=== PATIENT | male | born 1990 | race Caucasian/White ===

== ENCOUNTER 2016-06-21 21:24 | Inpatient (IN) | payer BC, OTHER ==
[~2016-06-21] VITALS: Ht 162.6 cm; Wt 50.7 kg
[2016-06-22 00:25] VITALS: BP 123/85; PULSE 110; RESP 20; TEMP 98.3; O2SAT 98
[2016-06-22 01:41] VITALS: BP 123/85; PULSE 110; RESP 20; TEMP 98.3; O2SAT 98
[2016-06-22] MEDS ORDERED: BENZTROPINE MESYLATE 2 MG/2 ML VIAL IM PRN (02:00)
[2016-06-22] MEDS ORDERED: BENZTROPINE MESYLATE 1 MG TAB PO PRN (02:00)
--- NOTE | 2016-06-22 11:53 | HHI.HP ---
Provisional Diagnosis Admission Date Jun 22, 2016 at 00:40 Certification of Person's Competence To Provide Express and Informed Consent I have personally examined Marco Choudhury , a person being served at [facility] on, Jun 22, 2016 11:53. Express and informed consent means consent voluntarily given in writing, by a competent person, after sufficient explanation and disclosure of the subject matter involved to enable the person to make a knowing and willful decision without any element of force, fraud, deceit, duress, or other form of constraint or coercion. This person is 18 years of age or older, is not now known to be incompetent to consent to treatment with a guardian advocate, and does not have a health care surrogate or proxy currently making medical treatment decisions. I have found this person to be one of the following: [] Competent to provide express and informed consent, as defined above, for voluntary admission to this facility and is competent to provide express and informed consent for treatment. He/she has the consistent capacity to make well reasoned, willful, and knowing decisions concerning his or her medical or mental health treatment. The person fully and consistently understands the purpose of the admission for examination/placement and is fully capable of personally exercising all rights assured under [place] [x] Incompetent to provide express and informed consent to voluntary admission, and this is incompetent to provide express and informed consent to treatment. The person must be transferred to involuntary status and a petition for a guardian advocate filed with the Circuit Court. [] Refusing to provide express and informed consent to voluntary admission but is competent to provide express and informed consent for treatment. The person must be discharged or transferred to involuntary status. Form shall be completed within 24 hours of a person's arrival at the receiving facility and filed in the clinical record of each person: 1. Admitted on a voluntary basis 2. Permitted to provide express and informed consent to his/her own treatment 3. Allowed to transfer from involuntary to voluntary status 4. Prior to permitting a person to consent to his or her own treatment after having been previously found incompetent to consent to treatment. History of Present Illness Capacity: Lacks Capacity HPI Mr. Choudhury is a 25-year-old male of uncertain past psychiatric history who presents in transfer from [facility] under a Parmar act. Records from outside hospital reviewed. Documentation from that facility says that the patient has a history of schizophrenia and takes Lamictal , Klonopin, Invega Sustenna and hydroxyzine. It appears that the patient presented there, brought in by mother with reports of not sleeping in the last 24 hours, agitation and combativeness during the airplane ride from [place]. Documentation from outside hospital is somewhat obscure, but it does not appear that he received anything in the way of medications other than some normal saline. Patient was placed under a Parmar act by ED provider, Dr. Berman, and transferred here to [place]. Reviewing our EMR, I note that this is patient 's first visit to [place]. Patient seen and examined with counselor and nurse, Seda. Nurse Seda is acting as cosmetology professor as the patient apparently has limited Icelandic proficiency. Chart reviewed. Case discussed with nursing staff. On my examination today, the patient presents as fairly somnolent. There are no posturing or stereotypies or other abnormal motor movements to suggest a catatonia. He is with some effort aroused from sleep and able to participate in a brief interview. He says that he has been brought to the hospital " because I am the future." He denies any auditory or visual hallucinations. He denies any suicidal or homicidal ideation. He denies any paranoia. He denies any pain or discomfort. Psychiatric interview is limited as the patient is somewhat sedated. I did endeavor to obtain further collateral information from patient's mother, Ana Lilia Zelaya at the number listed in the EMR. I left a voicemail requesting a call back. Review of Systems ROS Limitations: Altered Mental Status, Poor Historian Other Limited review of systems because of patient's current mental status Past Psych History Psychological trauma history Unable to obtain from patient because of sedation Violence risk - others (6 mos) Unable to perform violence risk assessment given limited history Violence risk - self (6 mos) Unable to perform suicide risk assessment given limited history Substance Abuse History Drugs/Alcohol past 12 months Patient unable to provide due to sedation Past Family Social History Coded Allergies: No Known Allergies (Unverified , 06/22/16) Past Medical History Unclear at present Current Medications Medications (Trade) Dose Ordered Sig/Jerson Route Start Time Stop Time Status Last Admin (Ativan) 1 mg Q6H PRN PO 06/22/16 02:00 (Ativan Inj) 1 mg Q6H PRN IM 06/22/16 02:00 (Cogentin) 1 mg Q12H PRN PO 06/22/16 02:00 (Cogentin Inj) 1 mg Q12H PRN IM 06/22/16 02:00 (Benadryl) 50 mg HS PRN PO 06/22/16 02:00 (Tylenol) 650 mg Q4H PRN PO 06/22/16 02:00 (Milk Of Magnesia Liq) 30 ml DAILY PRN PO 06/22/16 02:00 (Mag-Al Plus Susp Liq) 30 ml Q6H PRN PO 06/22/16 02:00 Family History Unable to ascertain from patient due to sedation Social History Unable to obtain from patient due to sedation Patient's Strengths (min. 2) In a monitored setting. Verbally fluent. Physical Exam Physical examination completed at outside hospital. On my examination today, patient appears to be well-nourished and well-developed and in no acute physical distress. He is breathing easily and is in no respiratory distress. No motor abnormalities noted. Laboratories and vital signs reviewed: Vital Signs Vital Signs Date Time Temp Pulse Resp B/P Pulse Ox O2 Delivery O2 Flow Rate FiO2 06/22/16 01:41 98.3 110 20 123/85 98 Lab Results Outside hospital laboratories and studies reviewed: Head CT read as no acute intracranial abnormality. Chest x-ray read as normal. Urinalysis bland. Toxicology positive for benzodiazepines. CBC significant for mild anemia with hemoglobin of 12.9. CMP unremarkable. Alcohol level undetectable. EKG read as sinus bradycardia with a QTc of 431 ms. Mental Status Examination Patient is casually dressed. He is fairly well groomed and appears to be maintaining basic hygiene. He is somewhat sedated but able to be awakened. He is oriented to person at least. No motor abnormalities noted. Speech is somewhat slow. Language and fund of knowledge difficult to assess. Affect is flat. Thought process slowed. No delusions elicited. Denies AVH. Denies SI or HI. Insight and judgment are presently unclear. Assessment & Plan Problem List: (1) Adjustment disorder ICD Code: F43.20 (2) Sedated ICD Code: R40.4 Assessment & Plan This is a 25-year-old male of uncertain past psychiatric history who presents in transfer from outside hospital under a Parmar act. Documentation from outside hospital suggests a history of schizophrenia and that the patient is receiving Invega Sustenna, and other psychotropic medications. He is quite sedated at the time of my evaluation and a history I am able to obtain from him is quite limited for this reason. Collateral is also unfortunately presently wanting. There is nothing in the laboratory workup undertaken at outside hospital to suggest a medical etiology for his sedation, and his head CT there was read as normal. The notes from outside hospital do say that the patient hadn't slept in the preceding 24 hours, which may be contributing. Parmar Act remains in place and patient will remain for the time being on the inpatient unit for observation until further information can be obtained. Admitted inpatient. Parmar act remains in place for now. I will recheck a CBC to ensure anemia is stable. Check TSH, ammonia, B12, RPR. Unclear if med list provided by outside hospital is accurate, and so I will hold off on starting any of the medications listed there. I will provide Ativan PRN anxiety, Cogentin PRN EPS. Vitals every shift. Counselor to see. Collateral. Disposition planning. Estimated length of stay: Unclear at present. Discharge Planning Pending outcome of observation. Problem Qualifiers (1) Adjustment disorder: Qualified Code: F43.20 - Adjustment disorder, unspecified type Van Barnhart MD Jun 22, 2016 11:53
[2016-06-22 13:13] LABS: ANION GAP 9 MEQ/L (5-15); BICARBONATE 25.3 MEQ/L (21.0-32.0); BLOOD UREA NITROGEN 11 MG/DL (7-18); CHLORIDE 106 MEQ/L (98-107); GLOMERULAR FILTRATION RATE 75 ML/MIN (>89); LDL CHOLESTEROL 73 MG/DL (0-99); POTASSIUM 4.5 MEQ/L (3.5-5.1); SODIUM (NA) 140 MEQ/L (136-145)
[2016-06-22 16:21] LABS: HEMOGLOBIN A1a 0.9 %; HEMOGLOBIN A1b 0.9 %; HEMOGLOBIN Ao 86.7 %; HEMOGLOBIN F 0.8 %; HEMOGLOBIN LA1C 1.8 %; HEMOGLOBIN P3 3.2 %
[2016-06-22 16:50] LABS: AUTOMATED NEUTROPHIL # 5.7 TH/MM3 (1.8-7.7); BASOPHIL % 0.3 % (0.0-2.0); EOSINOPHIL # 0.2 TH/MM3 (0-0.4); EOSINOPHIL % 1.9 % (0.0-4.0); HEMATOCRIT 40.8 % (39.0-51.0); HEMO FLAGS DIFF FINAL; LYMPH % 23.5 % (9.0-44.0); LYMPHOCYTE # 1.9 TH/MM3 (1.0-4.8); MEAN CELL VOLUME 90.2 FL (80.0-100.0); MEAN CORPUSCULAR HEMOGLOBIN 30.2 PG (27.0-34.0); MEAN CORPUSCULAR HGB CONC 33.5 % (32.0-36.0); MONO % 3.9 % (0.0-8.0); NEUT % 70.4 % (16.0-70.0); PLATELET COUNT 215 TH/MM3 (150-450); RED BLOOD COUNT 4.53 MIL/MM3 (4.50-5.90); WHITE BLOOD COUNT 8.1 TH/MM3 (4.0-11.0)
[2016-06-22 18:12] VITALS: BP 144/73; PULSE 111; RESP 19; TEMP 98.6; O2SAT 96
[2016-06-22] MEDS: LORazepam 1 MG TAB PO PRN (22:51)
[2016-06-22] MEDS: diphenhydrAMINE HCL 50 MG CAP - HS PRN PO (22:51)
[2016-06-22] MEDS ORDERED: LAMO25 PO (23:00)
[2016-06-22] MEDS ORDERED: KLON2TAB PO (23:00)
[2016-06-22] MEDS ORDERED: CLON1 PO (23:00)
[2016-06-22] MEDS ORDERED: VIST50CA PO (23:00)
[2016-06-22] MEDS ORDERED: FAMO1TAB73 PO (23:07)
[2016-06-23 06:06] VITALS: BP 103/63; PULSE 69; RESP 16; TEMP 97.6; O2SAT 98
[2016-06-23] MEDS: ACETAMINOPHEN 325 MG TAB PO PRN (11:22)
--- NOTE | 2016-06-23 12:07 | HHI.PYPN ---
Subjective Remarks Patient seen and examined with nurse. Chart reviewed. Case discussed with nursing staff reports the patient tried to escape off the unit and has poor boundaries. On my examination today, the patient presents as somewhat tearful. He reports a history of schizophrenia. He endorses auditory hallucinations but cannot describe these in any detail. He endorses vague suicidal ideation but no reported plan or intent. He reports that he was started on Invega Sustenna but can't remember the dose. I did place a call to an alternate number for patient's mother and left a voicemail requesting a call back. Review of Systems ROS Limitations: Psychotic, Poor Historian Except as stated in HPI: all other systems reviewed are Neg Objective Alert: Yes [place]: Person Mood: Anxious Affect: Tearful Memory Intact: Comment (Not assessed) Hallucinations: Auditory Delusions: No Delusion Type: Other (None elicited) Suicidal: Ideation (+SI, no plan/intent) Homicidal: Ideation (No HI) Insight/Judgment Poor Remarks Patient is somewhat psychomotor slowed but otherwise no motoric abnormalities noted. Thought process slow. Speech somewhat soft but otherwise within normal limits for rate and tone. Labs Test 06/22/16 06/22/16 12:44 16:18 Sodium Level 140 MEQ/L Potassium Level 4.5 MEQ/L Chloride Level 106 MEQ/L Carbon Dioxide Level 25.3 MEQ/L Anion Gap 9 MEQ/L Blood Urea Nitrogen 11 MG/DL Creatinine 1.17 MG/DL Estimat Glomerular Filtration 75 ML/MIN Rate Random Glucose 88 MG/DL Hemoglobin A1c 5.1 % Calcium Level 8.8 MG/DL Triglycerides Level 225 MG/DL Cholesterol Level 150 MG/DL LDL Cholesterol 73 MG/DL HDL Cholesterol 32.0 MG/DL Cholesterol/HDL Ratio 4.68 RATIO White Blood Count 8.1 TH/MM3 Red Blood Count 4.53 MIL/MM3 Hemoglobin 13.7 GM/DL Hematocrit 40.8 % Mean Corpuscular Volume 90.2 FL Mean Corpuscular Hemoglobin 30.2 PG Mean Corpuscular Hemoglobin 33.5 % Concent Red Cell Distribution Width 14.0 % Platelet Count 215 TH/MM3 Mean Platelet Volume 9.7 FL Neutrophils (%) (Auto) 70.4 % Lymphocytes (%) (Auto) 23.5 % Monocytes (%) (Auto) 3.9 % Eosinophils (%) (Auto) 1.9 % Basophils (%) (Auto) 0.3 % Neutrophils # (Auto) 5.7 TH/MM3 Lymphocytes # (Auto) 1.9 TH/MM3 Monocytes # (Auto) 0.3 TH/MM3 Eosinophils # (Auto) 0.2 TH/MM3 Basophils # (Auto) 0.0 TH/MM3 CBC Comment DIFF FINAL Differential Comment Ammonia 35 MCMOL/L Vitamin B12 Level 340 PG/ML Thyroid Stimulating Hormone 1.440 uIU/ML 3rd Gen Labs reviewed. Very mild hyperammonemia unlikely to be the cause of patient's presenting symptoms. Vitals/IOs Vital Signs Date Time Temp Pulse Resp B/P Pulse Ox O2 Delivery O2 Flow Rate FiO2 06/23/16 06:06 97.6 69 16 103/63 98 Intake and Output 06/22/16 06/22/16 06/23/16 08:00 16:00 00:00 Intake Total 360 ml Balance 360 ml Assessment & Plan Problem List: (1) Schizophrenia ICD Code: F20.9 Assessment & Plan Patient apparently recently received long-acting injectable paliperidone but has ongoing psychotic symptoms. I will augment paliperidone with Haldol. Awaiting EEG. Continue to monitor on inpatient unit. Continue other medications and care as ordered. Justification for Cont. Inpt. Impairment in safety. Impairment in reality construction. Impairment in social function. Medication changes and process. High risk for decompensation in a less restrictive environment. Discharge Planning Pending psychiatric stabilization. Problem Qualifiers (1) Schizophrenia: Qualified Code: F20.3 - Undifferentiated schizophrenia Van Barnhart MD Jun 23, 2016 12:07
[2016-06-23] MEDS: ALUMINUM/MAGNESIUM/SIMETH 30 ML CUP PO PRN (17:39)
[2016-06-23] MEDS: diphenhydrAMINE HCL 50 MG CAP - HS PRN PO (20:01)
[2016-06-23] MEDS: LORazepam 1 MG TAB PO PRN (20:01)
--- NOTE | 2016-06-23 20:28 | MG ---
cc: ISIDRO ANDERS MD Lab No: [id number] Date: 06/23/16 Age: 25 Sex: M Race: DATE OF : 1990 HISTORY A 25-year-old. Parmar Act, agitated, combative, catatonic state. DESCRIPTION Frequent eye movement, blink artifact noted. Posterior rhythm appeared to show 5-7 Hz activity incrementing up to 8 Hz. Significant amount of artifact myogenic occurring during the recording. Single-lead EKG showing sinus rhythm. INTERPRETATION Significant myogenic artifact. In the interval epochs of EEG there appears to be very minimal encephalopathy. No clear seizure activity. Clinical correlation. MD KARO Khan/ROLAF /5:41 PM /8:22 PM
[2016-06-23] MEDS ORDERED: HALOPERIDOL 5 MG TAB PO SCH (21:00)
[2016-06-23 21:46] VITALS: BP 144/72; PULSE 126; RESP 16; TEMP 98.1; O2SAT 96
[2016-06-24 06:18] VITALS: BP 92/61; PULSE 52; RESP 16; TEMP 97.7; O2SAT 96
--- NOTE | 2016-06-24 08:11 | PD.CONS ---
Provisional Diagnosis Admission Date Jun 22, 2016 at 00:40 History of Present Illness Service Psychiatry Consult Requested By Attending Darrel. Reason for Consult Second opinion petition Parmar act Primary Care Physician Unknown HPI Mr. Choudhury is a 25-year-old male of uncertain past psychiatric history who presents in transfer from [facility] under a Parmar act. Records from outside hospital reviewed. Documentation from that facility says that the patient has a history of schizophrenia and takes Lamictal , Klonopin, Invega Sustenna and hydroxyzine. It appears that the patient presented there, brought in by mother with reports of not sleeping in the last 24 hours, agitation and combativeness during the airplane ride from [place]. Documentation from outside hospital is somewhat obscure, but it does not appear that he received anything in the way of medications other than some normal saline. Patient was placed under a Parmar act by ED provider, Dr. Berman, and transferred here to [place]. Reviewing our EMR, I note that this is patient 's first visit to [place]. Patient seen and examined with counselor and nurse, Seda. Nurse Seda is acting as material flow analyst as the patient apparently has limited Greenlandic proficiency. Chart reviewed. Case discussed with nursing staff. On my examination today, the patient presents as fairly somnolent. There are no posturing or stereotypies or other abnormal motor movements to suggest a catatonia. He is with some effort aroused from sleep and able to participate in a brief interview. He says that he has been brought to the hospital " because I am the future." He denies any auditory or visual hallucinations. He denies any suicidal or homicidal ideation. He denies any paranoia. He denies any pain or discomfort. Psychiatric interview is limited as the patient is somewhat sedated. I did endeavor to obtain further collateral information from patient's mother, Ana Lilia Zelaya at the number listed in the EMR. I left a voicemail requesting a call back. 06/24/16 Patient is a 25-year-old male admitted to the hospital under Parmar act. Patient seen in his room with nurse Betty, patient in bed selectively mute laying there without responding to me, staff notes patient showed marked psychomotor retardation is noted temperature laying on the floor in the halls talking to himself. Patient is admitted to Dr. Chaiffetz. He has signed first opinion petition supporting Parmar act. I agree. Patient meets criteria for involuntary psychiatric hospitalization under the Parmar act. Thus I will cosign second opinion petition supporting Parmar act Past Family Social History Coded Allergies: No Known Allergies (Unverified , 06/22/16) Reported Medications Famotidine (Pepcid)40 Mg Tab40 Mg PO DAILY #60 TAB Ref 0 06/22/16 Hydroxyzine Pamoate (Vistaril)50 Mg Cap50 Mg PO HS Ref 0 06/22/16 Lamotrigine (Lamictal)25 Mg Tab50 Mg PO DAILY #30 TAB Ref 0 06/22/16 Clonazepam (Klonopin)2 Mg Tab2 Mg PO HS #60 TAB Ref 0 06/22/16 Clonazepam (Klonopin)1 Mg Tab1 Mg PO TID #90 TAB Ref 0 06/22/16 Current Medications Medications (Trade) Dose Ordered Sig/Jerson Route Start Time Stop Time Status Last Admin (Ativan) 1 mg Q6H PRN PO 06/22/16 02:00 06/23/16 20:01 (Ativan Inj) 1 mg Q6H PRN IM 06/22/16 02:00 (Cogentin) 1 mg Q12H PRN PO 06/22/16 02:00 (Cogentin Inj) 1 mg Q12H PRN IM 06/22/16 02:00 (Benadryl) 50 mg HS PRN PO 06/22/16 02:00 06/23/16 20:01 (Tylenol) 650 mg Q4H PRN PO 06/22/16 02:00 06/23/16 11:22 (Milk Of Magnesia Liq) 30 ml DAILY PRN PO 06/22/16 02:00 (Mag-Al Plus Susp Liq) 30 ml Q6H PRN PO 06/22/16 02:00 06/23/16 17:39 (Haldol) 5 mg BID PO 06/23/16 21:00 06/23/16 20:01 Patient's Strengths (min. 2) In a monitored setting. Verbally fluent. Physical Exam Vital Signs Vital Signs Date Time Temp Pulse Resp B/P Pulse Ox O2 Delivery O2 Flow Rate FiO2 06/24/16 06:18 97.7 52 16 92/61 96 I/O 06/23/16 06/23/16 06/24/16 08:00 16:00 00:00 Intake Total 1000 ml Balance 1000 ml Mental Status Examination Patient alert those selectively mute marked psychomotor retardation Appearance Somewhat disheveled Speech: Other (selectively mute) Orientation: Person Memory: Impaired (describe) Thought Process: Other (difficult to ascertain due to patient being mute) Thought Content: Other (difficult to ascertain due to patient being mute) Language Staff states patient speaks Greenlandic as well as [place]ian Fund of Knowledge Difficult to ascertain due to patient being selectively mute Attention and Concentration: Other (poor) Suicidal Ideation: No (difficult to ascertain due to patient being selectively view) Previous Suicide Attempts: No Homicidal Ideation: No (difficult to ascertain due to patient being selectively mute) Previous Homicide Attempts: No Insight: Poor Judgment: Poor Affect: Other (marked decrease range and intensity) Mood: Other (restricted) Motor Activity: Normal gait (patient in bed unable to assess though staff states he has been ambulatory) Assessment & Plan Problem List: (1) Schizophrenia ICD Code: F20.9 Assessment & Plan Estimated LOS: days Problem Qualifiers (1) Schizophrenia: Qualified Code: F20.3 - Undifferentiated schizophrenia Eusebio Dickey MD Jun 24, 2016 08:11
--- NOTE | 2016-06-24 10:38 | HHI.PYPN ---
Subjective Remarks Patient seen and examined. Chart reviewed. Case discussed with nursing staff who reports that the patient has been sleeping so far this morning. He was reportedly quite disorganized yesterday and required 20 minutes to dress himself. When I evaluated the patient on my initial rounds this morning he is quite sleepy and I cannot get him to participate in the interview. I return later around noon time and he is more awake although still in bed. He does say that with the addition of Haldol the voices have decreased but does complain of some sedation associated with this medication. He denies side effects otherwise. No SI or HI voiced today. Counselor has been in contact with patient's mother and has apprise me of the collateral that he has received from her. Patient apparently has a history primarily of intellectual disability with only relatively recent onset of psychotic symptoms. Apparently mother feels like his psychotic symptoms fail to improve or even worsened with the initiation of Invega. Review of Systems ROS Limitations: Psychotic, Poor Historian Except as stated in HPI: all other systems reviewed are Neg Objective Alert: Yes [place]: Person, Place Mood: Calm Affect: Flat Memory Intact: Comment (Not assessed) Hallucinations: Auditory (Less today) Delusions: No Delusion Type: Other (None elicited) Suicidal: Ideation (No SI) Homicidal: Ideation (No HI) Insight/Judgment Poor Remarks No abnormal motor movements noted. Speech somewhat slow. Grooming and hygiene fair. Labs Labs reviewed. EEG results reviewed. Minimal encephalopathy noted. Vitals/IOs Vital Signs Date Time Temp Pulse Resp B/P Pulse Ox O2 Delivery O2 Flow Rate FiO2 06/24/16 06:18 97.7 52 16 92/61 96 Intake and Output 06/23/16 06/23/16 06/24/16 08:00 16:00 00:00 Intake Total 1000 ml Balance 1000 ml Assessment & Plan Problem List: (1) Schizophrenia ICD Code: F20.9 (2) History of mental retardation ICD Code: Z86.59 Assessment & Plan Excessive sedation with Haldol. I will discontinue Haldol and replace with less sedating Abilify. Continue to monitor on the inpatient unit. Continue other medications and care as ordered. Justification for Cont. Inpt. Impairment in reality construction. Complicating conditions, namely the sedation. Medication changes in process. Risk for decompensation pending psychiatric stabilization. Discharge Planning Pending psychiatric stabilization. If patient is able to tolerate Abilify better than the Haldol, I would still estimate that the patient would require 5- 7 days for adequate stabilization for safe discharge. Request HC Surrog/Guard Advoc?: Yes Problem Qualifiers (1) Schizophrenia: Qualified Code: F20.3 - Undifferentiated schizophrenia Van Barnhart MD Jun 24, 2016 10:38
[2016-06-24] MEDS: ARIPiprazole 5 MG TAB PO SCH (12:39)
[2016-06-24 18:42] VITALS: BP 127/74; PULSE 128; RESP 18; TEMP 97.9; O2SAT 97
[2016-06-24] MEDS: LORazepam 1 MG TAB PO PRN (21:03)
[2016-06-24] MEDS: diphenhydrAMINE HCL 50 MG CAP - HS PRN PO (21:03)
[2016-06-25 05:53] VITALS: BP 126/84; PULSE 100; RESP 18; TEMP 98.2; O2SAT 98
[2016-06-25] MEDS: ARIPiprazole 5 MG TAB PO SCH (09:00)
[2016-06-25] MEDS ORDERED: LORazepam 2 MG/ML VIAL IM ONE (10:15)
--- NOTE | 2016-06-25 10:59 | HHI.PYPN ---
Subjective Remarks Patient seen and examined with counselor and nurse. Chart reviewed. Case discussed with nursing staff who reports patient may be struggling with some constipation. Pt was also noted to be staring intensely at RN in an off- putting fashion. On my examination today, patient is laying in bed in a somewhat uncomfortable looking position. He is not stuporous and does interact , although he engages in some purposeless movements like tapping his finger on his forehead. He denies SI/HI/AVH but appears frankly internally preoccupied. Does report some constipation. No side effects from medications. I did order the patient medicated with Ativan 2mg IM once to see if he was experiencing a benzo-responsive mild catatonia, but on checking back with the RN ~30min after administration, patient is more or less unchanged. Review of Systems ROS Limitations: Psychotic, Poor Historian Except as stated in HPI: all other systems reviewed are Neg Objective Alert: Yes [place]: Person, Place Mood: Calm Affect: Flat (remains flat) Memory Intact: Comment (Not formally assessed) Hallucinations: Other (Denies AVH) Delusions: No Delusion Type: Other (No delusions) Suicidal: Ideation (Denies SI) Homicidal: Ideation (Denies HI) Insight/Judgment Poor Remarks Motor exam as above. No other motoric abnormalities noted. Thought process slowed. Speech somewhat slow and soft. Labs Labs reviewed. RPR nonreactive. Vitals/IOs Vital Signs Date Time Temp Pulse Resp B/P Pulse Ox O2 Delivery O2 Flow Rate FiO2 06/25/16 05:53 98.2 100 18 126/84 98 Intake and Output 06/24/16 06/24/16 06/25/16 08:00 16:00 00:00 Intake Total 220 ml Balance 220 ml Assessment & Plan Problem List: (1) Schizophrenia ICD Code: F20.9 (2) History of mental retardation ICD Code: Z86.59 Assessment & Plan Titrate Abilify through the weekend to target psychosis. Add Colace. Continue other medications as ordered. Continue to monitor on the high acuity unit. Continue other care as ordered. Justification for Cont. Inpt. Impairment in reality construction. Medication changes in process. High risk for decompensation and a less restrictive environment. Discharge Planning Pending psychiatric stabilization Request HC Surrog/Guard Advoc?: Yes Problem Qualifiers (1) Schizophrenia: Qualified Code: F20.3 - Undifferentiated schizophrenia Van Barnhart MD Jun 25, 2016 10:59
[2016-06-25] MEDS: MAGNESIUM HYDROXIDE SUSP 30 ML CUP PO PRN (12:59)
[2016-06-25 18:03] VITALS: BP 115/68; PULSE 90; RESP 18; TEMP 97.9; O2SAT 99
[2016-06-25] MEDS: DOCUSATE SODIUM 100 MG CAP PO SCH (20:47)
[2016-06-25] MEDS: diphenhydrAMINE HCL 50 MG CAP - HS PRN PO ×2 (20:47→20:48)
[2016-06-25] MEDS: LORazepam 1 MG TAB PO PRN ×2 (20:47→20:48)
[2016-06-26 05:35] VITALS: BP 100/53; PULSE 60; RESP 17; TEMP 97.7; O2SAT 97
[2016-06-26] MEDS: ARIPiprazole 10 MG TAB PO SCH (08:20)
[2016-06-26] MEDS: DOCUSATE SODIUM 100 MG CAP PO SCH ×2 (08:20→21:49)
[2016-06-26] MEDS: LORazepam 1 MG TAB PO PRN ×2 (08:20→17:38)
[2016-06-26] MEDS ORDERED: ARIPiprazole 10 MG TAB PO SCH (09:00)
[2016-06-26] MEDS: ALUMINUM/MAGNESIUM/SIMETH 30 ML CUP PO PRN (17:38)
[2016-06-26 20:21] VITALS: BP 133/68; PULSE 120; RESP 18; TEMP 97.7; O2SAT 98
--- NOTE | 2016-06-26 21:41 | HHI.PYPN ---
Subjective Remarks Pt seen and discussed with staff. Pt is selectively mute at times. He appears internally stimulated. He shakes head "no" when asked if he is experiencing side effects to medication. No acting out behaviors on unit. No SI/HI Objective Alert: Yes [place]: Person, Place Mood: Calm Affect: Flat Memory Intact: Comment (Not formally assessed) Hallucinations: Other (appears internally stimulated) Delusions: No Delusion Type: Other (No delusions) Suicidal: Ideation (Denies SI) Homicidal: Ideation (Denies HI) Insight/Judgment poor Vitals/IOs Vital Signs Date Time Temp Pulse Resp B/P Pulse Ox O2 Delivery O2 Flow Rate FiO2 06/26/16 20:21 97.7 120 18 133/68 98 Assessment & Plan Problem List: (1) Schizophrenia ICD Code: F20.9 (2) History of mental retardation ICD Code: Z86.59 Assessment & Plan Continue current tx plan Estimated LOS: days Justification for Cont. Inpt. 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
[2016-06-26] MEDS: diphenhydrAMINE HCL 50 MG CAP - HS PRN PO (21:49)
[2016-06-27 06:26] VITALS: BP 108/58; PULSE 112; RESP 18; TEMP 98.4; O2SAT 97
[2016-06-27] MEDS: ARIPiprazole 10 MG TAB PO SCH (08:19)
[2016-06-27] MEDS: DOCUSATE SODIUM 100 MG CAP PO SCH ×2 (08:19→21:22)
[2016-06-27] MEDS: LORazepam 1 MG TAB PO PRN (08:19)
--- NOTE | 2016-06-27 13:30 | HHI.PYPN ---
Subjective Remarks Pt seen and discussed with staff. Pt has been more engaged in milieu today and less selectively mute. He told RN that she had vampire teeth and was suspicious of RN's motives. He has been making flirtacious facial expressions at female peers and staff and has to be redirected to keep hands out of pants during interview with MD and RN. No aggression. He denies medication side effects. No SI/HI. Objective Alert: Yes [place]: Person, Place Mood: Calm Affect: Flat Memory Intact: Comment (Not formally assessed) Hallucinations: Other (appears internally stimulated) Delusions: Yes (bizarre ideations) Delusion Type: Other (No delusions) Suicidal: Ideation (Denies SI) Homicidal: Ideation (Denies HI) Insight/Judgment poor Remarks disorganized behaviors Vitals/IOs Vital Signs Date Time Temp Pulse Resp B/P Pulse Ox O2 Delivery O2 Flow Rate FiO2 06/27/16 06:26 98.4 112 18 108/58 97 Assessment & Plan Problem List: (1) Schizophrenia ICD Code: F20.9 (2) History of mental retardation ICD Code: Z86.59 Assessment & Plan Continue current tx plan. Estimated LOS: days Justification for Cont. Inpt. impairments in social functioning and reality testing Request HC Surrog/Guard Advoc?: Yes Problem Qualifiers (1) Schizophrenia: Qualified Code: F20.3 - Undifferentiated schizophrenia Stephanie Uriarte MD Jun 27, 2016 13:30
[2016-06-27 15:38] VITALS: BP 152/82; PULSE 102; RESP 18; TEMP 98; O2SAT 100
[2016-06-28 05:25] VITALS: BP 117/58; PULSE 71; RESP 18; TEMP 96.6; O2SAT 94
[2016-06-28] MEDS: ARIPiprazole 10 MG TAB PO SCH (09:11)
[2016-06-28] MEDS: DOCUSATE SODIUM 100 MG CAP PO SCH ×2 (09:12→20:31)
--- NOTE | 2016-06-28 10:04 | HHI.PYPN ---
Subjective Remarks Patient seen and examined. Chart reviewed. Case discussed with nursing staff who reports patient awoke this morning to take medications and then went back to bed. On my examination today, I find the patient sleeping in his room. He does not appear to be in any distress. He does awaken briefly and exchanges a few pleasantries but does not really participate in extended interview. No SI or HI voiced. No evidence side effects from medications. Spoke with patient's mother Ms. Zelaya. She notes that the patient does have a history of intellectual disability but only relatively recently, within the last few months, began to hear voices and behave in a strange fashion. He was started on Invega Sustenna and received the booster dose about a week prior to admission. Mother reports that since the Invega Sustenna was initiated the patient's symptoms worsened. She notes that on the unit here on the Abilify, the patient is calmer but remains fairly disorganized. I discussed the treatment plan with Ms. Zelaya, and she is in agreement. She thanks me for the call. Review of Systems ROS Limitations: Poor Historian (limited ROS) Objective Alert: Yes [place]: Person, Place Mood: Calm Affect: Blunted Memory Intact: Comment (Not formally assessed) Hallucinations: Other (no AVH) Delusions: No Delusion Type: Other (no delusions elicited, but limited sample) Suicidal: Ideation (no SI voiced) Homicidal: Ideation (no HI voiced) Insight/Judgment Poor Remarks No motor abnormalities noted. No stiffness. No posturing. No stereotypies. Labs Labs reviewed. Vitals/IOs Vital Signs Date Time Temp Pulse Resp B/P Pulse Ox O2 Delivery O2 Flow Rate FiO2 06/28/16 05:25 96.6 71 18 117/58 94 Intake and Output 06/27/16 06/27/16 06/28/16 08:00 16:00 00:00 Intake Total 180 ml Balance 180 ml Assessment & Plan Problem List: (1) Schizophrenia ICD Code: F20.9 (2) History of mental retardation ICD Code: Z86.59 Assessment & Plan Patient seems a little more sleepy today. I will arrest Abilify titration at 20mg/day dose to ensure this allow patient to acclimate to this dose. Continue to monitor on high acuity unit. Continue other medications and care as ordered. Justification for Cont. Inpt. High risk for decompensation in a less restrictive environment Discharge Planning Pending psychiatric stabilization Request HC Surrog/Guard Advoc?: Yes Problem Qualifiers (1) Schizophrenia: Qualified Code: F20.3 - Undifferentiated schizophrenia Van Barnhart MD Jun 28, 2016 10:04
[2016-06-28 16:38] VITALS: BP 114/75; PULSE 99; RESP 18; TEMP 98; O2SAT 99
[2016-06-28 17:26] VITALS: BP 114/75; PULSE 99; RESP 18; TEMP 98
[2016-06-28] MEDS: diphenhydrAMINE HCL 50 MG CAP - HS PRN PO (20:30)
[2016-06-29] MEDS: LORazepam 1 MG TAB PO PRN ×2 (01:09→20:47)
[2016-06-29] MEDS: DOCUSATE SODIUM 100 MG CAP PO SCH ×2 (08:24→20:47)
--- NOTE | 2016-06-29 12:44 | HHI.PYPN ---
Subjective Remarks Patient seen and examined with nurse. Chart reviewed. Case discussed with nurse and counselor in treatment team. Per nursing staff, patient has been seclusive to room and responding to internal stimuli. On my examination today, the patient endorses ongoing audiovisual hallucinations consisting of "video games." He does complain of feeling somewhat sleepy now but says this is because he sleeps poorly overnight. Charting does indeed indicate the patient has been sleeping poorly overnight. No SI or HI voiced. No side effects from medications. Review of Systems ROS Limitations: Psychotic, Poor Historian Except as stated in HPI: all other systems reviewed are Neg Objective Alert: Yes [place]: Person, Place Mood: Calm Affect: Flat Memory Intact: Comment (not assessed) Hallucinations: Other (as noted above) Delusions: No Delusion Type: Other (none elicited) Suicidal: Ideation (no SI) Homicidal: Ideation (no HI) Insight/Judgment Poor Remarks No motor abnormalities noted. Grooming and hygiene fair. Speech somewhat soft. Labs Labs reviewed. Vitals/IOs Vital Signs Date Time Temp Pulse Resp B/P Pulse Ox O2 Delivery O2 Flow Rate FiO2 06/28/16 17:26 98.0 99 18 114/75 06/28/16 16:38 99 Intake and Output 06/28/16 06/28/16 06/29/16 08:00 16:00 00:00 Intake Total 400 ml Balance 400 ml Assessment & Plan Problem List: (1) Schizophrenia ICD Code: F20.9 (2) History of mental retardation ICD Code: Z86.59 Assessment & Plan Add Ambien 5mg qHS PRN insomnia in hopes of getting the patient to sleep better at night and be awake more during the day. Continue Abilify as ordered for now. Continue to monitor on the high acuity unit. Continue other medications and care as ordered. Justification for Cont. Inpt. Impairment in reality construction. Medication changes in process. High risk for decompensation in a less restrictive environment. Discharge Planning Pending psychiatric stabilization. If patient is indeed having a worsening of psychotic symptoms from Invega Sustenna it might be some time, on the order of weeks, until these are improved. Request HC Surrog/Guard Advoc?: Yes Problem Qualifiers (1) Schizophrenia: Qualified Code: F20.3 - Undifferentiated schizophrenia Van Barnhart MD Jun 29, 2016 12:43
[2016-06-29] MEDS ORDERED: ZOLPIDEM TARTRATE 5 MG TAB PO PRN (16:00)
[2016-06-29 18:05] VITALS: BP 140/76; PULSE 90; RESP 17; TEMP 96; O2SAT 98
[2016-06-30 06:05] VITALS: BP 110/56; PULSE 80; RESP 18; TEMP 97.7; O2SAT 96
[2016-06-30] MEDS: DOCUSATE SODIUM 100 MG CAP PO SCH ×2 (08:53→20:43)
--- NOTE | 2016-06-30 11:14 | HHI.PYPN ---
Subjective Remarks Patient seen and examined with counselor. Chart reviewed. I note patient's oral intake has been somewhat poor. Case discussed with nursing staff. Nursing staff reports that the patient thought that he was God this morning. On my examination today, I find the patient dosing in his room. When I ask him about nursing report, he reiterates that he does think he's got although he also laughs after he says this and is not clear whether he is joking or not. Ongoing internal stimulation. No SI or HI voiced. No evident side effects from medications. Review of Systems ROS Limitations: Poor Historian Except as stated in HPI: all other systems reviewed are Neg Objective Alert: Yes [place]: Person, Place Mood: Calm Affect: Blunted Memory Intact: Comment (not assessed) Hallucinations: Other (internally preoccupied) Delusions: Yes Delusion Type: Grandiose (as noted above) Suicidal: Ideation (no SI) Homicidal: Ideation (no HI) Insight/Judgment Poor Remarks No abnormal motor movements noted. No posturing or stereotypies. Thought process somewhat slowed. Labs Labs reviewed. No new labs. Vitals/IOs Vital Signs Date Time Temp Pulse Resp B/P Pulse Ox O2 Delivery O2 Flow Rate FiO2 06/30/16 06:05 97.7 80 18 110/56 96 Intake and Output 06/29/16 06/29/16 06/30/16 08:00 16:00 00:00 Intake Total 720 ml Balance 720 ml Assessment & Plan Problem List: (1) Schizophrenia ICD Code: F20.9 (2) History of mental retardation ICD Code: Z86.59 Assessment & Plan Titrate Abilify to 25 mg daily to try to target psychosis. I will consult the dietitian to assess patient's poor oral intake. Check a BMP and CK. Encourage fluids. Continue to monitor on the inpatient unit. Continue other medications and care as ordered. Justification for Cont. Inpt. Impairment in reality construction. Impairment in self-care. Medication changes in process. High risk for decompensation in a less restrictive environment. Discharge Planning Pending psychiatric stabilization. Request HC Surrog/Guard Advoc?: Yes Problem Qualifiers (1) Schizophrenia: Qualified Code: F20.3 - Undifferentiated schizophrenia Van Barnhart MD Jun 30, 2016 11:14
[2016-06-30] MEDS ORDERED: PILL SPLITTER OTHER PRN (14:30)
[2016-06-30 16:27] LABS: BICARBONATE 26.3 MEQ/L (21.0-32.0); POTASSIUM 4.1 MEQ/L (3.5-5.1)
[2016-06-30 16:58] VITALS: BP 123/72; PULSE 105; RESP 18; TEMP 96.7; O2SAT 98
[2016-06-30 17:13] LABS: CKMB 5.1 NG/ML (0.5-3.6)
[2016-06-30] MEDS: LORazepam 1 MG TAB PO PRN (21:08)
[2016-07-01 06:05] VITALS: BP 130/70; PULSE 92; RESP 18; TEMP 97.3; O2SAT 98
[2016-07-01] MEDS: DOCUSATE SODIUM 100 MG CAP PO SCH ×2 (08:26→21:07)
[2016-07-01] MEDS: ARIPiprazole 10 MG TAB PO SCH (08:26)
--- NOTE | 2016-07-01 10:37 | HHI.PYPN ---
Subjective Remarks Patient seen and case discussed with nursing staff. Chart reviewed. I do see that the patient ate dinner last night and was apparently up and eating this morning although he subsequently vomited up his lunch. Dietitian consult is pending. Case discussed with nursing staff. For me today, patient appears to be internally preoccupied. He is wandering around the halls and laughs and mutters to himself at times. He does seem more awake and alert for this time of day. No evident side effects from medications. Review of Systems ROS Limitations: Psychotic, Poor Historian Other ROS limited because of patient's psychotic symptomatology. Objective Alert: Yes [place]: Person, Place Mood: Calm Affect: Blunted (tending towards flat) Memory Intact: Comment (not assessed) Hallucinations: Other (internally preoccupied) Delusions: No Delusion Type: Other (none today) Suicidal: Ideation (no SI) Homicidal: Ideation (no HI) Insight/Judgment Poor Remarks No motor abnormalities noted Labs Test 06/30/16 15:35 Sodium Level 140 MEQ/L Potassium Level 4.1 MEQ/L Chloride Level 106 MEQ/L Carbon Dioxide Level 26.3 MEQ/L Anion Gap 8 MEQ/L Blood Urea Nitrogen 10 MG/DL Creatinine 1.21 MG/DL Estimat Glomerular Filtration 72 ML/MIN Rate Random Glucose 97 MG/DL Calcium Level 9.1 MG/DL Total Creatine Kinase 585 U/L Creatine Kinase MB 5.1 NG/ML Creatine Kinase MB % 0.9 % Labs reviewed. CK elevated. Renal function remains fairly stable. Vitals/IOs Vital Signs Date Time Temp Pulse Resp B/P Pulse Ox O2 Delivery O2 Flow Rate FiO2 07/01/16 06:05 97.3 92 18 130/70 98 Intake and Output 06/30/16 06/30/16 07/01/16 08:00 16:00 00:00 Intake Total 720 ml Balance 720 ml Assessment & Plan Problem List: (1) Schizophrenia ICD Code: F20.9 (2) History of mental retardation ICD Code: Z86.59 Assessment & Plan Continue Abilify 25mg daily. Now that he is more active, much of patient's activity seems purposeless, and I still wonder about a component of catatonia. I will try scheduling some IM Ativan to see if we get a more robust cumulative effect than we did with the one-time dose earlier this admission. Awaiting dietitian input. Encouraging fluids and plan to recheck a CK and BMP in the morning. I will ask the hospitalist to see the patient for the elevated CK, although I suspect this is because of patient's motoric activity, as well as for the emesis noted today. Continue to monitor on the high acuity unit. Continue other medications and care as ordered. Patient's case was presented to the [facility] act [facility] and the patient's case was placed in continuance for a period of 4 weeks. Justification for Cont. Inpt. Impairment in self-care. Impairment in reality construction. Impairment in social function. Medication changes and process. High risk for decompensation in a less restrictive environment. Discharge Planning Pending psychiatric stabilization. Request HC Surrog/Guard Advoc?: Yes Problem Qualifiers (1) Schizophrenia: Qualified Code: F20.3 - Undifferentiated schizophrenia Van Barnhart MD Jul 01, 2016 10:37
[2016-07-01] MEDS: LORazepam 2 MG/ML VIAL IM SCH ×2 (14:10→18:41)
[2016-07-01 18:22] VITALS: BP 111/68; PULSE 85; RESP 18; TEMP 98
[2016-07-01 22:17] LABS: ALKALINE PHOSPHATASE 82 U/L (45-117); ALT (GPT) 27 U/L (12-78); ANION GAP 9 MEQ/L (5-15); AST (GOT) 25 U/L (15-37); BICARBONATE 27.9 MEQ/L (21.0-32.0); BLOOD UREA NITROGEN 13 MG/DL (7-18); CHLORIDE 102 MEQ/L (98-107); CREATINE KINASE 559 U/L (39-308); GLOMERULAR FILTRATION RATE 78 ML/MIN (>89); POTASSIUM 3.8 MEQ/L (3.5-5.1); SODIUM (NA) 139 MEQ/L (136-145); TOTAL BILIRUBIN ADULT 0.4 MG/DL (0.2-1.0)
[2016-07-01 22:21] LABS: INTERNATIONAL NORMALIZED RATIO 1.1 RATIO; PROTHROMBIN TIME - PATIENT 12.1 SEC (9.8-11.6)
[2016-07-01 22:33] LABS: CKMB 3.4 NG/ML (0.5-3.6)
[2016-07-02 06:09] VITALS: BP 100/57; PULSE 53; RESP 18; TEMP 97.6; O2SAT 98
[2016-07-02] MEDS: DOCUSATE SODIUM 100 MG CAP PO SCH ×2 (08:41→21:32)
[2016-07-02] MEDS: ARIPiprazole 10 MG TAB PO SCH (08:42)
[2016-07-02] MEDS: LORazepam 2 MG/ML VIAL IM SCH ×3 (08:42→18:10)
[2016-07-02 14:02] LABS: ALKALINE PHOSPHATASE 88 U/L (45-117); ALT (GPT) 30 U/L (12-78); ANION GAP 7 MEQ/L (5-15); AST (GOT) 25 U/L (15-37); BICARBONATE 26.9 MEQ/L (21.0-32.0); BLOOD UREA NITROGEN 14 MG/DL (7-18); CHLORIDE 103 MEQ/L (98-107); CREATINE KINASE 662 U/L (39-308); GLOMERULAR FILTRATION RATE 69 ML/MIN (>89); POTASSIUM 3.7 MEQ/L (3.5-5.1); SODIUM (NA) 137 MEQ/L (136-145); TOTAL BILIRUBIN ADULT 0.4 MG/DL (0.2-1.0)
--- NOTE | 2016-07-02 14:02 | RADRPT ---
EXAM DATE/TIME: 07/02/2016 13:34 [place] COMPARISON: No previous studies available for comparison. INDICATIONS : Nausea, short of breath MEDICAL HISTORY : None. SURGICAL HISTORY : None. ENCOUNTER: Initial ACUITY: 1 day PAIN SCORE: 0/10 LOCATION: Bilateral chest FINDINGS: The bowel gas is nonspecific. There are no signs of obstruction or free air for technique. No defini te calcified stones are identified for technique. CONCLUSION: Nonspecific abdomen. Narinder Lam MD on July 02, 2016 at 14:00 Board Certified Radiologist. This report was verified electronically.
[2016-07-02 14:17] LABS: CKMB 3.4 NG/ML (0.5-3.6)
--- NOTE | 2016-07-02 14:32 | PD.CONS ---
HPI Service [facility] Hospitalists Consult Requested By Psychiatric service Reason for Consult Medical management Primary Care Physician Unknown Diagnoses: History of Present Illness This is a 25-year-old [place] male with a past medical history of schizophrenia who is currently admitted in the psychiatric unit at the hospital under [facility] act and hospitalist services have been requested for medical management of elevated CK, nausea/vomiting and abdominal pain. Patient seen and examined today. Per nursing staff, patient was brought over by his family from [place] due to concerns of worsening mental status. On the flight, patient believed he was a werewolf. Patient is primarily Samoan-speaking therefore translation line is utilized to perform a history and physical exam. Despite using an radio mechanic helper in his [place] Samoan language, patient will not respond when questioned except that he did point to his left lower abdomen when asked if he had any abdominal pain. The remainder of the patient's history is obtained from review of the medical record and discussion with staff. Per nursing staff, patient vomited yesterday and today. He indicated to the nursing staff he was having left-sided lower abdominal pain. He appears to have decreased appetite. Since his admission, patient underwent EEG which showed minimal encephalopathy and no clear seizure activity. Review of Systems Except as stated in HPI: all other systems reviewed are Neg (attempted but unsuccessful due to patient's lack of response) Past Family Social History Allergies: Coded Allergies: No Known Allergies (Unverified , 06/22/16) Past Medical History Schizophrenia Past Surgical History Unable to obtain due to patient's lack of response/poor historian Reported Medications Famotidine (Pepcid)40 Mg Tab40 Mg PO DAILY #60 TAB Ref 0 06/22/16 Hydroxyzine Pamoate (Vistaril)50 Mg Cap50 Mg PO HS Ref 0 06/22/16 Lamotrigine (Lamictal)25 Mg Tab50 Mg PO DAILY #30 TAB Ref 0 06/22/16 Clonazepam (Klonopin)2 Mg Tab2 Mg PO HS #60 TAB Ref 0 06/22/16 Clonazepam (Klonopin)1 Mg Tab1 Mg PO TID #90 TAB Ref 0 06/22/16 Active Ordered Medications Current Medications Medications (Trade) Dose Ordered Sig/Jerson Route Start Time Stop Time Status Last Admin (Ativan) 1 mg Q6H PRN PO 06/22/16 02:00 06/30/16 21:08 (Ativan Inj) 1 mg Q6H PRN IM 06/22/16 02:00 (Cogentin) 1 mg Q12H PRN PO 06/22/16 02:00 (Cogentin Inj) 1 mg Q12H PRN IM 06/22/16 02:00 (Tylenol) 650 mg Q4H PRN PO 06/22/16 02:00 06/23/16 11:22 (Milk Of Magnesia Liq) 30 ml DAILY PRN PO 06/22/16 02:00 06/25/16 12:59 (Mag-Al Plus Susp Liq) 30 ml Q6H PRN PO 06/22/16 02:00 06/26/16 17:38 (Colace) 100 mg BID PO 06/25/16 21:00 07/02/16 08:41 (Ambien) 5 mg HS PRN PO 06/29/16 16:00 (Abilify) 25 mg DAILY PO 07/01/16 09:00 07/02/16 08:42 (Pill Splitter) 1 ea UNSCH PRN OTHER 06/30/16 14:30 (Ativan Inj) 1 mg TID IM 07/01/16 13:00 07/02/16 13:00 Family History Unable to obtain due to patient's lack of response/poor historian Social History Unable to obtain due to patient's lack of response/poor historian Physical Exam Vital Signs Vital Signs Date Time Temp Pulse Resp B/P Pulse Ox O2 Delivery O2 Flow Rate FiO2 07/02/16 06:09 97.6 53 18 100/57 98 07/01/16 18:22 98.0 85 18 111/68 Physical Exam GENERAL: This is a well-nourished, well-developed patient, in no apparent distress. Patient is lying in bed in the psych unit. SKIN: No rashes, ecchymoses or lesions. Cool and dry. HEAD: Atraumatic. Normocephalic. No temporal or scalp tenderness. EYES: Pupils equal round and reactive. Extraocular motions intact. No scleral icterus. No injection or drainage. ENT: Nose without bleeding, purulent drainage or septal hematoma. NECK: Trachea midline. No lymphadenopathy. Supple, nontender, no meningeal signs. CARDIOVASCULAR: Regular rate and rhythm without murmurs, gallops, or rubs. RESPIRATORY: Clear to auscultation. Breath sounds equal bilaterally. No wheezes , rales, or rhonchi. GASTROINTESTINAL: Abdomen soft, non-tender, nondistended. No hepato-splenomegaly , or palpable masses. No guarding. MUSCULOSKELETAL: Extremities without clubbing, cyanosis, or edema. No joint tenderness, effusion, or edema noted. No calf tenderness. NEUROLOGICAL: Awake. Not speaking. Able to move all 4 extremities. Laboratory Laboratory Tests Test 07/01/16 07/02/16 21:47 13:11 Prothrombin Time 12.1 Prothromb Time International 1.1 Ratio Sodium Level 139 137 Potassium Level 3.8 3.7 Chloride Level 102 103 Carbon Dioxide Level 27.9 26.9 Anion Gap 9 7 Blood Urea Nitrogen 13 14 Creatinine 1.14 1.26 Estimat Glomerular Filtration 78 69 Rate Random Glucose 87 106 Calcium Level 9.1 9.4 Total Bilirubin 0.4 0.4 Aspartate Amino Transf 25 25 (AST/SGOT) Alanine Aminotransferase 27 30 (ALT/SGPT) Alkaline Phosphatase 82 88 Total Creatine Kinase 559 662 Creatine Kinase MB 3.4 3.4 Creatine Kinase MB % 0.6 0.5 Total Protein 7.0 7.7 Albumin 3.7 4.0 Result Diagram: 07/02/16 1311 Imaging Last 24 hours Impressions Abdomen X-Ray 07/02/16 0000 Signed Impressions: Service Date/Time: Saturday, July 02, 2016 13:34 - CONCLUSION: Nonspecific abdomen. Narinder Lam MD Assessment and Plan Assessment and Plan 25-year-old [place] male with a past medical history of schizophrenia who is currently admitted in the psychiatric unit at the hospital under [facility] act and hospitalist services have been requested for medical management of elevated CK, nausea/vomiting and abdominal pain. Schizophrenia - Management per psychiatric team Nausea/vomiting and abdominal pain - KUB obtained and personally interpreted showing nonspecific findings - Encourage by mouth fluid - Monitor - will consider CT of the abdomen if symptoms persist - avoid Zofran Elevated CK - Slight trend upwards 585 -> 559 -> 662 - possible NMS, malignant catatonia - patient is afebrile. Normal renal function. - am labs to monitor DVT prophylaxis encourage ambulation Written by Kyara Khanna PA-C acting as scribe for Dr. Barragan on 07/02/16 at 13:31. This note was transcribed by scribe [Kyara Khanna PA-C]. I, Dr. Reji Barragan personally performed the history, physical exam, and medical decision making; and confirmed the accuracy of the information in the transcribed note. Authenticated by Dr. Reji Barragan on 07/02/16 at 22:48. Kyara Khanna Jul 02, 2016 14:32 Reji Barragan MD Jul 02, 2016 22:48
[2016-07-02 19:15] VITALS: BP 135/66; PULSE 112; RESP 18; TEMP 98.5; O2SAT 98
[2016-07-03 05:40] VITALS: BP 131/61; PULSE 80; RESP 18; TEMP 98.6; O2SAT 97
[2016-07-03] MEDS: LORazepam 2 MG/ML VIAL IM SCH ×3 (09:19→18:02)
[2016-07-03] MEDS: ARIPiprazole 10 MG TAB PO SCH (09:19)
[2016-07-03] MEDS: DOCUSATE SODIUM 100 MG CAP PO SCH ×2 (09:19→20:36)
[2016-07-03] MEDS: MAGNESIUM HYDROXIDE SUSP 30 ML CUP PO PRN (09:45)
--- NOTE | 2016-07-03 10:18 | HHI.PR ---
Subjective Remarks Follow-up on patient with nausea/vomiting, abdominal pain and elevated CK. CK level is up to 923 this morning. Discussed with nursing staff. Patient is mentally retarded. He does speak Nepalese but reverts back to Palauan-speaking with psychotic episodes. Patient reports bowel movement yesterday but unverified by the nursing staff. Did not eat breakfast but did drink a bottle of Gatorade this morning. No further episodes of vomiting since yesterday. Objective Vitals Vital Signs Date Time Temp Pulse Resp B/P Pulse Ox O2 Delivery O2 Flow Rate FiO2 07/03/16 05:40 98.6 80 18 131/61 97 07/02/16 19:15 98.5 112 18 135/66 98 I/O 07/02/16 07/02/16 07/02/16 07/03/16 07/03/16 07/03/16 07:00 15:00 23:00 07:00 15:00 23:00 Intake Total 100 ml 360 ml 120 ml Output Total 0 ml Balance 100 ml 360 ml 120 ml Intake Oral 100 ml 360 ml 120 ml Emesis 0 ml # Voids 2 Result Diagram: 07/02/16 1311 Objective Remarks GENERAL: This is a well-nourished, well-developed patient, in no apparent distress. Patient awake. Witnessed ambulating around the unit. SKIN: Warm and dry. HEAD: Atraumatic. Normocephalic. EYES: EOMI. CARDIOVASCULAR: Regular rate and rhythm without murmurs, gallops, or rubs. RESPIRATORY: Clear to auscultation. Breath sounds equal bilaterally. No wheezes , rales, or rhonchi. GASTROINTESTINAL: Abdomen slightly firm with mild distention. Difficult to determine if patient is tender to palpation. No hepato-splenomegaly, or palpable masses. No guarding. MUSCULOSKELETAL: Extremities without clubbing, cyanosis, or edema. No joint tenderness, effusion, or edema noted. No calf tenderness. NEUROLOGICAL: Awake. Able to move all 4 extremities. Medications and IVs Current Medications Medications (Trade) Dose Ordered Sig/Jerson Route Start Time Stop Time Status Last Admin (Ativan) 1 mg Q6H PRN PO 06/22/16 02:00 06/30/16 21:08 (Ativan Inj) 1 mg Q6H PRN IM 06/22/16 02:00 (Cogentin) 1 mg Q12H PRN PO 06/22/16 02:00 (Cogentin Inj) 1 mg Q12H PRN IM 06/22/16 02:00 (Tylenol) 650 mg Q4H PRN PO 06/22/16 02:00 06/23/16 11:22 (Milk Of Magnesia Liq) 30 ml DAILY PRN PO 06/22/16 02:00 07/03/16 09:45 (Mag-Al Plus Susp Liq) 30 ml Q6H PRN PO 06/22/16 02:00 06/26/16 17:38 (Colace) 100 mg BID PO 06/25/16 21:00 07/03/16 09:19 (Ambien) 5 mg HS PRN PO 06/29/16 16:00 (Abilify) 25 mg DAILY PO 07/01/16 09:00 07/03/16 09:19 (Pill Splitter) 1 ea UNSCH PRN OTHER 06/30/16 14:30 (Ativan Inj) 1 mg TID IM 07/01/16 13:00 07/03/16 09:19 (Jammie-Colace) 2 tab ONCE ONCE PO 07/03/16 11:00 07/03/16 11:01 A/P Assessment and Plan 25-year-old Palestinian male with a past medical history of schizophrenia who is currently admitted in the psychiatric unit at the hospital under [facility] act and hospitalist services have been requested for medical management of elevated CK, nausea/vomiting and abdominal pain. Schizophrenia - Management per psychiatric team Nausea/vomiting and abdominal pain - No episodes of vomiting since yesterday - KUB obtained and personally interpreted showing nonspecific findings - Continue to encourage by mouth fluid - Monitor - will consider CT of the abdomen if symptoms persist - avoid Zofran Elevated CK - Slight trend upwards 585 -> 559 -> 662 -> 923 - possible NMS, malignant catatonia - patient is afebrile. Normal renal function. - am labs to monitor Questionable constipation - Abdomen appears distended and somewhat firm this morning - Jammie-Colace and milk of magnesia ordered - Monitor for BM DVT prophylaxis encourage ambulation Discussed with patient, nursing staff and Kyara Townsend Jul 03, 2016 10:18
[2016-07-03 10:21] LABS: BICARBONATE 28.1 MEQ/L (21.0-32.0); POTASSIUM 3.8 MEQ/L (3.5-5.1)
[2016-07-03 10:36] LABS: CKMB 2.9 NG/ML (0.5-3.6)
[2016-07-03] MEDS ORDERED: DOCUSATE SODIUM 50 MG/SENNA 8.6 MG TAB PO ONE (11:00)
--- NOTE | 2016-07-03 16:13 | HHI.PYPN ---
Subjective Remarks Patient was seen and case discussed with nursing. Patient was seen and notes from medical doctor reviewed. Patient's CK continues to slightly trend up. His vital signs are within range and there is no fever or tachypnea, muscle rigidity or altered mental status. There is no disorientation but patient remains difficult to engage given he is MR. Remains sexually inappropriate at times. Objective Alert: Yes [place]: Person, Place Mood: Calm Affect: Restricted Memory Intact: Comment (not assessed) Hallucinations: Other (internally preoccupied) Delusions: No Delusion Type: Other (none today) Suicidal: Ideation (no SI) Homicidal: Ideation (no HI) Insight/Judgment poor Labs Test 07/03/16 08:51 Sodium Level 140 MEQ/L Potassium Level 3.8 MEQ/L Chloride Level 104 MEQ/L Carbon Dioxide Level 28.1 MEQ/L Anion Gap 8 MEQ/L Blood Urea Nitrogen 11 MG/DL Creatinine 1.12 MG/DL Estimat Glomerular Filtration 79 ML/MIN Rate Random Glucose 81 MG/DL Calcium Level 8.9 MG/DL Total Creatine Kinase 923 U/L Creatine Kinase MB 2.9 NG/ML Creatine Kinase MB % 0.3 % Vitals/IOs Vital Signs Date Time Temp Pulse Resp B/P Pulse Ox O2 Delivery O2 Flow Rate FiO2 07/03/16 05:40 98.6 80 18 131/61 97 Intake and Output 07/02/16 07/02/16 07/03/16 08:00 16:00 00:00 Intake Total 100 ml 480 ml Output Total 0 ml Balance 100 ml 480 ml Assessment & Plan Problem List: (1) Schizophrenia ICD Code: F20.9 (2) History of mental retardation ICD Code: Z86.59 Assessment & Plan Will continue to assess ck, vomiting is resolved, will continue monitoring vital signs. Continue monitoring by medical team Justification for Cont. Inpt. Patient will decompensate in a less restrictive setting Request HC Surrog/Guard Advoc?: Yes Problem Qualifiers (1) Schizophrenia: Qualified Code: F20.3 - Undifferentiated schizophrenia William Edwards DO Jul 03, 2016 16:13
[2016-07-03 18:13] VITALS: BP 116/58; PULSE 110; RESP 19; TEMP 97.2; O2SAT 95
[2016-07-04 05:57] VITALS: BP 18/69; PULSE 78; RESP 16; TEMP 97.2; O2SAT 99
[2016-07-04] MEDS: LORazepam 1 MG TAB PO PRN ×2 (09:45→23:55)
[2016-07-04] MEDS: DOCUSATE SODIUM 100 MG CAP PO SCH ×2 (09:45→20:38)
[2016-07-04] MEDS: ARIPiprazole 10 MG TAB PO SCH (09:45)
[2016-07-04] MEDS: LORazepam 2 MG/ML VIAL IM SCH ×4 (11:45→18:00)
[2016-07-04 12:19] LABS: CKMB 3.5 NG/ML (0.5-3.6)
[2016-07-04 12:20] VITALS: BP 134/65; PULSE 96; RESP 14; O2SAT 99
[2016-07-04 15:22] VITALS: BP 141/65; PULSE 81; RESP 18; TEMP 96.9; O2SAT 99
--- NOTE | 2016-07-04 15:49 | HHI.PR ---
Subjective Remarks Follow-up on patient with nausea/vomiting, abdominal pain and elevated CK. CK level is up to 2036. Encourage fluids. Patient denies any abdominal pain. No further episodes of nausea or vomiting. He ate all of his breakfast. Discussed with nursing staff. Unable to verify patient's had a bowel movement the patient does endorse that he did. Objective Vitals Vital Signs Date Time Temp Pulse Resp B/P Pulse Ox O2 Delivery O2 Flow Rate FiO2 07/04/16 15:22 96.9 81 18 141/65 99 07/04/16 12:20 96 14 134/65 99 07/04/16 05:57 97.2 78 16 18/69 99 07/03/16 18:13 97.2 110 19 116/58 95 I/O 07/03/16 07/03/16 07/03/16 07/04/16 07/04/16 07/04/16 07:00 15:00 23:00 07:00 15:00 23:00 Intake Total 120 ml 480 ml 720 ml Balance 120 ml 480 ml 720 ml Intake Oral 120 ml 480 ml 720 ml # Voids 2 Result Diagram: 07/03/16 0851 Objective Remarks GENERAL: This is a well-nourished, well-developed patient, in no apparent distress. Patient awake. Witnessed ambulating around the unit. SKIN: Warm and dry. HEAD: Atraumatic. Normocephalic. EYES: EOMI. CARDIOVASCULAR: Regular rate and rhythm without murmurs, gallops, or rubs. RESPIRATORY: Clear to auscultation. Breath sounds equal bilaterally. No wheezes , rales, or rhonchi. GASTROINTESTINAL: Abdomen slightly firm with mild distention. NTTP. No hepato- splenomegaly, or palpable masses. No guarding. MUSCULOSKELETAL: Extremities without clubbing, cyanosis, or edema. No joint tenderness, effusion, or edema noted. No calf tenderness. NEUROLOGICAL: Patient is MR. Awake. Able to move all 4 extremities. Medications and IVs Current Medications Medications (Trade) Dose Ordered Sig/Jerson Route Start Time Stop Time Status Last Admin (Ativan) 1 mg Q6H PRN PO 06/22/16 02:00 07/04/16 09:45 (Ativan Inj) 1 mg Q6H PRN IM 06/22/16 02:00 (Cogentin) 1 mg Q12H PRN PO 06/22/16 02:00 (Cogentin Inj) 1 mg Q12H PRN IM 06/22/16 02:00 (Tylenol) 650 mg Q4H PRN PO 06/22/16 02:00 06/23/16 11:22 (Milk Of Magnesia Liq) 30 ml DAILY PRN PO 06/22/16 02:00 07/03/16 09:45 (Mag-Al Plus Susp Liq) 30 ml Q6H PRN PO 06/22/16 02:00 06/26/16 17:38 (Colace) 100 mg BID PO 06/25/16 21:00 07/04/16 09:45 (Ambien) 5 mg HS PRN PO 06/29/16 16:00 (Abilify) 25 mg DAILY PO 07/01/16 09:00 07/04/16 09:45 (Pill Splitter) 1 ea UNSCH PRN OTHER 06/30/16 14:30 (Ativan Inj) 1 mg TID IM 07/01/16 13:00 07/04/16 11:45 A/P Assessment and Plan 25-year-old [place] male with a past medical history of schizophrenia who is currently admitted in the psychiatric unit at the hospital under [facility] act and hospitalist services have been requested for medical management of elevated CK, nausea/vomiting and abdominal pain. Schizophrenia - Management per psychiatric team Nausea/vomiting and abdominal pain - Appears to have resolved. - KUB obtained and personally interpreted showing nonspecific findings - Continue to encourage by mouth fluid - Monitor - will consider CT of the abdomen if symptoms persist - avoid Zofran Elevated CK - Slight trend upwards 585 -> 559 -> 662 -> 923 -> 2036 - possible NMS, malignant catatonia - patient is afebrile. No rigidity. Normal renal function. - am labs to monitor Questionable constipation - Abdomen appears mildly distended and somewhat firm, not sure if this is his normal anatomy - Jammie-Colace and milk of magnesia ordered. Jammie-Colace not given. Discussed with nursing staff. Undocumented if patient had bowel movement. Will continue to monitor for BM. DVT prophylaxis encourage ambulation Discussed with patient, nursing staff and Dr. Barragan. Kyara Khanna Jul 04, 2016 15:49
--- NOTE | 2016-07-04 15:49 | HHI.PYPN ---
Subjective Remarks Patient's CK continues to to trend up. His vital signs are within range and there is no fever or tachypnea or muscle rigidity. He does appear slightly more confused than yesterday and is difficult to engage him in [place] or [place]. He is intrusive and continuously tries to stand next to me and see what is written on my clipboard instead of participating with the interview. He is alert and oriented 2 thinking is 2006. We spoke with the medical doctor Dr. Barragan who is aware of his elevated CK and mentions it becomes a concern only the number goes about 5000 while recommending oral fluid intake Objective Alert: Yes [place]: Person, Place Mood: Calm Affect: Blunted Memory Intact: Comment (not assessed) Hallucinations: Other (internally preoccupied) Delusions: No Delusion Type: Other (none today) Suicidal: Ideation (no SI) Homicidal: Ideation (no HI) Insight/Judgment Poor Labs Test 07/04/16 10:50 Total Creatine Kinase 2036 U/L Creatine Kinase MB 3.5 NG/ML Creatine Kinase MB % 0.2 % Vitals/IOs Vital Signs Date Time Temp Pulse Resp B/P Pulse Ox O2 Delivery O2 Flow Rate FiO2 07/04/16 15:22 96.9 81 18 141/65 99 Intake and Output 07/03/16 07/03/16 07/04/16 08:00 16:00 00:00 Intake Total 480 ml Balance 480 ml Assessment & Plan Problem List: (1) Schizophrenia ICD Code: F20.9 (2) History of mental retardation ICD Code: Z86.59 Assessment & Plan Hold tomorrow's morning Abilify as a precaution. Justification for Cont. Inpt. Patient will decompensate in a less restrictive setting Request HC Surrog/Guard Advoc?: Yes Problem Qualifiers (1) Schizophrenia: Qualified Code: F20.3 - Undifferentiated schizophrenia William Edwards DO Jul 04, 2016 15:49
[2016-07-05] MEDS ORDERED: clonazePAM 1 MG TAB PO ONE (02:00)
[2016-07-05 06:18] VITALS: BP 111/59; PULSE 97; RESP 16; TEMP 97.4; O2SAT 96
[2016-07-05 08:55] LABS: AUTOMATED NEUTROPHIL # 3.4 TH/MM3 (1.8-7.7); BASOPHIL % 0.4 % (0.0-2.0); EOSINOPHIL % 0.9 % (0.0-4.0); HEMATOCRIT 37.9 % (39.0-51.0); HEMO FLAGS DIFF FINAL; LYMPH % 31.6 % (9.0-44.0); LYMPHOCYTE # 1.8 TH/MM3 (1.0-4.8); MEAN CELL VOLUME 90.8 FL (80.0-100.0); MEAN CORPUSCULAR HEMOGLOBIN 31.2 PG (27.0-34.0); MEAN CORPUSCULAR HGB CONC 34.4 % (32.0-36.0); MONO % 5.9 % (0.0-8.0); NEUT % 61.2 % (16.0-70.0); PLATELET COUNT 155 TH/MM3 (150-450); RED BLOOD COUNT 4.17 MIL/MM3 (4.50-5.90); WHITE BLOOD COUNT 5.6 TH/MM3 (4.0-11.0)
[2016-07-05] MEDS: DOCUSATE SODIUM 100 MG CAP PO SCH ×2 (09:00→20:57)
[2016-07-05] MEDS: LORazepam 2 MG/ML VIAL IM SCH ×3 (09:00→18:00)
[2016-07-05 09:41] LABS: BICARBONATE 30.1 MEQ/L (21.0-32.0); MAGNESIUM 2.3 MG/DL (1.5-2.5); POTASSIUM 3.7 MEQ/L (3.5-5.1)
[2016-07-05 10:04] LABS: CKMB 4.4 NG/ML (0.5-3.6)
--- NOTE | 2016-07-05 10:18 | HHI.PYPN ---
Subjective Remarks Patient seen and examined with counselor and nurse. Chart reviewed. I note that CK continues to trend upward, over 3300 this morning. Oral intake has been fair for the last day. Patient continues on parenteral Ativan for possible catatonia, but his antipsychotic has been held out of concern for possible NMS. On my examination today, patient appears to be awake and alert. There is no stupor, posturing or stereotypies to suggest ongoing catatonia. He describes some subjective stiffness, but has no objective hypertonia on examination as detailed below. He appears internally preoccupied and makes references to vampires. Review of Systems ROS Limitations: Psychotic, Poor Historian Except as stated in HPI: all other systems reviewed are Neg Objective Alert: Yes [place]: Person, Place Mood: Calm Affect: Blunted Memory Intact: Comment (not formally assessed) Hallucinations: Other (remains internally preoccupied) Delusions: Yes Delusion Type: Other (articulates some belief about "vampires") Suicidal: Ideation (no SI) Homicidal: Ideation (no HI) Insight/Judgment Poor Remarks No upper or lower extremity hypertonia. No spontaneous or inducible clonus at the ankle. EOMI. Speech somewhat rambling. Grooming and hygiene fair. Labs Test 07/04/16 07/05/16 10:50 08:40 Total Creatine Kinase 2036 U/L 3382 U/L Creatine Kinase MB 3.5 NG/ML 4.4 NG/ML Creatine Kinase MB % 0.2 % 0.1 % White Blood Count 5.6 TH/MM3 Red Blood Count 4.17 MIL/MM3 Hemoglobin 13.0 GM/DL Hematocrit 37.9 % Mean Corpuscular Volume 90.8 FL Mean Corpuscular Hemoglobin 31.2 PG Mean Corpuscular Hemoglobin 34.4 % Concent Red Cell Distribution Width 14.0 % Platelet Count 155 TH/MM3 Mean Platelet Volume 10.8 FL Neutrophils (%) (Auto) 61.2 % Lymphocytes (%) (Auto) 31.6 % Monocytes (%) (Auto) 5.9 % Eosinophils (%) (Auto) 0.9 % Basophils (%) (Auto) 0.4 % Neutrophils # (Auto) 3.4 TH/MM3 Lymphocytes # (Auto) 1.8 TH/MM3 Monocytes # (Auto) 0.3 TH/MM3 Eosinophils # (Auto) 0.0 TH/MM3 Basophils # (Auto) 0.0 TH/MM3 CBC Comment DIFF FINAL Differential Comment Sodium Level 140 MEQ/L Potassium Level 3.7 MEQ/L Chloride Level 102 MEQ/L Carbon Dioxide Level 30.1 MEQ/L Anion Gap 8 MEQ/L Blood Urea Nitrogen 9 MG/DL Creatinine 1.25 MG/DL Estimat Glomerular Filtration 70 ML/MIN Rate Random Glucose 87 MG/DL Calcium Level 8.9 MG/DL Phosphorus Level 2.7 MG/DL Magnesium Level 2.3 MG/DL Albumin 4.0 GM/DL CBC unremarkable. BMP reveals fairly stable but decreased renal function. CK continues to trend upward. Vitals/IOs Some pulse rate variability but otherwise no signs of autonomic instability. Vital Signs Date Time Temp Pulse Resp B/P Pulse Ox O2 Delivery O2 Flow Rate FiO2 07/05/16 06:18 97.4 97 16 111/59 96 Intake and Output 07/04/16 07/04/16 07/05/16 08:00 16:00 00:00 Intake Total 720 ml Balance 720 ml Assessment & Plan Problem List: (1) Schizophrenia ICD Code: F20.9 (2) History of mental retardation ICD Code: Z86.59 Assessment & Plan Hospitalist is recommending transfer to medical psychiatric unit for IV hydration, I agree. We will transfer to med psych unit once a bed becomes available later today. Continue I am Ativan for catatonia as this does appear to be improving patient's interaction and responsiveness in the milieu. Continue to hold oral antipsychotics, although I do not have a high degree of suspicion for NMS. Continue to monitor closely. Continue other medications and care as ordered. Justification for Cont. Inpt. Complicating conditions, increasing CK. Impairment in reality construction. High risk for decompensation in a restrictive environment. Discharge Planning Transfer to med psych unit for IV hydration. Request HC Surrog/Guard Advoc?: Yes Problem Qualifiers (1) Schizophrenia: Qualified Code: F20.3 - Undifferentiated schizophrenia Van Barnhart MD Jul 05, 2016 10:18
[2016-07-05 11:06] VITALS: BP 111/55; PULSE 90; O2SAT 98
[2016-07-05] MEDS: SODIUM BICARBONATE 8.4% INJ 100 MEQ in SODIUM CHLOR 0.9% 1000 ML INJ 1,000 ML IV SCH ×2 (11:58→22:01)
--- NOTE | 2016-07-05 13:21 | HHI.PR ---
Subjective Remarks Follow-up on patient with nausea/vomiting, abdominal pain and elevated CK. CK level is up to 3382. Patient seen and examined today. No recurrence of nausea or vomiting. Patient is afebrile. No muscle rigidity appreciated. Patient denies any chest pain, cough, shortness of breath or abdominal pain. Patient reports bowel movement today. Objective Vitals Vital Signs Date Time Temp Pulse Resp B/P Pulse Ox O2 Delivery O2 Flow Rate FiO2 07/05/16 11:06 90 111/55 98 07/05/16 06:18 97.4 97 16 111/59 96 07/04/16 15:22 96.9 81 18 141/65 99 I/O 07/04/16 07/04/16 07/04/16 07/05/16 07/05/16 07/05/16 07:00 15:00 23:00 07:00 15:00 23:00 Intake Total 480 ml 720 ml 440 ml Balance 480 ml 720 ml 440 ml Intake Oral 480 ml 720 ml 440 ml # Voids 2 Result Diagram: 07/05/16 0840 07/05/16 0840 Objective Remarks GENERAL: This is a well-nourished, well-developed patient, in no apparent distress. Patient awake. Witnessed ambulating around the unit. SKIN: Warm and dry. HEAD: Atraumatic. Normocephalic. EYES: EOMI. CARDIOVASCULAR: Regular rate and rhythm without murmurs, gallops, or rubs. RESPIRATORY: Clear to auscultation. Breath sounds equal bilaterally. No wheezes , rales, or rhonchi. GASTROINTESTINAL: Abdomen slightly firm with mild distention. NTTP. No hepato- splenomegaly, or palpable masses. No guarding. MUSCULOSKELETAL: Extremities without clubbing, cyanosis, or edema. No joint tenderness, effusion, or edema noted. No calf tenderness. NEUROLOGICAL: Patient is MR. Awake. Able to move all 4 extremities. Medications and IVs Current Medications Medications (Trade) Dose Ordered Sig/Jerson Route Start Time Stop Time Status Last Admin (Ativan) 1 mg Q6H PRN PO 06/22/16 02:00 07/04/16 23:55 (Ativan Inj) 1 mg Q6H PRN IM 06/22/16 02:00 (Cogentin) 1 mg Q12H PRN PO 06/22/16 02:00 (Cogentin Inj) 1 mg Q12H PRN IM 06/22/16 02:00 (Tylenol) 650 mg Q4H PRN PO 06/22/16 02:00 06/23/16 11:22 (Milk Of Magnesia Liq) 30 ml DAILY PRN PO 06/22/16 02:00 07/03/16 09:45 (Mag-Al Plus Susp Liq) 30 ml Q6H PRN PO 06/22/16 02:00 06/26/16 17:38 (Colace) 100 mg BID PO 06/25/16 21:00 07/05/16 09:00 (Ambien) 5 mg HS PRN PO 06/29/16 16:00 Hold (Abilify) 25 mg DAILY PO 07/01/16 09:00 Hold 07/04/16 09:45 (Pill Splitter) 1 ea UNSCH PRN OTHER 06/30/16 14:30 Lorazepam 1 mg 1 mg TID IM 07/01/16 13:00 07/05/16 12:59 (Sodium Bicarbonate 8.4% Inj/NS 1000 ml Inj) 1,100 ml @ 42 mls/hr Q24H IV 07/05/16 12:00 A/P Assessment and Plan 25-year-old [place] male with a past medical history of schizophrenia who is currently admitted in the psychiatric unit at the hospital under [facility] act and hospitalist services have been requested for medical management of elevated CK, nausea/vomiting and abdominal pain. Schizophrenia - Management per psychiatric team Nausea/vomiting and abdominal pain - Appears to have resolved. - KUB obtained and personally interpreted showing nonspecific findings - Continue to encourage by mouth fluid - Monitor - will consider CT of the abdomen if symptoms persist - avoid Zofran Elevated CK - Slight trend upwards 585 -> 559 -> 662 -> 923 -> 2036 -> 3382 - Order stat repeat CK - possible NMS, malignant catatonia - patient is afebrile. No rigidity. Normal renal function. - Transfer to med psych. Begin IV fluids with bicarbonate. Continue to monitor CK and renal function. - am labs to monitor - Abilify on hold by primary team Questionable constipation - Abdomen appears mildly distended and somewhat firm, not sure if this is his normal anatomy - (+)BM ppr, undocumented by NS. DVT prophylaxis encourage ambulation Discussed with patient, nursing staff and Dr. Barragan. Kyara Khanna Jul 05, 2016 13:21
[2016-07-05] MEDS: ACETAMINOPHEN 325 MG TAB PO PRN (16:01)
[2016-07-05 17:26] LABS: CKMB 3.4 NG/ML (0.5-3.6)
[2016-07-06 00:03] LABS: CKMB 3.6 NG/ML (0.5-3.6)
[2016-07-06 05:17] VITALS: BP 120/56; PULSE 55; RESP 18; TEMP 97.4; O2SAT 98
[2016-07-06 08:27] LABS: BICARBONATE 26.3 MEQ/L (21.0-32.0); POTASSIUM 3.9 MEQ/L (3.5-5.1)
[2016-07-06] MEDS: LORazepam 2 MG/ML VIAL IM SCH ×3 (09:00→18:00)
[2016-07-06] MEDS: DOCUSATE SODIUM 100 MG CAP PO SCH ×2 (09:00→20:34)
[2016-07-06 09:01] LABS: CKMB 2.4 NG/ML (0.5-3.6)
--- NOTE | 2016-07-06 14:33 | HHI.PYPN ---
Subjective Remarks Patient seen for psychiatric reevaluation today, vital signs and routine labs were review, CPK continue trending down, now in the 1700s. Vital signs are stable. Patient was evaluated in primary language is Macedonian, however, patient seems to be very detached, distant, poorly cooperative, with marked refractory speech, negativism, blocking thought. He answered selectively some questions, but with a very low speech volume, barely perceptible. He says that he is in okay mood, he wants to go back to [place], [place]. He denies suicidal and homicidal ideation, denies visual and auditory hallucinations. I try to communicate with his mother to get some further collateral information, but she did not pick and shovel worker the phone. Objective Alert: Yes [place]: Person, Place Mood: Calm Affect: Flat, Blunted Memory Intact: Comment (not formally assessed) Hallucinations: Other (remains internally preoccupied) Delusions: Yes Delusion Type: Other (articulates some belief about "vampires") Suicidal: Ideation (no SI) Homicidal: Ideation (no HI) Insight/Judgment Poor Labs Test 07/05/16 07/05/16 07/06/16 15:44 22:33 07:18 Total Creatine Kinase 2980 U/L 3014 U/L 1744 U/L Creatine Kinase MB 3.4 NG/ML 3.6 NG/ML 2.4 NG/ML Creatine Kinase MB % 0.1 % 0.1 % 0.1 % Sodium Level 143 MEQ/L Potassium Level 3.9 MEQ/L Chloride Level 109 MEQ/L Carbon Dioxide Level 26.3 MEQ/L Anion Gap 8 MEQ/L Blood Urea Nitrogen 6 MG/DL Creatinine 1.08 MG/DL Estimat Glomerular Filtration 83 ML/MIN Rate Random Glucose 84 MG/DL Calcium Level 8.9 MG/DL Phosphorus Level 3.4 MG/DL Albumin 3.4 GM/DL Vitals/IOs Vital Signs Date Time Temp Pulse Resp B/P Pulse Ox O2 Delivery O2 Flow Rate FiO2 07/06/16 05:17 97.4 55 18 120/56 98 Intake and Output 07/05/16 07/05/16 07/06/16 08:00 16:00 00:00 Intake Total 440 ml 480 ml Balance 440 ml 480 ml Assessment & Plan Problem List: (1) Schizophrenia Assessment & Plan: Patient continues to be very distant, internally preoccupied , with marked negativism, refractory speech and thought blocking. No stiffness , no mannerism, no catalepsy, observed, patient is partially oriented. CPK keep trending down, rest of routine labs and vital signs under normal limits. We will continue conservative treatment, will avoid antipsychotics onto NMS is completely rule out. Will try to reach his mother to get more collateral information about his past. ICD Code: F20.9 (2) History of mental retardation ICD Code: Z86.59 Assessment & Plan Estimated LOS: days Justification for Cont. Inpt. Patient is acutely psychotic, with impaired contact with reality, high probability to decompensate out of structured environment. Request HC Surrog/Guard Advoc?: Yes Problem Qualifiers (1) Schizophrenia: Qualified Code: F20.3 - Undifferentiated schizophrenia Gen Julian MD Jul 06, 2016 14:32
[2016-07-06] MEDS ORDERED: ALUMINUM/MAGNESIUM/SIMETH 30 ML CUP PO ONE (15:45)
--- NOTE | 2016-07-06 15:51 | HHI.PR ---
Subjective Remarks Follow-up on patient with nausea/vomiting, abdominal pain and elevated CK. Patient seen and examined today. Reports she still continues to have some nausea and vomiting. As per staff, patient is not eating well secondary to nausea. Otherwise, denies SOB/ dyspnea. Denies chest pain, palpitations, headaches, dizziness. Denies fevers, chills, diarrhea. Objective Vitals Vital Signs Date Time Temp Pulse Resp B/P Pulse Ox O2 Delivery O2 Flow Rate FiO2 07/06/16 05:17 97.4 55 18 120/56 98 I/O 07/05/16 07/05/16 07/05/16 07/06/16 07/06/16 07/06/16 07:00 15:00 23:00 07:00 15:00 23:00 Intake Total 440 ml 480 ml 423 ml 720 ml Balance 440 ml 480 ml 423 ml 720 ml Intake Oral 440 ml 480 ml 120 ml 720 ml IV Total 303 ml # Voids 3 1 Result Diagram: 07/05/16 0840 07/06/16 0718 Imaging Last Impressions Abdomen X-Ray 07/02/16 0000 Signed Impressions: Service Date/Time: Saturday, July 02, 2016 13:34 - CONCLUSION: Nonspecific abdomen. Narinder Lam MD Objective Remarks GENERAL: This is a well-nourished, well-developed patient, in no apparent distress. HEENT: Normocephalic. Pupils equal round and reactive. Nose without bleeding. Airway patent. NECK: Trachea midline. No JVD. Supple. CARDIOVASCULAR: Regular rate and rhythm without murmurs, gallops, or rubs. RESPIRATORY: Clear to auscultation. Breath sounds equal bilaterally. No wheezes , rales, or rhonchi. GASTROINTESTINAL: Abdomen soft, nondistended. Bowel Sounds normoactive x4. Tenderness to palpation midepigastric region. MUSCULOSKELETAL: Extremities without clubbing, cyanosis, or edema. NEUROLOGICAL: Awake and alert. No focal neuro deficit. JO. Normal speech. A/P Problem List: (1) History of mental retardation ICD Code: Z86.59 Status: Acute (2) Schizophrenia ICD Code: F20.9 Status: Acute Assessment and Plan Pt. 25-year-old [place]an male with a past medical history of schizophrenia who is currently admitted in the psychiatric unit at the hospital under [facility] act and hospitalist services have been requested for medical management of elevated CK, nausea/vomiting and abdominal pain. Schizophrenia - Management per psychiatric team Nausea/vomiting and abdominal pain - Appears to have resolved. - KUB obtained and personally interpreted showing nonspecific findings - Continue to encourage by mouth fluid - will consider CT of the abdomen tomorrow if symptoms continues - Start pantoprazole 40 mg daily, Zofran when necessary, Maalox 1 dose now. Elevated CK - Improving 585 -> 559 -> 662 -> 923 -> 2036 -> 3382 --> 1744 - possible NMS, malignant catatonia - patient is afebrile. No rigidity. Normal renal function. - IV fluids with bicarbonate. Continue to monitor CK and renal function. - Abilify on hold by primary team DVT prophylaxis encourage ambulation Discussed with patient, nursing Problem Qualifiers (1) Schizophrenia: Qualified Code: F20.3 - Undifferentiated schizophrenia Yohana Lou [facility] Jul 06, 2016 15:51
[2016-07-06] MEDS: PANTOPRAZOLE SOD 40 MG DELAYED RELEASE TAB PO SCH (16:00)
[2016-07-06 18:09] VITALS: BP 131/68; PULSE 110; TEMP 97.2; O2SAT 98
[2016-07-06] MEDS: LORazepam 1 MG TAB PO PRN (21:47)
[2016-07-07] MEDS ORDERED: OLANZapine IM 10 MG VIAL IM ONE ×3 (01:00→16:30)
[2016-07-07 06:51] VITALS: BP 99/51; PULSE 59; RESP 16; TEMP 97.5
[2016-07-07] MEDS: DOCUSATE SODIUM 100 MG CAP PO SCH ×2 (08:28→21:00)
[2016-07-07] MEDS: LORazepam 2 MG/ML VIAL IM SCH ×3 (08:28→18:00)
[2016-07-07] MEDS: PANTOPRAZOLE SOD 40 MG DELAYED RELEASE TAB PO SCH (08:28)
--- NOTE | 2016-07-07 09:29 | HHI.PYPN ---
Subjective Remarks On psychiatric reevaluation today patient is found sleeping, but arousable. Patient says that he feels better, his voice is very soft and low volume making him very difficult to understand, but he denies abdominal pain, nausea and vomiting at this moment. Patient reports "okay"mood, but continues to present poverty of speech and blocking thought. No tremors, rigidity, stiffness are observed at this time. Last night patient became agitated and disorganized, as per nurse in charge he was is spending a lot of time in the bathroom and refusing to go out. He was given 5 mg of olanzapine IM. I try to get additional collateral information from his mother today in the telephone number register in the record, but this telephone doesn't seem to be working. Review of Systems Other No significant somatic complaints today Objective Alert: Yes [place]: Person, Place Mood: Calm Affect: Flat, Blunted Memory Intact: Comment (not formally assessed) Hallucinations: Other (remains internally preoccupied) Delusions: Yes Delusion Type: Other (articulates some belief about "vampires") Suicidal: Ideation (no SI) Homicidal: Ideation (no HI) Insight/Judgment Poor Vitals/IOs Vital Signs Date Time Temp Pulse Resp B/P Pulse Ox O2 Delivery O2 Flow Rate FiO2 07/07/16 06:51 97.5 59 16 99/51 07/06/16 18:09 98 Intake and Output 07/06/16 07/06/16 07/07/16 08:00 16:00 00:00 Intake Total 423 ml 720 ml 720 ml Balance 423 ml 720 ml 720 ml Assessment & Plan Problem List: (1) Schizophrenia Assessment & Plan: Patient continues to present prominent negativism, poverty of speech and blocking thought. He also has periods of agitation and disorganized behavior, as he presented last night and had to be medicated with olanzapine 5 g IM. Will order routine labs and CPK again, would consider to start a very low dose of Abilify to try to help with psychotic symptoms. So far patient has shown stability in vital signs, but a typical NMS has to be carefully rule out. ICD Code: F20.9 (2) History of mental retardation ICD Code: Z86.59 Assessment & Plan Estimated LOS: days Justification for Cont. Inpt. Patient is acutely psychotic, needs to continue psychodynamic admission for stabilization and safety Request HC Surrog/Guard Advoc?: Yes Problem Qualifiers (1) Schizophrenia: Qualified Code: F20.3 - Undifferentiated schizophrenia Gen Julian MD Jul 07, 2016 09:29
[2016-07-07] MEDS: ARIPiprazole 2 MG TAB PO SCH (10:30)
[2016-07-07 13:23] LABS: ALKALINE PHOSPHATASE 85 U/L (45-117); ALT (GPT) 34 U/L (12-78); ANION GAP 7 MEQ/L (5-15); AST (GOT) 30 U/L (15-37); BICARBONATE 24.5 MEQ/L (21.0-32.0); BLOOD UREA NITROGEN 7 MG/DL (7-18); CHLORIDE 105 MEQ/L (98-107); CREATINE KINASE 925 U/L (39-308); GLOMERULAR FILTRATION RATE 67 ML/MIN (>89); POTASSIUM 4.2 MEQ/L (3.5-5.1); SODIUM (NA) 136 MEQ/L (136-145); TOTAL BILIRUBIN ADULT 0.3 MG/DL (0.2-1.0)
--- NOTE | 2016-07-07 14:51 | HHI.PR ---
Subjective Remarks Follow-up on patient with nausea/vomiting, abdominal pain and elevated CK. Patient seen and examined today. Walking around her room. Smiling. Speaks in Turkish and Ugandan. States he feels better. Denies any abdominal pain, nausea , vomiting. Objective Vitals Vital Signs Date Time Temp Pulse Resp B/P Pulse Ox O2 Delivery O2 Flow Rate FiO2 07/07/16 06:51 97.5 59 16 99/51 07/06/16 18:09 97.2 110 131/68 98 I/O 07/06/16 07/06/16 07/06/16 07/07/16 07/07/16 07/07/16 07:00 15:00 23:00 07:00 15:00 23:00 Intake Total 423 ml 720 ml 720 ml 600 ml 360 ml Balance 423 ml 720 ml 720 ml 600 ml 360 ml Intake Oral 120 ml 720 ml 720 ml 600 ml 360 ml IV Total 303 ml # Voids 1 2 1 Result Diagram: 07/05/16 0840 07/07/16 1116 Imaging Last Impressions Abdomen X-Ray 07/02/16 0000 Signed Impressions: Service Date/Time: Saturday, July 02, 2016 13:34 - CONCLUSION: Nonspecific abdomen. Narinder Lam MD Objective Remarks GENERAL: This is a well-nourished, well-developed patient, in no apparent distress. HEENT: Normocephalic. Pupils equal round and reactive. Nose without bleeding. Airway patent. NECK: Trachea midline. No JVD. Supple. CARDIOVASCULAR: Regular rate and rhythm without murmurs, gallops, or rubs. RESPIRATORY: Clear to auscultation. Breath sounds equal bilaterally. No wheezes , rales, or rhonchi. GASTROINTESTINAL: Abdomen soft, nondistended. Bowel Sounds normoactive x4. Tenderness to palpation midepigastric region. MUSCULOSKELETAL: Extremities without clubbing, cyanosis, or edema. NEUROLOGICAL: Awake and alert. No focal neuro deficit. JO. Soft speech. A/P Problem List: (1) History of mental retardation ICD Code: Z86.59 Status: Acute (2) Schizophrenia ICD Code: F20.9 Status: Acute Assessment and Plan Pt. 25-year-old Dominican male with a past medical history of schizophrenia who is currently admitted in the psychiatric unit at the hospital under [facility] act and hospitalist services have been requested for medical management of elevated CK, nausea/vomiting and abdominal pain. Schizophrenia - Management per psychiatric team Nausea/vomiting and abdominal pain - Appears to have resolved. - KUB obtained and personally interpreted showing nonspecific findings - Continue to encourage by mouth fluid - will consider CT of the abdomen tomorrow if symptoms continues - Started pantoprazole 40 mg daily, Zofran when necessary, Maalox. Elevated CK - Improving 585 -> 559 -> 662 -> 923 -> 2036 -> 3382 --> 1744 -->925 - possible NMS, malignant catatonia - patient is afebrile. No rigidity. Normal renal function. - IV fluids with bicarbonate. Continue to monitor CK and renal function. - Abilify on hold by primary team DVT prophylaxis encourage ambulation Discussed with patient, nursing Written by Yohana Hennessy, acting as scribe for Dr. Renteria on 07/07/16 at 14: 50. This note was transcribed by scribe [CAIO Morin]. I, Dr. Miranda Renteria personally performed the history, physical exam, and medical decision making; and confirmed the accuracy of the information in the transcribed note. Authenticated by Dr. Miranda Renteria on 07/07/16 at 1455. Problem Qualifiers (1) Schizophrenia: Qualified Code: F20.3 - Undifferentiated schizophrenia Yohana Lou Jul 07, 2016 14:51 Miranda Renteria MD Jul 07, 2016 16:56
[2016-07-07] MEDS: SODIUM BICARBONATE 8.4% INJ 100 MEQ in SODIUM CHLOR 0.9% 1000 ML INJ 1,000 ML IV SCH (14:55)
[2016-07-07 20:38] VITALS: BP 118/56; PULSE 79; RESP 18; TEMP 97.9; O2SAT 97
[2016-07-08] MEDS ORDERED: diphenhydrAMINE HCL 50 MG/ML VIAL IM SCH (01:00)
[2016-07-08] MEDS ORDERED: OLANZapine IM 10 MG VIAL IM SCH (01:00)
[2016-07-08 05:25] VITALS: BP 127/68; PULSE 89; RESP 18; TEMP 97.6; O2SAT 98
[2016-07-08] MEDS: PANTOPRAZOLE SOD 40 MG DELAYED RELEASE TAB PO SCH (09:21)
[2016-07-08] MEDS: ARIPiprazole 2 MG TAB PO SCH (09:21)
[2016-07-08] MEDS: DOCUSATE SODIUM 100 MG CAP PO SCH ×2 (09:21→21:00)
[2016-07-08] MEDS: LORazepam 2 MG/ML VIAL IM SCH ×3 (09:22→18:00)
[2016-07-08] MEDS: SODIUM BICARBONATE 8.4% INJ 100 MEQ in SODIUM CHLOR 0.9% 1000 ML INJ 1,000 ML IV SCH (12:00)
--- NOTE | 2016-07-08 12:03 | HHI.PYPN ---
Subjective Remarks Patient was seen for psychiatric reevaluation today, he was found in his room sitting down eating his breakfast, patient is calm and cooperative, a little bit disorganized. He reports good mood, he says that he feels better, he denies any abdominal or any kind of pain. He seems to be internally preoccupied , as we are speaking patient is looking at the air as stated that he is seeing "[place]" and his extending his hands to grab them. Patient says that he likes to be here "because there are many cars, BMWs and [place] out there ". He seems to be religiously preoccupied stated that "I am Gnosticism, but I also like Lucifer". He is not agitated, is not aggressive or irritable, but at times restless needing redirection, however as per nurses, he has been more manageable in the last 24 hours. Patient has been compliant with his medication , no significant side effects observed or reported. During this evaluation no restlessness, no stiffness, no negativism, are present. Collateral information from his mother, Ana Lilia Baca, was obtained today, she says that by speaking in the phone with the patient she notices that he is better. She clarified that at baseline patient can be focused in cars and religiosity. He also can get easily disoriented and disorganized. Patient carries a diagnosis of mild to moderate mental retardation and schizophrenia. In the last years patient has been progressively deteriorating in his level of functionality, becoming more impulsive, more frequently disorganized and psychotic. She will come by next Tuesday or next Tuesday from [place] to be with us at the start making a safe discharge planning. Review of Systems Other No somatic complaints Objective Alert: Yes [place]: Person, Place Mood: Calm Affect: Euthymic Memory Intact: Comment (not formally assessed) Hallucinations: Visual, Other (remains internally preoccupied) Delusions: Yes Delusion Type: Other (articulates some belief about "vampires") Suicidal: Ideation (no SI) Homicidal: Ideation (no HI) Insight/Judgment poor Vitals/IOs Vital Signs Date Time Temp Pulse Resp B/P Pulse Ox O2 Delivery O2 Flow Rate FiO2 07/08/16 05:25 97.6 89 18 127/68 98 Intake and Output 07/07/16 07/07/16 07/08/16 08:00 16:00 00:00 Intake Total 840 ml 120 ml 480 ml Balance 840 ml 120 ml 480 ml Assessment & Plan Problem List: (1) Schizophrenia Assessment & Plan: Will increase Abilify to 5 mg for psychotic behavior and visual hallucinations. Monitor closely vital signs, behavior, restlessness, stiffness, CBC, CMP, CPK.. ICD Code: F20.9 (2) History of mental retardation ICD Code: Z86.59 Assessment & Plan Estimated LOS: days Justification for Cont. Inpt. Patient is acutely psychotic, needs to continue psychiatric hospitalization for stabilization Request HC Surrog/Guard Advoc?: Yes Problem Qualifiers (1) Schizophrenia: Qualified Code: F20.3 - Undifferentiated schizophrenia Gen Julian MD Jul 08, 2016 12:03
--- NOTE | 2016-07-08 13:55 | HHI.PR ---
Subjective Remarks Follow-up on patient with abdominal pain and elevated CK. Patient seen and examined today. More verbal than usual but continues to speak Stateless and Upper Sorbian. Able to follow commands and answer some simple questions.Denies pain and discomfort. Denies SOB/ dyspnea. Denies chestpain, palpitations, headaches , dizziness. Denies fevers, chills, n/v/d. As per staff, patient is hypersexual yesterday and reported to have masturbating for hours. Objective Vitals Vital Signs Date Time Temp Pulse Resp B/P Pulse Ox O2 Delivery O2 Flow Rate FiO2 07/08/16 05:25 97.6 89 18 127/68 98 07/07/16 20:38 97.9 79 18 118/56 97 I/O 07/07/16 07/07/16 07/07/16 07/08/16 07/08/16 07/08/16 07:00 15:00 23:00 07:00 15:00 23:00 Intake Total 600 ml 360 ml 960 ml 360 ml Balance 600 ml 360 ml 960 ml 360 ml Intake Oral 600 ml 360 ml 960 ml 360 ml # Voids 1 4 Result Diagram: 07/05/16 0840 07/07/16 1116 Imaging Last Impressions Abdomen X-Ray 07/02/16 0000 Signed Impressions: Service Date/Time: Saturday, July 02, 2016 13:34 - CONCLUSION: Nonspecific abdomen. Narinder Lam MD Objective Remarks GENERAL: This is a well-nourished, well-developed patient, in no apparent distress. HEENT: Normocephalic. Pupils equal round and reactive. Nose without bleeding. Airway patent. NECK: Trachea midline. No JVD. Supple. CARDIOVASCULAR: Regular rate and rhythm without murmurs, gallops, or rubs. RESPIRATORY: Clear to auscultation. Breath sounds equal bilaterally. No wheezes , rales, or rhonchi. GASTROINTESTINAL: Abdomen soft, nondistended. Bowel Sounds normoactive x4. Tenderness to palpation midepigastric region. MUSCULOSKELETAL: Extremities without clubbing, cyanosis, or edema. NEUROLOGICAL: Awake and alert. No focal neuro deficit. JO. Normal speech. A/P Problem List: (1) History of mental retardation ICD Code: Z86.59 Status: Acute (2) Schizophrenia ICD Code: F20.9 Status: Acute Assessment and Plan Pt. 25-year-old Panamanian male with a past medical history of schizophrenia who is currently admitted in the psychiatric unit at the hospital under [facility] act and hospitalist services have been requested for medical management of elevated CK, nausea/vomiting and abdominal pain. Schizophrenia - Management per psychiatric team Nausea/vomiting and abdominal pain - Appears to have resolved. - KUB obtained and personally interpreted showing nonspecific findings - Continue to encourage by mouth fluid - will consider CT of the abdomen tomorrow if symptoms continues - Started pantoprazole 40 mg daily, Zofran when necessary, Maalox. - Denies any symptoms. Elevated CK - Improving 585 -> 559 -> 662 -> 923 -> 2036 -> 3382 --> 1744 -->925 - possible NMS, malignant catatonia - patient is afebrile. No rigidity. Normal renal function. - IV fluids with bicarbonate. Continue to monitor CK and renal function. - Abilify on hold by primary team DVT prophylaxis encourage ambulation Discussed with patient, nursing Written by Yohana Hennessy, acting as scribe for Dr. Barreto on 07/08/16 at 13: 54. This note was transcribed by scribe [Yohana Hennessy]. I, Dr. Tim Barreto personally performed the history, physical exam, and medical decision making; and confirmed the accuracy of the information in the transcribed note. Authenticated by Dr. Tim Barreto on 07/08/16 at 17:34. Problem Qualifiers (1) Schizophrenia: Qualified Code: F20.3 - Undifferentiated schizophrenia Yohana Lou Jul 08, 2016 13:55 Tim Barreto MD Jul 08, 2016 17:35
[2016-07-08 21:21] VITALS: BP 108/66; PULSE 80; RESP 18; TEMP 97.7; O2SAT 97
[2016-07-08] MEDS: LORazepam 1 MG TAB PO PRN (21:46)
[2016-07-09 06:16] VITALS: BP 96/54; PULSE 76; RESP 18; TEMP 97.5; O2SAT 98
[2016-07-09] MEDS: LORazepam 2 MG/ML VIAL IM SCH ×3 (09:00→18:00)
[2016-07-09] MEDS ORDERED: ARIPiprazole 5 MG TAB PO SCH (09:00)
[2016-07-09] MEDS: PANTOPRAZOLE SOD 40 MG DELAYED RELEASE TAB PO SCH (09:00)
[2016-07-09] MEDS: DOCUSATE SODIUM 100 MG CAP PO SCH ×2 (09:00→20:44)
--- NOTE | 2016-07-09 14:40 | HHI.PYPN ---
Subjective Remarks On psychiatric reevaluation today, patient is disorganized, he can answer briefly some of the questions, he wouldn't follow commands, but he is tangential and has a limited contact with reality. Patient has been showing disinhibited and primitive behavior in the unit, masturbating and being sexually inappropriate with nurses is several occasions, however no agitation or aggressive behavior displayed so far. He denies suicidal and homicidal ideation, he denies visual and auditory hallucinations, even though his is to be internally preoccupied and a moment talking with nonpresent people. Patient is compliant with medications, significant side effects reported. No stiffness , no tremors, no restlessness, no negativism, hypoactivity present during this evaluation. Review of Systems Other No somatic complaints Objective Alert: Yes [place]: Person, Place Mood: Calm Affect: Euthymic Memory Intact: Comment (not formally assessed) Hallucinations: Visual, Other (remains internally preoccupied) Delusions: Yes Delusion Type: Other (articulates some belief about "vampires") Suicidal: Ideation (no SI) Homicidal: Ideation (no HI) Insight/Judgment Poor Vitals/IOs Vital Signs Date Time Temp Pulse Resp B/P Pulse Ox O2 Delivery O2 Flow Rate FiO2 07/09/16 06:16 97.5 76 18 96/54 98 Intake and Output 07/08/16 07/08/16 07/09/16 08:00 16:00 00:00 Intake Total 480 ml 360 ml 480 ml Balance 480 ml 360 ml 480 ml Assessment & Plan Problem List: (1) Schizophrenia Assessment & Plan: Patient continues to be acutely psychotic, with disinhibited and inappropriate behavior in the unit, she is to internally preoccupied and having visual hallucinations. Will increase Abilify to 10 mg daily. ICD Code: F20.9 (2) History of mental retardation ICD Code: Z86.59 Assessment & Plan Estimated LOS: days Justification for Cont. Inpt. Patient will continue psychiatric hospitalization for stabilization of acute psychosis. Request HC Surrog/Guard Advoc?: Yes Problem Qualifiers (1) Schizophrenia: Qualified Code: F20.3 - Undifferentiated schizophrenia Gen Julian MD Jul 09, 2016 14:40
[2016-07-09 17:44] VITALS: BP 115/73; PULSE 123; RESP 24; TEMP 97.4; O2SAT 93
[2016-07-10 05:24] VITALS: BP 127/66; PULSE 100; RESP 18; TEMP 98; O2SAT 97
[2016-07-10] MEDS: ARIPiprazole 10 MG TAB PO SCH (08:25)
[2016-07-10] MEDS: DOCUSATE SODIUM 100 MG CAP PO SCH ×2 (08:25→21:03)
[2016-07-10] MEDS: PANTOPRAZOLE SOD 40 MG DELAYED RELEASE TAB PO SCH (08:25)
[2016-07-10] MEDS: LORazepam 2 MG/ML VIAL IM SCH ×3 (08:25→17:46)
[2016-07-10] MEDS: SODIUM BICARBONATE 8.4% INJ 100 MEQ in SODIUM CHLOR 0.9% 1000 ML INJ 1,000 ML IV SCH (11:31)
[2016-07-10 12:00] VITALS: BP 124/65; PULSE 108; RESP 19; TEMP 97.4; O2SAT 98
--- NOTE | 2016-07-10 14:02 | HHI.PYPN ---
Subjective Remarks Pt seen and discussed with staff. He is tolerating increase in Abilify without side effects. He continues to be disorganized and disinhibited in behaviors. technical staff engineer report pt isolates to room compulsively masturbating. He has not been agitated and is cooperative with medications. Objective Alert: Yes [place]: Person, Place Mood: Calm Affect: Restricted Memory Intact: Comment (no gross deficits) Hallucinations: Other (remains internally preoccupied) Delusions: Yes Delusion Type: Other (articulates some belief about "vampires") Suicidal: Ideation (no SI) Homicidal: Ideation (no HI) Insight/Judgment poor Remarks disinhibited and disorganized Vitals/IOs Vital Signs Date Time Temp Pulse Resp B/P Pulse Ox O2 Delivery O2 Flow Rate FiO2 07/10/16 05:24 98.0 100 18 127/66 97 Assessment & Plan Problem List: (1) Schizophrenia ICD Code: F20.9 (2) History of mental retardation ICD Code: Z86.59 Assessment & Plan Continue current tx plan. Estimated LOS: days Justification for Cont. Inpt. impairments in reality testing and social functioning Request HC Surrog/Guard Advoc?: Yes Problem Qualifiers (1) Schizophrenia: Qualified Code: F20.3 - Undifferentiated schizophrenia Stephanie Uriarte MD Jul 10, 2016 14:02
[2016-07-10 18:22] VITALS: BP 136/82; PULSE 104; RESP 18; TEMP 98.3; O2SAT 97
[2016-07-10] MEDS: LORazepam 1 MG TAB PO PRN (21:04)
[2016-07-11 05:37] VITALS: BP 97/57; PULSE 61; RESP 16; TEMP 97.1; O2SAT 97
[2016-07-11] MEDS: DOCUSATE SODIUM 100 MG CAP PO SCH ×2 (08:55→20:30)
[2016-07-11] MEDS: PANTOPRAZOLE SOD 40 MG DELAYED RELEASE TAB PO SCH (08:55)
[2016-07-11] MEDS: ARIPiprazole 10 MG TAB PO SCH (08:55)
[2016-07-11] MEDS: LORazepam 2 MG/ML VIAL IM SCH ×3 (08:56→17:40)
[2016-07-11] MEDS: SODIUM BICARBONATE 8.4% INJ 100 MEQ in SODIUM CHLOR 0.9% 1000 ML INJ 1,000 ML IV SCH (10:49)
--- NOTE | 2016-07-11 15:09 | HHI.PYPN ---
Subjective Remarks Pt seen and discussed with staff. He has been quiet and cooperative. He continues to respond to internal stimuli. No agitation. Compliant with medications. Objective Alert: Yes [place]: Person, Place Mood: Calm Affect: Restricted Memory Intact: Comment (no gross deficits) Hallucinations: Auditory, Other (remains internally preoccupied) Delusions: Yes Delusion Type: Other (articulates some belief about "vampires") Suicidal: Ideation (no SI) Homicidal: Ideation (no HI) Insight/Judgment poor Vitals/IOs Vital Signs Date Time Temp Pulse Resp B/P Pulse Ox O2 Delivery O2 Flow Rate FiO2 07/11/16 05:37 97.1 61 16 97/57 97 Assessment & Plan Problem List: (1) Schizophrenia ICD Code: F20.9 (2) History of mental retardation ICD Code: Z86.59 Assessment & Plan Continue current tx plan. Estimated LOS: days Justification for Cont. Inpt. impairments in reality testing Request HC Surrog/Guard Advoc?: Yes Problem Qualifiers (1) Schizophrenia: Qualified Code: F20.3 - Undifferentiated schizophrenia Stephanie Uriarte MD Jul 11, 2016 15:09
[2016-07-11 17:57] VITALS: BP 119/65; PULSE 103; RESP 18; TEMP 98.2; O2SAT 98
[2016-07-11] MEDS: LORazepam 1 MG TAB PO PRN (20:30)
[2016-07-12 06:04] VITALS: BP 96/55; PULSE 62; RESP 18; TEMP 97.1; O2SAT 99
[2016-07-12] MEDS: ARIPiprazole 10 MG TAB PO SCH (09:00)
[2016-07-12] MEDS: LORazepam 2 MG/ML VIAL IM SCH (09:00)
[2016-07-12] MEDS: DOCUSATE SODIUM 100 MG CAP PO SCH ×2 (09:00→20:50)
[2016-07-12] MEDS: PANTOPRAZOLE SOD 40 MG DELAYED RELEASE TAB PO SCH (09:00)
--- NOTE | 2016-07-12 10:20 | HHI.PYPN ---
Subjective Remarks Patient seen and examined with counselor and nurse. Chart reviewed. Case discussed with nursing staff are reports patient sleeps much of the time but is medication compliant. Counselor has spoken with patient's mother who believes that the patient is approaching his chronic baseline and would be agreeable to taking the patient home once medication adjustments have been completed. On my examination today, the patient presents as somewhat disorganized. He has mouthing words and pointing at the floor. He is not aggressive or violent however. No SI or HI voiced. He would like to return home soon as well. No evidence side effects from medications. Review of Systems ROS Limitations: Poor Historian Except as stated in HPI: all other systems reviewed are Neg Objective Alert: Yes [place]: Person, Place Mood: Calm Affect: Flat Memory Intact: Comment (not assessed) Hallucinations: Other (remains somewhat internally preoccupied) Delusions: No Delusion Type: Other (no delusions) Suicidal: Ideation (no SI) Homicidal: Ideation (no HI) Insight/Judgment Poor Remarks No motor abnormalities noted. Thought process somewhat disorganized. Minimal spontaneous speech. Labs Labs reviewed. Vitals/IOs Vital Signs Date Time Temp Pulse Resp B/P Pulse Ox O2 Delivery O2 Flow Rate FiO2 07/12/16 06:04 97.1 62 18 96/55 99 Assessment & Plan Problem List: (1) Schizophrenia ICD Code: F20.9 (2) History of mental retardation ICD Code: Z86.59 Assessment & Plan Continue Abilify as ordered. Transition Ativan IM to oral Ativan. Check a CK and BMP in the morning. Encourage hydration. Continue to monitor on the high acuity unit. Continue other medications and care as ordered. Justification for Cont. Inpt. Medication changes in process. Discharge Planning Home with mother, possibly by the middle of the week. Request HC Surrog/Guard Advoc?: Yes Problem Qualifiers (1) Schizophrenia: Qualified Code: F20.3 - Undifferentiated schizophrenia Van Barnhart MD July 12, 2016 10:20
[2016-07-12] MEDS: SODIUM BICARBONATE 8.4% INJ 100 MEQ in SODIUM CHLOR 0.9% 1000 ML INJ 1,000 ML IV SCH (12:00)
--- NOTE | 2016-07-12 12:04 | HHI.PYPN ---
Subjective Remarks This is the progress note of July 02, 2016. Patient remains easily confused and often disorganized. It is difficult to distinguish her symptoms between schizophrenia and mental retardation. She does become emotionally upset when challenged. Review of Systems ROS Limitations: Clinical Condition Objective Alert: Yes [place]: Person, Place Mood: Anxious Affect: Restricted Memory Intact: Comment (no gross deficits) Hallucinations: Auditory, Other (remains internally preoccupied) Delusions: Yes Delusion Type: Other (articulates some belief about "vampires") Suicidal: Ideation (no SI) Homicidal: Ideation (no HI) Insight/Judgment Impaired Vitals/IOs Vital Signs Date Time Temp Pulse Resp B/P Pulse Ox O2 Delivery O2 Flow Rate FiO2 07/12/16 06:04 97.1 62 18 96/55 99 Assessment & Plan Problem List: (1) Schizophrenia ICD Code: F20.9 (2) History of mental retardation ICD Code: Z86.59 Assessment & Plan Estimated LOS: 7 days patient continues to need more time to stabilize on medication. Justification for Cont. Inpt. Unable to care for self at lower level of hospital or non-hospital care. Request HC Surrog/Guard Advoc?: Yes Problem Qualifiers (1) Schizophrenia: Qualified Code: F20.3 - Undifferentiated schizophrenia Martell Barnes MD July 12, 2016 12:04
[2016-07-12] MEDS: LORazepam 1 MG TAB PO SCH ×2 (14:00→20:50)
[2016-07-12 17:20] VITALS: BP 113/56; PULSE 70; RESP 18; TEMP 97.6; O2SAT 99
[2016-07-13 05:48] VITALS: BP 105/59; PULSE 81; RESP 17; TEMP 97.2; O2SAT 98
[2016-07-13] MEDS: LORazepam 1 MG TAB PO SCH ×3 (05:55→21:48)
[2016-07-13 07:50] LABS: BICARBONATE 25.9 MEQ/L (21.0-32.0); POTASSIUM 3.8 MEQ/L (3.5-5.1)
[2016-07-13 08:08] LABS: CKMB 3.2 NG/ML (0.5-3.6)
[2016-07-13] MEDS: ARIPiprazole 10 MG TAB PO SCH (09:29)
[2016-07-13] MEDS: DOCUSATE SODIUM 100 MG CAP PO SCH ×2 (09:29→20:28)
[2016-07-13] MEDS: PANTOPRAZOLE SOD 40 MG DELAYED RELEASE TAB PO SCH (09:30)
--- NOTE | 2016-07-13 09:36 | HHI.PYPN ---
Subjective Remarks Patient seen and examined with counselor and nurse. Chart reviewed. Case discussed with nurse, counselor and recreational therapist in treatment team. Per nursing staff, the patient is more or less unchanged. He reportedly slept about 3 hours last night. Recreation therapist notes that the patient was able to tolerate fresh air yesterday but otherwise has participated little in unit activities. On my examination today, the patient is sitting in the day area. He appears internally preoccupied and is reaching for unseen objects. He denies any SI or HI. He does seem to say that he believes that there is an alien of some sort in his head. Denies side effects from medications. Review of Systems ROS Limitations: Poor Historian Except as stated in HPI: all other systems reviewed are Neg Objective Alert: Yes [place]: Person, Place Mood: Calm Affect: Flat Memory Intact: Comment (not assessed) Hallucinations: Other (internally stimulated) Delusions: Yes Delusion Type: Paranoid (alien in head) Suicidal: Ideation (no SI) Homicidal: Ideation (no HI) Insight/Judgment Poor Remarks No motor abnormalities noted Labs Test 07/13/16 06:57 Sodium Level 140 MEQ/L Potassium Level 3.8 MEQ/L Chloride Level 107 MEQ/L Carbon Dioxide Level 25.9 MEQ/L Anion Gap 7 MEQ/L Blood Urea Nitrogen 11 MG/DL Creatinine 1.11 MG/DL Estimat Glomerular Filtration 80 ML/MIN Rate Random Glucose 91 MG/DL Calcium Level 8.8 MG/DL Total Creatine Kinase 912 U/L Creatine Kinase MB 3.2 NG/ML Creatine Kinase MB % 0.4 % Labs reviewed. CK stable but remains elevated to 3 times the upper limit of normal. GFR improved. Vitals/IOs Vital Signs Date Time Temp Pulse Resp B/P Pulse Ox O2 Delivery O2 Flow Rate FiO2 07/13/16 05:48 97.2 81 17 105/59 98 Assessment & Plan Problem List: (1) Schizophrenia ICD Code: F20.9 (2) History of mental retardation ICD Code: Z86.59 Assessment & Plan Patient with ongoing psychosis. Invega Sustenna that he had prior to admission is likely nearly or completely out of his system. He does not seem to be deriving much benefit from the Abilify, nor did he when it was previously titrated prior to his transfer to the medical psychiatric unit. In light of this and difficulty with sleeping, discontinue Abilify and replace with a small dose of Zyprexa Zydis, 5 mg at bedtime. Plan to titrate Zyprexa to effect. Continue to encourage hydration and trend CK. Continue oral Ativan, but long- term goal is to taper this agent. Continue to monitor on the high acuity inpatient unit. Continue other medications and care as ordered. Justification for Cont. Inpt. Impairment in reality construction. Impairment in self-care. Medication changes in process. High risk for decompensation in a less restrictive environment. Discharge Planning Pending psychiatric stabilization. Request HC Surrog/Guard Advoc?: Yes Problem Qualifiers (1) Schizophrenia: Qualified Code: F20.3 - Undifferentiated schizophrenia Van Barnhart MD July 13, 2016 09:36
[2016-07-13] MEDS: SODIUM BICARBONATE 8.4% INJ 100 MEQ in SODIUM CHLOR 0.9% 1000 ML INJ 1,000 ML IV SCH (12:00)
[2016-07-13 18:17] VITALS: BP 104/58; PULSE 67; RESP 16; TEMP 97.9; O2SAT 100
[2016-07-13] MEDS ORDERED: OLANZapine ODT 5 MG TAB PO SCH (21:00)
[2016-07-14 06:12] VITALS: BP 117/67; PULSE 59; RESP 18; TEMP 97.6; O2SAT 100
[2016-07-14] MEDS: LORazepam 1 MG TAB PO SCH ×2 (06:24→20:43)
[2016-07-14 07:36] LABS: CKMB 2.9 NG/ML (0.5-3.6)
[2016-07-14] MEDS: PANTOPRAZOLE SOD 40 MG DELAYED RELEASE TAB PO SCH (09:02)
[2016-07-14] MEDS: DOCUSATE SODIUM 100 MG CAP PO SCH ×2 (09:02→20:41)
--- NOTE | 2016-07-14 11:40 | HHI.PYPN ---
Subjective Remarks Patient seen and examined with counselor and RN. Chart reviewed. Case d/w RN who reports that patient is spending much of his time in bed sleeping. On my examination today, patient does indeed seem fairly sleepy. He does awaken for a brief interview. Denies any AVH. No reports of aliens in his head today. No SI or HI voiced. No evident side effects from meds. Zyprexa on hold for lack of consent. Review of Systems ROS Limitations: Poor Historian Except as stated in HPI: all other systems reviewed are Neg Objective Alert: Yes (sleepy but arouseable) [place]: Person Mood: Calm Affect: Flat Memory Intact: Comment (not assessed) Hallucinations: Other (No AVH) Delusions: No Delusion Type: Other (No delusions) Suicidal: Ideation (no SI) Homicidal: Ideation (no HI) Insight/Judgment Poor Remarks No motor abnormalities noted. TP slowed. Labs Test 07/14/16 06:26 Total Creatine Kinase 552 U/L Creatine Kinase MB 2.9 NG/ML Creatine Kinase MB % 0.5 % Labs reviewed. CK downtrending. Vitals/IOs Vital Signs Date Time Temp Pulse Resp B/P Pulse Ox O2 Delivery O2 Flow Rate FiO2 07/14/16 06:12 97.6 59 18 117/67 100 Assessment & Plan Problem List: (1) Schizophrenia ICD Code: F20.9 (2) History of mental retardation ICD Code: Z86.59 Assessment & Plan RN to try to obtain consent for Zyprexa for this evening. Unclear if sleepiness is reflection of poor sleep overnight, excessive sedation from scheduled Ativan or possibly return of catatonia. I will try to taper Ativan to 0.5mg q8h to test the middle possibility. If we can get the Zyprexa consent , this might help him sleep overnight as well. Continue to monitor on high acuity unit. Continue other medications and care as ordered. Justification for Cont. Inpt. Impairment in self care. Med changes in process. Risk for decompensation in a less restrictive environment. Discharge Planning Pending stabilization. Request HC Surrog/Guard Advoc?: Yes Problem Qualifiers (1) Schizophrenia: Qualified Code: F20.3 - Undifferentiated schizophrenia Van Barnhart MD July 14, 2016 11:40
[2016-07-14] MEDS: SODIUM BICARBONATE 8.4% INJ 100 MEQ in SODIUM CHLOR 0.9% 1000 ML INJ 1,000 ML IV SCH (12:00)
[2016-07-14] MEDS: LORazepam 1 MG TAB PO PRN (15:10)
[2016-07-14 18:14] VITALS: BP 132/56; PULSE 102; RESP 16; TEMP 98.5; O2SAT 97
[2016-07-14] MEDS: OLANZapine ODT 5 MG TAB PO SCH (20:41)
[2016-07-15 05:17] VITALS: BP 97/54; PULSE 48; RESP 18; TEMP 97.5; O2SAT 100
[2016-07-15] MEDS: LORazepam 1 MG TAB PO SCH ×2 (06:33→15:12)
[2016-07-15] MEDS: DOCUSATE SODIUM 100 MG CAP PO SCH ×2 (08:51→20:47)
[2016-07-15] MEDS: PANTOPRAZOLE SOD 40 MG DELAYED RELEASE TAB PO SCH (08:52)
[2016-07-15 11:00] VITALS: BP 113/69; PULSE 101; RESP 18; TEMP 98.2
--- NOTE | 2016-07-15 11:13 | HHI.PYPN ---
Subjective Remarks Patient seen and examined with counselor. Chart reviewed. Case discussed with nursing staff who reports patient has been no behavioral problem. On my examination today, the patient seems considerably more awake and alert. He is up and walking around the unit. He continues to gesticulate some but verbalizes no psychotic material. He has no physical complaints. No reported side effects from medications. Review of Systems ROS Limitations: Poor Historian Except as stated in HPI: all other systems reviewed are Neg Objective Alert: Yes (sleepy but arouseable) [place]: Person Mood: Calm Affect: Blunted Memory Intact: Comment (not assessed) Hallucinations: Other (No AVH) Delusions: No Delusion Type: Other (no delusional material) Suicidal: Ideation (no SI) Homicidal: Ideation (no HI) Insight/Judgment Poor Remarks No motor abnormalities noted. Steady gait and station. Labs Test 07/15/16 07:05 Total Creatine Kinase 461 U/L Creatine Kinase MB 3.0 NG/ML Creatine Kinase MB % 0.7 % Labs reviewed. CK trending downward. Vitals/IOs Vital Signs Date Time Temp Pulse Resp B/P Pulse Ox O2 Delivery O2 Flow Rate FiO2 07/15/16 05:17 97.5 48 18 97/54 100 Assessment & Plan Problem List: (1) Schizophrenia ICD Code: F20.9 (2) History of mental retardation ICD Code: Z86.59 Assessment & Plan Taper Ativan to 0.25 mg every 8 hours. Continue Zyprexa 5 mg at bedtime. Check a CK in the morning. Continue to monitor on the inpatient unit. Continue other medications and care as ordered. Justification for Cont. Inpt. Medication changes in process. Discharge planning. Discharge Planning Home with mother once psychiatrically stabilized. Possibly end of this week or beginning of next week. 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
[2016-07-15] MEDS: SODIUM BICARBONATE 8.4% INJ 100 MEQ in SODIUM CHLOR 0.9% 1000 ML INJ 1,000 ML IV SCH (12:00)
[2016-07-15 16:00] VITALS: BP 139/79; PULSE 105; RESP 18; TEMP 97.3; O2SAT 98
[2016-07-15] MEDS: ALUMINUM/MAGNESIUM/SIMETH 30 ML CUP PO PRN (16:19)
[2016-07-15] MEDS: LORazepam 0.5 MG TAB PO SCH (20:47)
[2016-07-15] MEDS: OLANZapine ODT 5 MG TAB PO SCH (20:48)
[2016-07-15] MEDS: LORazepam 1 MG TAB PO PRN (23:23)
[2016-07-16] MEDS: LORazepam 0.5 MG TAB PO SCH ×3 (06:00→21:45)
[2016-07-16 06:34] VITALS: BP 132/80; PULSE 100; RESP 18; TEMP 98.3; O2SAT 97
--- NOTE | 2016-07-16 09:05 | HHI.PYPN ---
Subjective Remarks Patient seen and examined with counselor. Chart reviewed. Case discussed with nursing staff reports that the mother believes that the patient is worse in some respect on Zyprexa. Counselor has received similar message. On my examination today, the patient appears more or less unchanged from previous presentations. He does follow simple commands. He is calm and pleasant. He denies any audiovisual hallucinations. No SI or HI voiced. No evident side effects from medications. Review of Systems ROS Limitations: Poor Historian Except as stated in HPI: all other systems reviewed are Neg Objective Alert: Yes [place]: Person Mood: Calm Affect: Blunted Memory Intact: Comment (not assessed) Hallucinations: Other (none) Delusions: No Delusion Type: Other (no delusions) Suicidal: Ideation (no SI) Homicidal: Ideation (no HI) Insight/Judgment Poor Remarks No motor abnormalities noted. Labs Labs reviewed. Vitals/IOs Vital Signs Date Time Temp Pulse Resp B/P Pulse Ox O2 Delivery O2 Flow Rate FiO2 07/16/16 06:34 98.3 100 18 132/80 97 Assessment & Plan Problem List: (1) Schizophrenia ICD Code: F20.9 (2) History of mental retardation ICD Code: Z86.59 Assessment & Plan Per report from counselor and nurse, mother feels that Zyprexa has worsened to the patient status. I cannot really appreciate any significant change, and certainly not a change for the worse today, and the patient in fact seemed improved yesterday after he had received his first dose of Zyprexa. Nonetheless , in light of the mother's concerns, I will discontinue Zyprexa and initiate Seroquel titration at bedtime. Continue to monitor on the inpatient unit in the meantime. Continue other medications and care as ordered. Justification for Cont. Inpt. Medication changes in process. High risk for decompensation in a restrictive environment. Discharge Planning Pending psychiatric stabilization. Possible discharge after the weekend. Request HC Surrog/Guard Advoc?: Yes Problem Qualifiers (1) Schizophrenia: Qualified Code: F20.3 - Undifferentiated schizophrenia Van Barnhart MD July 16, 2016 09:05
[2016-07-16] MEDS: DOCUSATE SODIUM 100 MG CAP PO SCH ×2 (09:22→20:39)
[2016-07-16] MEDS: PANTOPRAZOLE SOD 40 MG DELAYED RELEASE TAB PO SCH (09:22)
[2016-07-16] MEDS: SODIUM BICARBONATE 8.4% INJ 100 MEQ in SODIUM CHLOR 0.9% 1000 ML INJ 1,000 ML IV SCH (12:00)
[2016-07-16 18:04] VITALS: BP 157/66; PULSE 104; RESP 19; TEMP 97.2; O2SAT 96
[2016-07-16] MEDS: LORazepam 2 MG/ML VIAL IM PRN (19:52)
[2016-07-16] MEDS: QUEtiapine FUMARATE 25 MG TAB PO SCH (20:41)
[2016-07-17] MEDS: LORazepam 0.5 MG TAB PO SCH ×3 (05:46→21:42)
[2016-07-17 05:59] VITALS: BP 115/58; PULSE 71; RESP 18; TEMP 97.3; O2SAT 97
[2016-07-17] MEDS: PANTOPRAZOLE SOD 40 MG DELAYED RELEASE TAB PO SCH (07:58)
[2016-07-17] MEDS: DOCUSATE SODIUM 100 MG CAP PO SCH ×2 (07:58→21:00)
[2016-07-17] MEDS: LORazepam 2 MG/ML VIAL IM PRN ×2 (10:59→22:05)
[2016-07-17] MEDS: SODIUM BICARBONATE 8.4% INJ 100 MEQ in SODIUM CHLOR 0.9% 1000 ML INJ 1,000 ML IV SCH (11:20)
--- NOTE | 2016-07-17 14:18 | HHI.PYPN ---
Subjective Remarks Patient was seen and case discussed with nursing. Patient remains bizarre and disorganized. He is alert and oriented 2. Throughout the interview he is internally preoccupied and talking to himself. Answering appropriately showing me his teeth. Interview was done in Swedish. Threw a chair this morning. Compliant with medications Objective Alert: Yes [place]: Person Mood: Oppositional Affect: Flat Memory Intact: Comment (not assessed) Hallucinations: Other (none) Delusions: No Delusion Type: Other (no delusions) Suicidal: Ideation (no SI) Homicidal: Ideation (no HI) Insight/Judgment Poor Vitals/IOs Vital Signs Date Time Temp Pulse Resp B/P Pulse Ox O2 Delivery O2 Flow Rate FiO2 07/17/16 05:59 97.3 71 18 115/58 97 Assessment & Plan Problem List: (1) Schizophrenia ICD Code: F20.9 (2) History of mental retardation ICD Code: Z86.59 Assessment & Plan Continue current treatment plan Justification for Cont. Inpt. Patient will decompensate in a less restrictive setting Request HC Surrog/Guard Advoc?: Yes Problem Qualifiers (1) Schizophrenia: Qualified Code: F20.3 - Undifferentiated schizophrenia William Edwards DO July 17, 2016 14:18
[2016-07-17 14:53] VITALS: BP 116/73; PULSE 92; RESP 18; O2SAT 96
[2016-07-17] MEDS: QUEtiapine FUMARATE 25 MG TAB PO SCH (21:41)
[2016-07-18 05:48] VITALS: BP 115/62; PULSE 86; RESP 16; TEMP 98.1; O2SAT 96
[2016-07-18] MEDS: LORazepam 0.5 MG TAB PO SCH ×3 (06:05→21:59)
[2016-07-18] MEDS: PANTOPRAZOLE SOD 40 MG DELAYED RELEASE TAB PO SCH (08:29)
[2016-07-18] MEDS: DOCUSATE SODIUM 100 MG CAP PO SCH ×2 (08:29→20:27)
[2016-07-18] MEDS: SODIUM BICARBONATE 8.4% INJ 100 MEQ in SODIUM CHLOR 0.9% 1000 ML INJ 1,000 ML IV SCH (08:30)
--- NOTE | 2016-07-18 11:42 | HHI.PYPN ---
Subjective Remarks Patient was seen and case discussed with nursing. Patient interviewed in bed and was awoken from sleep for the interview. He remains flat, hypoverbal and apathetic. His compliant with his medications and tolerating it well. Per nursing he urinated on the door before going to visitation yesterday. Had a yelling fit overnight. Mom relays he had invega sustenna last in May Objective Alert: Yes [place]: Person Mood: Oppositional Affect: Flat Memory Intact: Comment (not assessed) Hallucinations: Other (none) Delusions: No Delusion Type: Other (no delusions) Suicidal: Ideation (no SI) Homicidal: Ideation (no HI) Insight/Judgment Poor Vitals/IOs Vital Signs Date Time Temp Pulse Resp B/P Pulse Ox O2 Delivery O2 Flow Rate FiO2 07/18/16 05:48 98.1 86 16 115/62 96 Intake and Output 07/17/16 07/17/16 07/18/16 08:00 16:00 00:00 Intake Total 120 ml Balance 120 ml Assessment & Plan Problem List: (1) Schizophrenia ICD Code: F20.9 (2) History of mental retardation ICD Code: Z86.59 Assessment & Plan Continue current treatment plan Justification for Cont. Inpt. Patient will decompensate in a less restrictive setting Request HC Surrog/Guard Advoc?: Yes Problem Qualifiers (1) Schizophrenia: Qualified Code: F20.3 - Undifferentiated schizophrenia William Edwards DO July 18, 2016 11:42
[2016-07-18] MEDS: LORazepam 1 MG TAB PO PRN ×2 (12:29→20:41)
[2016-07-18 18:11] VITALS: BP 116/60; PULSE 86; RESP 16; TEMP 98; O2SAT 94
[2016-07-18] MEDS: QUEtiapine FUMARATE 25 MG TAB PO SCH (20:27)
[2016-07-19 06:02] VITALS: BP 138/58; PULSE 100; RESP 17; TEMP 97.4; O2SAT 97
[2016-07-19] MEDS: LORazepam 0.5 MG TAB PO SCH (06:17)
[2016-07-19] MEDS: PANTOPRAZOLE SOD 40 MG DELAYED RELEASE TAB PO SCH (08:25)
[2016-07-19] MEDS: DOCUSATE SODIUM 100 MG CAP PO SCH ×2 (08:25→20:59)
[2016-07-19] MEDS: LORazepam 1 MG TAB PO PRN ×2 (08:26→17:25)
--- NOTE | 2016-07-19 10:15 | HHI.PYPN ---
Subjective Remarks Patient seen and examined with counselor and nurse. Chart reviewed. Case discussed with nursing staff who reports that the patient was calling out overnight but was otherwise no behavioral problem. He did reportedly sleep fairly well overnight. On my examination today, the patient is ambulating around the unit with a steady gait. He is calm and cooperative. He articulates no particular complaints. No evident side effects from medications. Review of Systems ROS Limitations: Poor Historian Other ROS limited Objective Alert: Yes [place]: Person Mood: Calm Affect: Blunted Memory Intact: Comment (not assessed) Hallucinations: Other (none) Delusions: No Delusion Type: Other (none) Suicidal: Ideation (no SI) Homicidal: Ideation (no HI) Insight/Judgment Poor Remarks No motor abnormalities noted Labs Labs reviewed. Vitals/IOs Vital Signs Date Time Temp Pulse Resp B/P Pulse Ox O2 Delivery O2 Flow Rate FiO2 07/19/16 06:02 97.4 100 17 138/58 97 Intake and Output 07/18/16 07/18/16 07/18/16 07:59 15:59 23:59 Intake Total 300 ml Balance 300 ml Assessment & Plan Problem List: (1) Schizophrenia ICD Code: F20.9 (2) History of mental retardation ICD Code: Z86.59 Assessment & Plan Titrate Seroquel to 150mg qHS. Discontinue Ativan. Check a CK and BMP in the morning. Unclear how far off his baseline he is at this point; counselor will contact mother. Continue to monitor on inpatient unit in the meantime. Continue other medications and care as ordered. Justification for Cont. Inpt. Medication changes in process. Discharge Planning Possible discharge middle of the week. Request HC Surrog/Guard Advoc?: Yes Problem Qualifiers (1) Schizophrenia: Qualified Code: F20.3 - Undifferentiated schizophrenia Van Barnhart MD July 19, 2016 10:15
[2016-07-19] MEDS: SODIUM BICARBONATE 8.4% INJ 100 MEQ in SODIUM CHLOR 0.9% 1000 ML INJ 1,000 ML IV SCH (10:39)
[2016-07-19 17:37] VITALS: BP 138/63; PULSE 94; RESP 18; TEMP 98.1; O2SAT 98
[2016-07-19] MEDS: QUEtiapine FUMARATE 100 MG TAB PO SCH (20:59)
[2016-07-20] MEDS: LORazepam 1 MG TAB PO PRN ×2 (00:53→08:16)
[2016-07-20 05:50] VITALS: BP 103/55; PULSE 76; RESP 16; O2SAT 96
[2016-07-20] MEDS: PANTOPRAZOLE SOD 40 MG DELAYED RELEASE TAB PO SCH (08:16)
[2016-07-20] MEDS: DOCUSATE SODIUM 100 MG CAP PO SCH ×2 (08:16→21:41)
[2016-07-20] MEDS: ALUMINUM/MAGNESIUM/SIMETH 30 ML CUP PO PRN (08:17)
[2016-07-20 08:36] LABS: BICARBONATE 31.1 MEQ/L (21.0-32.0); POTASSIUM 3.7 MEQ/L (3.5-5.1)
[2016-07-20] MEDS: SODIUM BICARBONATE 8.4% INJ 100 MEQ in SODIUM CHLOR 0.9% 1000 ML INJ 1,000 ML IV SCH (08:51)
[2016-07-20 08:57] LABS: CKMB 4.4 NG/ML (0.5-3.6)
--- NOTE | 2016-07-20 09:49 | HHI.PYPN ---
Subjective Remarks Patient seen and examined with counselor and nurse. Chart reviewed. Case discussed with nurse, counselor and recreational and occupational therapist in treatment team. Per nursing staff, patient was answering the unit phone last night and cursing into the associate professor of biostatistics in German. He also reportedly had copious emesis this morning. On my examination today, I find the patient in his room. He is mute and posturing with his hand raised over his head. He is masturbating. No evident side effects from medications. I have ordered him medicated with Ativan 1mg IM once for possible recurrence of catatonia. Review of Systems ROS Limitations: Psychotic, Poor Historian Except as stated in HPI: all other systems reviewed are Neg Objective Alert: Yes [place]: Person Mood: Calm Affect: Flat Memory Intact: Comment (not assessed) Hallucinations: Other (unable to assess) Delusions: No Delusion Type: Other (unable to assess) Suicidal: Ideation (Unable to assess) Homicidal: Ideation (Unable to assess) Insight/Judgment Poor Remarks Motor exam as above. No other motor abnormalities noted. Grooming and hygiene poor. Labs Test 07/20/16 06:35 Sodium Level 141 MEQ/L Potassium Level 3.7 MEQ/L Chloride Level 103 MEQ/L Carbon Dioxide Level 31.1 MEQ/L Anion Gap 7 MEQ/L Blood Urea Nitrogen 12 MG/DL Creatinine 1.20 MG/DL Estimat Glomerular Filtration 73 ML/MIN Rate Random Glucose 72 MG/DL Calcium Level 9.2 MG/DL Total Creatine Kinase 697 U/L Creatine Kinase MB 4.4 NG/ML Creatine Kinase MB % 0.6 % Labs reviewed. Mild decrease in GFR. CK rising again. Vitals/IOs Vital Signs Date Time Temp Pulse Resp B/P Pulse Ox O2 Delivery O2 Flow Rate FiO2 07/20/16 05:50 76 16 103/55 96 07/19/16 17:37 98.1 Assessment & Plan Problem List: (1) Schizophrenia ICD Code: F20.9 (2) History of mental retardation ICD Code: Z86.59 (3) Catatonia Assessment & Plan: Possible ICD Code: F06.1 Assessment & Plan Patient mute, posturing, behaviorally regressed. Concerned for possible recurrence of catatonia. Resume Ativan 0.5mg TID IM for possible catatonia. Titrate Seroquel to 50/150mg. Consult to the hospitalist for the emesis. Continue to trend CK. Continue to monitor on inpatient unit. Continue other medications and care as ordered. Justification for Cont. Inpt. Impairment in self-care. Complicating conditions. Medication changes in process. High risk for decompensation in a less restrictive environment. Discharge Planning Pending psychiatric stabilization. Plan is presently for home with mother once stable. Request HC Surrog/Guard Advoc?: Yes Problem Qualifiers (1) Schizophrenia: Qualified Code: F20.3 - Undifferentiated schizophrenia Van Barnhart MD July 20, 2016 09:49
[2016-07-20] MEDS ORDERED: LORazepam 2 MG/ML VIAL IM ONE (11:15)
[2016-07-20] MEDS: LORazepam 2 MG/ML VIAL IM PRN ×2 (11:16→17:37)
[2016-07-20 14:31] LABS: INDIRECT BILIRUBIN 0.6 MG/DL (0.0-0.8); TOTAL BILIRUBIN ADULT 0.8 MG/DL (0.2-1.0)
--- NOTE | 2016-07-20 15:19 | HHI.PR ---
Subjective Remarks Reconsulted for emesis/ vomiting Patient seen and examined today with nurse Ed. Patient found laying in bed masturbating. Nonverbal. Follows commands in English, otherwise does not verbalized any symptoms. Objective Vitals Vital Signs Date Time Temp Pulse Resp B/P Pulse Ox O2 Delivery O2 Flow Rate FiO2 07/20/16 05:50 76 16 103/55 96 07/19/16 17:37 98.1 94 18 138/63 98 Result Diagram: 07/20/16 0635 Objective Remarks GENERAL: This is a well-nourished, well-developed patient, in no apparent distress. HEENT: Normocephalic. Pupils equal round and reactive. Nose without bleeding. Airway patent. NECK: Trachea midline. No JVD. Supple. CARDIOVASCULAR: Regular rate and rhythm without murmurs, gallops, or rubs. RESPIRATORY: Clear to auscultation. Breath sounds equal bilaterally. No wheezes , rales, or rhonchi. GASTROINTESTINAL: Abdomen soft, nondistended. Bowel Sounds normoactive x4. Nontender to deep palpation. No CVA tenderness. MUSCULOSKELETAL: Extremities without clubbing, cyanosis, or edema. NEUROLOGICAL: Awake and alert. JO. Nonverbal. A/P Problem List: (1) History of mental retardation ICD Code: Z86.59 Status: Acute (2) Schizophrenia ICD Code: F20.9 Status: Acute Assessment and Plan Pt. 25-year-old Spanish male with a past medical history of schizophrenia who is currently admitted in the psychiatric unit at the hospital under [facility] act and hospitalist services have been requested for medical management of elevated CK, nausea/vomiting and abdominal pain. Schizophrenia - Management per psychiatric team - Catatonia? - Hypersexual, masturbating in his room but non verbal Nausea/vomiting - KUB showing nonspecific findings - will consider CT of the abdomen if symptoms continues - Pantoprazole 40 mg daily, Zofran when necessary, Maalox scheduled - Nontender abdomen to deep palpation. Difficult to assess symptomatology since patient has schizophrenia with hypoverbal/ mute tendencies. Vomiting may be related to antipsychotic medication use or patient's psychosis/schizophrenia. - Labs reviewed, unremarkable LFTs, Lipase and renal function. - Check UA Elevated CK - -->925 --> 552 --> 461 --> 697 - possible NMS, ?malignant catatonia - Continue to monitor CK and renal function. - Renal function within normal DVT prophylaxis encourage ambulation Discussed with patient, nursing, Dr. Reid Problem Qualifiers (1) Schizophrenia: Qualified Code: F20.3 - Undifferentiated schizophrenia Yohana Lou July 20, 2016 15:19
[2016-07-20 17:24] LABS: BLOOD, URINE NEG (NEG); GLUCOSE,URINE NEG (NEG); KETONE, URINE TRACE mg/dL (NEG); NITRITE,URINE NEG (NEG); PH, URINE 6.5 (5.0-8.5); URINE COLOR YELLOW (YELLW/STRAW)
[2016-07-20 17:31] LABS: COMMENT (UR) CULT NOT INDICATED; CULTURE IF INDICATED CULT NOT INDICATED
[2016-07-20] MEDS: LORazepam 2 MG/ML VIAL IM SCH (17:37)
[2016-07-20 18:31] VITALS: BP 125/79; PULSE 105; RESP 16; TEMP 98.5; O2SAT 97
[2016-07-20] MEDS: ALUMINUM/MAGNESIUM/SIMETH 30 ML CUP PO SCH (21:00)
[2016-07-20] MEDS: QUEtiapine FUMARATE 100 MG TAB PO SCH (21:42)
[2016-07-21] MEDS: LORazepam 1 MG TAB PO PRN (02:08)
[2016-07-21 06:04] VITALS: BP 137/67; PULSE 99; RESP 16; TEMP 97.9; O2SAT 98
[2016-07-21] MEDS: ALUMINUM/MAGNESIUM/SIMETH 30 ML CUP PO SCH ×2 (07:30→21:00)
[2016-07-21 08:43] LABS: CKMB 5.5 NG/ML (0.5-3.6)
[2016-07-21] MEDS: LORazepam 2 MG/ML VIAL IM SCH ×3 (10:01→20:30)
[2016-07-21] MEDS: PANTOPRAZOLE SOD 40 MG DELAYED RELEASE TAB PO SCH (10:02)
[2016-07-21] MEDS: DOCUSATE SODIUM 100 MG CAP PO SCH ×2 (10:02→21:00)
[2016-07-21] MEDS: QUEtiapine FUMARATE 25 MG TAB PO SCH (10:09)
[2016-07-21] MEDS: SODIUM BICARBONATE 8.4% INJ 100 MEQ in SODIUM CHLOR 0.9% 1000 ML INJ 1,000 ML IV SCH (12:00)
--- NOTE | 2016-07-21 14:00 | HHI.PYPN ---
Subjective Remarks Patient seen and examined. Chart reviewed. Case discussed with nursing staff who reports patient had ongoing emesis this morning. On my examination today, the patient appears internally preoccupied. He is rubbing his head and pacing around the unit. I note that somewhat later he is swatting at the wall. No evident stiffness/hypertonia or other side effects from medications. Review of Systems ROS Limitations: Poor Historian Except as stated in HPI: all other systems reviewed are Neg Objective Alert: Yes [place]: Person Mood: Other (mildly agitated/pacing) Affect: Flat Memory Intact: Comment (not assessed) Hallucinations: Other (appears int stim) Delusions: No Delusion Type: Other (unable to assess) Suicidal: Ideation (Unable to assess) Homicidal: Ideation (Unable to assess) Insight/Judgment Poor Remarks Somewhat fidgety but no motor abnormalities noted. Labs Test 07/20/16 07/21/16 15:25 07:00 Urine Color YELLOW Urine Turbidity CLEAR Urine pH 6.5 Urine Specific [place] 1.027 Urine Protein TRACE mg/dL Urine Glucose (UA) NEG mg/dL Urine Ketones TRACE mg/dL Urine Occult Blood NEG Urine Nitrite NEG Urine Bilirubin NEG Urine Urobilinogen LESS THAN 2.0 MG/DL Urine Leukocyte Esterase NEG Urine RBC LESS THAN 1 /hpf Urine WBC 1 /hpf Microscopic Urinalysis Comment CULT NOT INDICATED Total Creatine Kinase 1213 U/L Creatine Kinase MB 5.5 NG/ML Creatine Kinase MB % 0.5 % Labs reviewed. CK trending up. Vitals/IOs Vital Signs Date Time Temp Pulse Resp B/P Pulse Ox O2 Delivery O2 Flow Rate FiO2 07/21/16 06:04 97.9 99 16 137/67 98 Assessment & Plan Problem List: (1) Schizophrenia ICD Code: F20.9 (2) History of mental retardation ICD Code: Z86.59 (3) Catatonia ICD Code: F06.1 Assessment & Plan Continue scheduled Ativan IM for possible catatonia. Continue Seroquel 50/ 150mg as ordered for now. I do not suspect NMS but will hold off on escalating dose until CK is once again down-trending. D/w Dr. Mccann from hospitalist service who is recommending transfer to med-psych for IVF and workup of emesis. D/w Dr. Julian. Will transfer to med psych. Justification for Cont. Inpt. Complicating condition, namely emesis and elevated CK. Impairment in self- care. Impairment in reality construction. High risk for decompensation in a less restrictive environment. Discharge Planning Transfer to med psych unit. Request HC Surrog/Guard Advoc?: Yes Problem Qualifiers (1) Schizophrenia: Qualified Code: F20.3 - Undifferentiated schizophrenia Van Barnhart MD July 21, 2016 14:00
--- NOTE | 2016-07-21 14:12 | HHI.PR ---
Subjective Remarks Follow-up visit abdominal pain, vomiting. Patient seen and examined today. Walking and pacing around unit. Minimal verbalization but states he has abdominal pain unable to describe secondary to selective mutation. As per staff , patient continues to do but is able to go for bowel movement. Noted to have vomiting after lunch. Minimal by mouth intake approximately 25% of his food, no lunch, only sips of water. Discuss with Dr. Barnhart and RN patient will be transferred to medical psych unit for IV fluid hydration. Objective Vitals Vital Signs Date Time Temp Pulse Resp B/P Pulse Ox O2 Delivery O2 Flow Rate FiO2 07/21/16 06:04 97.9 99 16 137/67 98 07/20/16 18:31 98.5 105 16 125/79 97 Result Diagram: 07/20/16 0635 Objective Remarks GENERAL: This is a well-nourished, well-developed patient, in no apparent distress. HEENT: Normocephalic. Pupils equal round and reactive. Nose without bleeding. Airway patent. NECK: Trachea midline. No JVD. Supple. CARDIOVASCULAR: Regular rate and rhythm without murmurs, gallops, or rubs. RESPIRATORY: Clear to auscultation. Breath sounds equal bilaterally. No wheezes , rales, or rhonchi. GASTROINTESTINAL: Abdomen soft, nondistended. Bowel Sounds normoactive x4. Mild tenderness to deep palpation. No CVA tenderness. MUSCULOSKELETAL: Extremities without clubbing, cyanosis, or edema. NEUROLOGICAL: Awake and alert. JO. Nonverbal. A/P Problem List: (1) History of mental retardation ICD Code: Z86.59 Status: Acute (2) Schizophrenia ICD Code: F20.9 Status: Acute Assessment and Plan Pt. 25-year-old Nigerien male with a past medical history of schizophrenia who is currently admitted in the psychiatric unit at the hospital under [facility] act and hospitalist services have been requested for medical management of elevated CK, nausea/vomiting and abdominal pain. Schizophrenia - Management per psychiatric team - Catatonia? - Hypersexual, patient had female magazines in his room Nausea/vomiting - KUB showing nonspecific findings - will consider CT of the abdomen if symptoms continues - Pantoprazole 40 mg daily, Zofran when necessary, Maalox scheduled - Nontender abdomen to deep palpation. Difficult to assess symptomatology since patient has schizophrenia with hypoverbal/ mute tendencies. Vomiting may be related to antipsychotic medication use or patient's psychosis/schizophrenia. - Labs reviewed, unremarkable LFTs, Lipase and renal function. - UA negative - CT of abdomen and pelvis ordered. Follow-up results Elevated CK - -->925 --> 552 --> 461 --> 697 --> 1213 - possible NMS, ?malignant catatonia - Continue to monitor CK and renal function. Check tomorrow - Renal function within normal - IV fluids NS 100ml/hr DVT prophylaxis encourage ambulation Discussed with patient, nursing, Dr. Barnhart Written by Yohana Hennessy, acting as scribe for Dr. Mccann on 07/21/16 at 14:18. This note was transcribed by caitlin TORO. I, Dr. Valeria Mccann personally performed the history, physical exam, and medical decision making; and confirmed the accuracy of the information in the transcribed note. Authenticated by Dr. Valeria Mccann on 07/21/16 at 14:18. Problem Qualifiers (1) Schizophrenia: Qualified Code: F20.3 - Undifferentiated schizophrenia Yohana Lou July 21, 2016 14:12 Valeria Mccann MD July 21, 2016 14:52
[2016-07-21] MEDS: ONDANSETRON ODT 4 MG TAB PO PRN (14:21)
[2016-07-21] MEDS ORDERED: DIATRIZOATE MEGLUM/DIATRIZOATE SOD 9 ML CUP PO ONE (15:15)
[2016-07-21] MEDS: SODIUM CHLOR 0.9% 1000 ML INJ 1,000 ML IV SCH (19:00)
[2016-07-21 19:40] VITALS: BP 106/75; PULSE 94; RESP 16; TEMP 97.4; O2SAT 94
[2016-07-21] MEDS ORDERED: IOHEXOL 350 MG/ML 10 ML VIAL (for RAD DIAG) IV ONE (20:55)
[2016-07-21] MEDS: QUEtiapine FUMARATE 100 MG TAB PO SCH (21:00)
--- NOTE | 2016-07-21 21:21 | RADRPT ---
EXAM DATE/TIME: 07/21/2016 20:53 [facility] COMPARISON: No previous studies available for comparison. INDICATIONS : Diffuse abdominal pain IV CONTRAST: 100 cc Omnipaque 350 (iohexol) IV ORAL CONTRAST: Prescribed oral contrast ingested. RADIATION DOSE: 8.23 CTDIvol (mGy) MEDICAL HISTORY : Schizophrenia SURGICAL HISTORY : None. ENCOUNTER: Initial ACUITY: 1 week PAIN SCALE: 6/10 LOCATION: Diffuse abdomen TECHNIQUE: Volumetric scanning of the abdomen and pelvis was performed. Using automated exposure control and ad justment of the mA and/or kV according to patient size, radiation dose was kept as low as reasonably achievable to obtain optimal diagnostic quality images. FINDINGS: LOWER LUNGS: Clear LIVER: Homogeneous density without lesion. There is no dilation of the biliary tree. No calcified gallston es. SPLEEN: Normal size without lesion. PANCREAS: Within normal limits. KIDNEYS: Normal in size and shape. There is no mass, stone or hydronephrosis. ADRENAL GLANDS: Within normal limits. VASCULAR: There is no aortic aneurysm. BOWEL/MESENTERY: The stomach, small bowel, and colon demonstrate no acute abnormality. There is no free intraperitone al air or fluid. ABDOMINAL WALL: Within normal limits. RETROPERITONEUM: There is no lymphadenopathy. BLADDER: No wall thickening or mass. REPRODUCTIVE: Within normal limits. INGUINAL: There is no lymphadenopathy or hernia. MUSCULOSKELETAL: Within normal limits for patient age. CONCLUSION: No acute CT findings in the abdomen or pelvis. Eusebio Costello MD on July 21, 2016 at 21:17 Board Certified Radiologist. This report was verified electronically.
[2016-07-22] MEDS: SODIUM CHLOR 0.9% 1000 ML INJ 1,000 ML IV SCH ×3 (00:15→20:39)
[2016-07-22 06:25] VITALS: BP 120/70; PULSE 52; RESP 16; O2SAT 96
[2016-07-22 08:00] LABS: AUTOMATED NEUTROPHIL # 2.6 TH/MM3 (1.8-7.7); BASOPHIL % 0.5 % (0.0-2.0); EOSINOPHIL # 0.2 TH/MM3 (0-0.4); EOSINOPHIL % 2.8 % (0.0-4.0); HEMATOCRIT 43.5 % (39.0-51.0); HEMO FLAGS DIFF FINAL; LYMPH % 46.9 % (9.0-44.0); LYMPHOCYTE # 2.9 TH/MM3 (1.0-4.8); MEAN CELL VOLUME 91.8 FL (80.0-100.0); MEAN CORPUSCULAR HEMOGLOBIN 30.3 PG (27.0-34.0); MONO % 7.5 % (0.0-8.0); NEUT % 42.3 % (16.0-70.0); PLATELET COUNT 170 TH/MM3 (150-450); RED BLOOD COUNT 4.74 MIL/MM3 (4.50-5.90); RED CELL DISTRIBUTION WIDTH 13.3 % (11.6-17.2); WHITE BLOOD COUNT 6.1 TH/MM3 (4.0-11.0)
[2016-07-22 08:01] LABS: ALT (GPT) 32 U/L (12-78); ANION GAP 10 MEQ/L (5-15); AST (GOT) 32 U/L (15-37); BICARBONATE 29.2 MEQ/L (21.0-32.0); BLOOD UREA NITROGEN 11 MG/DL (7-18); CHLORIDE 100 MEQ/L (98-107); GLOMERULAR FILTRATION RATE 66 ML/MIN (>89); POTASSIUM 3.6 MEQ/L (3.5-5.1); SODIUM (NA) 139 MEQ/L (136-145)
[2016-07-22] MEDS: PANTOPRAZOLE SOD 40 MG DELAYED RELEASE TAB PO SCH (08:03)
[2016-07-22] MEDS: LORazepam 2 MG/ML VIAL IM SCH ×3 (08:03→17:21)
[2016-07-22] MEDS: ALUMINUM/MAGNESIUM/SIMETH 30 ML CUP PO SCH (08:03)
[2016-07-22] MEDS: DOCUSATE SODIUM 100 MG CAP PO SCH ×2 (08:03→20:39)
[2016-07-22] MEDS: QUEtiapine FUMARATE 25 MG TAB PO SCH (08:03)
[2016-07-22 08:04] LABS: ALKALINE PHOSPHATASE 101 U/L (45-117); CREATINE KINASE 939 U/L (39-308); TOTAL BILIRUBIN ADULT 0.6 MG/DL (0.2-1.0)
[2016-07-22 08:20] LABS: CKMB 5.1 NG/ML (0.5-3.6)
--- NOTE | 2016-07-22 09:53 | HHI.PR ---
Subjective Remarks Follow-up visit abdominal pain, vomiting, minimal by mouth intake. Patient seen and examined today. Lying in bed. Patient has been transferred on 2700 to medical psych unit for IV fluid hydration secondary to increasing creatinine and CK. Patient is sleepy but arousable. Continues to be nonverbal follows some commands. As per staff, patient did not have any nausea or vomiting episode overnight and today. Appears comfortable. Objective Vitals Vital Signs Date Time Temp Pulse Resp B/P Pulse Ox O2 Delivery O2 Flow Rate FiO2 07/22/16 06:25 52 16 120/70 96 07/21/16 19:40 97.4 94 16 106/75 94 I/O 07/21/16 07/21/16 07/21/16 07/22/16 07/22/16 07/22/16 07:00 15:00 23:00 07:00 15:00 23:00 Intake Total 2139 ml Balance 2139 ml Intake Oral 2139 ml # Voids 3 Result Diagram: 07/22/16 0639 07/22/16 0639 Imaging Last Impressions Abdomen/Pelvis CT 07/21/16 0000 Signed Impressions: Service Date/Time: Thursday, July 21, 2016 20:53 - CONCLUSION: No acute CT findings in the abdomen or pelvis. Eusebio Costello MD Abdomen X-Ray 07/02/16 0000 Signed Impressions: Service Date/Time: Saturday, July 02, 2016 13:34 - CONCLUSION: Nonspecific abdomen. KMateo Lam MD Objective Remarks GENERAL: This is a well-nourished, well-developed patient, in no apparent distress. HEENT: Normocephalic. Pupils equal round and reactive. Nose without bleeding. Airway patent. NECK: Trachea midline. No JVD. Supple. CARDIOVASCULAR: Regular rate and rhythm without murmurs, gallops, or rubs. RESPIRATORY: Clear to auscultation. Breath sounds equal bilaterally. No wheezes , rales, or rhonchi. GASTROINTESTINAL: Abdomen soft, nondistended. Bowel Sounds normoactive x4. No tenderness to deep palpation. No CVA tenderness. MUSCULOSKELETAL: Extremities without clubbing, cyanosis, or edema. NEUROLOGICAL: Awake and alert. JO. Nonverbal. A/P Problem List: (1) History of mental retardation ICD Code: Z86.59 Status: Acute (2) Schizophrenia ICD Code: F20.9 Status: Acute Assessment and Plan Pt. 25-year-old Turkmen male with a past medical history of schizophrenia who is currently admitted in the psychiatric unit at the hospital under [facility] act and hospitalist services have been requested for medical management of elevated CK, nausea/vomiting and abdominal pain. Schizophrenia - Management per psychiatric team - Catatonia? -Hypoverbal, selective mutation. Nausea/vomiting - KUB showing nonspecific findings - will consider CT of the abdomen if symptoms continues - Pantoprazole 40 mg daily, Zofran when necessary, Maalox - Nontender abdomen to deep palpation. Vomiting may be related to antipsychotic medication use or patient's psychosis/schizophrenia. - Labs reviewed, unremarkable LFTs, Lipase and renal function. - UA negative - CT of abdomen and pelvis no acute CT findings in the abdomen or pelvis. - Most likely,vomiting may be related to patient's psychosis/schizophrenia - somatic disorder. Elevated CK - -->925 --> 552 --> 461 --> 697 --> 1213 --> 939 - possible NMS, ?malignant catatonia - Continue to monitor CK and renal function. - Renal function elevated 1.31 continue with IV fluid hydration. Possibly from IV contrast use. - IV fluids NS 100ml/hr DVT prophylaxis encourage ambulation Discussed with patient, nursing Written by Yohana Hennessy, acting as scribe for Dr. Mccann on 07/22/16 at 13:18. This note was transcribed by caitlin TORO. I, Dr. Valeria Mccann personally performed the history, physical exam, and medical decision making; and confirmed the accuracy of the information in the transcribed note. Authenticated by Dr. Valeria Mccann on 07/22/16 at 13:18. Problem Qualifiers (1) Schizophrenia: Qualified Code: F20.3 - Undifferentiated schizophrenia Yohana Lou July 22, 2016 09:53 Valeria Mccann MD July 22, 2016 14:01
[2016-07-22] MEDS: SODIUM BICARBONATE 8.4% INJ 100 MEQ in SODIUM CHLOR 0.9% 1000 ML INJ 1,000 ML IV SCH (12:00)
--- NOTE | 2016-07-22 13:40 | HHI.PYPN ---
Subjective Remarks Patient was here for psychiatric evaluation today patient seems to be guarded, a little bit hypoactive, I spoke with patient is primary language Vietnamese, he was able to answer some of my questions, but seems to be selectively mute, he says that he feels fine, he denies suicidal or homicidal ideation, he denies visual and auditory hallucinations. Patient has been compliant with medications , he doesn't have any major complaints, no agitation or aggressive behavior present. Review of Systems Other Patient does not have any somatic complaints Objective Alert: Yes [place]: Person Mood: Other (mildly agitated/pacing) Affect: Flat Memory Intact: Comment (not assessed) Hallucinations: Other (appears int stim) Delusions: No Delusion Type: Other (unable to assess) Suicidal: Ideation (Unable to assess) Homicidal: Ideation (Unable to assess) Insight/Judgment poor Labs Test 07/22/16 06:39 White Blood Count 6.1 TH/MM3 Red Blood Count 4.74 MIL/MM3 Hemoglobin 14.4 GM/DL Hematocrit 43.5 % Mean Corpuscular Volume 91.8 FL Mean Corpuscular Hemoglobin 30.3 PG Mean Corpuscular Hemoglobin 33.0 % Concent Red Cell Distribution Width 13.3 % Platelet Count 170 TH/MM3 Mean Platelet Volume 11.2 FL Neutrophils (%) (Auto) 42.3 % Lymphocytes (%) (Auto) 46.9 % Monocytes (%) (Auto) 7.5 % Eosinophils (%) (Auto) 2.8 % Basophils (%) (Auto) 0.5 % Neutrophils # (Auto) 2.6 TH/MM3 Lymphocytes # (Auto) 2.9 TH/MM3 Monocytes # (Auto) 0.5 TH/MM3 Eosinophils # (Auto) 0.2 TH/MM3 Basophils # (Auto) 0.0 TH/MM3 CBC Comment DIFF FINAL Differential Comment Sodium Level 139 MEQ/L Potassium Level 3.6 MEQ/L Chloride Level 100 MEQ/L Carbon Dioxide Level 29.2 MEQ/L Anion Gap 10 MEQ/L Blood Urea Nitrogen 11 MG/DL Creatinine 1.31 MG/DL Estimat Glomerular Filtration 66 ML/MIN Rate Random Glucose 78 MG/DL Calcium Level 9.4 MG/DL Total Bilirubin 0.6 MG/DL Aspartate Amino Transf 32 U/L (AST/SGOT) Alanine Aminotransferase 32 U/L (ALT/SGPT) Alkaline Phosphatase 101 U/L Total Creatine Kinase 939 U/L Creatine Kinase MB 5.1 NG/ML Creatine Kinase MB % 0.5 % Total Protein 7.6 GM/DL Albumin 4.2 GM/DL Vitals/IOs Vital Signs Date Time Temp Pulse Resp B/P Pulse Ox O2 Delivery O2 Flow Rate FiO2 07/22/16 06:25 52 16 120/70 96 07/21/16 19:40 97.4 Intake and Output 07/21/16 07/21/16 07/22/16 08:00 16:00 00:00 Intake Total 2139 ml Balance 2139 ml Assessment & Plan Problem List: (1) Schizophrenia Assessment & Plan: CPK trending down, today is 939. We'll continue IV fluids. Vital signs are stable. We'll continue close monitoring. Continue current psychotropics. ICD Code: F20.9 (2) History of mental retardation ICD Code: Z86.59 (3) Catatonia ICD Code: F06.1 Assessment & Plan Estimated LOS: days Justification for Cont. Inpt. Patient continues to be psychotic, also shows some symptomatology suggestive of a typical NMS, and needs to continue psychiatric hospitalization for stabilization Request HC Surrog/Guard Advoc?: Yes Problem Qualifiers (1) Schizophrenia: Qualified Code: F20.3 - Undifferentiated schizophrenia Gen Julian MD July 22, 2016 13:40
[2016-07-22] MEDS: LORazepam 1 MG TAB PO PRN (15:56)
[2016-07-22 20:13] VITALS: BP 109/67; PULSE 114; RESP 16; TEMP 97.6; O2SAT 95
[2016-07-22] MEDS: QUEtiapine FUMARATE 100 MG TAB PO SCH (20:39)
[2016-07-23] MEDS: SODIUM CHLOR 0.9% 1000 ML INJ 1,000 ML IV SCH ×2 (05:41→16:10)
[2016-07-23 05:55] VITALS: BP 98/63; PULSE 75; RESP 18; TEMP 97.2; O2SAT 98
[2016-07-23] MEDS: PANTOPRAZOLE SOD 40 MG DELAYED RELEASE TAB PO SCH (08:25)
[2016-07-23] MEDS: QUEtiapine FUMARATE 25 MG TAB PO SCH (08:25)
[2016-07-23] MEDS: DOCUSATE SODIUM 100 MG CAP PO SCH ×2 (08:25→21:28)
[2016-07-23] MEDS: LORazepam 2 MG/ML VIAL IM SCH ×3 (08:26→17:23)
[2016-07-23 09:18] LABS: BICARBONATE 23.5 MEQ/L (21.0-32.0); POTASSIUM 4.2 MEQ/L (3.5-5.1)
[2016-07-23 10:25] LABS: CKMB 4.9 NG/ML (0.5-3.6)
--- NOTE | 2016-07-23 11:05 | HHI.PYPN ---
Subjective Remarks Patient was seen today for psychiatric evaluation, patient was seen walking in the [place], he was interviewed primary language is Sen[place]e, he is alert, but disoriented in time and place, he reports good mood, he says that he had a good time, he enjoyed the visit of his mother yesterday. She brought him his favorite food, he denies suicidal or homicidal ideation, he denies visual and auditory hallucinations. However, fragmented thought, thought blocking, internal preoccupation, disorganized behavior seems to persist. No agitation, no aggressive behavior have been reported, patient has been easy to deal with in the unit, compliant with medications. Review of Systems Other No somatic complaints Objective Alert: Yes [place]: Person Mood: Other (mildly agitated/pacing) Affect: Flat Memory Intact: Comment (not assessed) Hallucinations: Other (appears int stim) Delusions: No Delusion Type: Other (unable to assess) Suicidal: Ideation (Unable to assess) Homicidal: Ideation (Unable to assess) Insight/Judgment Poor Labs Test 07/23/16 07:50 Sodium Level 141 MEQ/L Potassium Level 4.2 MEQ/L Chloride Level 109 MEQ/L Carbon Dioxide Level 23.5 MEQ/L Anion Gap 9 MEQ/L Blood Urea Nitrogen 6 MG/DL Creatinine 1.09 MG/DL Estimat Glomerular Filtration 82 ML/MIN Rate Random Glucose 75 MG/DL Calcium Level 8.5 MG/DL Total Creatine Kinase 655 U/L Creatine Kinase MB 4.9 NG/ML Creatine Kinase MB % 0.7 % Vitals/IOs Vital Signs Date Time Temp Pulse Resp B/P Pulse Ox O2 Delivery O2 Flow Rate FiO2 07/23/16 05:55 97.2 75 18 98/63 98 Intake and Output 07/22/16 07/22/16 07/22/16 07:59 15:59 23:59 Intake Total 0 ml 120 ml 480 ml Output Total 2 ml Balance 0 ml 120 ml 478 ml Assessment & Plan Problem List: (1) Schizophrenia Assessment & Plan: We'll increase Seroquel to 200 mg at bedtime for psychosis. ICD Code: F20.9 (2) History of mental retardation ICD Code: Z86.59 (3) Catatonia ICD Code: F06.1 Assessment & Plan Estimated LOS: days Justification for Cont. Inpt. Patient has an increased risk to decompensate at a lower level of care Request HC Surrog/Guard Advoc?: Yes Problem Qualifiers (1) Schizophrenia: Qualified Code: F20.3 - Undifferentiated schizophrenia Gen Julian MD July 23, 2016 11:04
[2016-07-23] MEDS: SODIUM BICARBONATE 8.4% INJ 100 MEQ in SODIUM CHLOR 0.9% 1000 ML INJ 1,000 ML IV SCH (11:27)
--- NOTE | 2016-07-23 12:03 | HHI.PR ---
Subjective Remarks Follow-up visit abdominal pain, vomiting, minimal by mouth intake. Patient seen and examined today. Ambulating in the hallway. Continues to be hypoverbal. Patient is mouthing words but incomprehensible. Follows some commands. Appears to be comfortable. As per staff, patient has been drinking Crystal light and water. IV fluids are off for now will resume this p.m., if patient continues to hydrate dc IVF. Objective Vitals Vital Signs Date Time Temp Pulse Resp B/P Pulse Ox O2 Delivery O2 Flow Rate FiO2 07/23/16 05:55 97.2 75 18 98/63 98 07/22/16 20:13 97.6 114 16 109/67 95 I/O 07/22/16 07/22/16 07/22/16 07/23/16 07/23/16 07/23/16 06:59 14:59 22:59 06:59 14:59 22:59 Intake Total 2139 ml 120 ml 1661 ml Output Total 2 ml Balance 2139 ml 120 ml 1659 ml Intake Oral 2139 ml 120 ml 680 ml IV Total 981 ml Output Urine Total 2 ml # Voids 3 2 Result Diagram: 07/22/16 0639 07/23/16 0750 Imaging Last Impressions Abdomen/Pelvis CT 07/21/16 0000 Signed Impressions: Service Date/Time: Thursday, July 21, 2016 20:53 - CONCLUSION: No acute CT findings in the abdomen or pelvis. Eusebio Costello MD Abdomen X-Ray 07/02/16 0000 Signed Impressions: Service Date/Time: Saturday, July 02, 2016 13:34 - CONCLUSION: Nonspecific abdomen. K. Dwight Lam MD Objective Remarks GENERAL: This is a well-nourished, well-developed patient, in no apparent distress. HEENT: Normocephalic. Pupils equal round and reactive. Nose without bleeding. Airway patent. NECK: Trachea midline. No JVD. Supple. CARDIOVASCULAR: Regular rate and rhythm without murmurs, gallops, or rubs. RESPIRATORY: Clear to auscultation. Breath sounds equal bilaterally. No wheezes , rales, or rhonchi. GASTROINTESTINAL: Abdomen soft, nondistended. Bowel Sounds normoactive x4. No tenderness to deep palpation. No CVA tenderness. MUSCULOSKELETAL: Extremities without clubbing, cyanosis, or edema. NEUROLOGICAL: Awake and alert. JO. Nonverbal. A/P Problem List: (1) History of mental retardation ICD Code: Z86.59 Status: Acute (2) Schizophrenia ICD Code: F20.9 Status: Acute Assessment and Plan Pt. 25-year-old [place]ic male with a past medical history of schizophrenia who is currently admitted in the psychiatric unit at the hospital under [facility] act and hospitalist services have been requested for medical management of elevated CK, nausea/vomiting and abdominal pain. Schizophrenia - Management per psychiatric team - Hypoverbal, selective mutation. Nausea/vomiting - KUB showing nonspecific findings - will consider CT of the abdomen if symptoms continues - Pantoprazole 40 mg daily, Zofran when necessary, Maalox - Nontender abdomen to deep palpation. Vomiting may be related to antipsychotic medication use or patient's psychosis/schizophrenia. - Labs reviewed, unremarkable LFTs, Lipase and renal function. - UA negative - CT of abdomen and pelvis no acute CT findings in the abdomen or pelvis. - Most likely,vomiting may be related to patient's psychosis/schizophrenia - somatic disorder. - No vomiting reported today. Elevated CK RAY - -->925 --> 552 --> 461 --> 697 --> 1213 --> 939 --> 655 - possible NMS, ?malignant catatonia - Continue to monitor CK and renal function. - Renal function improved with IV hydration 1.31 --> 1.09 - IV fluids NS 100ml/hr, DC if patient continues to increase by mouth fluid intake DVT prophylaxis encourage ambulation Discussed with patient, nursing Written by Yohana Hennessy, acting as scribe for Dr. Dunn on 07/23/16 at 16:01. Attending Statement This note was transcribed by scribe Yohana Hennessy. I, Dr. Colin Dunn personally performed the history, physical exam, and medical decision making; and confirmed the accuracy of the information in the transcribed note. Authenticated by Dr. Colin Dunn on 07/23/16 at 16:26. Problem Qualifiers (1) Schizophrenia: Qualified Code: F20.3 - Undifferentiated schizophrenia Yohana Lou July 23, 2016 12:03 Colin Dunn DO July 23, 2016 16:27
[2016-07-23 17:14] VITALS: BP 132/72; PULSE 102; RESP 18; TEMP 98.1; O2SAT 98
[2016-07-23] MEDS: LORazepam 1 MG TAB PO PRN (21:27)
[2016-07-23] MEDS: QUEtiapine FUMARATE 100 MG TAB PO SCH (21:28)
[2016-07-24] MEDS: SODIUM CHLOR 0.9% 1000 ML INJ 1,000 ML IV SCH ×3 (01:23→19:58)
[2016-07-24 05:04] LABS: BICARBONATE 29.2 MEQ/L (21.0-32.0); POTASSIUM 3.7 MEQ/L (3.5-5.1)
[2016-07-24 05:25] LABS: CKMB 3.8 NG/ML (0.5-3.6)
[2016-07-24 05:50] VITALS: BP 90/56; PULSE 68; RESP 16; TEMP 97.4; O2SAT 98
[2016-07-24] MEDS: DOCUSATE SODIUM 100 MG CAP PO SCH ×2 (08:47→20:51)
[2016-07-24] MEDS: PANTOPRAZOLE SOD 40 MG DELAYED RELEASE TAB PO SCH (08:47)
[2016-07-24] MEDS: QUEtiapine FUMARATE 25 MG TAB PO SCH (08:47)
[2016-07-24] MEDS: LORazepam 2 MG/ML VIAL IM SCH ×3 (08:48→18:00)
--- NOTE | 2016-07-24 10:49 | HHI.PR ---
Subjective Remarks Follow-up visit abdominal pain, vomiting, minimal by mouth intake. Patient seen and examined today. Hypoverbal. Appears to be comfortable. As per staff , no acute issues overnight. Objective Vitals Vital Signs Date Time Temp Pulse Resp B/P Pulse Ox O2 Delivery O2 Flow Rate FiO2 07/24/16 05:50 97.4 68 16 90/56 98 07/23/16 17:14 98.1 102 18 132/72 98 I/O 07/23/16 07/23/16 07/23/16 07/24/16 07/24/16 07/24/16 07:00 15:00 23:00 07:00 15:00 23:00 Intake Total 1661 ml 6410 ml 120 ml Output Total 2 ml Balance 1659 ml 6410 ml 120 ml Intake Oral 680 ml 6410 ml 120 ml IV Total 981 ml Output Urine Total 2 ml # Voids 2 3 2 # Bowel Movements 1 0 Result Diagram: 07/22/16 0639 07/24/16 0425 Objective Remarks GENERAL: This is a well-nourished, well-developed patient, in no apparent distress. HEENT: Normocephalic. Pupils equal round and reactive. Nose without bleeding. Airway patent. NECK: Trachea midline. No JVD. Supple. CARDIOVASCULAR: Regular rate and rhythm without murmurs, gallops, or rubs. RESPIRATORY: Clear to auscultation. Breath sounds equal bilaterally. No wheezes , rales, or rhonchi. GASTROINTESTINAL: Abdomen soft, nondistended. Bowel Sounds normoactive x4. No tenderness to deep palpation. No CVA tenderness. MUSCULOSKELETAL: Extremities without clubbing, cyanosis, or edema. NEUROLOGICAL: Awake and alert. JO. Nonverbal. A/P Problem List: (1) History of mental retardation ICD Code: Z86.59 Status: Acute (2) Schizophrenia ICD Code: F20.9 Status: Acute Assessment and Plan Pt. 25-year-old [place] male with a past medical history of schizophrenia who is currently admitted in the psychiatric unit at the hospital under [facility] act and hospitalist services have been requested for medical management of elevated CK, nausea/vomiting and abdominal pain. Schizophrenia - Management per psychiatric team - Hypoverbal, selective mutation. - Hypersexual. As per staff, patient has been in and out of the shower masturbating. Nausea/vomiting - KUB showing nonspecific findings - Pantoprazole 40 mg daily, Zofran when necessary, Maalox - Labs reviewed, unremarkable LFTs, Lipase and renal function. - UA negative - CT of abdomen and pelvis no acute CT findings in the abdomen or pelvis. - Most likely,vomiting may be related to patient's psychosis/schizophrenia - psychosomatic disorder. Elevated CK RAY - -->925 --> 552 --> 461 --> 697 --> 1213 --> 939 --> 655 --> 590 - possible NMS, ?malignant catatonia - Continue to monitor CK and renal function. - Renal function improved with IV hydration 1.31 --> 1.09 -->1.04 - Discontinue fluids. Encouraged by mouth fluid intake DVT prophylaxis encourage ambulation Discussed with patient, nursing, Dr. Dunn Problem Qualifiers (1) Schizophrenia: Qualified Code: F20.3 - Undifferentiated schizophrenia Yohana Lou July 24, 2016 10:49
[2016-07-24] MEDS: SODIUM BICARBONATE 8.4% INJ 100 MEQ in SODIUM CHLOR 0.9% 1000 ML INJ 1,000 ML IV SCH (12:00)
--- NOTE | 2016-07-24 12:48 | HHI.PYPN ---
Subjective Remarks Patient seen in room with nurse Bossman, patient in bed calm making fair eye contact with me. Patient though is nonverbal with me did make a nodding gesture when I asked how is feeling. Staff states the patient has been masturbating quite frequently. Though no other behavioral issues. Patient compliant medication Review of Systems Except as stated in HPI: all other systems reviewed are Neg Objective Alert: Yes [place]: Person Mood: Other (mildly agitated/pacing) Affect: Flat Memory Intact: Comment (not assessed) Hallucinations: Other (appears int stim) Delusions: No Delusion Type: Other (unable to assess) Suicidal: Ideation (Unable to assess) Homicidal: Ideation (Unable to assess) Insight/Judgment Very poor Labs Test 07/24/16 04:25 Sodium Level 142 MEQ/L Potassium Level 3.7 MEQ/L Chloride Level 106 MEQ/L Carbon Dioxide Level 29.2 MEQ/L Anion Gap 7 MEQ/L Blood Urea Nitrogen 6 MG/DL Creatinine 1.04 MG/DL Estimat Glomerular Filtration 86 ML/MIN Rate Random Glucose 94 MG/DL Calcium Level 8.6 MG/DL Total Creatine Kinase 590 U/L Creatine Kinase MB 3.8 NG/ML Creatine Kinase MB % 0.6 % Vitals/IOs Vital Signs Date Time Temp Pulse Resp B/P Pulse Ox O2 Delivery O2 Flow Rate FiO2 07/24/16 05:50 97.4 68 16 90/56 98 Intake and Output 07/23/16 07/23/16 07/24/16 08:00 16:00 00:00 Intake Total 1181 ml 2365 ml 4045 ml Balance 1181 ml 2365 ml 4045 ml Assessment & Plan Problem List: (1) Schizophrenia ICD Code: F20.9 (2) History of mental retardation ICD Code: Z86.59 (3) Catatonia ICD Code: F06.1 Assessment & Plan Estimated LOS: days patient continues psychotic features times appears to be responding to internal stimuli. Compliant medication Justification for Cont. Inpt. At this time patient will decompensate if placed in a lower level of care Discharge Planning To be determined Request HC Surrog/Guard Advoc?: Yes Problem Qualifiers (1) Schizophrenia: Qualified Code: F20.3 - Undifferentiated schizophrenia Eusebio Dickey MD July 24, 2016 12:48
[2016-07-24 17:55] VITALS: BP 108/63; PULSE 103; RESP 16; TEMP 97.9; O2SAT 99
[2016-07-24] MEDS: ONDANSETRON ODT 4 MG TAB PO PRN (20:50)
[2016-07-24] MEDS: QUEtiapine FUMARATE 100 MG TAB PO SCH (20:51)
[2016-07-25 06:23] VITALS: BP 130/70; PULSE 86; RESP 18; TEMP 97.5; O2SAT 98
[2016-07-25] MEDS: DOCUSATE SODIUM 100 MG CAP PO SCH ×2 (09:28→20:45)
[2016-07-25] MEDS: PANTOPRAZOLE SOD 40 MG DELAYED RELEASE TAB PO SCH (09:28)
[2016-07-25] MEDS: QUEtiapine FUMARATE 25 MG TAB PO SCH (09:29)
[2016-07-25] MEDS: LORazepam 2 MG/ML VIAL IM SCH ×3 (09:29→18:45)
[2016-07-25] MEDS: LORazepam 2 MG/ML VIAL IM PRN ×2 (09:29→15:43)
--- NOTE | 2016-07-25 11:28 | HHI.PR ---
Subjective Remarks Follow-up visit abdominal pain, vomiting, minimal by mouth intake. Patient seen and examined today. Wondering in the unit. Hypoverbal. Appears to be comfortable. As per staff, no acute issues overnight, no nausea vomiting reported. Objective Vitals Vital Signs Date Time Temp Pulse Resp B/P Pulse Ox O2 Delivery O2 Flow Rate FiO2 07/25/16 06:23 97.5 86 18 130/70 98 07/24/16 17:55 97.9 103 16 108/63 99 I/O 07/24/16 07/24/16 07/24/16 07/25/16 07/25/16 07/25/16 07:00 15:00 23:00 07:00 15:00 23:00 Intake Total 120 ml 2090 ml 240 ml Balance 120 ml 2090 ml 240 ml Intake Oral 120 ml 2090 ml 240 ml # Voids 2 1 # Bowel Movements 0 0 Result Diagram: 07/22/16 0639 07/24/16 0425 Imaging Last Impressions Abdomen/Pelvis CT 07/21/16 0000 Signed Impressions: Service Date/Time: Thursday, July 21, 2016 20:53 - CONCLUSION: No acute CT findings in the abdomen or pelvis. Eusebio Costello MD Abdomen X-Ray 07/02/16 0000 Signed Impressions: Service Date/Time: Saturday, July 02, 2016 13:34 - CONCLUSION: Nonspecific abdomen. Narinder Lam MD Objective Remarks GENERAL: This is a well-nourished, well-developed patient, in no apparent distress. HEENT: Normocephalic. Pupils equal round and reactive. Nose without bleeding. Airway patent. NECK: Trachea midline. No JVD. Supple. CARDIOVASCULAR: Regular rate and rhythm without murmurs, gallops, or rubs. RESPIRATORY: Clear to auscultation. Breath sounds equal bilaterally. No wheezes , rales, or rhonchi. GASTROINTESTINAL: Abdomen soft, nondistended. Bowel Sounds normoactive x4. No tenderness to deep palpation. No CVA tenderness. MUSCULOSKELETAL: Extremities without clubbing, cyanosis, or edema. NEUROLOGICAL: Awake and alert. JO. Nonverbal. A/P Problem List: (1) History of mental retardation ICD Code: Z86.59 Status: Acute (2) Schizophrenia ICD Code: F20.9 Status: Acute Assessment and Plan Pt. 25-year-old [place] male with a past medical history of schizophrenia who is currently admitted in the psychiatric unit at the hospital under [facility] act and hospitalist services have been requested for medical management of elevated CK, nausea/vomiting and abdominal pain. Schizophrenia - Management per psychiatric team - Hypoverbal, selective mutation. - Hypersexual. As per staff, patient has been in and out of the shower masturbating. Nausea/vomiting - KUB showing nonspecific findings - Pantoprazole 40 mg daily, Zofran when necessary, Maalox - Labs reviewed, unremarkable LFTs, Lipase and renal function. - UA negative - CT of abdomen and pelvis no acute CT findings in the abdomen or pelvis. - Most likely,vomiting may be related to patient's psychosis/schizophrenia - psychosomatic disorder. Elevated CK RAY - -->925 --> 552 --> 461 --> 697 --> 1213 --> 939 --> 655 --> 590 - possible NMS, ?malignant catatonia - Continue to monitor CK and renal function. - Renal function improved with IV hydration 1.31 --> 1.09 -->1.04 - Discontinue fluids. Encouraged by mouth fluid intake DVT prophylaxis encourage ambulation Discussed with patient, nursing, Dr. Dunn Problem Qualifiers (1) Schizophrenia: Qualified Code: F20.3 - Undifferentiated schizophrenia Yohana Lou July 25, 2016 11:27
--- NOTE | 2016-07-25 13:04 | HHI.PYPN ---
Subjective Remarks Patient seen in his room with nurse Ed, patient laying in bed, was fondling his erect penis. Though was quite cooperative when told to cover himself and put his hands in his leg. Patient denies suicidality, is compliant with medications, there appears to be no other significant behavioral problems. For now continue treatment Review of Systems Except as stated in HPI: all other systems reviewed are Neg Objective Alert: Yes [place]: Person Mood: Other (mildly agitated/pacing) Affect: Flat Memory Intact: Comment (not assessed) Hallucinations: Other (appears int stim) Delusions: No Delusion Type: Other (unable to assess) Suicidal: Ideation (Unable to assess) Homicidal: Ideation (Unable to assess) Insight/Judgment Very poor Vitals/IOs Vital Signs Date Time Temp Pulse Resp B/P Pulse Ox O2 Delivery O2 Flow Rate FiO2 07/25/16 06:23 97.5 86 18 130/70 98 Intake and Output 07/24/16 07/24/16 07/25/16 08:00 16:00 00:00 Intake Total 120 ml 2090 ml Balance 120 ml 2090 ml Assessment & Plan Problem List: (1) Schizophrenia ICD Code: F20.9 (2) History of mental retardation ICD Code: Z86.59 (3) Catatonia ICD Code: F06.1 Assessment & Plan Estimated LOS: days patient continues with the chronic perseverative behaviors , though showing no insight. Compliant medications Justification for Cont. Inpt. At this time patient will decompensate if placed in the lower level of care Discharge Planning To be determined Request HC Surrog/Guard Advoc?: Yes Problem Qualifiers (1) Schizophrenia: Qualified Code: F20.3 - Undifferentiated schizophrenia Eusebio Dickey MD July 25, 2016 13:04
[2016-07-25 19:30] VITALS: BP 129/75; PULSE 99; RESP 18; TEMP 97.9; O2SAT 97
[2016-07-25] MEDS: QUEtiapine FUMARATE 100 MG TAB PO SCH (20:55)
[2016-07-26] MEDS: LORazepam 1 MG TAB PO PRN (05:21)
[2016-07-26 05:37] VITALS: BP 144/95; PULSE 110; RESP 18; TEMP 97.4; O2SAT 98
[2016-07-26] MEDS: LORazepam 2 MG/ML VIAL IM SCH ×3 (08:31→19:00)
[2016-07-26] MEDS: PANTOPRAZOLE SOD 40 MG DELAYED RELEASE TAB PO SCH (08:31)
[2016-07-26] MEDS: DOCUSATE SODIUM 100 MG CAP PO SCH ×2 (08:31→20:14)
[2016-07-26] MEDS: QUEtiapine FUMARATE 25 MG TAB PO SCH (08:31)
--- NOTE | 2016-07-26 11:05 | HHI.PR ---
Subjective Remarks Follow-up visit abdominal pain, vomiting, minimal by mouth intake. Patient seen and examined today. Hypoverbal. Appears to be comfortable, drinking Crystal light. As per staff, no acute issues overnight, no nausea vomiting reported. Objective Vitals Vital Signs Date Time Temp Pulse Resp B/P Pulse Ox O2 Delivery O2 Flow Rate FiO2 07/26/16 05:37 97.4 110 18 144/95 98 07/25/16 19:30 97.9 99 18 129/75 97 I/O 07/25/16 07/25/16 07/25/16 07/26/16 07/26/16 07/26/16 07:00 15:00 23:00 07:00 15:00 23:00 Intake Total 240 ml 480 ml Balance 240 ml 480 ml Intake Oral 240 ml 480 ml # Voids 1 # Bowel Movements 0 Result Diagram: 07/22/16 0639 07/24/16 0425 Imaging Last Impressions Abdomen/Pelvis CT 07/21/16 0000 Signed Impressions: Service Date/Time: Thursday, July 21, 2016 20:53 - CONCLUSION: No acute CT findings in the abdomen or pelvis. Eusebio Costello MD Abdomen X-Ray 07/02/16 0000 Signed Impressions: Service Date/Time: Saturday, July 02, 2016 13:34 - CONCLUSION: Nonspecific abdomen. K. Dwight Lam MD Objective Remarks GENERAL: This is a well-nourished, well-developed patient, in no apparent distress. HEENT: Normocephalic. Pupils equal round and reactive. Nose without bleeding. Airway patent. NECK: Trachea midline. No JVD. Supple. CARDIOVASCULAR: Regular rate and rhythm without murmurs, gallops, or rubs. RESPIRATORY: Clear to auscultation. Breath sounds equal bilaterally. No wheezes , rales, or rhonchi. GASTROINTESTINAL: Abdomen soft, nondistended. Bowel Sounds normoactive x4. No tenderness to deep palpation. No CVA tenderness. MUSCULOSKELETAL: Extremities without clubbing, cyanosis, or edema. NEUROLOGICAL: Awake and alert. JO. Nonverbal. A/P Problem List: (1) History of mental retardation ICD Code: Z86.59 Status: Acute (2) Schizophrenia ICD Code: F20.9 Status: Acute Assessment and Plan Pt. 25-year-old Nepalese male with a past medical history of schizophrenia who is currently admitted in the psychiatric unit at the hospital under Parmar act and hospitalist services have been requested for medical management of elevated CK, nausea/vomiting and abdominal pain. Schizophrenia - Management per psychiatric team - Hypoverbal, selective mutation. - Hypersexual. As per staff, patient has been in and out of the shower masturbating. Nausea/vomiting - KUB showing nonspecific findings - Pantoprazole 40 mg daily, Zofran when necessary, Maalox - Labs reviewed, unremarkable LFTs, Lipase and renal function. - UA negative - CT of abdomen and pelvis no acute CT findings in the abdomen or pelvis. - Most likely,vomiting may be related to patient's psychosis/schizophrenia - psychosomatic disorder. Elevated CK RAY - -->925 --> 552 --> 461 --> 697 --> 1213 --> 939 --> 655 --> 590 - possible NMS, ?malignant catatonia - Continue to monitor CK and renal function. - Renal function improved with IV hydration 1.31 --> 1.09 -->1.04 - Discontinue fluids. Encouraged by mouth fluid intake DVT prophylaxis encourage ambulation Discussed with patient, nursing, Dr. Dunn Problem Qualifiers (1) Schizophrenia: Qualified Code: F20.3 - Undifferentiated schizophrenia Yohana Lou July 26, 2016 11:05
--- NOTE | 2016-07-26 11:58 | HHI.PYPN ---
Subjective Remarks Patient seen today for psychiatric reevaluation with nurse Keita and JOSE ANTONIO Sprague , patient is found sleeping, but easily arousable. Patient was interviewed primary language Vietnamese, he continues to be minimally cooperative, Disorganized , with redirection will answer some questions. He reports good mood, he says he is happy, denies suicidal and homicidal ideation, denies visual and auditory hallucinations. However his is to be internally stimulated, with disorganized behavior and speech, but no agitated or aggressive, he is very easily redirectable and easy to deal with in the unit. He is compliant with his medication, no significant side effects reported. Review of Systems Other No somatic complaints Objective Alert: Yes [place]: Person Mood: Calm Affect: Flat Memory Intact: Comment (not assessed) Hallucinations: Other (appears int stim) Delusions: No Delusion Type: Other (unable to assess) Suicidal: Ideation (Unable to assess) Homicidal: Ideation (Unable to assess) Insight/Judgment Poor Vitals/IOs Vital Signs Date Time Temp Pulse Resp B/P Pulse Ox O2 Delivery O2 Flow Rate FiO2 07/26/16 05:37 97.4 110 18 144/95 98 Intake and Output 07/25/16 07/25/16 07/26/16 08:00 16:00 00:00 Intake Total 240 ml 480 ml Balance 240 ml 480 ml Assessment & Plan Problem List: (1) Schizophrenia Assessment & Plan: Patient continues to be showing disorganized patient behavior, no behavioral problems, at times visibly internally stimulated. Denies suicidality and homicidal ideation, he denies visual and auditory hallucinations. Will continue current psychotropics. ICD Code: F20.9 (2) History of mental retardation ICD Code: Z86.59 (3) Catatonia ICD Code: F06.1 Assessment & Plan Estimated LOS: days Justification for Cont. Inpt. Patient has an elevated risk to decompensate out on a structure environment Request HC Surrog/Guard Advoc?: Yes Problem Qualifiers (1) Schizophrenia: Qualified Code: F20.3 - Undifferentiated schizophrenia Gen Julian MD July 26, 2016 11:58
[2016-07-26 17:18] VITALS: BP 130/72; PULSE 112; RESP 18; TEMP 98.5; O2SAT 98
[2016-07-26] MEDS: QUEtiapine FUMARATE 100 MG TAB PO SCH (20:17)
[2016-07-27 06:12] VITALS: BP 111/79; PULSE 98; RESP 18
[2016-07-27] MEDS: PANTOPRAZOLE SOD 40 MG DELAYED RELEASE TAB PO SCH (08:19)
[2016-07-27] MEDS: QUEtiapine FUMARATE 25 MG TAB PO SCH (08:19)
[2016-07-27] MEDS: LORazepam 2 MG/ML VIAL IM SCH ×2 (08:19→13:00)
[2016-07-27] MEDS: DOCUSATE SODIUM 100 MG CAP PO SCH (08:19)
[2016-07-27] MEDS ORDERED: BACI500O9 TOPICAL (09:58)
--- NOTE | 2016-07-27 09:58 | HHI.PR ---
Subjective Remarks Follow-up visit abdominal pain, vomiting, minimal by mouth intake. Patient seen and examined today. Hypoverbal. As per Dr. Sullivan, patient is to be taken home by his family today. Appears to be comfortable. As per staff, no acute issues overnight. Objective Vitals Vital Signs Date Time Temp Pulse Resp B/P Pulse Ox O2 Delivery O2 Flow Rate FiO2 07/27/16 06:12 98 18 111/79 07/26/16 17:18 98.5 112 18 130/72 98 I/O 07/26/16 07/26/16 07/26/16 07/27/16 07/27/16 07/27/16 06:59 14:59 22:59 06:59 14:59 22:59 Intake Total 1250 ml Balance 1250 ml Intake Oral 1250 ml Result Diagram: 07/24/16 0425 Imaging Last Impressions Abdomen/Pelvis CT 07/21/16 0000 Signed Impressions: Service Date/Time: Thursday, July 21, 2016 20:53 - CONCLUSION: No acute CT findings in the abdomen or pelvis. Eusebio Costello MD Abdomen X-Ray 07/02/16 0000 Signed Impressions: Service Date/Time: Saturday, July 02, 2016 13:34 - CONCLUSION: Nonspecific abdomen. K. Dwihgt Lam MD Objective Remarks GENERAL: This is a well-nourished, well-developed patient, in no apparent distress. HEENT: Normocephalic. Pupils equal round and reactive. Nose without bleeding. Airway patent. NECK: Trachea midline. No JVD. Supple. CARDIOVASCULAR: Regular rate and rhythm without murmurs, gallops, or rubs. RESPIRATORY: Clear to auscultation. Breath sounds equal bilaterally. No wheezes , rales, or rhonchi. GASTROINTESTINAL: Abdomen soft, nondistended. Bowel Sounds normoactive x4. No tenderness to deep palpation. No CVA tenderness. MUSCULOSKELETAL: Extremities without clubbing, cyanosis, or edema. NEUROLOGICAL: Awake and alert. JO. Nonverbal. A/P Problem List: (1) History of mental retardation ICD Code: Z86.59 Status: Acute (2) Schizophrenia ICD Code: F20.9 Status: Acute Assessment and Plan Pt. 25-year-old Guyanese male with a past medical history of schizophrenia who is currently admitted in the psychiatric unit at the hospital under Parmar act and hospitalist services have been requested for medical management of elevated CK, nausea/vomiting and abdominal pain. Schizophrenia - Management per psychiatric team - Hypoverbal, selective mutation. - Hypersexual. Nausea/vomiting - KUB showing nonspecific findings - Pantoprazole 40 mg daily, Zofran when necessary, Maalox - Labs reviewed, unremarkable LFTs, Lipase and renal function. - UA negative - CT of abdomen and pelvis no acute CT findings in the abdomen or pelvis. - Most likely,vomiting may be related to patient's psychosis/schizophrenia - psychosomatic disorder. Elevated CK RAY - -->925 --> 552 --> 461 --> 697 --> 1213 --> 939 --> 655 --> 590 - possible NMS, ?malignant catatonia - Continue to monitor CK and renal function. - Renal function improved with IV hydration 1.31 --> 1.09 -->1.04 - Encouraged by mouth fluid intake - Patient may benefit with home environment. DC home today with mother as per Dr. Sullivan Multiple small open areas left upper arm - From IV catheter placements patient has been picking. May DC home with bacitracin apply once a day until healed. DVT prophylaxis encourage ambulation Discussed with patient, nursing, Dr. Sullivan, Dr. Dunn Problem Qualifiers (1) Schizophrenia: Qualified Code: F20.3 - Undifferentiated schizophrenia Yohana Lou July 27, 2016 09:58
[2016-07-27] MEDS ORDERED: QUET1TAB8 PO (10:48)
--- NOTE | 2016-07-27 11:01 | HHI.DS ---
Psychiatry Discharge Summary Inpatient Psychiatric care?: Yes Advance Directive: No Mental Health AdvanceDirective: No Health Care Proxy: Yes Admission Admission Date Jun 22, 2016 at 00:40 Admission Diagnosis: (1) Schizophrenia ICD Code: F20.9 (2) Catatonia ICD Code: F06.1 Brief History Mr. Choudhury is a 25-year-old male of uncertain past psychiatric history who [facility]. Records from outside hospital reviewed. Documentation from that facility says that the patient has a history of schizophrenia and takes Lamictal , Klonopin, Invega Sustenna and hydroxyzine. It appears that the patient presented there, brought in by mother with reports of not sleeping in the last 24 hours, agitation and combativeness during the airplane ride from [place]. Documentation from outside hospital is somewhat obscure, but it does not appear that he received anything in the way of medications other than some normal saline. Patient was placed under a Parmar act by ED provider, Dr. Berman, and transferred here to [facility]. Reviewing our EMR, I note that this is patient 's first visit to [facility]. Patient seen and examined with counselor and nurse, Seda. Nurse Seda is acting as automatic oven operator as the patient apparently has limited Pakistani proficiency. Chart reviewed. Case discussed with nursing staff. On my examination today, the patient presents as fairly somnolent. There are no posturing or stereotypies or other abnormal motor movements to suggest a catatonia. He is with some effort aroused from sleep and able to participate in a brief interview. He says that he has been brought to the hospital " because I am the future." He denies any auditory or visual hallucinations. He denies any suicidal or homicidal ideation. He denies any paranoia. He denies any pain or discomfort. Psychiatric interview is limited as the patient is somewhat sedated. I did endeavor to obtain further collateral information from patient's mother, Ana Lilia Zelaya at the number listed in the EMR. I left a voicemail requesting a call back. 06/24/16 Patient is a 25-year-old male admitted to the hospital under Parmar act. Patient seen in his room with nurse Betty, patient in bed selectively mute laying there without responding to me, staff notes patient showed marked psychomotor retardation is noted temperature laying on the floor in the halls talking to himself. Patient is admitted to Dr. Barnhart. He has signed first opinion petition supporting Parmar act. I agree. Patient meets criteria for involuntary psychiatric hospitalization under the Parmar act. Thus I will cosign second opinion petition supporting Parmar act Tobacco Use In Past 30 Days: Refused To Answer Alcohol Use: Never Hospital Course Patient was admitted in psychiatry due to acute increase psychosis and catatonic symptoms. Initial psychiatric assessment and psychosocial assessment were performed. Safety measures immediately initiated. He was started in psychotropics the were titrated as needed and as the patient could tolerate. His initial catatonia was kind of refractory, at some point since patient had some autonomic instability, NMS was debated and for this reason he was transferred to the med psych unit. He also had a urinary tract infection. With appropriate medications patient improved. With the days catatonia improved and also he psychosis. Patient had some moments of restlessness, disorganized behavior, disorganized thoughts, which after family meeting we became aware that was part of her baseline. During his hospitalization the patient was usually isolated, not interacting aloud with peers and staff, most probably with some limitations in his communication skills since his primary language is Mongolian, he had moment of disorganization, also disinhibited behavior, he was found a couple of times masturbating, but he was never agitated or aggressive and he was usually very redirectable. Patient was compliant with his medication, he showed a very fair response to Seroquel, final dose was 200 mg. At the moment of discharge patient remained withdrawn, minimally cooperative, but he denies suicidal or homicidal ideation, he denies visual and auditory hallucinations. As per mother, he is now at baseline. Results Blood Pressure 111 / 79 Vital Signs Date Time Temp Pulse Resp B/P Pulse Ox O2 Delivery O2 Flow Rate FiO2 07/27/16 06:12 98 18 111/79 07/26/16 17:18 98.5 98 Reviewed Summary of Procedures No procedures Imaging Last Impressions Abdomen/Pelvis CT 07/21/16 0000 Signed Impressions: Service Date/Time: Thursday, July 21, 2016 20:53 - CONCLUSION: No acute CT findings in the abdomen or pelvis. Eusebio Costello MD Abdomen X-Ray 07/02/16 0000 Signed Impressions: Service Date/Time: Saturday, July 02, 2016 13:34 - CONCLUSION: Nonspecific abdomen. K. Dwight Lam MD Pending results at discharge: No Medications # of Antipsychotic meds at D/C: 1 Approp Antipsych med options 1 - Minimum of three failed multiple trials of monotherapy. 2 - Documented plan to taper to monotherapy due to previous use of multiple meds OR cross-taper in progress at D/C. 3 - Documentation of augmentation of Clozapine. 4 - Justification other than those listed in allowable values 1-3, document here : Discharge Discharge Date: July 27, 2016 Discharge Diagnosis: (1) Schizophrenia ICD Code: F20.9 Mental Status Exam at Disch young man, what appears younger than his stated age, hospital [facility], good hygiene, he is calm, superficially cooperative. His his speech is very low volume, soft, reticent. Mood is"fine", affect is flat. Thought process is concrete, disorganized, at times tangential. Thought content is devoid of suicidal ideation, homicidal ideation, visual and auditory hallucinations. Patient shows paranoia against the [facility], no delusions observed. His insight, impulse control and judgment are fair. His memory and cognition are limited due to underlying intellectual disability. Pt Condition on Discharge: Stable Discharge Disposition: Discharge Home Discharge Instructions Diet Instructions: As Tolerated, No Restrictions Activities you can perform: Regular-No Restrictions Scheduled Appointment: Marcos Hannon Act Appointment Date: July 30, 2016 Appointment Time: 07:30am Discharge Time > 30 minutes Discharge/Advance Care Plan Health Problems: (1) Schizophrenia (2) History of mental retardation (3) Catatonia Goals to promote your health * To prevent worsening of your condition and complications * To maintain your health at the optimal level Directions to meet your goals Take your medications as prescribed Follow your dietary instruction Follow activity as directed Keep your appointments as scheduled Take your immunizations and boosters as scheduled If your symptoms worsen call your PCP, if no PCP go to Urgent Care Center or Emergency Room For 04/10 questions related to your inpatient stay or results of tests pending at discharge, please contact Dr. Gen Julian at Smoking is Dangerous to Your Health. Avoid second hand smoking Problem Qualifiers (1) Schizophrenia: Qualified Code: F20.3 - Undifferentiated schizophrenia Gen Julian MD July 27, 2016 11:01
== END 2016-07-27 14:30 | disposition home or self-care (01) | DRG 885 ==
LOC: H260 06-22 00:40 → H270 06-22 01:35 → H4EA 07-05 18:01 → H270 07-09 12:54 → H4EA 07-21 16:25
PROVIDERS: ADMIT Psychiatry & Neurology Psychiatry; ATTEND Psychiatry & Neurology Psychiatry
DX: F20.3 Undifferentiated schizophrenia (principal); N17.9 Acute kidney failure, unspecified; G21.0 Malignant neuroleptic syndrome; F06.1 Catatonic disorder due to known physiological condition; R79.89 Other specified abnormal findings of blood chemistry; R11.2 Nausea with vomiting, unspecified; R10.9 Unspecified abdominal pain; K59.00 Constipation, unspecified; L98.8 Other specified disorders of the skin and subcutaneous tissue; T43.505A Adverse effect of unspecified antipsychotics and neuroleptics, initial encounter
CPT/HCPCS: 74000; 74177; 76937; 80048; 80053; 80061; 80069; 80076; 81001; 82140; 82550; 82552; 82607; 83036; 83690; 83735; 84443; 85025; 85610; 86592; 95819; J1200; J2060; J7030; Q0163; Q9963; Q9967

== ENCOUNTER 2016-07-30 21:04 | Emergency (ER) | payer BC, OTHER ==
[~2016-07-30] VITALS: Ht 160 cm; Wt 74.0 kg
[~2016-07-30 21:04] MED LIST: BACI500O9 TOPICAL; CLON1 PO; FAMO1TAB73 PO; KLON2TAB PO; LAMO25 PO; QUET1TAB8 PO; VIST50CA PO
[2016-07-30 21:06] VITALS: BP 131/85; PULSE 120; RESP 20; TEMP 98; O2SAT 99
[2016-07-30] MEDS ORDERED: CARI1CAP PO (22:15)
[2016-07-30] MEDS ORDERED: SERO300T PO (22:15)
[2016-07-30 22:24] VITALS: BP 100/57; PULSE 88; RESP 16; O2SAT 98
--- NOTE | 2016-07-30 22:25 | PD ---
HPI Chief Complaint: Psychiatric Symptoms Time Seen by Provider: 22:08 Travel History International Travel<30 days: No Contact w/Intl Traveler<30days: No Traveled to known affect area: No History of Present Illness HPI The patient is a 25-year-old male who presents emergency department with family members for psychiatric evaluation. The patient recently moved from [place] and was admitted to the psychiatric unit for schizophrenia. The patient was diagnosed with schizophrenia approximately one year ago according to family members. The patient was just discharged approximately one week ago, however, earlier today started responding to stimuli that they could not see, noted that he was aggressive and punching quiñones, he was also walking around naked. They do note the patient has a history of constipation secondary to his medications, has not had a bowel movement in 2 days, but has not been eating for 2 days. The patient is to [facility] earlier today and they changed his medications around, however, his symptoms are progressing. The patient is a poor historian, does not answer questions, but will follow simple commands. The family denies any illicit drug use or alcohol use. PFSH Past Medical History Anxiety: Yes Depression: Yes Past Surgical History Narrative Surgical Noncontributory Social History Alcohol Use: No Tobacco Use: No Substance Use: No Allergies-Medications (Allergen,Severity, Reaction): Coded Allergies: No Known Allergies (Unverified , 07/30/16) Reported Meds & Prescriptions Reported Meds & Active Scripts Active Reported Vraylar (Cariprazine) 1.5 Mg Cap 1.5 Mg PO DAILY Seroquel (Quetiapine Fumarate) 300 Mg Tab 300 Mg PO DAILY Vraylar (Cariprazine) 1.5 Mg Cap 1.5 Mg PO DAILY Review of Systems ROS Limitations: Psychotic Except as stated in HPI: all other systems reviewed are Neg Gastrointestinal: Positive: Constipation Psychiatric: Positive: Disorder of Thought Physical Exam Exam Limitations: Psychotic Narrative GENERAL: Awake, alert, psychotic 25-year-old male who appears his stated age and is in no acute respiratory distress. Appears to be responding to internal stimuli. SKIN: Focused skin assessment warm/dry. HEAD: Atraumatic. Normocephalic. EYES: Pupils equal and round. Pupils are 3 mm bilateral and reactive. ENT: No nasal bleeding or discharge. Mucous membranes pink and moist. NECK: Trachea midline. No JVD. CARDIOVASCULAR: Regular rate and rhythm. No murmur appreciated. Heart rate in the 80s. RESPIRATORY: No accessory muscle use. Clear to auscultation. Breath sounds equal bilaterally. GASTROINTESTINAL: Abdomen soft, non-tender, nondistended. No distention noted. No guarding or rebound tenderness. MUSCULOSKELETAL: No obvious deformities. No clubbing. No cyanosis. No edema. NEUROLOGICAL: Awake and alert. No obvious cranial nerve deficits. Motor grossly within normal limits. Follow simple commands. PSYCHIATRIC: Appears psychotic and appears to be responding to internal stimuli. Data Data Last Documented VS Vital Signs Date Time Temp Pulse Resp B/P Pulse Ox O2 Delivery O2 Flow Rate FiO2 07/30/16 22:24 88 16 100/57 98 Room Air 07/30/16 21:06 98.0 Orders Complete Blood Count With Diff (07/30/16 22:16) Comprehensive Metabolic Panel (07/30/16 22:16) Psych Screen (07/30/16 22:16) Drug Screen, Random Urine (07/30/16 22:16) Haloperidol Inj (Haldol Inj) (07/30/16 23:00) Lorazepam Inj (Ativan Inj) (07/30/16 23:00) Labs Laboratory Tests Test 07/30/16 23:35 White Blood Count 6.6 TH/MM3 Red Blood Count 4.62 MIL/MM3 Hemoglobin 14.1 GM/DL Hematocrit 40.8 % Mean Corpuscular Volume 88.5 FL Mean Corpuscular Hemoglobin 30.6 PG Mean Corpuscular Hemoglobin 34.6 % Concent Red Cell Distribution Width 12.9 % Platelet Count 174 TH/MM3 Mean Platelet Volume 11.5 FL Neutrophils (%) (Auto) 49.7 % Lymphocytes (%) (Auto) 41.9 % Monocytes (%) (Auto) 7.2 % Eosinophils (%) (Auto) 0.8 % Basophils (%) (Auto) 0.4 % Neutrophils # (Auto) 3.3 TH/MM3 Lymphocytes # (Auto) 2.7 TH/MM3 Monocytes # (Auto) 0.5 TH/MM3 Eosinophils # (Auto) 0.0 TH/MM3 Basophils # (Auto) 0.0 TH/MM3 CBC Comment DIFF FINAL Differential Comment Sodium Level 140 MEQ/L Potassium Level 3.3 MEQ/L Chloride Level 102 MEQ/L Carbon Dioxide Level 26.7 MEQ/L Anion Gap 11 MEQ/L Blood Urea Nitrogen 10 MG/DL Creatinine 1.10 MG/DL Estimat Glomerular Filtration 81 ML/MIN Rate Random Glucose 89 MG/DL Calcium Level 9.2 MG/DL Total Bilirubin 0.6 MG/DL Aspartate Amino Transf 23 U/L (AST/SGOT) Alanine Aminotransferase 27 U/L (ALT/SGPT) Alkaline Phosphatase 98 U/L Total Protein 7.4 GM/DL Albumin 3.8 GM/DL MDM Medical Decision Making Medical Screen Exam Complete: Yes Emergency Medical Condition: Yes Medical Record Reviewed: Yes Interpretation(s) Laboratory Tests Test 07/30/16 23:35 White Blood Count 6.6 TH/MM3 Red Blood Count 4.62 MIL/MM3 Hemoglobin 14.1 GM/DL Hematocrit 40.8 % Mean Corpuscular Volume 88.5 FL Mean Corpuscular Hemoglobin 30.6 PG Mean Corpuscular Hemoglobin 34.6 % Concent Red Cell Distribution Width 12.9 % Platelet Count 174 TH/MM3 Mean Platelet Volume 11.5 FL Neutrophils (%) (Auto) 49.7 % Lymphocytes (%) (Auto) 41.9 % Monocytes (%) (Auto) 7.2 % Eosinophils (%) (Auto) 0.8 % Basophils (%) (Auto) 0.4 % Neutrophils # (Auto) 3.3 TH/MM3 Lymphocytes # (Auto) 2.7 TH/MM3 Monocytes # (Auto) 0.5 TH/MM3 Eosinophils # (Auto) 0.0 TH/MM3 Basophils # (Auto) 0.0 TH/MM3 CBC Comment DIFF FINAL Differential Comment Sodium Level 140 MEQ/L Potassium Level 3.3 MEQ/L Chloride Level 102 MEQ/L Carbon Dioxide Level 26.7 MEQ/L Anion Gap 11 MEQ/L Blood Urea Nitrogen 10 MG/DL Creatinine 1.10 MG/DL Estimat Glomerular Filtration 81 ML/MIN Rate Random Glucose 89 MG/DL Calcium Level 9.2 MG/DL Total Bilirubin 0.6 MG/DL Aspartate Amino Transf 23 U/L (AST/SGOT) Alanine Aminotransferase 27 U/L (ALT/SGPT) Alkaline Phosphatase 98 U/L Total Protein 7.4 GM/DL Albumin 3.8 GM/DL Differential Diagnosis Differential diagnoses includes schizophrenia, psychosis, medication side effect , schizoaffective disorder. Narrative Course Labs were drawn and sent. Psychiatric evaluation was ordered. The patient did become somewhat restless and agitated, therefore, the patient was administered Ativan 2 mg IM and Haldol 5 mg IM. The patient's labs are noted. The patient is medically clear to be evaluated by psychiatry. Disposition as per psych. Diagnosis Primary Impression: Psychosis Qualified Code: F20.9 - Schizophrenia, unspecified type Additional Impression: Schizophrenia Qualified Code: F20.9 - Schizophrenia, unspecified type Condition: Stable Kenny Sanchez MD July 30, 2016 22:25
[2016-07-30] MEDS ORDERED: LORazepam 2 MG/ML VIAL IM ONE (23:00)
[2016-07-30] MEDS ORDERED: HALOPERIDOL LACTATE 5 MG/ML AMP IM ONE (23:00)
[2016-07-30 23:48] LABS: AUTOMATED NEUTROPHIL # 3.3 TH/MM3 (1.8-7.7); BASOPHIL % 0.4 % (0.0-2.0); EOSINOPHIL % 0.8 % (0.0-4.0); HEMATOCRIT 40.8 % (39.0-51.0); HEMO FLAGS DIFF FINAL; LYMPH % 41.9 % (9.0-44.0); LYMPHOCYTE # 2.7 TH/MM3 (1.0-4.8); MEAN CELL VOLUME 88.5 FL (80.0-100.0); MEAN CORPUSCULAR HEMOGLOBIN 30.6 PG (27.0-34.0); MEAN CORPUSCULAR HGB CONC 34.6 % (32.0-36.0); MONO % 7.2 % (0.0-8.0); NEUT % 49.7 % (16.0-70.0); PLATELET COUNT 174 TH/MM3 (150-450); RED BLOOD COUNT 4.62 MIL/MM3 (4.50-5.90); RED CELL DISTRIBUTION WIDTH 12.9 % (11.6-17.2); WHITE BLOOD COUNT 6.6 TH/MM3 (4.0-11.0)
[2016-07-31 00:07] LABS: ANION GAP 11 MEQ/L (5-15); AST (GOT) 23 U/L (15-37); BICARBONATE 26.7 MEQ/L (21.0-32.0); BLOOD UREA NITROGEN 10 MG/DL (7-18); CHLORIDE 102 MEQ/L (98-107); GLOMERULAR FILTRATION RATE 81 ML/MIN (>89); POTASSIUM 3.3 MEQ/L (3.5-5.1); SODIUM (NA) 140 MEQ/L (136-145)
[2016-07-31 00:10] LABS: ALKALINE PHOSPHATASE 98 U/L (45-117); ALT (GPT) 27 U/L (12-78); TOTAL BILIRUBIN ADULT 0.6 MG/DL (0.2-1.0)
[2016-07-31 06:15] VITALS: BP 106/59; PULSE 56; RESP 16; O2SAT 97
--- NOTE | 2016-07-31 11:41 | PD ---
History of Present Illness Chief Complaint: Psychiatric Symptoms Time Seen by Provider: 11:30 Travel History International Travel<30 Days: No Contact w/Intl Traveler<30days: No Known affected area: No Legal Status Legal Status: Voluntary History of Present Illness: History of Present Illness HPI The patient is a 25-year-old male who presents emergency department with his mother on a voluntary basis for psychiatric evaluation. The patient recently moved from [place] and was admitted to the psychiatric unit and discharged one week ago.As per his mother he was at [employer] and became angry , aggressive and punching quiñones, he was also walking around naked. The patient is a poor historian, does not answer questions, but will follow simple commands. Seen. he has been calm in ED. Mother is at bedside. She tells me that it is difficult to manage his behavior at home because he does not have his personal space. At this time there are no acute psychiatric symptoms. PFSH Past Medical History Anxiety: Yes Depression: Yes Medical other: Yes (elevated CPK) Schizophrenia: Yes ?: Unknown Past Surgical History Surgical History: No Previous Surgery Psychiatric History Psychiatric History Hx Psychiatric Treatment: [facility] [place] .. History of Inpatient Treatment: Yes Guns or firearms in home: No Social History Single . Lives with family Hx Alcohol Use: No Hx Tobacco Use: No Hx Substance Use: No Hx of Substance Use Treatment: No Family Psychiatric History neagtive Allergies-Medications (Allergen,Severity, Reaction): Coded Allergies: No Known Allergies (Unverified , 07/30/16) Reported Meds & Prescriptions Reported Meds & Active Scripts Active Reported Vraylar (Cariprazine) 1.5 Mg Cap 1.5 Mg PO DAILY Seroquel (Quetiapine Fumarate) 300 Mg Tab 300 Mg PO DAILY Vraylar (Cariprazine) 1.5 Mg Cap 1.5 Mg PO DAILY Review of Systems Constitutional: COMPLAINS OF: Change in appetite Gastrointestinal: COMPLAINS OF: Constipation Psychiatric: COMPLAINS OF: Hallucinations Exam Alert: Yes [place]: Person (only) Mood: Calm Affect: Restricted Speech: Clear (Minimal responses) Eye Contact: Indirect Memory Intact: Comment (unable to test) Hallucinations: Other Delusions: No Suicidal: Ideation (neagitive) Homicidal: Ideation (neagtive) Insight/Judgement poor. impaired MDM Medical Decision Making Medical Record Reviewed: Yes Assessment/Plan Does not meet criteria for admission. Psychoeducation provided. Discharge to mother with continued care at [facility] Orders Complete Blood Count With Diff (07/30/16 22:16) Comprehensive Metabolic Panel (07/30/16 22:16) Psych Screen (07/30/16 22:16) Drug Screen, Random Urine (07/30/16 22:16) Haloperidol Inj (Haldol Inj) (07/30/16 23:00) Lorazepam Inj (Ativan Inj) (07/30/16 23:00) Diet Regular Basic (07/31/16 Breakfast) Results Vital Signs Date Time Temp Pulse Resp B/P Pulse Ox O2 Delivery O2 Flow Rate FiO2 07/31/16 06:15 56 16 106/59 97 Room Air 07/30/16 22:24 88 16 100/57 98 Room Air 07/30/16 21:06 98.0 120 20 131/85 99 Laboratory Tests Test 07/30/16 23:35 White Blood Count 6.6 Red Blood Count 4.62 Hemoglobin 14.1 Hematocrit 40.8 Mean Corpuscular Volume 88.5 Mean Corpuscular Hemoglobin 30.6 Mean Corpuscular Hemoglobin 34.6 Concent Red Cell Distribution Width 12.9 Platelet Count 174 Mean Platelet Volume 11.5 Neutrophils (%) (Auto) 49.7 Lymphocytes (%) (Auto) 41.9 Monocytes (%) (Auto) 7.2 Eosinophils (%) (Auto) 0.8 Basophils (%) (Auto) 0.4 Neutrophils # (Auto) 3.3 Lymphocytes # (Auto) 2.7 Monocytes # (Auto) 0.5 Eosinophils # (Auto) 0.0 Basophils # (Auto) 0.0 CBC Comment DIFF FINAL Differential Comment Sodium Level 140 Potassium Level 3.3 Chloride Level 102 Carbon Dioxide Level 26.7 Anion Gap 11 Blood Urea Nitrogen 10 Creatinine 1.10 Estimat Glomerular Filtration 81 Rate Random Glucose 89 Calcium Level 9.2 Total Bilirubin 0.6 Aspartate Amino Transf 23 (AST/SGOT) Alanine Aminotransferase 27 (ALT/SGPT) Alkaline Phosphatase 98 Total Protein 7.4 Albumin 3.8 Diagnosis Primary Impression: Schizophrenia Psychiatrically Cleared: Yes Disposition: 01 DISCHARGE HOME Condition: Stable Problem Qualifiers Primary Impression: Schizophrenia Qualified Code: F20.9 - Schizophrenia, unspecified type Missy Gooden July 31, 2016 11:41
== END 2016-07-31 13:22 | disposition home or self-care (01) ==
LOC: NEPD 21:04
DX: F20.9 Schizophrenia, unspecified (principal); F41.8 Other specified anxiety disorders
CPT/HCPCS: 80053; 85025; 96372; 99284; J1630; J2060

== ENCOUNTER 2016-10-12 20:46 | Inpatient (IN) | payer BC, MEDICAID ==
[~2016-10-12 20:46] MED LIST changes: -BACI500O9 TOPICAL; +CARI1CAP PO; -CLON1 PO; -FAMO1TAB73 PO; -KLON2TAB PO; -LAMO25 PO; -QUET1TAB8 PO; +SERO300T PO; -VIST50CA PO
[2016-10-12 21:05] VITALS: BP 164/90; PULSE 132; RESP 22; O2SAT 99
--- NOTE | 2016-10-12 23:50 | PD ---
HPI Chief Complaint: Psychiatric Symptoms Time Seen by Provider: 23:48 Travel History International Travel<30 days: No Contact w/Intl Traveler<30days: No Traveled to known affect area: No History of Present Illness HPI 25 year-old male presents to emergency department under Parmar act as a transfer from [facility]. The patient had been seen earlier this evening and was medically cleared. The patient admits to being suicidal. No current change. PFSH Past Medical History Anxiety: Yes Depression: Yes Psychiatric: Yes Schizophrenia: Yes Social History Alcohol Use: No Tobacco Use: No Substance Use: No Allergies-Medications (Allergen,Severity, Reaction): Coded Allergies: No Known Allergies (Unverified , 07/30/16) Reported Meds & Prescriptions Reported Meds & Active Scripts Active Reported Vraylar (Cariprazine) 1.5 Mg Cap 1.5 Mg PO DAILY Seroquel (Quetiapine Fumarate) 300 Mg Tab 300 Mg PO DAILY Vraylar (Cariprazine) 1.5 Mg Cap 1.5 Mg PO DAILY Review of Systems Except as stated in HPI: all other systems reviewed are Neg Psychiatric: Positive: Suicidal Ideations Physical Exam Narrative GENERAL: Well-nourished, well-developed patient. SKIN: Warm and dry. HEAD: Normocephalic and atraumatic. EYES: No scleral icterus. No injection or drainage. ENT: No nasal drainage noted. Mucous membranes pink. Airway patent. NECK: Supple, trachea midline. Moves head freely without obvious discomfort. CARDIOVASCULAR: Regular rate and rhythm without murmurs, gallops, or rubs. RESPIRATORY: Breath sounds equal bilaterally. No accessory muscle use. GASTROINTESTINAL: Abdomen soft, non-tender, nondistended. EXTREMITIES: No cyanosis or edema. BACK: Nontender without obvious deformity. No CVA tenderness. NEURO: Patient is alert and oriented. no sensorimotor deficits. Nonfocal. Normal speech. PSYCH: No delusions. No auditory or visual hallucinations. Data Data Last Documented VS Vital Signs Date Time Temp Pulse Resp B/P Pulse Ox O2 Delivery O2 Flow Rate FiO2 10/12/16 21:05 132 22 164/90 99 Room Air MDM Medical Decision Making Medical Screen Exam Complete: Yes Emergency Medical Condition: Yes Medical Record Reviewed: Yes Interpretation(s) Laboratory tests reviewed. Differential Diagnosis MDM: High Differential diagnoses: Schizophrenia, schizoaffective disorder, bipolar, anxiety, depression, adjustment reaction, mood disorder NOS, ODD, depressive disorder NOS, dementia, dementia with agitation, psychosis NOS, substance induced mood disorder, intermittent explosive disorder, Asperger syndrome, infection,electrolyte abnormality, malingering. Narrative Course Mental health screening discussed with the patient. Psychiatric screen ordered. This is schizophrenia Diagnosis Primary Impression: Schizophrenia Qualified Code: F20.9 - Schizophrenia, unspecified type Condition: Stable Celestine Fay Oct 12, 2016 23:50
[2016-10-13 02:26] VITALS: BP 103/56; PULSE 50; RESP 16
[2016-10-13 06:08] VITALS: BP 101/57; PULSE 63; RESP 16
[2016-10-13] MEDS ORDERED: LORazepam 2 MG/ML VIAL ONE (09:36)
[2016-10-13] MEDS ORDERED: LORazepam 2 MG/ML VIAL IM ONE (09:45)
[2016-10-13] MEDS ORDERED: QUEtiapine FUMARATE 200 MG TAB PO ONE (11:15)
--- NOTE | 2016-10-13 16:48 | PD ---
History of Present Illness Chief Complaint: Psychiatric Symptoms Time Seen by Provider: 16:00 Travel History International Travel<30 Days: No Contact w/Intl Traveler<30days: No Known affected area: No Legal Status Legal Status: Involuntary Parmar Act Signed By: Ghulam Act Comment: Dr. Marija Almodovar, [facility] ED History of Present Illness: History of Present Illness 25 year-old male with history of schizophrenia, intellectual disability who presents to emergency department under Parmar act initiated by Dr. Almodovar as a transfer from [facility]. The report filed by Dr. Almodovar state that the patient is " hearing voices telling him to kill himself, attempted to stab himself with a knife". Laboratory from [facility] is reviewed. negative toxicology Patient is seen in J pod. He is restless, pacing around his room as well as pacing around the unit. he does not maintain eye contact. I made several attempts to engage him but I was unable to obtain any meaningful history. He was crying at times and appeared internally stimulated. When I asked several times he would only speak in a very low tone and I could not understand him. I addressed him in Serbian as well as Singaporean. Patient was medicated with Ativan and Seroquel while in [facility]. I spoke with his mother , Ana Lilia Zelaya at [phone]. She reports that he has been taking his medications as prescribed but has not been sleeping more than 2 to 3 hours per night, he paces constantly and is talking to himself at times. She states that he has been dx in the past with an intellectual disability and has problems with communicating. She does tell me that he understands Singaporean. She feels that the current medications are not working. PFSH Past Medical History Anxiety: Yes Depression: Yes Implanted Vascular Access Dvce: No Psychiatric: Yes Schizophrenia: Yes Psychiatric History Psychiatric History Hx Psychiatric Treatment: [facility] June 2016. Has a employment case manager at [employer] by the name of sarah. History of Inpatient Treatment: Yes Guns or firearms in home: No Social History Single male. lives with his parents Hx Alcohol Use: No Hx Tobacco Use: No Hx Substance Use: No Hx of Substance Use Treatment: No Family Psychiatric History Unknown Allergies-Medications (Allergen,Severity, Reaction): Coded Allergies: No Known Allergies (Unverified , 07/30/16) Reported Meds & Prescriptions Reported Meds & Active Scripts Active Reported Vraylar (Cariprazine) 1.5 Mg Cap 1.5 Mg PO DAILY Seroquel (Quetiapine Fumarate) 300 Mg Tab 300 Mg PO DAILY Review of Systems ROS Limitations: Psychotic Gastrointestinal: COMPLAINS OF: Nausea, Vomiting Exam Exam Limitations: Psychotic Alert: Yes [place]: Person Affect: Restricted Speech: Illogical (very dificult to understand) Eye Contact: None Memory Intact: Comment (unable to test) Hallucinations: Auditory (appears internally preocupied) Suicidal: Ideation (Unable to asses at thsi time but patietn had attempted to satb self with a knife.) Insight/Judgement Poor. Impaired. MDM Medical Decision Making Medical Record Reviewed: Yes Assessment/Plan 25 year-old male with history of schizophrenia, intellectual disability who presents to emergency department under Parmar act initiated by Dr. Almodovar as a transfer from [facility]. The report filed by Dr. Almodovar state that the patient is " hearing voices telling him to kill himself, attempted to stab himself with a knife". At thsi time the patient requires inpatient treatment in order to stabilize current symptoms and maintain safety. Orders Diet Regular Basic (10/13/16 Breakfast) Psych Screen (10/13/16 04:44) Lorazepam Inj (Ativan Inj) (10/13/16 09:36) Lorazepam Inj (Ativan Inj) (10/13/16 09:45) Quetiapine (Seroquel) (10/13/16 11:15) Diet Regular Basic (10/13/16 Lunch) Diet Regular Basic (10/13/16 Dinner) Results Vital Signs Date Time Temp Pulse Resp B/P Pulse Ox O2 Delivery O2 Flow Rate FiO2 10/13/16 06:08 63 16 101/57 10/13/16 02:26 50 16 103/56 Room Air 10/12/16 21:05 132 22 164/90 99 Room Air Diagnosis Primary Impression: Schizophrenia Admitting Information Admitting Physician Requests: Admit Condition: Stable Problem Qualifiers Primary Impression: Schizophrenia Qualified Code: F20.9 - Schizophrenia, unspecified type Missy Gooden Oct 13, 2016 16:48
[2016-10-13] MEDS ORDERED: ALUMINUM/MAGNESIUM/SIMETH 30 ML CUP PO PRN (17:00)
[2016-10-13] MEDS ORDERED: MAGNESIUM HYDROXIDE SUSP 30 ML CUP PO PRN (17:00)
[2016-10-13 17:59] VITALS: BP 106/69; PULSE 113; RESP 18; TEMP 97.8; O2SAT 97
[2016-10-14 05:32] VITALS: BP 115/61; PULSE 102; RESP 18; TEMP 97.5; O2SAT 98
[2016-10-14] MEDS ORDERED: QUEtiapine FUMARATE 300 MG TAB PO SCH ×2 (09:00→21:00)
[2016-10-14] MEDS: NICOTINE 21 MG/24 HR PATCH T-DERMAL SCH (09:00)
--- NOTE | 2016-10-14 09:38 | HHI.HP ---
Provisional Diagnosis Admission Date Oct 13, 2016 at 16:52 [place] I. 1. Schizophrenia, undifferentiated type, acute exacerbation [place] II. 1. Intellectual disability [place] V. GAF is 25 presently Certification of Person's Competence To Provide Express and Informed Consent I have personally examined Marco Choudhury , a person being served at [facility] on, Oct 14, 2016 09:38. Express and informed consent means consent voluntarily given in writing, by a competent person, after sufficient explanation and disclosure of the subject matter involved to enable the person to make a knowing and willful decision without any element of force, fraud, deceit, duress, or other form of constraint or coercion. This person is 18 years of age or older, is not now known to be incompetent to consent to treatment with a guardian advocate, and does not have a health care surrogate or proxy currently making medical treatment decisions. I have found this person to be one of the following: [] Competent to provide express and informed consent, as defined above, for voluntary admission to this facility and is competent to provide express and informed consent for treatment. He/she has the consistent capacity to make well reasoned, willful, and knowing decisions concerning his or her medical or mental health treatment. The person fully and consistently understands the purpose of the admission for examination/placement and is fully capable of personally exercising all rights assured [place] [x] Incompetent to provide express and informed consent to voluntary admission, and this is incompetent to provide express and informed consent to treatment. The person must be transferred to involuntary status and a petition for a guardian advocate filed with the Circuit Court. [] Refusing to provide express and informed consent to voluntary admission but is competent to provide express and informed consent for treatment. The person must be discharged or transferred to involuntary status. Form shall be completed within 24 hours of a person's arrival at the receiving facility and filed in the clinical record of each person: 1. Admitted on a voluntary basis 2. Permitted to provide express and informed consent to his/her own treatment 3. Allowed to transfer from involuntary to voluntary status 4. Prior to permitting a person to consent to his or her own treatment after having been previously found incompetent to consent to treatment. History of Present Illness Capacity: Lacks Capacity HPI Mr. Choudhury is a 25-year-old male with a history of schizophrenia and intellectual disability who presents in transfer from [place] ED under a Parmar act alleging that the patient was hearing voices telling him to stab himself. Reviewing the electronic medical record, I note the patient was admitted psychiatrically here in June/July of this year under the care of Dr. Julian and myself. Patient seen and examined with nurse. Chart reviewed. Case discussed with nursing staff. Patient presents to me as quite disorganized. He has been incontinent of urine in his room. He is rubbing his head and rubbing his hands together. He appears internally stimulated. He is not presently aggressive or violent. Nurse reports that he has been somewhat sexually inappropriate. Affect is quite flat. When asked questions, patient mutters incomprehensibly in response. He does understand Lithuanian, per chart. Psychiatric interview is limited I suspect because of thought disorganization and difficulty communicating mental status. I am unable to obtain past psychiatric, family, chemical dependency or social history from the patient for the same reason. Spoke with patient's mother over the phone. She notes that he has been hospitalized on the crisis unit at [facility] 3 times since leaving [place] last time. He also follows outpatient with an [employer] at [facility], [place]. She notes that he is a little better when he leaves the CSU but rapidly decompensates thereafter, experiencing worsening AH and agitation (punching doors, e.g.). She notes he is sleeping and eating poorly. She notes he has become more emotionally labile of late and did indeed threaten to stab himself prior to presenting to [facility]. We discuss previous med trials. Depakene liquid 750mg qHS helped initially for mood stabilization, as did Seroquel and Zyprexa for sleep and psychotic symptoms. Only med he has not done well with is Invega. Called over to [facility]. Current med list as of 10/06 is Risperdal 1/2mg, Cogentin 2mg qHS, trazodone 50mg qHS. Review of Systems ROS Limitations: Psychotic, Poor Historian Except as stated in HPI: all other systems reviewed are Neg Past Psych History Psychological trauma history Unable to obtain from patient Violence risk - others (6 mos) Elevated. Patient is psychotic and unpredictable. Violence risk - self (6 mos) Elevated. Patient is psychotic and unpredictable. Making threats of harm towards self per mother. Substance Abuse History Drugs/Alcohol past 12 months See above Past Family Social History Coded Allergies: No Known Allergies (Unverified , 07/30/16) Past Medical History See electronic medical record Reported Medications Cariprazine (Vraylar)1.5 Mg Cap1.5 Mg PO DAILY #30 CAP Ref 0 07/30/16 Quetiapine (Seroquel)300 Mg [id number] Mg PO DAILY #30 TAB Ref 0 07/30/16 Discontinued Reported Medications Cariprazine (Vraylar)1.5 Mg Cap1.5 Mg PO DAILY #30 CAP Ref 0 07/30/16 Current Medications Medications (Trade) Dose Ordered Sig/Jerson Route Start Time Stop Time Status Last Admin (Tylenol) 650 mg Q4H PRN PO 10/13/16 17:00 (Milk Of Magnesia Liq) 30 ml DAILY PRN PO 10/13/16 17:00 (Mag-Al Plus Susp Liq) 30 ml Q6H PRN PO 10/13/16 17:00 (Habitrol 21 Mg Patch.24 Hr) 1 patch DAILY T-DERMAL 10/14/16 09:00 Miscellaneous Information 1 HS T-DERMAL 10/14/16 21:00 (SEROquel) 300 mg HS PO 10/14/16 21:00 Family History See above Social History See above Patient's Strengths (min. 2) In monitored setting. Supportive mother. Physical Exam Physical exam completed by ED provider. On my examination today, the patient appears to be in no acute physical distress. He does engage in hand wringing/ head rubbing behaviors. No other motor abnormalities noted. Labs and vitals reviewed: Vital Signs Vital Signs Date Time Temp Pulse Resp B/P Pulse Ox O2 Delivery O2 Flow Rate FiO2 10/14/16 05:32 97.5 102 18 115/61 98 10/13/16 02:26 Room Air Lab Results Item Value Date Time White Blood Count 7.7 TH/MM3 10/12/16 1700 Hemoglobin 13.6 GM/DL 10/12/16 1700 Platelet Count 190 TH/MM3 10/12/16 1700 Sodium Level 136 MEQ/L 10/14/16 0955 Potassium Level 3.8 MEQ/L 10/14/16 0955 Chloride Level 100 MEQ/L 10/14/16 0955 Carbon Dioxide Level 27.2 MEQ/L 10/14/16 0955 Blood Urea Nitrogen 16 MG/DL 10/14/16 0955 Creatinine 1.03 MG/DL 10/14/16 0955 Hemoglobin A1c 5.4 % 10/14/16 0955 Aspartate Amino Transf (AST/SGOT) 27 U/L 10/12/16 1700 Alanine Aminotransferase (ALT/SGPT) 32 U/L 10/12/16 1700 Alkaline Phosphatase 87 U/L 10/12/16 1700 Mental Status Examination Speech: Other (Muttering, largely nonsensical.) Orientation: Person Memory: Unremarkable (unable to assess) Thought Process: Thought Blocking, Other (Suspect disorganized) Thought Content: Other (Suspect underlying paranoia) Hallucination Type: Auditory (Appears int stim) Attention and Concentration: Easily Distracted Suicidal Ideation: No (No SI to me. Threats of suicide per mother.) Previous Suicide Attempts: No Homicidal Ideation: No Previous Homicide Attempts: No Insight: Poor Judgment: Poor Affect if Inappropriate: Flat Mood: Other (unable to assess) Assessment & Plan Problem List: (1) Schizophrenia ICD Code: F20.9 (2) Intellectual disability ICD Code: F79 Assessment & Plan This is a 25-year-old male with psychiatric history as detailed above who presents under a Parmar act. On my examination, patient presents as internally stimulated and behaviorally disorganized. Collateral from mother suggests a recent history of crisis stabilization admissions with subsequent rapid decompensation. More recently, behavior has been quite disturbed with threats of suicide per mother. Given reported mood instability, I think returning to Depakote might be helpful. Given poor sleep, a more sedating antipsychotic than Risperdal would likely be helpful, such as Zyprexa. Patient requires psychiatric admission at this time for safety, observation and stabilization. Admit inpatient. Involuntary status. I've completed first opinion. Consult for second opinion. Request healthcare surrogate and guardian advocate. Discontinue home Risperdal and replace with Zyprexa Zydis 10mg qHS for psychosis and sleep. Start Depakene liquid 250mg BID for mood stabilization. LFTs and plt ok. Plan to check VPA level after appropriate interval. Zyprexa 10mg IM q12h PRN psychotic agitation, Cogentin PRN EPS. Vitals every shift. Counselor to see. Disposition planning. Estimated length of stay: 7-9 days. Discharge Planning Pending psychiatric stabilization Request HC Surrog/Guard Advoc?: Yes Problem Qualifiers (1) Schizophrenia: Qualified Code: F20.3 - Undifferentiated schizophrenia Van Barnhart MD Oct 14, 2016 09:38
[2016-10-14 10:40] LABS: ANION GAP 9 MEQ/L (5-15); BICARBONATE 27.2 MEQ/L (21.0-32.0); BLOOD UREA NITROGEN 16 MG/DL (7-18); CHLORIDE 100 MEQ/L (98-107); GLOMERULAR FILTRATION RATE 87 ML/MIN (>89); POTASSIUM 3.8 MEQ/L (3.5-5.1); SODIUM (NA) 136 MEQ/L (136-145)
[2016-10-14 10:47] LABS: HDL CHOLESTEROL 63.4 MG/DL (40.0-60.0); LDL CHOLESTEROL 102 MG/DL (0-99)
[2016-10-14 11:01] LABS: HEMOGLOBIN A1a 0.9 %; HEMOGLOBIN A1b 0.8 %; HEMOGLOBIN F 0.8 %; HEMOGLOBIN LA1C 1.9 %; HEMOGLOBIN P3 3.4 %
[2016-10-14] MEDS ORDERED: OLANZapine IM 10 MG VIAL IM PRN (15:00)
[2016-10-14 17:45] VITALS: BP 124/75; PULSE 102; RESP 18; TEMP 98.3; O2SAT 97
[2016-10-14] MEDS: VALPROIC ACID SYRUP 250 MG/5 ML UDC PO SCH (20:39)
[2016-10-14] MEDS ORDERED: BENZTROPINE MESYLATE 1 MG TAB PO PRN (21:00)
[2016-10-14] MEDS ORDERED: OLANZapine ODT 10 MG TAB PO SCH (21:00)
[2016-10-14] MEDS ORDERED: BENZTROPINE MESYLATE 2 MG/2 ML VIAL IM PRN (21:00)
[2016-10-14] MEDS ORDERED: REMOVE OLD NICODERM (NICOTINE) PATCH T-DERMAL SCH (21:00)
[2016-10-15 05:53] VITALS: BP 132/73; PULSE 83; RESP 18; TEMP 98; O2SAT 99
[2016-10-15] MEDS: VALPROIC ACID SYRUP 250 MG/5 ML UDC PO SCH ×2 (09:00→20:15)
[2016-10-15] MEDS: NICOTINE 21 MG/24 HR PATCH T-DERMAL SCH (09:00)
--- NOTE | 2016-10-15 09:22 | HHI.PYPN ---
Subjective Remarks Patient seen and examined with counselor and nurse. Chart reviewed. Case discussed with nursing staff who reports that the patient slept well overnight with addition of Zyprexa, approximately 7 hours. He has been masturbating in his room but otherwise has been no behavioral problem. On my examination today , the patient presents as negativistic and remains quite disorganized with respect his thought process. I see that he has been incontinent of urine. He endorses audiovisual hallucinations, but when I ask him to describe them he says "nothing." He denies suicidal or homicidal ideation. No side effects from medications. No physical complaints. Review of Systems ROS Limitations: Psychotic, Poor Historian Except as stated in HPI: all other systems reviewed are Neg Objective Alert: Yes [place]: Person Mood: Calm (presently calm) Affect: Flat Memory Intact: Comment (not formally assessed) Hallucinations: Auditory, Visual Delusions: No Delusion Type: Other (no maryann delusions) Suicidal: Ideation (denies SI, likely unreliable to contract for safety) Homicidal: Ideation (denies HI) Insight/Judgment Poor Remarks No motor abnormalities. Thought process disorganized. Grooming and hygiene quite poor. Labs Test 10/14/16 09:55 Sodium Level 136 MEQ/L Potassium Level 3.8 MEQ/L Chloride Level 100 MEQ/L Carbon Dioxide Level 27.2 MEQ/L Anion Gap 9 MEQ/L Blood Urea Nitrogen 16 MG/DL Creatinine 1.03 MG/DL Estimat Glomerular Filtration 87 ML/MIN Rate Random Glucose 100 MG/DL Hemoglobin A1c 5.4 % Calcium Level 9.3 MG/DL Triglycerides Level 64 MG/DL Cholesterol Level 178 MG/DL LDL Cholesterol 102 MG/DL HDL Cholesterol 63.4 MG/DL Cholesterol/HDL Ratio 2.80 RATIO Labs reviewed. Vitals/IOs Vital Signs Date Time Temp Pulse Resp B/P Pulse Ox O2 Delivery O2 Flow Rate FiO2 10/15/16 05:53 98.0 83 18 132/73 99 10/13/16 02:26 Room Air Assessment & Plan Problem List: (1) Schizophrenia ICD Code: F20.9 (2) Intellectual disability ICD Code: F79 Assessment & Plan Titrate Zyprexa over weekend to target psychosis and attendant behavioral and thought disorganization. Continue Depakene liquid as ordered with plans to check a VPA and ammonia level Tuesday morning. Check a UA, although I suspect incontinence stems from behavioral disorganization. I have asked the nurse to provide patient with a bedside urinal. Continue to monitor on the high acuity unit. Continue other medications and care as ordered. Justification for Cont. Inpt. Impairment in self-care. Impairment in reality construction. Medication changes in process. High risk for decompensation in less restrictive environment. Discharge Planning Pending psychiatric stabilization. Patient may require placement. Request HC Surrog/Guard Advoc?: Yes Problem Qualifiers (1) Schizophrenia: Qualified Code: F20.3 - Undifferentiated schizophrenia Van Barnhart MD Oct 15, 2016 09:22
--- NOTE | 2016-10-15 13:04 | PD.PSY.CON ---
Provisional Diagnosis Admission Date Oct 13, 2016 at 16:52 [place] I. 1. Schizophrenia, undifferentiated type, acute exacerbation [place] II. 1. Intellectual disability [place] V. GAF is 25 presently History of Present Illness Service Psychiatry Consult Requested By Reason for Consult Second opinion Primary Care Physician Non-Staff HPI Mr. Choudhury is a 25-year-old male with a history of schizophrenia and intellectual disability who presents in transfer from [place] ED under a Parmar act alleging that the patient was hearing voices telling him to stab himself. Reviewing the electronic medical record, I note the patient was admitted psychiatrically here in June/July of this year under the care of Dr. Julian and myself. Patient seen and examined with nurse. Chart reviewed. Case discussed with nursing staff. Patient presents to me as quite disorganized. He has been incontinent of urine in his room. He is rubbing his head and rubbing his hands together. He appears internally stimulated. He is not presently aggressive or violent. Nurse reports that he has been somewhat sexually inappropriate. Affect is quite flat. When asked questions, patient mutters incomprehensibly in response. He does understand Slovenian, per chart. Psychiatric interview is limited I suspect because of thought disorganization and difficulty communicating mental status. I am unable to obtain past psychiatric, family, chemical dependency or social history from the patient for the same reason. Spoke with patient's mother over the phone. She notes that he has been hospitalized on the crisis unit at [facility] 3 times since leaving [place] last time. He also follows outpatient with an PRODUCTION CREW SUPERVISOR at [facility] [place]. She notes that he is a little better when he leaves the CSU but rapidly decompensates thereafter, experiencing worsening AH and agitation (punching doors, e.g.). She notes he is sleeping and eating poorly. She notes he has become more emotionally labile of late and did indeed threaten to stab himself prior to presenting to [place]. We discuss previous med trials. Depakene liquid 750mg qHS helped initially for mood stabilization, as did Seroquel and Zyprexa for sleep and psychotic symptoms. Only med he has not done well with is Invega.Called over to [facility]. Current med list as of 10/06 is Risperdal 1/2mg, Cogentin 2mg qHS, trazodone 50mg qHS. The patient is a 25 years old Moroc[place] man, domicile with his mother in [place], single, unemployed, primary Sami-speaking, well known by psychiatric services, multiple psychiatric hospitalizations, last hospitalization was here at [place] in July 2016, outpatient psychiatric care in [facility], hospitalized this time due to disorganized behavior at home and psychotic decompensation. On psychiatric evaluation today patient was found sleeping, not arousable, he was medicated with ETO's last night. We noted that the floor is full of urine. Patient has been disorganized in the unit, at times agitated and sexually inappropriate. Review of Systems ROS Limitations: Uncooperative Past Family Social History Coded Allergies: No Known Allergies (Unverified , 07/30/16) Reported Medications Cariprazine (Vraylar)1.5 Mg Cap1.5 Mg PO DAILY #30 CAP Ref 0 07/30/16 Quetiapine (Seroquel)300 Mg [id number] Mg PO DAILY #30 TAB Ref 0 07/30/16 Discontinued Reported Medications Cariprazine (Vraylar)1.5 Mg Cap1.5 Mg PO DAILY #30 CAP Ref 0 07/30/16 Current Medications Medications (Trade) Dose Ordered Sig/Jerson Route Start Time Stop Time Status Last Admin (Tylenol) 650 mg Q4H PRN PO 10/13/16 17:00 (Milk Of Magnesia Liq) 30 ml DAILY PRN PO 10/13/16 17:00 (Mag-Al Plus Susp Liq) 30 ml Q6H PRN PO 10/13/16 17:00 (Habitrol 21 Mg Patch.24 Hr) 1 patch DAILY T-DERMAL 10/14/16 09:00 Miscellaneous Information 1 HS T-DERMAL 10/14/16 21:00 (ZyPREXA ZYDIS ODT) 10 mg HS PO 10/14/16 21:00 10/14/16 20:38 (ZyPREXA INJ) 10 mg Q12H PRN IM 10/14/16 15:00 (Depakene Liq) 250 mg BID PO 10/14/16 21:00 10/15/16 09:00 (Cogentin) 1 mg Q12HR PRN PO 10/14/16 21:00 (Cogentin Inj) 1 mg Q12HR PRN IM 10/14/16 21:00 Patient's Strengths (min. 2) In monitored setting. Supportive mother. Physical Exam Vital Signs Vital Signs Date Time Temp Pulse Resp B/P Pulse Ox O2 Delivery O2 Flow Rate FiO2 10/15/16 05:53 98.0 83 18 132/73 99 10/13/16 02:26 Room Air Mental Status Examination Appearance Moroccan man, age appearing [facility], poorly cooperative at this moment. Speech: Other (Muttering, largely nonsensical.) Orientation: Person Memory: Unremarkable (unable to assess) Thought Process: Thought Blocking, Other (Suspect disorganized) Thought Content: Other (Suspect underlying paranoia) Hallucination Type: Auditory (Appears int stim) Attention and Concentration: Easily Distracted Suicidal Ideation: No (No SI to me. Threats of suicide per mother.) Previous Suicide Attempts: No Homicidal Ideation: No Previous Homicide Attempts: No Insight: Poor Judgment: Poor Affect if Inappropriate: Flat Mood: Other (unable to assess) Assessment & Plan Problem List: (1) Schizophrenia Assessment & Plan: Patient has been seen and examined by me, documentation review, collateral information from the staff obtained. Patient is well known by me. I completely agree and concur with Dr. Barnhart assessment and plan. ICD Code: F20.9 (2) Intellectual disability ICD Code: F79 Assessment & Plan Estimated LOS: days Request HC Surrog/Guard Advoc?: Yes Problem Qualifiers (1) Schizophrenia: Qualified Code: F20.3 - Undifferentiated schizophrenia Gen Julian MD Oct 15, 2016 13:04
[2016-10-15 18:23] VITALS: BP 124/88; PULSE 84; RESP 18; TEMP 98.2; O2SAT 97
[2016-10-15] MEDS ORDERED: LORazepam 2 MG/ML VIAL ONE (18:38)
[2016-10-15] MEDS ORDERED: diphenhydrAMINE HCL 50 MG/ML VIAL ONE (18:38)
[2016-10-15] MEDS: OLANZapine ODT 10 MG TAB PO SCH (20:15)
[2016-10-16 05:44] VITALS: BP 112/57; PULSE 56; RESP 18; TEMP 97.5; O2SAT 99
[2016-10-16] MEDS: VALPROIC ACID SYRUP 250 MG/5 ML UDC PO SCH ×2 (08:56→20:31)
--- NOTE | 2016-10-16 17:42 | HHI.PYPN ---
Subjective Remarks Patient was seen and case discussed with nursing. Patient is oppositional poor eye contact. He is soft spoken and difficult to understand. Per nursing Entex he has not been aggressive today. He was gesturing briefly shadowboxing earlier however. Compliant with his medications. Admits to auditory hallucinations but would not state the content Objective Alert: Yes [place]: Person Mood: Calm (presently calm) Affect: Flat Memory Intact: Comment (not formally assessed) Hallucinations: Auditory (admits with no content) Delusions: No Delusion Type: Other (no maryann delusions) Suicidal: Ideation (denies SI, likely unreliable to contract for safety) Homicidal: Ideation (denies HI) Insight/Judgment Poor Vitals/IOs Vital Signs Date Time Temp Pulse Resp B/P Pulse Ox O2 Delivery O2 Flow Rate FiO2 10/16/16 05:44 97.5 56 18 112/57 99 10/13/16 02:26 Room Air Assessment & Plan Problem List: (1) Schizophrenia ICD Code: F20.9 (2) Intellectual disability ICD Code: F79 Assessment & Plan Continue current treatment plan Justification for Cont. Inpt. Patient will decompensate in a less restrictive setting Request HC Surrog/Guard Advoc?: Yes Problem Qualifiers (1) Schizophrenia: Qualified Code: F20.3 - Undifferentiated schizophrenia William Edwards DO Oct 16, 2016 17:42
[2016-10-16 17:46] VITALS: BP 125/76; PULSE 100; RESP 18; TEMP 97.9; O2SAT 98
[2016-10-16] MEDS: OLANZapine ODT 10 MG TAB PO SCH (20:31)
[2016-10-17] MEDS: VALPROIC ACID SYRUP 250 MG/5 ML UDC PO SCH ×2 (10:25→21:53)
--- NOTE | 2016-10-17 15:05 | HHI.PYPN ---
Subjective Remarks Patient was seen and case discussed with nursing. Patient is responding to self and laughing. At times gesturing with punches in the air. He is very soft spoken and difficult to understand the interview. Has not had any outbursts today. Compliant with medications Objective Alert: Yes [place]: Person Mood: Calm (presently calm) Affect: Flat Memory Intact: Comment (not formally assessed) Hallucinations: Auditory (admits with no content) Delusions: No Delusion Type: Other (no maryann delusions) Suicidal: Ideation (denies SI, likely unreliable to contract for safety) Homicidal: Ideation (denies HI) Insight/Judgment Poor Vitals/IOs Vital Signs Date Time Temp Pulse Resp B/P Pulse Ox O2 Delivery O2 Flow Rate FiO2 10/16/16 17:46 97.9 100 18 125/76 98 Assessment & Plan Problem List: (1) Schizophrenia ICD Code: F20.9 (2) Intellectual disability ICD Code: F79 Assessment & Plan Continue current treatment plan Justification for Cont. Inpt. Patient would decompensate in a less restrictive setting. Request HC Surrog/Guard Advoc?: Yes Problem Qualifiers (1) Schizophrenia: Qualified Code: F20.3 - Undifferentiated schizophrenia William Edwards DO Oct 17, 2016 15:05
[2016-10-17 17:49] VITALS: BP 110/76; PULSE 95; RESP 18; TEMP 98; O2SAT 99
[2016-10-17] MEDS: LORazepam 2 MG/ML VIAL IM ONE (19:30)
[2016-10-17] MEDS: diphenhydrAMINE HCL 50 MG/ML VIAL IM ONE (19:30)
[2016-10-17] MEDS ORDERED: HALOPERIDOL LACTATE 5 MG/ML AMP IM ONE (19:30)
[2016-10-17] MEDS ORDERED: OLANZapine ODT 15 MG TAB PO SCH (21:00)
[2016-10-18 05:55] VITALS: BP 110/57; PULSE 59; RESP 16; TEMP 97.2; O2SAT 98
[2016-10-18] MEDS ORDERED: VALP250UDC PO (08:54)
[2016-10-18] MEDS ORDERED: OLANZ15 PO (08:54)
--- NOTE | 2016-10-18 08:55 | HHI.DS ---
Psychiatry Discharge Summary Advance Directive: No Reason Not Provided: Due to Patient Condition Mental Health AdvanceDirective: No Admission Admission Date Oct 13, 2016 at 16:52 Admission Diagnosis: Brief History Mr. Choudhury is a 25-year-old male with a history of schizophrenia and intellectual disability who presents in transfer from [place] ED under a Parmar act alleging that the patient was hearing voices telling him to stab himself. Reviewing the electronic medical record, I note the patient was admitted psychiatrically here in June/July of this year under the care of Dr. Julian and myself. Patient seen and examined with nurse. Chart reviewed. Case discussed with nursing staff. Patient presents to me as quite disorganized. He has been incontinent of urine in his room. He is rubbing his head and rubbing his hands together. He appears internally stimulated. He is not presently aggressive or violent. Nurse reports that he has been somewhat sexually inappropriate. Affect is quite flat. When asked questions, patient mutters incomprehensibly in response. He does understand Bengali, per chart. Psychiatric interview is limited I suspect because of thought disorganization and difficulty communicating mental status. I am unable to obtain past psychiatric, family, chemical dependency or social history from the patient for the same reason. Spoke with patient's mother over the phone. She notes that he has been hospitalized on the crisis unit at [facility] 3 times since leaving [place] last time. He also follows outpatient with an ELECTRICAL SUBCONTRACTOR at [facility], [place]. She notes that he is a little better when he leaves the CSU but rapidly decompensates thereafter, experiencing worsening AH and agitation (punching doors, e.g.). She notes he is sleeping and eating poorly. She notes he has become more emotionally labile of late and did indeed threaten to stab himself prior to presenting to [place]. We discuss previous med trials. Depakene liquid 750mg qHS helped initially for mood stabilization, as did Seroquel and Zyprexa for sleep and psychotic symptoms. Only med he has not done well with is Invega.Called over to [facility]. Current med list as of 10/06 is Risperdal 1/2mg, Cogentin 2mg qHS, trazodone 50mg qHS. The patient is a 25 years old [place] man, domicile with his mother in [place], single, unemployed, primary Argentine-speaking, well known by psychiatric services, multiple psychiatric hospitalizations, last hospitalization was here at [place] in July 2016, outpatient psychiatric care in [facility], hospitalized this time due to disorganized behavior at home and psychotic decompensation. On psychiatric evaluation today patient was found sleeping, not arousable, he was medicated with ETO's last night. We noted that the floor is full of urine. Patient has been disorganized in the unit, at times agitated and sexually inappropriate. Tobacco Use In Past 30 Days: No Tobacco Past 30 Days Alcohol Use: Never Results Blood Pressure 110 / 57 Vital Signs Date Time Temp Pulse Resp B/P Pulse Ox O2 Delivery O2 Flow Rate FiO2 10/18/16 05:55 97.2 59 16 110/57 98 Laboratory Results Test 10/14/16 09:55 Hemoglobin A1c 5.4 % (4.3-6.0) Triglycerides Level 64 MG/DL (42-150) Cholesterol Level 178 MG/DL (120-200) LDL Cholesterol 102 MG/DL (0-99) HDL Cholesterol 63.4 MG/DL (40.0-60.0) Medications Approp Antipsych med options 1 - Minimum of three failed multiple trials of monotherapy. 2 - Documented plan to taper to monotherapy due to previous use of multiple meds OR cross-taper in progress at D/C. 3 - Documentation of augmentation of Clozapine. 4 - Justification other than those listed in allowable values 1-3, document here : Discharge Discharge Disposition: Dis to Court Law Enforcem Discharge Instructions Diet Instructions: As Tolerated, No Restrictions Activities you can perform: Weight Bearing as [place] Discharge/Advance Care Plan Health Problems: (1) Schizophrenia (2) Intellectual disability Goals to promote your health * To prevent worsening of your condition and complications * To maintain your health at the optimal level Directions to meet your goals Take your medications as prescribed Follow your dietary instruction Follow activity as directed Keep your appointments as scheduled Take your immunizations and boosters as scheduled If your symptoms worsen call your PCP, if no PCP go to Urgent Care Center or Emergency Room For 04/10 questions related to your inpatient stay or results of tests pending at discharge, please contact Dr. Van Barnhart at Smoking is Dangerous to Your Health. Avoid second hand smoking Van Barnhart MD Oct 18, 2016 08:55
[2016-10-18] MEDS: VALPROIC ACID SYRUP 250 MG/5 ML UDC PO SCH ×2 (09:00→21:11)
[2016-10-18 13:38] LABS: AUTOMATED NEUTROPHIL # 3.5 TH/MM3 (1.8-7.7); BASOPHIL % 0.2 % (0.0-2.0); EOSINOPHIL # 0.1 TH/MM3 (0-0.4); EOSINOPHIL % 1.8 % (0.0-4.0); HEMATOCRIT 42.4 % (39.0-51.0); HEMO FLAGS DIFF FINAL; LYMPH % 35.8 % (9.0-44.0); LYMPHOCYTE # 2.2 TH/MM3 (1.0-4.8); MEAN CELL VOLUME 89.2 FL (80.0-100.0); MEAN CORPUSCULAR HEMOGLOBIN 29.6 PG (27.0-34.0); MEAN CORPUSCULAR HGB CONC 33.1 % (32.0-36.0); MONO % 6.1 % (0.0-8.0); NEUT % 56.1 % (16.0-70.0); PLATELET COUNT 158 TH/MM3 (150-450); RED BLOOD COUNT 4.75 MIL/MM3 (4.50-5.90); RED CELL DISTRIBUTION WIDTH 14.1 % (11.6-17.2); WHITE BLOOD COUNT 6.2 TH/MM3 (4.0-11.0)
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
[2016-10-18] MEDS ORDERED: diphenhydrAMINE HCL 50 MG/ML VIAL IM PRN (13:45)
[2016-10-18] MEDS ORDERED: LORazepam 2 MG/ML VIAL IM PRN (13:45)
[2016-10-18] MEDS ORDERED: HALOPERIDOL LACTATE 5 MG/ML AMP IM PRN (13:45)
[2016-10-18] MEDS ORDERED: OLANZapine IM 10 MG VIAL IM PRN (13:45)
[2016-10-18 14:15] LABS: ALT (GPT) 21 U/L (12-78); ANION GAP 7 MEQ/L (5-15); AST (GOT) 10 U/L (15-37); BICARBONATE 30.2 MEQ/L (21.0-32.0); BLOOD UREA NITROGEN 13 MG/DL (7-18); CHLORIDE 106 MEQ/L (98-107); GLOMERULAR FILTRATION RATE 80 ML/MIN (>89); POTASSIUM 3.8 MEQ/L (3.5-5.1); SODIUM (NA) 143 MEQ/L (136-145)
[2016-10-18 14:18] LABS: ALKALINE PHOSPHATASE 80 U/L (45-117); TOTAL BILIRUBIN ADULT 0.5 MG/DL (0.2-1.0)
[2016-10-18 18:00] VITALS: BP 121/71; PULSE 84; RESP 16; TEMP 97.9; O2SAT 98
[2016-10-18] MEDS ORDERED: diphenhydrAMINE HCL 50 MG/ML VIAL IM ONE (18:30)
[2016-10-18] MEDS ORDERED: HALOPERIDOL LACTATE 5 MG/ML AMP IM ONE (18:30)
[2016-10-18] MEDS ORDERED: LORazepam 2 MG/ML VIAL IM ONE (18:30)
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
[2016-10-18] MEDS: OLANZapine ODT 20 MG TAB PO SCH (21:11)
[2016-10-19 06:13] VITALS: BP 111/73; PULSE 70; RESP 16; TEMP 97.5; O2SAT 99
[2016-10-19] MEDS: VALPROIC ACID SYRUP 250 MG/5 ML UDC PO SCH ×2 (09:32→20:54)
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
[2016-10-19] MEDS: OLANZapine ODT 10 MG TAB PO SCH (15:00)
--- NOTE | 2016-10-19 15:05 | PD.TTN ---
Present for Treatment Team Treatment Team Staff: Provider (Dr. Barnhart), Nurse (Taylor Davison RN), Psych Therapist (SUZE Knutson), Occupational Therapist (JOHN Leon) Patient Problems 1. Discharge planning 2. Medication compliance 3. Knowledge deficit 4. Lack of coping skills Progress Toward Goals Provider Input: Pt medication regiment will continue to be adjusted to assist with stabilization. Nurse Input: Pt is compliant with medication, has had no violent outbursts today, is resting in bed and appears internally preoccupied. Psych Therapist Input: Pt appears to be internally stimulated, easily agitated, disorganized, confused, guarded and with limited interaction. Pt presents with limited coping skills as evidenced by recent violent outbursts. He presents with limited insight into condition and need for care. Pt is compliant with medication regiment. Occupational Therapist Input: Pt unable to tolerate groups at this time. Pt seen pacing the unit throughout the day. Documentation Scribe: SUZE Knutson Jonathan LMHC Oct 19, 2016 15:04
[2016-10-19 18:12] VITALS: BP 133/84; PULSE 103; RESP 18; TEMP 98.7; O2SAT 97
[2016-10-19] MEDS: OLANZapine ODT 20 MG TAB PO SCH (20:54)
[2016-10-19] MEDS ORDERED: OLANZapine IM 10 MG VIAL IM PRN (21:00)
[2016-10-20 06:08] VITALS: BP 99/58; PULSE 72; RESP 18; TEMP 97.2; O2SAT 99
[2016-10-20] MEDS: VALPROIC ACID SYRUP 250 MG/5 ML UDC PO SCH ×2 (09:15→20:31)
[2016-10-20] MEDS: OLANZapine ODT 10 MG TAB PO SCH (09:16)
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
[2016-10-20 20:00] VITALS: BP 120/73; PULSE 89; RESP 16; TEMP 98; O2SAT 97
[2016-10-20] MEDS: OLANZapine ODT 20 MG TAB PO SCH (20:31)
[2016-10-21 05:58] VITALS: BP 111/56; PULSE 69; RESP 17; TEMP 97.3; O2SAT 99
[2016-10-21] MEDS: OLANZapine ODT 10 MG TAB PO SCH (08:08)
[2016-10-21] MEDS: VALPROIC ACID SYRUP 250 MG/5 ML UDC PO SCH ×2 (08:09→20:29)
--- NOTE | 2016-10-21 08:54 | HHI.PYPN ---
Subjective Remarks Patient seen and examined with nurse. Chart reviewed. Case discussed with nursing staff reports that the patient was no behavioral problem overnight. He was not taken out for meals as per my order for unclear reasons. He remains on a 1:1. On my exam, patient is calm. He is not sedated. He denies AVH. He does not describe any desire to hurt others but does not deny this either when asked. No SI. No side effects from medications. No physical complaints. Review of Systems ROS Limitations: Poor Historian Except as stated in HPI: all other systems reviewed are Neg Objective Alert: Yes [place]: Person Mood: Calm Affect: Flat (remains flat) Memory Intact: Comment (Not formally assessed) Hallucinations: Auditory (Vague) Delusions: No Delusion Type: Other (no delusions elicited) Suicidal: Ideation (No SI) Homicidal: Ideation (no HI voiced) Insight/Judgment Poor Remarks No hand tremor. No cog-wheeling. Possibly some increased LE tone, but this is questionable. No other signs of NMS. Grooming and hygiene poor. Labs Labs reviewed. No new labs. Vitals/IOs Vital Signs Date Time Temp Pulse Resp B/P Pulse Ox O2 Delivery O2 Flow Rate FiO2 10/21/16 05:58 97.3 69 17 111/56 99 Assessment & Plan Problem List: (1) Schizophrenia ICD Code: F20.9 (2) Intellectual disability ICD Code: F79 Assessment & Plan Some subtle, perhaps illusory increased LE tone. I will check a CBC, CMP and CK prior to advancing antipsychotic dose. No fevers or other signs of autonomic instability. Continue Depakote as ordered. VPA level in the morning. D/w RN bringing patient out of room for meals as ordered with ultimate goal of further lessening patient's level of obs. Continue to monitor on the high acuity unit. Continue other medications and care as ordered. Patient's case was presented to the [facility], and the patient was retained on the unit by the baker paint and mother was appointed guardian advocate. Justification for Cont. Inpt. Monitoring for impairments in safety. High risk for decompensation in less restrictive environment. Discharge Planning Home with mother once stabilized. Request HC Surrog/Guard Advoc?: Yes Problem Qualifiers (1) Schizophrenia: Qualified Code: F20.3 - Undifferentiated schizophrenia Van Barnhart MD Oct 21, 2016 08:54
[2016-10-21 15:41] LABS: AUTOMATED NEUTROPHIL # 3.1 TH/MM3 (1.8-7.7); BASOPHIL % 0.3 % (0.0-2.0); EOSINOPHIL # 0.1 TH/MM3 (0-0.4); EOSINOPHIL % 1.8 % (0.0-4.0); HEMATOCRIT 45.2 % (39.0-51.0); HEMO FLAGS DIFF FINAL; LYMPHOCYTE # 2.3 TH/MM3 (1.0-4.8); MEAN CORPUSCULAR HEMOGLOBIN 29.5 PG (27.0-34.0); MEAN CORPUSCULAR HGB CONC 33.2 % (32.0-36.0); MONO % 4.7 % (0.0-8.0); NEUT % 53.2 % (16.0-70.0); PLATELET COUNT 146 TH/MM3 (150-450); RED BLOOD COUNT 5.07 MIL/MM3 (4.50-5.90); RED CELL DISTRIBUTION WIDTH 14.2 % (11.6-17.2); WHITE BLOOD COUNT 5.8 TH/MM3 (4.0-11.0)
[2016-10-21 16:00] LABS: BICARBONATE 26.9 MEQ/L (21.0-32.0); POTASSIUM 4.1 MEQ/L (3.5-5.1)
[2016-10-21 16:25] LABS: CKMB 1.4 NG/ML (0.5-3.6)
[2016-10-21 18:11] VITALS: BP 155/92; PULSE 107; RESP 18; TEMP 97.2; O2SAT 97
[2016-10-21] MEDS: OLANZapine ODT 20 MG TAB PO SCH (20:29)
[2016-10-22 05:57] VITALS: BP 90/63; PULSE 73; RESP 16; TEMP 97.2; O2SAT 95
[2016-10-22] MEDS: OLANZapine ODT 10 MG TAB PO SCH (09:32)
[2016-10-22] MEDS: VALPROIC ACID SYRUP 250 MG/5 ML UDC PO SCH ×2 (09:32→20:21)
--- NOTE | 2016-10-22 09:56 | HHI.PYPN ---
Subjective Remarks Patient seen and examined with nurse. Chart reviewed. Case discussed with nursing staff who reports that the patient slept overnight. No behavioral issues noted, but it appears that patient is still not being allowed out of room for meals. I have discussed my orders with RN: my goal is to liberalize restrictions on patient since it has been 4 days since his last outburst while simultaneously keeping all other patients well away from patient to avoid possibility of injury should he act out. On my exam, patient denies AVH. No SI /HI. Affect flat, perhaps a little dysphoric. Paucity of speech and thought. No motor abnormalities noted. No reported side effects from medications Review of Systems ROS Limitations: Poor Historian Except as stated in HPI: all other systems reviewed are Neg Objective Alert: Yes [place]: Person Mood: Calm Affect: Flat Memory Intact: Comment (Not formally assessed) Hallucinations: Other (no hallucinations) Delusions: No Delusion Type: Other (no delusional material) Suicidal: Ideation (No SI) Homicidal: Ideation (no HI) Insight/Judgment Poor Remarks No motoric abnormalities noted. Muscle tone is normal today. Grooming and hygiene poor. Labs Test 10/21/16 10/21/16 15:08 15:09 White Blood Count 5.8 TH/MM3 Red Blood Count 5.07 MIL/MM3 Hemoglobin 15.0 GM/DL Hematocrit 45.2 % Mean Corpuscular Volume 89.0 FL Mean Corpuscular Hemoglobin 29.5 PG Mean Corpuscular Hemoglobin 33.2 % Concent Red Cell Distribution Width 14.2 % Platelet Count 146 TH/MM3 Mean Platelet Volume 10.3 FL Neutrophils (%) (Auto) 53.2 % Lymphocytes (%) (Auto) 40.0 % Monocytes (%) (Auto) 4.7 % Eosinophils (%) (Auto) 1.8 % Basophils (%) (Auto) 0.3 % Neutrophils # (Auto) 3.1 TH/MM3 Lymphocytes # (Auto) 2.3 TH/MM3 Monocytes # (Auto) 0.3 TH/MM3 Eosinophils # (Auto) 0.1 TH/MM3 Basophils # (Auto) 0.0 TH/MM3 CBC Comment DIFF FINAL Differential Comment Sodium Level 141 MEQ/L Potassium Level 4.1 MEQ/L Chloride Level 104 MEQ/L Carbon Dioxide Level 26.9 MEQ/L Anion Gap 10 MEQ/L Blood Urea Nitrogen 9 MG/DL Creatinine 1.20 MG/DL Estimat Glomerular Filtration 73 ML/MIN Rate Random Glucose 90 MG/DL Calcium Level 8.7 MG/DL Total Creatine Kinase 651 U/L Creatine Kinase MB 1.4 NG/ML Creatine Kinase MB % 0.2 % Labs reviewed. CK mildly elevated. GFR slightly decreased. No leukocytosis. Plt slightly low. VPA level 72, but drawn post-dose so likely somewhat falsely elevated. Vitals/IOs Vital Signs Date Time Temp Pulse Resp B/P Pulse Ox O2 Delivery O2 Flow Rate FiO2 10/22/16 05:57 97.2 73 16 90/63 95 Assessment & Plan Problem List: (1) Schizophrenia ICD Code: F20.9 (2) Borderline intellectual functioning Assessment & Plan: Counselor informs me patient's IQ was tested out at 71. ICD Code: R41.83 Assessment & Plan Titrate Depakene liquid to 750mg BID for mood stabilization and for impulsive aggression. Check a VPA level after weekend. Continue Zyprexa as ordered. Encourage fluids and trend CK/BMP through the weekend. No fever, no hypertonia , no other signs of NMS. Consult hospitalist for elevated CK in case patient requires transfer for IVF over weekend, although my hope is to improve CK and GFR with oral hydration at this point. Continue to try judiciously to liberalize restrictions on patient's movements as able and as safety allows. Continue one-to-one. Continue to monitor on the high acuity unit. Continue other medications and care as ordered. Justification for Cont. Inpt. Monitoring for impairments in safety. Medication changes in process. High risk for decompensation in less restrictive environment. Discharge Planning Home with mother, perhaps beginning of next week. Request HC Surrog/Guard Advoc?: Yes Problem Qualifiers (1) Schizophrenia: Qualified Code: F20.3 - Undifferentiated schizophrenia Van Barnhart MD Oct 22, 2016 09:56
--- NOTE | 2016-10-22 15:40 | PD.CONS ---
HPI Service [facility] Hospitalists Consult Requested By Psychiatry service Reason for Consult CK elevation evaluate if needs IV fluids. Primary Care Physician Non-Staff Diagnoses: History of Present Illness Patient is a 26-year-old male with history of schizophrenia, intellectual disability who was admitted under psychiatry services [facility] act on October 13. Patient apparently was reported to manifest some violent behavior. His medications are currently being adjusted. [facility] hospitalists consulted because of a upward trend of the CK. We were asked to evaluate if patient would need IV fluids to manage this. Patient was seen by psychiatry staff at bedside. He appears to be shy and introverted. However he did allow me to examine him in answered some questions. He avoids eye contact. Currently he denies and denies any pain headache. Per staff he ate 100%. He is being encouraged to drink plenty of fluids which he did. Review of systems is limited. But on based on discussion with nursing staff and a, patient ate pretty good. Today has been a good day for him with no outbursts. Review of Systems ROS Limitations: Psychotic Past Family Social History Allergies: Coded Allergies: No Known Allergies (Unverified , 07/30/16) Past Medical History Review of records shows multiple admissions to our psychiatry unit due to schizophrenia Intellectual disability History of rhabdo myelolysis Past Surgical History Patient signaled his head negatively when asked about previous surgeries Reported Medications Currently is on valproic acid Zyprexa IM Zyprexa 10 mg daily and 20 mg daily at bedtime When necessary lorazepam and Ativan Active Ordered Medications Valproic acid Zyprexa IM nothing by mouth When necessary lorazepam and Ativan Family History None obtained Social History Patient nodded when asked about - 2-3 sticks per day Denies alcohol use Physical Exam Vital Signs Vital Signs Date Time Temp Pulse Resp B/P Pulse Ox O2 Delivery O2 Flow Rate FiO2 10/22/16 05:57 97.2 73 16 90/63 95 10/21/16 18:11 97.2 107 18 155/92 97 Physical Exam GENERAL: This is a well-nourished, well-developed patient, in no apparent distress. Patient avoids eye contact SKIN: No rashes, ecchymoses or lesions. Cool and dry. HEAD: Atraumatic. Normocephalic. No temporal or scalp tenderness. EYES: Pupils equal round and reactive. Extraocular motions intact. No scleral icterus. ENT: Nose without bleeding, Throat without erythema , dry oral mucosa NECK: Trachea midline. No JVD or lymphadenopathy. Supple, nontender, no meningeal signs. CARDIOVASCULAR: Regular rate and rhythm without murmurs, gallops, or rubs. RESPIRATORY: Clear to auscultation. Breath sounds equal bilaterally. No wheezes , rales, or rhonchi. GASTROINTESTINAL: Abdomen soft, non-tender, nondistended.No guarding. MUSCULOSKELETAL: Extremities without clubbing, cyanosis, or edema. No joint tenderness, effusion, or edema noted. No calf tenderness. Negative Homans sign bilaterally. Gait steady NEUROLOGICAL: Awake and alert. Cranial nerves II through XII intact. Motor and sensory grossly within normal limits. Five out of 5 muscle strength in all muscle groups. Speech soft, Ethiopian-speaking and answers in Ethiopian in few words Laboratory Laboratory Tests Test 10/22/16 10:33 Valproic Acid (Depakene) Level 72 Result Diagram: 10/21/16 1508 10/21/16 1509 Assessment and Plan Assessment and Plan 26-year-old male admitted for schizophrenia with violent behavior outburst. [facility] hospitalists consulted due to elevated CK. Elevated CK . On show any spasticity or rigidity suggestive of any neuroleptic malignant syndrome. On review of records patient has some chronicity to this CK elevation on admission which tends to trend down with medical management of his psychosis A repeat CK and basic metabolic panel has been ordered and is now pending. If this is trending down we'll keep here and continue to encourage by mouth fluids. When asked staff- patient with good appetite- "naima christiansen" will order for double portions which can stimulate more water intake too Will reassess in a.m. if CK trending up toward we'll consider transfer to med psych floor for IV fluid hydration. Thank you for this consult we'll follow patient in-house with you Sadiq Hawkins MD Oct 22, 2016 15:40
[2016-10-22 18:00] VITALS: BP 112/61; PULSE 92; RESP 17; TEMP 99.5; O2SAT 98
[2016-10-22] MEDS: diphenhydrAMINE HCL 50 MG CAP PO PRN (20:21)
[2016-10-22] MEDS: OLANZapine ODT 20 MG TAB PO SCH (20:21)
[2016-10-23 05:54] VITALS: BP 90/63; PULSE 60; RESP 17; TEMP 97.3; O2SAT 99
[2016-10-23] MEDS: VALPROIC ACID SYRUP 250 MG/5 ML UDC PO SCH ×2 (08:36→20:39)
[2016-10-23] MEDS: OLANZapine ODT 10 MG TAB PO SCH (08:37)
--- NOTE | 2016-10-23 12:14 | HHI.PYPN ---
Subjective Remarks Pt seen and discussed with staff. He remains on 1:1 due to aggression. Depakene was titrated to 750mg po BID yesterday. He took a dose of diphenhydramine last night and has been tired and withdrawn today. Staff report that pt has been lethargic and needed assistance to eat breakfast today. No EPS.. He c/o of feeling tired and sleepy today. He remains disorganized and paranoid. Objective Alert: Yes [place]: Person Mood: Calm Affect: Flat Memory Intact: Comment (Not formally assessed) Hallucinations: Other (no hallucinations) Delusions: Yes Delusion Type: Paranoid (guarded and suspicious) Suicidal: Ideation (No SI) Homicidal: Ideation (no HI) Insight/Judgment poor Remarks disorganized Labs Test 10/22/16 21:50 Sodium Level 136 MEQ/L Potassium Level 4.0 MEQ/L Chloride Level 102 MEQ/L Carbon Dioxide Level 28.0 MEQ/L Anion Gap 6 MEQ/L Blood Urea Nitrogen 10 MG/DL Creatinine 0.98 MG/DL Estimat Glomerular Filtration 92 ML/MIN Rate Random Glucose 103 MG/DL Calcium Level 8.5 MG/DL Total Creatine Kinase 296 U/L Vitals/IOs Vital Signs Date Time Temp Pulse Resp B/P Pulse Ox O2 Delivery O2 Flow Rate FiO2 10/23/16 05:54 97.3 60 17 90/63 99 Intake and Output 10/22/16 10/22/16 10/22/16 07:59 15:59 23:59 Intake Total 600 ml 840 ml Balance 600 ml 840 ml Assessment & Plan Problem List: (1) Schizophrenia ICD Code: F20.9 (2) Borderline intellectual functioning ICD Code: R41.83 Assessment & Plan Will check depakote level as pt appears lethargic and was recently increased. Continue hospitalization for safety. MoniEstimated LOS: days Justification for Cont. Inpt. aggression and psychosis Request HC Surrog/Guard Advoc?: Yes Problem Qualifiers (1) Schizophrenia: Qualified Code: F20.3 - Undifferentiated schizophrenia Stephanie Uriarte MD Oct 23, 2016 12:14
[2016-10-23] MEDS: ACETAMINOPHEN 325 MG TAB PO PRN (13:21)
[2016-10-23 18:13] VITALS: BP 112/64; PULSE 67; RESP 17; TEMP 98.4; O2SAT 98
[2016-10-23 18:31] LABS: BICARBONATE 26.5 MEQ/L (21.0-32.0); POTASSIUM 4.5 MEQ/L (3.5-5.1)
[2016-10-23] MEDS: OLANZapine ODT 20 MG TAB PO SCH (20:39)
[2016-10-23] MEDS: diphenhydrAMINE HCL 50 MG CAP PO PRN (20:39)
[2016-10-24 06:32] VITALS: BP 105/65; PULSE 73; RESP 16; TEMP 98.6; O2SAT 100
[2016-10-24] MEDS: OLANZapine ODT 10 MG TAB PO SCH (08:47)
[2016-10-24] MEDS: VALPROIC ACID SYRUP 250 MG/5 ML UDC PO SCH ×2 (08:48→20:35)
--- NOTE | 2016-10-24 12:00 | HHI.PYPN ---
Subjective Remarks Pt seen and discussed with staff. Pt remains seclusive but has been coming out of room more today. He is alert today and did take his medications without difficulty today. He remains paranoid. He is selectively mute during interview, communicating with gestures,but has been talking with staff. Objective Alert: Yes [place]: Person Mood: Calm Affect: Flat Memory Intact: Comment (difficult to assess due to lack of participation) Hallucinations: Other (no hallucinations) Delusions: Yes Delusion Type: Paranoid (guarded and suspicious) Suicidal: Ideation (No SI) Homicidal: Ideation (no HI) Insight/Judgment poor Labs Test 10/23/16 17:40 Sodium Level 139 MEQ/L Potassium Level 4.5 MEQ/L Chloride Level 104 MEQ/L Carbon Dioxide Level 26.5 MEQ/L Anion Gap 9 MEQ/L Blood Urea Nitrogen 14 MG/DL Creatinine 1.11 MG/DL Estimat Glomerular Filtration 79 ML/MIN Rate Random Glucose 95 MG/DL Calcium Level 8.5 MG/DL Total Creatine Kinase 195 U/L Valproic Acid (Depakene) Level 58 MCG/ML Vitals/IOs Vital Signs Date Time Temp Pulse Resp B/P Pulse Ox O2 Delivery O2 Flow Rate FiO2 10/24/16 06:32 98.6 73 16 105/65 100 Intake and Output 10/23/16 10/23/16 10/24/16 08:00 16:00 00:00 Intake Total 720 ml Balance 720 ml Assessment & Plan Problem List: (1) Schizophrenia ICD Code: F20.9 (2) Borderline intellectual functioning ICD Code: R41.83 Assessment & Plan Continue current tx plan. Random VPA was 58. Check trough level at this week. Estimated LOS: days Justification for Cont. Inpt. psychosis Request HC Surrog/Guard Advoc?: Yes Problem Qualifiers (1) Schizophrenia: Qualified Code: F20.3 - Undifferentiated schizophrenia Stephanie Uriarte MD Oct 24, 2016 12:00
[2016-10-24 15:37] VITALS: BP 128/70; PULSE 94; RESP 16; TEMP 98.3; O2SAT 97
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
[2016-10-24] MEDS: ONDANSETRON ODT 4 MG TAB PO PRN (17:33)
--- NOTE | 2016-10-24 18:27 | RADRPT ---
EXAM DATE/TIME: 10/24/2016 18:05 [facility] COMPARISON: No previous studies available for comparison. INDICATIONS : Left sided abdominal pain. MEDICAL HISTORY : None. SURGICAL HISTORY : None. ENCOUNTER: Initial ACUITY: 1 day PAIN SCORE: 4/10 LOCATION: Left abdomen. FINDINGS: 2 AP supine views of the abdomen. Scattered gas and stool throughout the colon. Scattered gas within multiple small bowel loops. No gross bowel dilatation. No abnormal abdominal calcification. Osseous s tructures within normal limits. CONCLUSION: Nonspecific bowel gas pattern. Topher Millard MD on October 24, 2016 at 18:24 Board Certified Radiologist. This report was verified electronically.
[2016-10-24] MEDS: OLANZapine ODT 20 MG TAB PO SCH (20:35)
[2016-10-24] MEDS: LORazepam 2 MG TAB PO PRN (23:24)
[2016-10-25 06:35] VITALS: BP 126/74; PULSE 82; RESP 17; TEMP 98.1; O2SAT 98
[2016-10-25] MEDS: VALPROIC ACID SYRUP 250 MG/5 ML UDC PO SCH ×2 (08:35→20:48)
[2016-10-25] MEDS: OLANZapine ODT 10 MG TAB PO SCH (08:36)
[2016-10-25 12:19] LABS: AUTOMATED NEUTROPHIL # 2.9 TH/MM3 (1.8-7.7); BASOPHIL % 0.4 % (0.0-2.0); EOSINOPHIL # 0.2 TH/MM3 (0-0.4); EOSINOPHIL % 2.4 % (0.0-4.0); HEMATOCRIT 44.5 % (39.0-51.0); HEMO FLAGS DIFF FINAL; LYMPH % 45.7 % (9.0-44.0); LYMPHOCYTE # 2.9 TH/MM3 (1.0-4.8); MEAN CELL VOLUME 88.4 FL (80.0-100.0); MEAN CORPUSCULAR HEMOGLOBIN 29.9 PG (27.0-34.0); MEAN CORPUSCULAR HGB CONC 33.9 % (32.0-36.0); MONO % 5.3 % (0.0-8.0); NEUT % 46.2 % (16.0-70.0); PLATELET COUNT 116 TH/MM3 (150-450); RED BLOOD COUNT 5.03 MIL/MM3 (4.50-5.90); RED CELL DISTRIBUTION WIDTH 14.3 % (11.6-17.2); WHITE BLOOD COUNT 6.4 TH/MM3 (4.0-11.0)
[2016-10-25 12:34] LABS: BICARBONATE 31.4 MEQ/L (21.0-32.0); POTASSIUM 4.4 MEQ/L (3.5-5.1)
--- NOTE | 2016-10-25 16:19 | HHI.PYPN ---
Subjective Remarks Patient's discussed with treatment team, patient seen in his room with sitter nurse Radha, patient laying in bed calm quiet mumbling answers shaking said denying suicidality. It appears patient is been no significant behavior problems. Compliant with medications. Depakote blood level drawn today is 106 , ammonia level today is 104. Will repeat ammonia level CMP and CK levels in the morning tomorrow Review of Systems Except as stated in HPI: all other systems reviewed are Neg Objective Alert: Yes [place]: Person Mood: Calm Affect: Flat Memory Intact: Comment (difficult to assess due to lack of participation) Hallucinations: Other (no hallucinations) Delusions: Yes Delusion Type: Paranoid (guarded and suspicious) Suicidal: Ideation (No SI) Homicidal: Ideation (no HI) Insight/Judgment Poor Labs Test 10/25/16 11:50 White Blood Count 6.4 TH/MM3 Red Blood Count 5.03 MIL/MM3 Hemoglobin 15.1 GM/DL Hematocrit 44.5 % Mean Corpuscular Volume 88.4 FL Mean Corpuscular Hemoglobin 29.9 PG Mean Corpuscular Hemoglobin 33.9 % Concent Red Cell Distribution Width 14.3 % Platelet Count 116 TH/MM3 Mean Platelet Volume 11.5 FL Neutrophils (%) (Auto) 46.2 % Lymphocytes (%) (Auto) 45.7 % Monocytes (%) (Auto) 5.3 % Eosinophils (%) (Auto) 2.4 % Basophils (%) (Auto) 0.4 % Neutrophils # (Auto) 2.9 TH/MM3 Lymphocytes # (Auto) 2.9 TH/MM3 Monocytes # (Auto) 0.3 TH/MM3 Eosinophils # (Auto) 0.2 TH/MM3 Basophils # (Auto) 0.0 TH/MM3 CBC Comment DIFF FINAL Differential Comment Sodium Level 140 MEQ/L Potassium Level 4.4 MEQ/L Chloride Level 105 MEQ/L Carbon Dioxide Level 31.4 MEQ/L Anion Gap 4 MEQ/L Blood Urea Nitrogen 15 MG/DL Creatinine 1.16 MG/DL Estimat Glomerular Filtration 76 ML/MIN Rate Random Glucose 79 MG/DL Calcium Level 8.6 MG/DL Ammonia 104 MCMOL/L Total Creatine Kinase 117 U/L Valproic Acid (Depakene) Level 106 MCG/ML Vitals/IOs Vital Signs Date Time Temp Pulse Resp B/P Pulse Ox O2 Delivery O2 Flow Rate FiO2 10/25/16 06:35 98.1 82 17 126/74 98 Intake and Output 10/24/16 10/24/16 10/25/16 08:00 16:00 00:00 Intake Total 75 ml 240 ml 360 ml Balance 75 ml 240 ml 360 ml Assessment & Plan Problem List: (1) Schizophrenia ICD Code: F20.9 (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 Compliant medication. Will repeat labs tomorrow to verify trending Justification for Cont. Inpt. At this time patient will decompensate if placed in the lower level of care Discharge Planning To be determined Request HC Surrog/Guard Advoc?: Yes Problem Qualifiers (1) Schizophrenia: Qualified Code: F20.3 - Undifferentiated schizophrenia Eusebio Dickey MD Oct 25, 2016 16:19
[2016-10-25 18:57] VITALS: BP 114/77; PULSE 90; RESP 18; TEMP 98.1; O2SAT 99
[2016-10-25] MEDS: OLANZapine ODT 20 MG TAB PO SCH (20:48)
[2016-10-26] MEDS: diphenhydrAMINE HCL 50 MG CAP PO PRN (00:25)
[2016-10-26 05:41] VITALS: BP 98/61; PULSE 58; RESP 18; TEMP 97.7; O2SAT 98
[2016-10-26] MEDS: VALPROIC ACID SYRUP 250 MG/5 ML UDC PO SCH ×2 (08:38→20:51)
[2016-10-26] MEDS: OLANZapine ODT 10 MG TAB PO SCH (08:38)
[2016-10-26 10:46] LABS: ALKALINE PHOSPHATASE 85 U/L (45-117); ALT (GPT) 21 U/L (12-78); ANION GAP 10 MEQ/L (5-15); AST (GOT) 22 U/L (15-37); BICARBONATE 25.3 MEQ/L (21.0-32.0); BLOOD UREA NITROGEN 17 MG/DL (7-18); CHLORIDE 106 MEQ/L (98-107); CREATINE KINASE 127 U/L (39-308); GLOMERULAR FILTRATION RATE 83 ML/MIN (>89); SODIUM (NA) 141 MEQ/L (136-145); TOTAL BILIRUBIN ADULT 0.3 MG/DL (0.2-1.0)
[2016-10-26 10:50] LABS: POTASSIUM 4.4 MEQ/L (3.5-5.1)
[2016-10-26] MEDS: LACTULOSE SYRUP 20 GM/30 ML CUP PO SCH ×3 (13:17→20:51)
--- NOTE | 2016-10-26 16:55 | HHI.PYPN ---
Subjective Remarks Patient seen in his room with sitter, he continues laying in bed and isolating with covers to his chin. He does make eye contact with me. Is pleasant does not his head appropriately when asked how he is feeling if he has any suicidal thoughts. Hospitalists consult today and review of labs noted and agreed with and appreciated. For now continue treatment Review of Systems Except as stated in HPI: all other systems reviewed are Neg Objective Alert: Yes [place]: Person Mood: Calm Affect: Flat Memory Intact: Comment (difficult to assess due to lack of participation) Hallucinations: Other (no hallucinations) Delusions: Yes Delusion Type: Paranoid (guarded and suspicious) Suicidal: Ideation (No SI) Homicidal: Ideation (no HI) Insight/Judgment Very poor Labs Test 10/26/16 08:17 Sodium Level 141 MEQ/L Potassium Level 4.4 MEQ/L Chloride Level 106 MEQ/L Carbon Dioxide Level 25.3 MEQ/L Anion Gap 10 MEQ/L Blood Urea Nitrogen 17 MG/DL Creatinine 1.07 MG/DL Estimat Glomerular Filtration 83 ML/MIN Rate Random Glucose 83 MG/DL Calcium Level 8.5 MG/DL Total Bilirubin 0.3 MG/DL Aspartate Amino Transf 22 U/L (AST/SGOT) Alanine Aminotransferase 21 U/L (ALT/SGPT) Alkaline Phosphatase 85 U/L Ammonia 68 MCMOL/L Total Creatine Kinase 127 U/L Total Protein 6.7 GM/DL Albumin 3.2 GM/DL Vitals/IOs Vital Signs Date Time Temp Pulse Resp B/P Pulse Ox O2 Delivery O2 Flow Rate FiO2 10/26/16 05:41 97.7 58 18 98/61 98 Intake and Output 10/25/16 10/25/16 10/26/16 08:00 16:00 00:00 Intake Total 0 ml 1200 ml Balance 0 ml 1200 ml Assessment & Plan Problem List: (1) Schizophrenia ICD Code: F20.9 (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 Continues the workup related to his liver functioning. Will defer to medicine service at this time Justification for Cont. Inpt. At this time patient will decompensate if placed in the lower level of care Discharge Planning To be determined Request HC Surrog/Guard Advoc?: Yes Problem Qualifiers (1) Schizophrenia: Qualified Code: F20.3 - Undifferentiated schizophrenia Eusebio Dickey MD Oct 26, 2016 16:55
--- NOTE | 2016-10-26 17:16 | HHI.PR ---
Subjective Remarks Patient c/o abdominal pain - diffuse when asked denies fevers/chills denies diarrhea Objective Vitals Vital Signs Date Time Temp Pulse Resp B/P Pulse Ox O2 Delivery O2 Flow Rate FiO2 10/26/16 05:41 97.7 58 18 98/61 98 10/25/16 18:57 98.1 90 18 114/77 99 I/O 10/25/16 10/25/16 10/25/16 10/26/16 10/26/16 10/26/16 07:00 15:00 23:00 07:00 15:00 23:00 Intake Total 0 ml 1200 ml Balance 0 ml 1200 ml Intake Oral 0 ml 1200 ml Result Diagram: 10/25/16 1150 10/26/16 0817 Imaging Last Impressions Abdomen X-Ray 10/24/16 0000 Signed Impressions: Service Date/Time: Monday, October 24, 2016 18:05 - CONCLUSION: Nonspecific bowel gas pattern. Topher Millard MD Objective Remarks Patient is lying in bed with a one-to-one surveillance, seclusive, not in respiratory distress Lungs are clear bilaterally Abdomen is soft, with hyperactive bowel sounds, mildly tender to palpation S1-S2 present with regular rate and rhythm, no murmurs or gallops. No edema in bilateral extremities Medications and IVs Current Medications Medications (Trade) Dose Ordered Sig/Jerson Route Start Time Stop Time Status Last Admin (Tylenol) 650 mg Q4H PRN PO 10/13/16 17:00 10/23/16 13:21 (Milk Of Magnesia Liq) 30 ml DAILY PRN PO 10/13/16 17:00 (Mag-Al Plus Susp Liq) 30 ml Q6H PRN PO 10/13/16 17:00 (ZyPREXA ZYDIS ODT) 20 mg HS PO 10/18/16 21:00 10/25/16 20:48 (Haldol Inj) 5 mg Q6H PRN IM 10/18/16 13:45 (Haldol) 5 mg Q6H PRN PO 10/18/16 13:45 (Ativan) 2 mg Q6H PRN PO 10/18/16 13:45 10/24/16 23:24 (Ativan Inj) 2 mg Q6H PRN IM 10/18/16 13:45 (Benadryl) 50 mg Q6H PRN PO 10/18/16 13:45 10/26/16 00:25 (Benadryl Inj) 50 mg Q6H PRN IM 10/18/16 13:45 (ZyPREXA INJ) 10 mg BID PRN IM 10/19/16 21:00 (ZyPREXA ZYDIS ODT) 10 mg DAILY PO 10/19/16 15:00 10/26/16 08:38 (Depakene Liq) 750 mg BID PO 10/22/16 21:00 10/26/16 08:38 (Zofran Odt) 4 mg Q6H PRN PO 10/24/16 16:30 10/24/16 17:33 (Lactulose Liq) 30 ml QID PO 10/26/16 13:00 10/26/16 13:17 Urinary Catheter: No Vascular Central Line Catheter: No A/P Problem List: (1) Schizophrenia ICD Code: F20.9 Status: Acute Plan: Continue management as per psychiatry (2) Abdominal pain ICD Code: R10.9 Status: Acute Plan: Patient still has diffuse abdominal pain. Abdominal x-ray, repeat by me shows nonspecific bowel gas pattern. Likely due to constipation I will start the patient oral lactulose. (3) Hyperammonemia ICD Code: E72.20 Status: Acute Plan: Most likely secondary to valproic acid. Continue to monitor ammonia levels and start on lactulose. I will also check a hepatitis profile and order a liver ultrasound. (4) Constipation ICD Code: K59.00 Status: Acute Plan: Will start on lactulose Assessment and Plan GI prophylaxis: add PPI DVT prophylaxis: SCD's, ambulatory Problem Qualifiers (1) Schizophrenia: Qualified Code: F20.3 - Undifferentiated schizophrenia Baldomero Roca MD Oct 26, 2016 17:16
[2016-10-26 18:00] VITALS: BP 129/79; PULSE 109; RESP 17; TEMP 98; O2SAT 98
[2016-10-26] MEDS: PANTOPRAZOLE SOD 40 MG DELAYED RELEASE TAB PO SCH (18:32)
[2016-10-26] MEDS: OLANZapine ODT 20 MG TAB PO SCH (20:50)
[2016-10-27 06:06] VITALS: BP 103/62; PULSE 70; RESP 16; TEMP 97.1; O2SAT 97
[2016-10-27] MEDS: PANTOPRAZOLE SOD 40 MG DELAYED RELEASE TAB PO SCH (09:00)
[2016-10-27] MEDS: LACTULOSE SYRUP 20 GM/30 ML CUP PO SCH ×4 (09:00→20:29)
[2016-10-27] MEDS: OLANZapine ODT 10 MG TAB PO SCH (09:00)
[2016-10-27] MEDS: VALPROIC ACID SYRUP 250 MG/5 ML UDC PO SCH ×2 (09:00→20:29)
--- NOTE | 2016-10-27 10:22 | RADRPT ---
EXAM DATE/TIME: 10/27/2016 08:51 [facility] COMPARISON: CT ABDOMEN & PELVIS W CONTRAST, July 21, 2016, 20:53. INDICATIONS : Abnormal labs. MEDICAL HISTORY : Schizophrenia. IBS. Nausea. Vomiting. Depression. Anxiety. SURGICAL HISTORY : None. ENCOUNTER: Initial ACUITY: 1 day PAIN SCORE: 0/10 LOCATION: Abdomen. MEASUREMENTS: LIVER: 11.5 cm length COMMON DUCT: 3 mm RIGHT KIDNEY: 9.4 x 5.1 x 4.4 cm SPLEEN: 11.3 cm length FINDINGS: LIVER: Liver is normal in size and echogenicity with no focal lesion or ductal dilatation. COMMON DUCT: No intraluminal mass or stone visualized. GALLBLADDER: Contains no stones, demonstrates no wall thickening or pericholecystic fluid. PANCREAS: Could not be visualized or evaluated. RIGHT KIDNEY: No hydronephrosis, stone or mass. SPLEEN: No focal lesion. CONCLUSION: 1. The liver is unremarkable appearance. 2. The right kidney is within normal limits with no evidence of obstruction or Colin Tinoco MD on October 27, 2016 at 10:13 Board Certified Radiologist. This report was verified electronically.
--- NOTE | 2016-10-27 10:28 | HHI.PYPN ---
Subjective Remarks Patient seen in his room with floor staff. Patient calm cooperative with me does acknowledge some persistent auditory hallucinations. Though he states he does want to go home to his family. Patient showed no significant behavioral problems the past few days. This time I feels appropriate to discontinue the one-to-one observations place patient back on close observations off unit privileges to observe consistency of her behavior. For now continue medications no change continue to observe and work with medical service Review of Systems Except as stated in HPI: all other systems reviewed are Neg Objective Alert: Yes [place]: Person Mood: Calm Affect: Flat Memory Intact: Comment (difficult to assess due to lack of participation) Hallucinations: Other (no hallucinations) Delusions: Yes Delusion Type: Paranoid (guarded and suspicious) Suicidal: Ideation (No SI) Homicidal: Ideation (no HI) Insight/Judgment Very poor Vitals/IOs Vital Signs Date Time Temp Pulse Resp B/P Pulse Ox O2 Delivery O2 Flow Rate FiO2 10/27/16 06:06 97.1 70 16 103/62 97 Intake and Output 10/26/16 10/26/16 10/27/16 08:00 16:00 00:00 Intake Total 240 ml Balance 240 ml Assessment & Plan Problem List: (1) Schizophrenia ICD Code: F20.9 (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 This behavior has shown no problems recently. Will lift one-to-one allow patient back into the milieu close this. Continue to work with medicine service on their evaluations Justification for Cont. Inpt. At this time patient may decompensate not placement of an appropriate level of care Discharge Planning To be determined Request HC Surrog/Guard Advoc?: Yes Problem Qualifiers (1) Schizophrenia: Qualified Code: F20.3 - Undifferentiated schizophrenia Eusebio Dickey MD Oct 27, 2016 10:27
--- NOTE | 2016-10-27 13:33 | HHI.PR ---
Subjective Remarks Patient is pacing around room mostly non communicative denies abdominal pain Objective Vitals Vital Signs Date Time Temp Pulse Resp B/P Pulse Ox O2 Delivery O2 Flow Rate FiO2 10/27/16 06:06 97.1 70 16 103/62 97 10/26/16 18:00 98.0 109 17 129/79 98 I/O 10/26/16 10/26/16 10/26/16 10/27/16 10/27/16 10/27/16 07:00 15:00 23:00 07:00 15:00 23:00 Intake Total 240 ml Balance 240 ml Intake Oral 240 ml Result Diagram: 10/25/16 1150 10/26/16 0817 Imaging Last Impressions Liver Ultrasound 10/27/16 0000 Signed Impressions: Service Date/Time: Thursday, October 27, 2016 08:51 - CONCLUSION: 1. The liver is unremarkable appearance. 2. The right kidney is within normal limits with no evidence of obstruction or Colin Tinoco MD Abdomen X-Ray 10/24/16 0000 Signed Impressions: Service Date/Time: Monday, October 24, 2016 18:05 - CONCLUSION: Nonspecific bowel gas pattern. Topher Millard MD Objective Remarks Patient is lying in bed with a one-to-one surveillance, seclusive, not in respiratory distress Lungs are clear bilaterally Abdomen is soft, with hyperactive bowel sounds, mildly tender to palpation S1-S2 present with regular rate and rhythm, no murmurs or gallops. No edema in bilateral extremities Medications and IVs Current Medications Medications (Trade) Dose Ordered Sig/Jerson Route Start Time Stop Time Status Last Admin (Tylenol) 650 mg Q4H PRN PO 10/13/16 17:00 10/23/16 13:21 (Milk Of Magnesia Liq) 30 ml DAILY PRN PO 10/13/16 17:00 (Mag-Al Plus Susp Liq) 30 ml Q6H PRN PO 10/13/16 17:00 (ZyPREXA ZYDIS ODT) 20 mg HS PO 10/18/16 21:00 10/26/16 20:50 (Haldol Inj) 5 mg Q6H PRN IM 10/18/16 13:45 (Haldol) 5 mg Q6H PRN PO 10/18/16 13:45 (Ativan) 2 mg Q6H PRN PO 10/18/16 13:45 10/24/16 23:24 (Ativan Inj) 2 mg Q6H PRN IM 10/18/16 13:45 (Benadryl) 50 mg Q6H PRN PO 10/18/16 13:45 10/26/16 00:25 (Benadryl Inj) 50 mg Q6H PRN IM 10/18/16 13:45 (ZyPREXA INJ) 10 mg BID PRN IM 10/19/16 21:00 (ZyPREXA ZYDIS ODT) 10 mg DAILY PO 10/19/16 15:00 10/27/16 09:00 (Depakene Liq) 750 mg BID PO 10/22/16 21:00 10/27/16 09:00 (Zofran Odt) 4 mg Q6H PRN PO 10/24/16 16:30 10/24/16 17:33 (Lactulose Liq) 30 ml QID PO 10/26/16 13:00 10/27/16 12:50 (Protonix) 40 mg DAILY PO 10/26/16 18:00 10/27/16 09:00 A/P Problem List: (1) Schizophrenia ICD Code: F20.9 Status: Acute Plan: Continue management as per psychiatry (2) Abdominal pain ICD Code: R10.9 Status: Acute Plan: Abdominal pain resolved. Abdominal x-ray, repeat by me shows nonspecific bowel gas pattern. Continue Lactulose (3) Hyperammonemia ICD Code: E72.20 Status: Acute Plan: Most likely secondary to valproic acid. Ammonia levels trending down, 104 on 10/25, down to 68 on . The patient is awake. Continue to monitor ammonia levels and start on lactulose. I will also check a hepatitis profile and order a liver ultrasound. Liver ultrasound reports an unremarkable appearance of the liver. That is profile ordered and pending. (4) Constipation ICD Code: K59.00 Status: Acute Plan: Patient denies abdominal pain. As per nursing records the patient is constipated. I will add MiraLAX as needed for constipation. Continue lactulose. Assessment and Plan GI prophylaxis: add PPI DVT prophylaxis: SCD's, ambulatory Discharge Planning I will sign off. Please reconsult if needed. Problem Qualifiers (1) Schizophrenia: Qualified Code: F20.3 - Undifferentiated schizophrenia (2) Constipation: Qualified Code: K59.00 - Constipation, unspecified constipation type Baldomero Roca MD Oct 27, 2016 13:33
[2016-10-27 18:06] VITALS: BP 136/82; PULSE 123; RESP 18; TEMP 98.6; O2SAT 98
[2016-10-27] MEDS: OLANZapine ODT 20 MG TAB PO SCH (20:29)
[2016-10-28 06:10] VITALS: BP 96/55; PULSE 67; RESP 18; TEMP 98.1; O2SAT 98
[2016-10-28] MEDS: PANTOPRAZOLE SOD 40 MG DELAYED RELEASE TAB PO SCH (09:02)
[2016-10-28] MEDS: LACTULOSE SYRUP 20 GM/30 ML CUP PO SCH ×4 (09:02→20:14)
[2016-10-28] MEDS: VALPROIC ACID SYRUP 250 MG/5 ML UDC PO SCH ×2 (09:02→20:15)
[2016-10-28] MEDS: OLANZapine ODT 10 MG TAB PO SCH (09:02)
[2016-10-28] MEDS: LORazepam 2 MG TAB PO PRN (14:01)
[2016-10-28] MEDS: HALOPERIDOL 5 MG TAB PO PRN (14:01)
[2016-10-28] MEDS: ACETAMINOPHEN 325 MG TAB PO PRN (15:25)
--- NOTE | 2016-10-28 16:36 | HHI.PYPN ---
Subjective Remarks Patient seen in [place] with nurse Edd, patient complaining somewhat of a toothache. Is been some pacing the halls. But no overt assaultive aggressive behaviors. He is redirectable. Though he did need a when necessary earlier today will increase Zyprexa to 20 mg twice a day continue observation and assessment Review of Systems Except as stated in HPI: all other systems reviewed are Neg Objective Alert: Yes [place]: Person Mood: Calm Affect: Flat Memory Intact: Comment (difficult to assess due to lack of participation) Hallucinations: Other (no hallucinations) Delusions: Yes Delusion Type: Paranoid (guarded and suspicious) Suicidal: Ideation (No SI) Homicidal: Ideation (no HI) Insight/Judgment Very poor Labs Test 10/27/16 17:50 Ammonia 30 MCMOL/L Vitals/IOs Vital Signs Date Time Temp Pulse Resp B/P Pulse Ox O2 Delivery O2 Flow Rate FiO2 10/28/16 06:10 98.1 67 18 96/55 98 Intake and Output 10/27/16 10/27/16 10/27/16 07:59 15:59 23:59 Intake Total 750 ml Balance 750 ml Assessment & Plan Problem List: (1) Schizophrenia ICD Code: F20.9 (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 Will increase Zyprexa to 20 mg twice a day Justification for Cont. Inpt. At this time patient will decompensate placed in the lower level of care Discharge Planning To be determined Request HC Surrog/Guard Advoc?: Yes Problem Qualifiers (1) Schizophrenia: Qualified Code: F20.3 - Undifferentiated schizophrenia Eusebio Dickey MD Oct 28, 2016 16:36
[2016-10-28 18:08] VITALS: BP 98/57; PULSE 87; RESP 17; TEMP 97.7; O2SAT 98
[2016-10-28] MEDS: OLANZapine ODT 20 MG TAB PO SCH (20:15)
[2016-10-29 06:10] VITALS: BP 98/60; PULSE 72; RESP 18; TEMP 97.7; O2SAT 98
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
[2016-10-29] MEDS: VALPROIC ACID SYRUP 250 MG/5 ML UDC PO SCH ×2 (09:00→20:12)
[2016-10-29] MEDS: LACTULOSE SYRUP 20 GM/30 ML CUP PO SCH ×4 (09:48→20:12)
[2016-10-29] MEDS: PANTOPRAZOLE SOD 40 MG DELAYED RELEASE TAB PO SCH (09:49)
[2016-10-29] MEDS: OLANZapine ODT 20 MG TAB PO SCH ×2 (09:50→20:12)
[2016-10-29] MEDS: LORazepam 2 MG TAB PO PRN (12:30)
[2016-10-29] MEDS: HALOPERIDOL 5 MG TAB PO PRN (15:00)
[2016-10-29 17:53] VITALS: BP 101/59; PULSE 72; RESP 16; TEMP 98.3; O2SAT 98
[2016-10-30] MEDS: ONDANSETRON ODT 4 MG TAB PO PRN (01:13)
[2016-10-30 06:15] VITALS: BP 98/60; PULSE 62; RESP 16; TEMP 98.5; O2SAT 99
[2016-10-30] MEDS: LACTULOSE SYRUP 20 GM/30 ML CUP PO SCH ×4 (08:12→21:05)
[2016-10-30] MEDS: PANTOPRAZOLE SOD 40 MG DELAYED RELEASE TAB PO SCH (08:12)
[2016-10-30] MEDS: VALPROIC ACID SYRUP 250 MG/5 ML UDC PO SCH ×2 (08:12→21:05)
[2016-10-30] MEDS: OLANZapine ODT 20 MG TAB PO SCH ×2 (08:12→21:05)
[2016-10-30 12:01] VITALS: BP 139/70; PULSE 86; RESP 16; TEMP 98.4; O2SAT 100
--- NOTE | 2016-10-30 16:44 | HHI.PYPN ---
Subjective Remarks Patient was seen and case discussed with nursing. Patient is pleasant and cooperative with exam. Has not been aggressive. Seen talking to himself. No longer shadowboxing. Nursing is asking for in order to hold him down for labwork. 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 Inpt. Patient would decompensate in a less restrictive setting Request HC Surrog/Guard Advoc?: Yes Problem Qualifiers (1) Schizophrenia: Qualified Code: F20.3 - Undifferentiated schizophrenia William Edwards DO Oct 30, 2016 16:44
[2016-10-30 18:33] VITALS: BP 115/82; PULSE 84; RESP 16; TEMP 97.8; O2SAT 98
[2016-10-30] MEDS: LORazepam 2 MG TAB PO PRN (21:05)
[2016-10-31 06:12] VITALS: BP 120/71; PULSE 107; RESP 17; TEMP 98; O2SAT 98
[2016-10-31] MEDS: VALPROIC ACID SYRUP 250 MG/5 ML UDC PO SCH ×2 (09:00→20:16)
[2016-10-31] MEDS: LACTULOSE SYRUP 20 GM/30 ML CUP PO SCH ×4 (09:00→20:16)
[2016-10-31] MEDS: PANTOPRAZOLE SOD 40 MG DELAYED RELEASE TAB PO SCH (09:00)
[2016-10-31] MEDS: OLANZapine ODT 20 MG TAB PO SCH ×2 (09:00→20:16)
[2016-10-31 17:00] VITALS: BP 127/65; PULSE 113; RESP 18; TEMP 97.7
[2016-10-31] MEDS: LORazepam 2 MG TAB PO PRN (19:24)
--- NOTE | 2016-10-31 19:33 | HHI.PYPN ---
Subjective Remarks Patient was seen and case discussed with nursing. Patient is in behaving well all day. No shadowboxing or gesturing. During the interview, is apathetic and minimally engaging. Responding to internal stimuli. Compliant with medications Objective Alert: Yes [employer]: Person Mood: Calm Affect: Blunted Memory Intact: Comment (difficult to assess due to lack of participation) Hallucinations: Other (no hallucinations) Delusions: Yes Delusion Type: Paranoid (guarded and suspicious) Suicidal: Ideation (No SI) Homicidal: Ideation (no HI) Insight/Judgment Poor Labs Test 10/31/16 06:00 Vitals/IOs Vital Signs Date Time Temp Pulse Resp B/P (MAP) Pulse Ox O2 Delivery O2 Flow Rate FiO2 10/31/16 17:00 97.7 113 18 127/65 (85) 10/31/16 06:12 98 Assessment & Plan Problem List: (1) Schizophrenia ICD Codes: F20.9 - Schizophrenia, unspecified Status: Acute (2) Borderline intellectual functioning ICD Codes: R41.83 - Borderline intellectual functioning Status: Acute Assessment & Plan Continue current treatment plan Justification for Cont. Inpt. Patient would decompensate in a less restrictive setting Request HC Surrog/Guard Advoc?: Yes Problem Qualifiers (1) Schizophrenia: William Edwards DO Oct 31, 2016 19:33
[2016-11-01 05:38] VITALS: BP 107/59; PULSE 66; RESP 16; TEMP 97.7; O2SAT 98
[2016-11-01] MEDS: PANTOPRAZOLE SOD 40 MG DELAYED RELEASE TAB PO SCH (08:42)
[2016-11-01] MEDS: OLANZapine ODT 20 MG TAB PO SCH ×2 (08:43→20:00)
[2016-11-01] MEDS: LACTULOSE SYRUP 20 GM/30 ML CUP PO SCH ×4 (08:43→20:01)
[2016-11-01] MEDS: VALPROIC ACID SYRUP 250 MG/5 ML UDC PO SCH ×2 (08:45→20:01)
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
[2016-11-01 18:13] VITALS: BP 109/76; PULSE 107; RESP 18; TEMP 97.9; O2SAT 99
[2016-11-02 05:56] VITALS: PULSE 65; RESP 16; TEMP 97.8; O2SAT 98
[2016-11-02 07:11] VITALS: BP 112/66
[2016-11-02] MEDS: OLANZapine ODT 20 MG TAB PO SCH (08:02)
[2016-11-02] MEDS: VALPROIC ACID SYRUP 250 MG/5 ML UDC PO SCH (08:02)
[2016-11-02] MEDS: LACTULOSE SYRUP 20 GM/30 ML CUP PO SCH ×2 (08:02→12:32)
[2016-11-02] MEDS: PANTOPRAZOLE SOD 40 MG DELAYED RELEASE TAB PO SCH (08:02)
[2016-11-02] MEDS ORDERED: VALP250UDC PO (11:55)
[2016-11-02] MEDS ORDERED: OLANZ20 PO (11:55)
[2016-11-02] MEDS ORDERED: PANT40TA3 PO (11:55)
[2016-11-02] MEDS ORDERED: Lactulose PO (11:55)
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
== END 2016-11-02 16:45 | disposition home or self-care (01) | DRG 885 ==
LOC: NEPJ 20:46 → NEDA 10-13 16:52 → H270 10-13 17:39
PROVIDERS: ADMIT Psychiatry & Neurology Psychiatry; ATTEND Psychiatry & Neurology Psychiatry
DX: F20.3 Undifferentiated schizophrenia (principal); E72.20 Disorder of urea cycle metabolism, unspecified; R45.851 Suicidal ideations; F79 Unspecified intellectual disabilities; F32.9 Major depressive disorder, single episode, unspecified; F41.9 Anxiety disorder, unspecified; K59.00 Constipation, unspecified; T42.6X5A Adverse effect of other antiepileptic and sedative-hypnotic drugs, initial encounter; R45.6 Violent behavior
CPT/HCPCS: 74000; 76705; 80048; 80053; 80061; 80074; 80164; 80307; 82140; 82550; 82552; 83036; 84443; 85025; 96372; 96374; J1200; J1630; J2060; Q0163

== ENCOUNTER 2016-11-08 14:51 | Inpatient (IN) | payer BC, MEDICAID, OTHER ==
[~2016-11-08] VITALS: Ht 160 cm; Wt 67.6 kg
[~2016-11-08 14:51] MED LIST changes: -CARI1CAP PO; +Lactulose PO; +OLANZ20 PO; +PANT40TA3 PO; -SERO300T PO; +VALP250UDC PO
[2016-11-08 14:59] VITALS: BP 137/78; PULSE 118; RESP 20; TEMP 98.6; O2SAT 98
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
[2016-11-08 15:11] VITALS: BP 118/72; PULSE 104; RESP 18; O2SAT 99
[2016-11-08 15:40] LABS: AUTOMATED NEUTROPHIL # 8.5 TH/MM3 (1.8-7.7); BASOPHIL % 0.2 % (0.0-2.0); EOSINOPHIL # 0.1 TH/MM3 (0-0.4); EOSINOPHIL % 0.6 % (0.0-4.0); HEMATOCRIT 41.8 % (39.0-51.0); HEMO FLAGS DIFF FINAL; LYMPH % 13.5 % (9.0-44.0); LYMPHOCYTE # 1.5 TH/MM3 (1.0-4.8); MEAN CORPUSCULAR HEMOGLOBIN 29.5 PG (27.0-34.0); MEAN CORPUSCULAR HGB CONC 33.5 % (32.0-36.0); MONO % 8.5 % (0.0-8.0); NEUT % 77.2 % (16.0-70.0); PLATELET COUNT 132 TH/MM3 (150-450); RED BLOOD COUNT 4.75 MIL/MM3 (4.50-5.90); RED CELL DISTRIBUTION WIDTH 14.7 % (11.6-17.2)
[2016-11-08 16:01] LABS: ALKALINE PHOSPHATASE 82 U/L (45-117); ALT (GPT) 33 U/L (12-78); ANION GAP 10 MEQ/L (5-15); AST (GOT) 30 U/L (15-37); BICARBONATE 27.2 MEQ/L (21.0-32.0); BLOOD UREA NITROGEN 11 MG/DL (7-18); CHLORIDE 104 MEQ/L (98-107); GLOMERULAR FILTRATION RATE 79 ML/MIN (>89); POTASSIUM 4.2 MEQ/L (3.5-5.1); SODIUM (NA) 141 MEQ/L (136-145); TOTAL BILIRUBIN ADULT 0.2 MG/DL (0.2-1.0)
[2016-11-08 19:17] VITALS: BP 118/75; RESP 18
[2016-11-08] MEDS ORDERED: OLANZapine 10 MG TAB PO ONE (23:45)
[2016-11-09 06:00] VITALS: BP 105/69; PULSE 65; RESP 16; O2SAT 99
[2016-11-09 09:30] VITALS: BP 107/59; PULSE 62; RESP 18; O2SAT 98
[2016-11-09 15:00] VITALS: BP 126/72; PULSE 82; RESP 18; O2SAT 98
--- NOTE | 2016-11-09 19:31 | PD ---
Data Data Last Documented VS Vital Signs Date Time Temp Pulse Resp B/P (MAP) Pulse Ox O2 Delivery O2 Flow Rate FiO2 11/09/16 21:52 86 16 114/64 (81) 99 Room Air 11/08/16 14:59 98.6 Orders Orders Complete Blood Count With Diff (11/08/16 15:13) Comprehensive Metabolic Panel (11/08/16 15:13) Psych Screen (11/08/16 15:13) Drug Screen, Random Urine (11/08/16 15:13) Restraints Violent (11/08/16 16:06) Olanzapine (Zyprexa) (11/08/16 23:45) Diet Regular Basic (11/09/16 Breakfast) Diet Regular Basic (11/09/16 Lunch) Olanzapine (Zyprexa) (11/09/16 21:00) Diet Regular Basic (11/10/16 Breakfast) Labs Laboratory Tests Test 11/08/16 15:23 11/08/16 16:25 White Blood Count 11.0 TH/MM3 Red Blood Count 4.75 MIL/MM3 Hemoglobin 14.0 GM/DL Hematocrit 41.8 % Mean Corpuscular Volume 88.0 FL Mean Corpuscular Hemoglobin 29.5 PG Mean Corpuscular Hemoglobin Concent 33.5 % Red Cell Distribution Width 14.7 % Platelet Count 132 TH/MM3 Mean Platelet Volume 10.5 FL Neutrophils (%) (Auto) 77.2 % Lymphocytes (%) (Auto) 13.5 % Monocytes (%) (Auto) 8.5 % Eosinophils (%) (Auto) 0.6 % Basophils (%) (Auto) 0.2 % Neutrophils # (Auto) 8.5 TH/MM3 Lymphocytes # (Auto) 1.5 TH/MM3 Monocytes # (Auto) 0.9 TH/MM3 Eosinophils # (Auto) 0.1 TH/MM3 Basophils # (Auto) 0.0 TH/MM3 CBC Comment DIFF FINAL Differential Comment Blood Urea Nitrogen 11 MG/DL Creatinine 1.11 MG/DL Random Glucose 94 MG/DL Total Protein 7.4 GM/DL Albumin 3.6 GM/DL Calcium Level 8.8 MG/DL Alkaline Phosphatase 82 U/L Aspartate Amino Transf (AST/SGOT) 30 U/L Alanine Aminotransferase (ALT/SGPT) 33 U/L Total Bilirubin 0.2 MG/DL Sodium Level 141 MEQ/L Potassium Level 4.2 MEQ/L Chloride Level 104 MEQ/L Carbon Dioxide Level 27.2 MEQ/L Anion Gap 10 MEQ/L Estimat Glomerular Filtration Rate 79 ML/MIN Urine Opiates Screen NEG Urine Barbiturates Screen NEG Urine Amphetamines Screen NEG Urine Benzodiazepines Screen NEG Urine Cocaine Screen NEG Urine Cannabinoids Screen NEG MDM Supervised Visit with MARIANELA: No Narrative Course Patient seen and examined by me, was left in the shift in the pod. Of patient seen and examined by me, patient is started been medically cleared by Dr. Yang. This patient was left in the emergency department awaiting psychiatric evaluation at the end of shift. The patient states that he does not speak Mauritian when asked to perform simple commands in Danish she is able to do all of my commands. He is Parmar acted for psychosis. I have ordered his nighttime dose of Zyprexa. We continued to monitored in the emergency department until such time as he is discharged by psychiatry or admitted by psychiatry. If this patient remains in the emergency department and my shift I will discuss with the provider remains in this ER. Diagnosis Primary Impression: Schizophrenia Qualified Codes: F20.9 - Schizophrenia, unspecified Condition: Trever Valadez MD Nov 09, 2016 19:31
[2016-11-09] MEDS ORDERED: OLANZapine 10 MG TAB PO SCH (21:00)
[2016-11-09 21:52] VITALS: BP 114/64; PULSE 86; RESP 16; O2SAT 99
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
[2016-11-10 13:30] VITALS: BP_SYST 106; BP_SYST 111; BP_DIAS 67; PULSE 78; PULSE 88; RESP 18; TEMP 98.9; O2SAT 98
[2016-11-10 18:28] VITALS: BP 123/66
[2016-11-10 18:35] VITALS: BP 129/71; PULSE 110; RESP 18; TEMP 99; O2SAT 99
[2016-11-10] MEDS ORDERED: MAGNESIUM HYDROXIDE SUSP 30 ML CUP PO PRN (19:45)
[2016-11-10] MEDS ORDERED: ALUMINUM/MAGNESIUM/SIMETH 30 ML CUP PO PRN (19:45)
[2016-11-10] MEDS: LACTULOSE SYRUP 20 GM/30 ML CUP PO SCH (21:00)
[2016-11-10] MEDS: DIVALPROEX SODIUM SPRINKLES 125 MG CAP PO SCH (21:00)
[2016-11-10] MEDS ORDERED: OLANZapine ODT 20 MG TAB PO SCH (21:00)
[2016-11-11 05:52] VITALS: BP 107/56; PULSE 77; RESP 18; TEMP 98.1; O2SAT 98
[2016-11-11] MEDS: PANTOPRAZOLE SOD 40 MG DELAYED RELEASE TAB PO SCH (08:34)
[2016-11-11] MEDS: LACTULOSE SYRUP 20 GM/30 ML CUP PO SCH ×2 (08:34→20:47)
[2016-11-11] MEDS: DIVALPROEX SODIUM SPRINKLES 125 MG CAP PO SCH ×2 (08:46→20:47)
[2016-11-11] MEDS ORDERED: NICOTINE 21 MG/24 HR PATCH T-DERMAL SCH (09:00)
[2016-11-11 10:13] LABS: ANION GAP 6 MEQ/L (5-15); BICARBONATE 30.6 MEQ/L (21.0-32.0); BLOOD UREA NITROGEN 15 MG/DL (7-18); CHLORIDE 104 MEQ/L (98-107); GLOMERULAR FILTRATION RATE 84 ML/MIN (>89); POTASSIUM 4.2 MEQ/L (3.5-5.1); SODIUM (NA) 141 MEQ/L (136-145)
[2016-11-11 10:15] LABS: HDL CHOLESTEROL 41.6 MG/DL (40.0-60.0); LDL CHOLESTEROL 101 MG/DL (0-99)
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
[2016-11-11] MEDS: QUEtiapine FUMARATE 200 MG TAB PO SCH ×2 (11:17→15:00)
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
[2016-11-11 16:24] VITALS: BP 113/56; PULSE 109; RESP 18; TEMP 98.3; O2SAT 97
[2016-11-11 17:21] LABS: HEMOGLOBIN A1a 1.1 %; HEMOGLOBIN A1b 0.9 %; HEMOGLOBIN Ao 85.7 %; HEMOGLOBIN F 0.9 %; HEMOGLOBIN LA1C 1.8 %; HEMOGLOBIN P3 3.5 %
[2016-11-11] MEDS: QUEtiapine FUMARATE 300 MG TAB PO SCH (20:47)
[2016-11-11] MEDS: ARIPiprazole 10 MG TAB PO SCH (20:47)
[2016-11-11] MEDS ORDERED: REMOVE OLD NICOTINE PATCH T-DERMAL SCH (21:00)
[2016-11-12] MEDS: LORazepam 1 MG TAB PO PRN ×2 (00:30→21:14)
[2016-11-12 06:05] VITALS: BP 105/61; PULSE 86; RESP 18; TEMP 97.1; O2SAT 98
[2016-11-12] MEDS: QUEtiapine FUMARATE 200 MG TAB PO SCH ×2 (06:39→16:10)
[2016-11-12] MEDS: PANTOPRAZOLE SOD 40 MG DELAYED RELEASE TAB PO SCH (08:00)
[2016-11-12] MEDS: DIVALPROEX SODIUM SPRINKLES 125 MG CAP PO SCH ×2 (08:00→21:00)
[2016-11-12] MEDS: LACTULOSE SYRUP 20 GM/30 ML CUP PO SCH ×3 (08:01→16:44)
--- NOTE | 2016-11-12 11:01 | HHI.PYPN ---
Subjective Remarks Patient spending most of his time in bed. Seclusive and does not talk very much with staff or other patients. Does continue to nod yes to auditory hallucinations. Continues to present as responding to internal stimuli and paranoid. Tolerating Seroquel adequately. No problems taking medicine. Review of Systems Except as stated in HPI: all other systems reviewed are Neg Objective Alert: Yes [place]: Person Mood: Other Affect: Restricted Memory Intact: Immediate Hallucinations: Auditory Delusions: Yes Delusion Type: Paranoid Suicidal: Ideation (no) Homicidal: Ideation (no) Insight/Judgment Impaired Vitals/IOs Vital Signs Date Time Temp Pulse Resp B/P (MAP) Pulse Ox O2 Delivery O2 Flow Rate FiO2 11/12/16 06:05 97.1 86 18 105/61 (76) 98 11/10/16 13:30 Room Air Assessment & Plan Problem List: (1) Schizophrenia, paranoid, chronic ICD Codes: F20.0 - Paranoid schizophrenia Status: Acute (2) Borderline intellectual functioning ICD Codes: R41.83 - Borderline intellectual functioning Status: Chronic Assessment & Plan Estimated LOS: days plan to continue current Seroquel dose. We will likely titrate Abilify to slightly higher dose in order to determine effectiveness and tolerability of Abilify prior to administering Abilify maintained 10. Spoke to patient's nurse regarding his current status. Will speak to social services assistant regarding possible disposition to state [facility]. Justification for Cont. Inpt. Acutely psychotic and dangerous to others. Martell Barnes MD Nov 12, 2016 11:01
[2016-11-12 15:36] VITALS: BP 118/59; PULSE 93; RESP 17; TEMP 97.3; O2SAT 100
[2016-11-12] MEDS: ARIPiprazole 10 MG TAB PO SCH (21:00)
[2016-11-12] MEDS: QUEtiapine FUMARATE 300 MG TAB PO SCH (21:00)
[2016-11-13 06:07] VITALS: BP 114/65; PULSE 83; RESP 16; TEMP 97.4; O2SAT 97
[2016-11-13] MEDS: QUEtiapine FUMARATE 200 MG TAB PO SCH ×2 (06:31→14:45)
[2016-11-13] MEDS: DIVALPROEX SODIUM SPRINKLES 125 MG CAP PO SCH ×2 (08:04→20:31)
[2016-11-13] MEDS: PANTOPRAZOLE SOD 40 MG DELAYED RELEASE TAB PO SCH (08:04)
[2016-11-13] MEDS: LACTULOSE SYRUP 20 GM/30 ML CUP PO SCH ×3 (08:04→18:00)
--- NOTE | 2016-11-13 09:57 | EKG ---
Date Performed: 11/12/2016 Time Performed: 14:20:26 PTAGE: 26 years EKG: Sinus rhythm NORMAL ECG NO PREVIOUS TRACING DOCTOR: Crispin Tan Interpretating Date/Time 11/13/2016 09:55:09
--- NOTE | 2016-11-13 10:13 | EKG ---
Date Performed: 11/13/2016 Time Performed: 09:38:16 PTAGE: 26 years EKG: Sinus rhythm NORMAL ECG PREVIOUS TRACING : 11/12/2016 14.20 DOCTOR: Crispin Tan Interpretating Date/Time 11/13/2016 10:12:22
--- NOTE | 2016-11-13 18:18 | HHI.PYPN ---
Subjective Remarks Patient was seen and case discussed with nursing. Patient has been good behavior today. No verbal or physical outbursts. Continues to occasionally masturbate. Compliant with medications. Objective Alert: Yes [place]: Person Mood: Other Affect: Blunted Memory Intact: Immediate Hallucinations: Auditory Delusions: Yes Delusion Type: Paranoid Suicidal: Ideation (no) Homicidal: Ideation (no) Insight/Judgment Poor Vitals/IOs Vital Signs Date Time Temp Pulse Resp B/P (MAP) Pulse Ox O2 Delivery O2 Flow Rate FiO2 11/13/16 06:07 97.4 83 16 114/65 (81) 97 11/10/16 13:30 Room Air Assessment & Plan Problem List: (1) Schizophrenia, paranoid, chronic ICD Codes: F20.0 - Paranoid schizophrenia Status: Acute (2) 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 Inpt. Patient would decompensate in a less restrictive setting William Edwards DO Nov 13, 2016 18:18
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
[2016-11-13 18:41] VITALS: BP 126/76; PULSE 82; RESP 17; TEMP 97.7; O2SAT 98
[2016-11-13] MEDS: LORazepam 1 MG TAB PO PRN (20:31)
[2016-11-13] MEDS: ARIPiprazole 10 MG TAB PO SCH (20:31)
[2016-11-13] MEDS: QUEtiapine FUMARATE 300 MG TAB PO SCH (20:31)
[2016-11-14 05:46] VITALS: BP 97/53; PULSE 73; RESP 16; TEMP 97.2; O2SAT 96
[2016-11-14] MEDS: QUEtiapine FUMARATE 200 MG TAB PO SCH ×2 (06:25→14:21)
[2016-11-14] MEDS: DIVALPROEX SODIUM SPRINKLES 125 MG CAP PO SCH ×2 (08:35→20:02)
[2016-11-14] MEDS: PANTOPRAZOLE SOD 40 MG DELAYED RELEASE TAB PO SCH (08:35)
[2016-11-14] MEDS: LACTULOSE SYRUP 20 GM/30 ML CUP PO SCH ×3 (08:35→17:34)
--- NOTE | 2016-11-14 11:02 | RADRPT ---
EXAM DATE/TIME: 11/14/2016 10:38 [facility] COMPARISON: No previous studies available for comparison. INDICATIONS : Pain in left lower rib cage MEDICAL HISTORY : Schizophrenia. IBS. Nausea. Vomiting. Depression. Anxiety. SURGICAL HISTORY : None. ENCOUNTER: Initial ACUITY: 2 weeks PAIN SCORE: Non-responsive. LOCATION: chest FINDINGS: A single view of the chest demonstrates the lungs to be symmetrically aerated without evidence of mas s, infiltrate or effusion. The cardiomediastinal contours are unremarkable. Osseous structures are intact. CONCLUSION: Normal examination. Clement Jose MD on November 14, 2016 at 11:00 Board Certified Radiologist. This report was verified electronically.
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
--- NOTE | 2016-11-14 15:40 | HHI.PYPN ---
Subjective Remarks Patient was seen and case discussed with nursing. Patient remains internally preoccupied. He is minimally interactive and mumbling during the interview, difficult to understand. Spending his time looking at various pictures and magazines. No posturing or shadowboxing. No physical or verbal outbursts. Compliant with medications Objective Alert: Yes [place]: Person Mood: Oppositional Affect: Restricted Memory Intact: Immediate Hallucinations: Auditory Delusions: Yes Delusion Type: Paranoid Suicidal: Ideation (no) Homicidal: Ideation (no) Insight/Judgment Poor Labs Test 11/14/16 10:55 Ammonia 52 MCMOL/L Vitals/IOs Vital Signs Date Time Temp Pulse Resp B/P (MAP) Pulse Ox O2 Delivery O2 Flow Rate FiO2 11/14/16 05:46 97.2 73 16 97/53 (68) 96 11/10/16 13:30 Room Air Assessment & Plan Problem List: (1) Schizophrenia, paranoid, chronic ICD Codes: F20.0 - Paranoid schizophrenia Status: Acute (2) 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 Inpt. Patient would decompensate in a less restrictive setting William Edwards DO Nov 14, 2016 15:40
[2016-11-14 18:00] VITALS: BP 107/70; PULSE 91; RESP 17; TEMP 98.1; O2SAT 100
[2016-11-14] MEDS: ARIPiprazole 10 MG TAB PO SCH (20:02)
[2016-11-14] MEDS: LORazepam 1 MG TAB PO PRN (20:02)
[2016-11-14] MEDS: QUEtiapine FUMARATE 300 MG TAB PO SCH (20:02)
[2016-11-15] MEDS: QUEtiapine FUMARATE 200 MG TAB PO SCH ×2 (05:31→15:14)
[2016-11-15 05:45] VITALS: BP 100/58; PULSE 78; RESP 16; TEMP 98.1; O2SAT 100
[2016-11-15] MEDS: LACTULOSE SYRUP 20 GM/30 ML CUP PO SCH ×3 (09:00→18:03)
[2016-11-15] MEDS: PANTOPRAZOLE SOD 40 MG DELAYED RELEASE TAB PO SCH (09:00)
[2016-11-15] MEDS: DIVALPROEX SODIUM SPRINKLES 125 MG CAP PO SCH ×2 (09:00→20:56)
[2016-11-15] MEDS ORDERED: ABILIFY MAINTENA 400MG IM ONE (09:00)
--- NOTE | 2016-11-15 09:58 | HHI.PYPN ---
Subjective Remarks Pt. seen, chart reviewed and case discussed with nursing. Pt's mother stating the family won't take him back. Pt.on list for emergency placement according to [employer] worker (discussed with our welfare case worker-Kenneth).Pt sexually preoccupied. Review of Systems Except as stated in HPI: all other systems reviewed are Neg Objective Alert: Yes [place]: Person Mood: Oppositional Affect: Restricted Memory Intact: Immediate Hallucinations: Auditory Delusions: Yes Delusion Type: Paranoid Suicidal: Ideation (no) Homicidal: Ideation (no) Insight/Judgment Impaired. 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 Justification for Cont. Inpt. Dangerous to others. Martell Barnes MD Nov 15, 2016 09:58
[2016-11-15] MEDS: metroNIDAZOLE 500 MG TAB PO SCH ×2 (14:00→20:55)
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
[2016-11-15 17:49] VITALS: BP 107/57; PULSE 95; RESP 16; TEMP 98.5; O2SAT 99
--- NOTE | 2016-11-15 19:57 | EKG ---
Date Performed: 11/15/2016 Time Performed: 10:50:11 PTAGE: 26 years EKG: Sinus rhythm NORMAL ECG PREVIOUS TRACING : 11/14/2016 13.23 DOCTOR: Javan Bowman Interpretating Date/Time 11/15/2016 19:55:57
--- NOTE | 2016-11-15 20:17 | EKG ---
Date Performed: 11/14/2016 Time Performed: 13:23:34 PTAGE: 26 years EKG: Sinus rhythm NORMAL ECG PREVIOUS TRACING : 11/13/2016 09.38 DOCTOR: Javan Bowman Interpretating Date/Time 11/15/2016 20:13:47
[2016-11-15] MEDS: QUEtiapine FUMARATE 300 MG TAB PO SCH (20:55)
[2016-11-15] MEDS: ARIPiprazole 10 MG TAB PO SCH (20:55)
[2016-11-16] MEDS: QUEtiapine FUMARATE 200 MG TAB PO SCH ×2 (06:09→14:48)
[2016-11-16] MEDS: metroNIDAZOLE 500 MG TAB PO SCH ×3 (06:09→20:39)
[2016-11-16 06:19] VITALS: BP 113/65; PULSE 102; RESP 18; TEMP 97.9; O2SAT 98
[2016-11-16] MEDS: DIVALPROEX SODIUM SPRINKLES 125 MG CAP PO SCH ×2 (08:20→20:39)
[2016-11-16] MEDS: PANTOPRAZOLE SOD 40 MG DELAYED RELEASE TAB PO SCH (08:20)
[2016-11-16] MEDS: LACTULOSE SYRUP 20 GM/30 ML CUP PO SCH ×3 (08:21→17:15)
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
--- NOTE | 2016-11-16 13:46 | EKG ---
Date Performed: 11/16/2016 Time Performed: 08:57:29 PTAGE: 26 years EKG: Sinus rhythm NORMAL ECG Compared to prior tracing no significant change PREVIOUS TRACING : 11/15/2016 10.50 DOCTOR: Mamadou Nicholson Interpretating Date/Time 11/16/2016 13:44:38
[2016-11-16 14:10] LABS: MEAN CELL VOLUME 89.1 FL (80.0-100.0); MEAN CORPUSCULAR HEMOGLOBIN 30.2 PG (27.0-34.0); MEAN CORPUSCULAR HGB CONC 33.9 % (32.0-36.0); PLATELET COUNT 134 TH/MM3 (150-450); RED CELL DISTRIBUTION WIDTH 15.5 % (11.6-17.2); REVIEW FLAG FINAL
[2016-11-16 14:34] LABS: ALT (GPT) 18 U/L (12-78); ANION GAP 7 MEQ/L (5-15); AST (GOT) 9 U/L (15-37); BICARBONATE 28.8 MEQ/L (21.0-32.0); BLOOD UREA NITROGEN 9 MG/DL (7-18); CHLORIDE 103 MEQ/L (98-107); GLOMERULAR FILTRATION RATE 73 ML/MIN (>89); POTASSIUM 3.8 MEQ/L (3.5-5.1); SODIUM (NA) 139 MEQ/L (136-145)
[2016-11-16 14:36] LABS: ALKALINE PHOSPHATASE 74 U/L (45-117); TOTAL BILIRUBIN ADULT 0.2 MG/DL (0.2-1.0)
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
[2016-11-16 18:07] VITALS: BP 107/70; PULSE 92; RESP 18; TEMP 98.3; O2SAT 99
[2016-11-16] MEDS: QUEtiapine FUMARATE 300 MG TAB PO SCH (20:39)
[2016-11-16] MEDS: ARIPiprazole 10 MG TAB PO SCH (20:39)
[2016-11-17 05:42] VITALS: BP 99/55; PULSE 85; RESP 18; TEMP 98.1; O2SAT 99
[2016-11-17] MEDS: metroNIDAZOLE 500 MG TAB PO SCH ×3 (05:43→21:19)
[2016-11-17] MEDS: QUEtiapine FUMARATE 200 MG TAB PO SCH ×2 (06:33→15:00)
[2016-11-17] MEDS: DIVALPROEX SODIUM SPRINKLES 125 MG CAP PO SCH ×2 (09:39→21:18)
[2016-11-17] MEDS: LACTULOSE SYRUP 20 GM/30 ML CUP PO SCH ×3 (09:39→17:16)
[2016-11-17] MEDS: PANTOPRAZOLE SOD 40 MG DELAYED RELEASE TAB PO SCH (09:39)
[2016-11-17] MEDS: ACETAMINOPHEN 325 MG TAB PO PRN (12:22)
--- NOTE | 2016-11-17 14:35 | EKG ---
Date Performed: 11/17/2016 Time Performed: 07:45:13 PTAGE: 26 years EKG: Sinus rhythm NORMAL ECG Compared to prior tracing no significant change PREVIOUS TRACING : 11/16/2016 08.57 DOCTOR: Bruno Cummings Interpretating Date/Time 11/17/2016 14:32:30
[2016-11-17 18:10] VITALS: BP 118/69; PULSE 101; RESP 18; TEMP 98; O2SAT 99
[2016-11-17] MEDS: QUEtiapine FUMARATE 300 MG TAB PO SCH (21:19)
[2016-11-17] MEDS: ARIPiprazole 10 MG TAB PO SCH (21:19)
[2016-11-18] MEDS: metroNIDAZOLE 500 MG TAB PO SCH ×3 (05:56→20:59)
[2016-11-18] MEDS: QUEtiapine FUMARATE 200 MG TAB PO SCH ×2 (05:56→15:00)
[2016-11-18 06:11] VITALS: BP 94/55; PULSE 76; RESP 16; TEMP 97.5; O2SAT 99
[2016-11-18] MEDS: PANTOPRAZOLE SOD 40 MG DELAYED RELEASE TAB PO SCH (09:15)
[2016-11-18] MEDS: LACTULOSE SYRUP 20 GM/30 ML CUP PO SCH ×3 (09:15→18:00)
[2016-11-18] MEDS: DIVALPROEX SODIUM SPRINKLES 125 MG CAP PO SCH ×2 (09:16→20:59)
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
[2016-11-18 17:46] VITALS: BP 127/83; PULSE 110; RESP 18; TEMP 98; O2SAT 97
[2016-11-18] MEDS: ARIPiprazole 10 MG TAB PO SCH (20:58)
[2016-11-18] MEDS: QUEtiapine FUMARATE 300 MG TAB PO SCH (20:58)
[2016-11-19] MEDS: metroNIDAZOLE 500 MG TAB PO SCH ×3 (05:23→21:16)
[2016-11-19] MEDS: QUEtiapine FUMARATE 200 MG TAB PO SCH ×2 (05:24→14:46)
[2016-11-19 06:12] VITALS: BP 105/54; PULSE 93; RESP 18; TEMP 97.4; O2SAT 100
[2016-11-19] MEDS: DIVALPROEX SODIUM SPRINKLES 125 MG CAP PO SCH ×2 (08:52→21:00)
[2016-11-19] MEDS: PANTOPRAZOLE SOD 40 MG DELAYED RELEASE TAB PO SCH (08:52)
[2016-11-19] MEDS: LACTULOSE SYRUP 20 GM/30 ML CUP PO SCH ×3 (08:52→17:56)
--- NOTE | 2016-11-19 11:52 | EKG ---
Date Performed: 11/18/2016 Time Performed: 13:05:43 PTAGE: 26 years EKG: Sinus rhythm NORMAL ECG PREVIOUS TRACING : 11/17/2016 07.45 No significant change from previous tracing noted. DOCTOR: Tera Lai Interpretating Date/Time 11/19/2016 11:50:41
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
[2016-11-19 18:18] VITALS: BP 111/68; PULSE 93; RESP 18; TEMP 98.8; O2SAT 99
[2016-11-19] MEDS: QUEtiapine FUMARATE 300 MG TAB PO SCH (21:08)
[2016-11-19] MEDS: ARIPiprazole 10 MG TAB PO SCH (21:08)
[2016-11-20] MEDS: LORazepam 1 MG TAB PO PRN ×2 (00:51→21:47)
[2016-11-20] MEDS: ACETAMINOPHEN 325 MG TAB PO PRN ×2 (00:52→20:06)
[2016-11-20] MEDS: metroNIDAZOLE 500 MG TAB PO SCH ×3 (05:27→22:00)
[2016-11-20 06:36] VITALS: BP 101/58; PULSE 67; RESP 18; TEMP 98; O2SAT 97
[2016-11-20] MEDS: QUEtiapine FUMARATE 200 MG TAB PO SCH ×2 (06:55→15:00)
[2016-11-20] MEDS: DIVALPROEX SODIUM SPRINKLES 125 MG CAP PO SCH ×2 (09:00→20:05)
[2016-11-20] MEDS: LACTULOSE SYRUP 20 GM/30 ML CUP PO SCH ×3 (09:00→17:27)
[2016-11-20] MEDS: PANTOPRAZOLE SOD 40 MG DELAYED RELEASE TAB PO SCH (09:00)
--- NOTE | 2016-11-20 13:06 | HHI.PYPN ---
Subjective Remarks Patient seen and continues to spend most of his time in bed. Tolerating medications and has been more cooperative and not aggressive. Labs reviewed. Remained seclusive and paranoid. Does not speak to this physician. 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 Justification for Cont. Inpt. Unable to care for self and family will not accept him back. Martell Barnes MD Nov 20, 2016 13:06
[2016-11-20 17:24] VITALS: BP 121/60; PULSE 88; RESP 18; TEMP 97.9; O2SAT 98
[2016-11-20] MEDS: ARIPiprazole 10 MG TAB PO SCH (20:05)
[2016-11-20] MEDS: QUEtiapine FUMARATE 300 MG TAB PO SCH (20:05)
[2016-11-21 05:50] VITALS: BP 133/75; PULSE 95; RESP 18; TEMP 97.5; O2SAT 98
[2016-11-21] MEDS: metroNIDAZOLE 500 MG TAB PO SCH ×3 (05:53→21:23)
[2016-11-21] MEDS: QUEtiapine FUMARATE 200 MG TAB PO SCH ×2 (05:54→15:00)
[2016-11-21] MEDS: PANTOPRAZOLE SOD 40 MG DELAYED RELEASE TAB PO SCH (08:15)
[2016-11-21] MEDS: LACTULOSE SYRUP 20 GM/30 ML CUP PO SCH ×3 (08:15→16:52)
[2016-11-21] MEDS: DIVALPROEX SODIUM SPRINKLES 125 MG CAP PO SCH ×2 (08:15→21:23)
--- NOTE | 2016-11-21 15:55 | HHI.PYPN ---
Subjective Remarks Patient seen, case discussed and chart reviewed. Patient remains reclusive but not agitated. 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 Justification for Cont. Inpt. Psychotic, with minimal family support. Unable to care for self. Martell Barnes MD Nov 21, 2016 15:55
[2016-11-21 17:40] VITALS: BP 123/70; PULSE 115; RESP 17; TEMP 98.3; O2SAT 94
[2016-11-21] MEDS: LORazepam 1 MG TAB PO PRN (21:23)
[2016-11-21] MEDS: ARIPiprazole 10 MG TAB PO SCH (21:23)
[2016-11-21] MEDS: QUEtiapine FUMARATE 300 MG TAB PO SCH (21:23)
[2016-11-22 05:53] VITALS: BP 97/52; PULSE 84; RESP 18; TEMP 98.5; O2SAT 98
[2016-11-22] MEDS: metroNIDAZOLE 500 MG TAB PO SCH ×3 (05:59→21:37)
[2016-11-22] MEDS: QUEtiapine FUMARATE 200 MG TAB PO SCH ×2 (06:00→15:00)
[2016-11-22] MEDS: PANTOPRAZOLE SOD 40 MG DELAYED RELEASE TAB PO SCH (08:59)
[2016-11-22] MEDS: LACTULOSE SYRUP 20 GM/30 ML CUP PO SCH ×3 (08:59→17:13)
[2016-11-22] MEDS: DIVALPROEX SODIUM SPRINKLES 125 MG CAP PO SCH ×2 (08:59→21:38)
--- NOTE | 2016-11-22 14:45 | HHI.PYPN ---
Subjective Remarks Patient was seen today for psychiatric reevaluation follow with nursing charge, he was found in his room, playing with some magazines, during the reevaluation he remains in silence, barely answering to my questions. I tried to engage in a conversation in [place]o, but he refuses to talk. As per nurse patient has been mostly quiet, inside his room, no agitated or hostile in the last 3-4 hours. Compliant with medications, no significant side effects. Review of Systems Other No somatic complaints Objective Alert: Yes [place]: Person Mood: Calm Affect: Restricted Memory Intact: Immediate Hallucinations: Auditory Delusions: Yes Delusion Type: Paranoid Suicidal: Ideation (no) Homicidal: Ideation (no) Insight/Judgment Poor Vitals/IOs Vital Signs Date Time Temp Pulse Resp B/P (MAP) Pulse Ox O2 Delivery O2 Flow Rate FiO2 11/22/16 05:53 98.5 84 18 97/52 (67) 98 Assessment & Plan Problem List: (1) Schizophrenia, paranoid, chronic ICD Codes: F20.0 - Paranoid schizophrenia Status: Acute Assessment & Plan: Continue current psychotropics. 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 Inpt. Patient has an elevated risk to decompensate out of an structure environment. Gen Julian MD Nov 22, 2016 14:45
[2016-11-22 17:19] VITALS: BP 128/60; PULSE 110; RESP 17; TEMP 99.2; O2SAT 99
[2016-11-22] MEDS: ARIPiprazole 10 MG TAB PO SCH (21:37)
[2016-11-22] MEDS: QUEtiapine FUMARATE 300 MG TAB PO SCH (21:37)
[2016-11-23 05:58] VITALS: BP 127/64; PULSE 100; RESP 18; TEMP 97.9; O2SAT 99
[2016-11-23] MEDS: metroNIDAZOLE 500 MG TAB PO SCH ×3 (06:03→20:59)
[2016-11-23] MEDS: QUEtiapine FUMARATE 200 MG TAB PO SCH ×2 (06:03→16:13)
[2016-11-23] MEDS: PANTOPRAZOLE SOD 40 MG DELAYED RELEASE TAB PO SCH (08:40)
[2016-11-23] MEDS: LACTULOSE SYRUP 20 GM/30 ML CUP PO SCH ×3 (08:40→16:14)
[2016-11-23] MEDS: DIVALPROEX SODIUM SPRINKLES 125 MG CAP PO SCH ×2 (08:40→20:59)
--- NOTE | 2016-11-23 12:56 | HHI.PYPN ---
Subjective Remarks Patient continues to be reclusive, paranoid and provides minimal verbal output. Case discussed with nurse, patient interviewed at bedside, and chart reviewed. Medications appear to be helping stabilize his mood and psychosis. However, he does remain paranoid. Review of Systems Except as stated in HPI: all other systems reviewed are Neg Objective Alert: Yes [place]: Person Mood: Calm Affect: Restricted Memory Intact: Immediate Hallucinations: Auditory Delusions: Yes Delusion Type: Paranoid Suicidal: Ideation (no) Homicidal: Ideation (no) Insight/Judgment Impaired Vitals/IOs Vital Signs Date Time Temp Pulse Resp B/P (MAP) Pulse Ox O2 Delivery O2 Flow Rate FiO2 11/23/16 05:58 97.9 100 18 127/64 (85) 99 Assessment & Plan Problem List: (1) Schizophrenia, paranoid, chronic ICD Codes: F20.0 - Paranoid schizophrenia Status: Acute Assessment & Plan Estimated LOS: days continue current antipsychotic/mood stabilizing medication regimen and evaluate for continuing efficacy. Justification for Cont. Inpt. Prevent relapse. Martell Barnes MD Nov 23, 2016 12:55
[2016-11-23 17:50] VITALS: BP 125/89; PULSE 116; RESP 18; TEMP 98.3; O2SAT 95
[2016-11-23] MEDS: ARIPiprazole 10 MG TAB PO SCH (20:58)
[2016-11-23] MEDS: QUEtiapine FUMARATE 300 MG TAB PO SCH (20:59)
[2016-11-24] MEDS: metroNIDAZOLE 500 MG TAB PO SCH ×3 (06:01→20:29)
[2016-11-24] MEDS: QUEtiapine FUMARATE 200 MG TAB PO SCH ×2 (06:01→16:20)
[2016-11-24 06:34] VITALS: BP 108/57; PULSE 109; RESP 16; TEMP 97.6; O2SAT 98
[2016-11-24] MEDS: LACTULOSE SYRUP 20 GM/30 ML CUP PO SCH ×3 (07:58→16:20)
[2016-11-24] MEDS: DIVALPROEX SODIUM SPRINKLES 125 MG CAP PO SCH ×2 (07:58→20:29)
[2016-11-24] MEDS: PANTOPRAZOLE SOD 40 MG DELAYED RELEASE TAB PO SCH (07:59)
[2016-11-24 17:26] VITALS: BP 121/73; PULSE 102; RESP 17; TEMP 98; O2SAT 97
[2016-11-24] MEDS: ARIPiprazole 10 MG TAB PO SCH (20:29)
[2016-11-24] MEDS: QUEtiapine FUMARATE 300 MG TAB PO SCH (20:29)
[2016-11-24] MEDS: LORazepam 1 MG TAB PO PRN (22:39)
[2016-11-25 06:19] VITALS: BP 98/66; PULSE 84; RESP 16; TEMP 97.6; O2SAT 99
[2016-11-25] MEDS: QUEtiapine FUMARATE 200 MG TAB PO SCH ×2 (06:37→15:00)
[2016-11-25] MEDS: metroNIDAZOLE 500 MG TAB PO SCH ×3 (06:37→20:53)
[2016-11-25] MEDS: LACTULOSE SYRUP 20 GM/30 ML CUP PO SCH ×3 (08:58→17:56)
[2016-11-25] MEDS: DIVALPROEX SODIUM SPRINKLES 125 MG CAP PO SCH ×2 (08:58→20:51)
[2016-11-25] MEDS: PANTOPRAZOLE SOD 40 MG DELAYED RELEASE TAB PO SCH (08:58)
--- NOTE | 2016-11-25 10:43 | HHI.PYPN ---
Subjective Remarks This is the psychiatric progress note for November 24, 2016. Patient remains reclusive, withdrawn, and in his room most of the time. He does not have any complaints and is not demonstrating any behavioral problems. He appears to be tolerating the current regimen of medications adequately well and they appear to be working adequately well. Review of Systems Except as stated in HPI: all other systems reviewed are Neg Objective Alert: Yes [place]: Person Mood: Calm Affect: Restricted Memory Intact: Immediate Hallucinations: Auditory Delusions: Yes Delusion Type: Paranoid Suicidal: Ideation (no) Homicidal: Ideation (no) Insight/Judgment Impaired Vitals/IOs Vital Signs Date Time Temp Pulse Resp B/P (MAP) Pulse Ox O2 Delivery O2 Flow Rate FiO2 11/25/16 06:19 97.6 84 16 98/66 (77) 99 Assessment & Plan Problem List: (1) Schizophrenia, paranoid, chronic ICD Codes: F20.0 - Paranoid schizophrenia Status: Acute Assessment & Plan Estimated LOS: days continue current medication regimen as patient requires oral Abilify before injectable Abilify reaches therapeutic blood level. Justification for Cont. Inpt. Prevent decompensation in less restrictive environment.. Martell Barnes MD Nov 25, 2016 10:43
[2016-11-25 18:19] VITALS: BP 119/77; PULSE 99; RESP 18; TEMP 98.2; O2SAT 98
[2016-11-25] MEDS: ARIPiprazole 10 MG TAB PO SCH (20:52)
[2016-11-25] MEDS: QUEtiapine FUMARATE 300 MG TAB PO SCH (20:53)
[2016-11-26] MEDS: metroNIDAZOLE 500 MG TAB PO SCH ×3 (05:23→20:34)
[2016-11-26 05:30] VITALS: BP_SYST 103; BP_SYST 95; BP_DIAS 56; PULSE 75; PULSE 87; RESP 16; TEMP 97.9; TEMP 98.3; O2SAT 100
[2016-11-26] MEDS: QUEtiapine FUMARATE 200 MG TAB PO SCH ×2 (07:00→15:04)
[2016-11-26] MEDS: LACTULOSE SYRUP 20 GM/30 ML CUP PO SCH ×3 (09:07→18:00)
[2016-11-26] MEDS: PANTOPRAZOLE SOD 40 MG DELAYED RELEASE TAB PO SCH (09:07)
[2016-11-26] MEDS: DIVALPROEX SODIUM SPRINKLES 125 MG CAP PO SCH ×2 (09:08→20:33)
--- NOTE | 2016-11-26 15:58 | HHI.PYPN ---
Subjective Remarks This is the psychiatric progress note for November 25, 2016. Patient calm, socially reclusive, eating meals and cooperative with hygiene. He is mostly nonverbal and may only nod yes or no to verbal questions. No evidence of delusions or hallucinations at this point. Review of Systems Except as stated in HPI: all other systems reviewed are Neg Objective Alert: Yes [place]: Person Mood: Calm Affect: Restricted Memory Intact: Immediate Hallucinations: Other Delusions: No Delusion Type: Other Suicidal: Ideation (no) Homicidal: Ideation (no) Insight/Judgment Remains impaired. Vitals/IOs Vital Signs Date Time Temp Pulse Resp B/P (MAP) Pulse Ox O2 Delivery O2 Flow Rate FiO2 11/26/16 05:30 97.9 87 16 95/56 (69) 100 Assessment & Plan Problem List: (1) Schizophrenia, paranoid, chronic ICD Codes: F20.0 - Paranoid schizophrenia Status: Acute Assessment & Plan Estimated LOS: days continue current medication regimen as it continues to work. Justification for Cont. Inpt. Will decompensate at lower level of care. Martell Barnes MD Nov 26, 2016 15:58
--- NOTE | 2016-11-26 16:00 | HHI.PYPN ---
Subjective Remarks This is the psychiatric progress note for November 26, 2016. Patient examined in his room. Discussed case with medical office receptionist assistant supervising patient. Reviewed record and nursing reports. Patient remains seclusive. He is not posing a behavioral problem. He does not appear to be paranoid at this time. It is difficult to ascertain whether he has hallucinations or not. Review of Systems Except as stated in HPI: all other systems reviewed are Neg Objective Alert: Yes [place]: Person Mood: Calm Affect: Restricted Memory Intact: Immediate Hallucinations: Other Delusions: No Delusion Type: Other Suicidal: Ideation (no) Homicidal: Ideation (no) Insight/Judgment Impaired but baseline Vitals/IOs Vital Signs Date Time Temp Pulse Resp B/P (MAP) Pulse Ox O2 Delivery O2 Flow Rate FiO2 11/26/16 05:30 97.9 87 16 95/56 (69) 100 Assessment & Plan Problem List: (1) Schizophrenia, paranoid, chronic ICD Codes: F20.0 - Paranoid schizophrenia Status: Acute Assessment & Plan Estimated LOS: days continue current medication regimen and evaluate for efficacy versus tolerability. Justification for Cont. Inpt. Likely to decompensate at lower level of care. Martell Barnes MD Nov 26, 2016 16:00
[2016-11-26 16:15] VITALS: BP 118/72; PULSE 104; RESP 18; TEMP 98.1; O2SAT 98
[2016-11-26] MEDS: QUEtiapine FUMARATE 300 MG TAB PO SCH (20:33)
[2016-11-26] MEDS: ARIPiprazole 10 MG TAB PO SCH (20:33)
[2016-11-27] MEDS: metroNIDAZOLE 500 MG TAB PO SCH ×3 (05:28→21:45)
[2016-11-27] MEDS: QUEtiapine FUMARATE 200 MG TAB PO SCH ×2 (05:30→15:42)
[2016-11-27 05:37] VITALS: BP 104/58; PULSE 93; RESP 18; TEMP 97.8; O2SAT 97
[2016-11-27] MEDS: LACTULOSE SYRUP 20 GM/30 ML CUP PO SCH ×3 (09:00→18:00)
[2016-11-27] MEDS: PANTOPRAZOLE SOD 40 MG DELAYED RELEASE TAB PO SCH (09:44)
[2016-11-27] MEDS: DIVALPROEX SODIUM SPRINKLES 125 MG CAP PO SCH ×2 (09:44→20:22)
[2016-11-27 17:45] VITALS: BP 136/69; PULSE 116; RESP 18; TEMP 98.1; O2SAT 97
--- NOTE | 2016-11-27 19:22 | HHI.PYPN ---
Subjective Remarks Patient was seen and case discussed with nursing. Patient is selectively mute today. Continues to masturbate throughout the day. Per nursing, pacing throughout the day and responding to self. Compliant with medications. No outbursts today Objective Alert: Yes [place]: Person Mood: Oppositional Affect: Restricted Memory Intact: Immediate Hallucinations: Other Delusions: No Delusion Type: Other Suicidal: Ideation (would not answer) Homicidal: Ideation (not answer) Insight/Judgment Poor Vitals/IOs Vital Signs Date Time Temp Pulse Resp B/P (MAP) Pulse Ox O2 Delivery O2 Flow Rate FiO2 11/27/16 17:45 98.1 116 18 136/69 (91) 97 Assessment & Plan Problem List: (1) Schizophrenia, paranoid, chronic ICD Codes: F20.0 - Paranoid schizophrenia Status: Acute Assessment & Plan Continue current treatment plan Justification for Cont. Inpt. Patient would decompensate in a less restrictive setting William Edwards DO Nov 27, 2016 19:22
[2016-11-27] MEDS: LORazepam 1 MG TAB PO PRN (20:00)
[2016-11-27] MEDS: ARIPiprazole 10 MG TAB PO SCH (20:22)
[2016-11-27] MEDS: QUEtiapine FUMARATE 300 MG TAB PO SCH (20:23)
[2016-11-28 05:28] VITALS: BP 109/57; PULSE 88; RESP 15; TEMP 98.2; O2SAT 99
[2016-11-28] MEDS: metroNIDAZOLE 500 MG TAB PO SCH ×3 (05:30→21:03)
[2016-11-28] MEDS: QUEtiapine FUMARATE 200 MG TAB PO SCH ×2 (06:33→16:20)
[2016-11-28] MEDS: LACTULOSE SYRUP 20 GM/30 ML CUP PO SCH ×3 (09:36→18:27)
[2016-11-28] MEDS: PANTOPRAZOLE SOD 40 MG DELAYED RELEASE TAB PO SCH (09:36)
[2016-11-28] MEDS: DIVALPROEX SODIUM SPRINKLES 125 MG CAP PO SCH ×2 (10:35→21:03)
[2016-11-28 17:00] VITALS: BP 104/62; PULSE 101; RESP 18; TEMP 99.1; O2SAT 98
--- NOTE | 2016-11-28 17:55 | HHI.PYPN ---
Subjective Remarks Patient was seen and case discussed with nursing. Patient had a visited today from his mother, grandmother which she refused. Continues to deny the interview with me in is irritable and cursing at the air. Masturbating less today. However, has had no outbursts Objective Alert: Yes [place]: Person Mood: Agitated Affect: Restricted Memory Intact: Immediate Hallucinations: Other Delusions: No Delusion Type: Other Suicidal: Ideation (would not answer) Homicidal: Ideation (not answer) Insight/Judgment Poor Vitals/IOs Vital Signs Date Time Temp Pulse Resp B/P (MAP) Pulse Ox O2 Delivery O2 Flow Rate FiO2 11/28/16 17:00 99.1 101 18 104/62 (17) 98 Assessment & Plan Problem List: (1) Schizophrenia, paranoid, chronic ICD Codes: F20.0 - Paranoid schizophrenia Status: Acute Assessment & Plan Continue current treatment plan Justification for Cont. Inpt. Patient will decompensate in a less restrictive setting William Edwards DO Nov 28, 2016 17:55
[2016-11-28] MEDS: QUEtiapine FUMARATE 300 MG TAB PO SCH (21:04)
[2016-11-28] MEDS: ARIPiprazole 10 MG TAB PO SCH (21:04)
[2016-11-29] MEDS: QUEtiapine FUMARATE 200 MG TAB PO SCH ×2 (05:51→15:32)
[2016-11-29] MEDS: metroNIDAZOLE 500 MG TAB PO SCH ×3 (05:51→21:29)
[2016-11-29 05:58] VITALS: BP 118/62; PULSE 86; RESP 18; TEMP 97.8; O2SAT 98
--- NOTE | 2016-11-29 08:36 | HHI.PYPN ---
Subjective Remarks Patient seen and examined with nurse in coverage for Dr. Barnes. Chart reviewed. Case discussed with nursing staff who reports that patient refused a visit from his mother and grandmother yesterday and subsequently told the nurse that his mother was . Oral intake recently somewhat poor, and I note the dietitian has been consulted. On my examination this morning, I note the patient has refused his breakfast. He is selectively mute and uncooperative with interview. He is presently calm. No evidence side effects from medications. No reported physical complaints. Review of Systems ROS Limitations: Uncooperative, Poor Historian Other Limited ROS for reasons noted above Objective Alert: Yes [place]: Person Mood: Calm (unable to assess but patient presently calm) Affect: Flat Memory Intact: Comment (not assessed) Hallucinations: Other (unable to assess) Delusions: No Delusion Type: Other (unable to assess) Suicidal: Ideation (unable to assess) Homicidal: Ideation (unable to assess) Insight/Judgment Poor Remarks No motor abnormalities noted Labs Labs reviewed. Nutritional intake reviewed. Vitals/IOs Vital Signs Date Time Temp Pulse Resp B/P (MAP) Pulse Ox O2 Delivery O2 Flow Rate FiO2 11/29/16 05:58 97.8 86 18 118/62 (80) 98 Assessment & Plan Problem List: (1) Schizophrenia, paranoid, chronic ICD Codes: F20.0 - Paranoid schizophrenia Status: Acute Assessment & Plan Continue current psychotropics as ordered. Continue to monitor on the high acuity unit. Continue other medications and care as ordered. Justification for Cont. Inpt. Risk for decompensation in less restrictive environment. Discharge Planning Per Van Vanegas MD Nov 29, 2016 08:36
[2016-11-29] MEDS: LACTULOSE SYRUP 20 GM/30 ML CUP PO SCH ×3 (08:45→17:33)
[2016-11-29] MEDS: DIVALPROEX SODIUM SPRINKLES 125 MG CAP PO SCH ×2 (08:45→21:00)
[2016-11-29] MEDS: PANTOPRAZOLE SOD 40 MG DELAYED RELEASE TAB PO SCH (08:45)
[2016-11-29] MEDS: ARIPiprazole 10 MG TAB PO SCH (21:00)
[2016-11-29] MEDS: QUEtiapine FUMARATE 300 MG TAB PO SCH (21:00)
[2016-11-30] MEDS: PANTOPRAZOLE SOD 40 MG DELAYED RELEASE TAB PO SCH (08:44)
[2016-11-30] MEDS: DIVALPROEX SODIUM SPRINKLES 125 MG CAP PO SCH ×2 (08:44→21:00)
[2016-11-30] MEDS: metroNIDAZOLE 500 MG TAB PO SCH ×3 (08:45→22:00)
[2016-11-30] MEDS: QUEtiapine FUMARATE 200 MG TAB PO SCH ×2 (08:49→15:00)
[2016-11-30] MEDS: LACTULOSE SYRUP 20 GM/30 ML CUP PO SCH ×3 (08:50→18:00)
[2016-11-30 17:38] VITALS: BP 110/70; PULSE 104; RESP 18; TEMP 97.4; O2SAT 98
[2016-11-30] MEDS: ARIPiprazole 10 MG TAB PO SCH (21:00)
[2016-11-30] MEDS: QUEtiapine FUMARATE 300 MG TAB PO SCH (21:00)
[2016-11-30] MEDS: LORazepam 1 MG TAB PO PRN (21:16)
[2016-12-01] MEDS: metroNIDAZOLE 500 MG TAB PO SCH ×3 (06:00→21:02)
[2016-12-01] MEDS: PANTOPRAZOLE SOD 40 MG DELAYED RELEASE TAB PO SCH (08:21)
[2016-12-01] MEDS: QUEtiapine FUMARATE 200 MG TAB PO SCH ×2 (08:21→15:29)
[2016-12-01] MEDS: LACTULOSE SYRUP 20 GM/30 ML CUP PO SCH ×3 (08:21→17:17)
[2016-12-01] MEDS: DIVALPROEX SODIUM SPRINKLES 125 MG CAP PO SCH ×2 (08:21→21:00)
--- NOTE | 2016-12-01 13:04 | HHI.PYPN ---
Subjective Remarks This is the psychiatric progress note for November 30, 2016. Patient remains calm and cooperative. He is coming out of his room more although he is not socializing with staff or other patients. He is more cooperative, allowing people to direct him to shower and cut his hair. Review of Systems Except as stated in HPI: all other systems reviewed are Neg Objective Alert: Yes [place]: Person Mood: Calm (unable to assess but patient presently calm) Affect: Flat Memory Intact: Comment (not assessed) Hallucinations: Other (unable to assess) Delusions: No Delusion Type: Other (unable to assess) Suicidal: Ideation (unable to assess) Homicidal: Ideation (unable to assess) Insight/Judgment Impaired Vitals/IOs Vital Signs Date Time Temp Pulse Resp B/P (MAP) Pulse Ox O2 Delivery O2 Flow Rate FiO2 11/30/16 17:38 97.4 104 18 110/70 (83) 98 Assessment & Plan Problem List: (1) Schizophrenia, paranoid, chronic ICD Codes: F20.0 - Paranoid schizophrenia Status: Acute Assessment & Plan Estimated LOS: days continue current medication regimen. Justification for Cont. Inpt. Will decompensate at lower level of care. Martell Barnes MD Dec 01, 2016 13:04
--- NOTE | 2016-12-01 13:06 | HHI.PYPN ---
Subjective Remarks Patient seen in day room. Medical record reviewed. Case discussed with nurse. Patient remains seclusive and mostly nonverbal. However he has not been aggressive since he was admitted. He is tolerating antipsychotic therapy well. Review of Systems Except as stated in HPI: all other systems reviewed are Neg Objective Alert: Yes [place]: Person Mood: Calm (unable to assess but patient presently calm) Affect: Flat Memory Intact: Comment (not assessed) Hallucinations: Other (unable to assess) Delusions: No Delusion Type: Other (unable to assess) Suicidal: Ideation (unable to assess) Homicidal: Ideation (unable to assess) Insight/Judgment Impaired Vitals/IOs Vital Signs Date Time Temp Pulse Resp B/P (MAP) Pulse Ox O2 Delivery O2 Flow Rate FiO2 11/30/16 17:38 97.4 104 18 110/70 (83) 98 Assessment & Plan Problem List: (1) Schizophrenia, paranoid, chronic ICD Codes: F20.0 - Paranoid schizophrenia Status: Acute Assessment & Plan Estimated LOS: days continue current antipsychotics and monthly Abilify Maintena injection. Justification for Cont. Inpt. Remains paranoid. Unable to care for self. Martell Barnes MD Dec 01, 2016 13:06
[2016-12-01 18:52] VITALS: BP 132/72; PULSE 115; RESP 16; TEMP 98.4; O2SAT 97
[2016-12-01] MEDS: ARIPiprazole 10 MG TAB PO SCH (21:00)
[2016-12-01] MEDS: QUEtiapine FUMARATE 300 MG TAB PO SCH (21:00)
[2016-12-01] MEDS: LORazepam 1 MG TAB PO PRN (21:02)
[2016-12-02 05:39] VITALS: BP 120/59; PULSE 73; RESP 16; TEMP 97.7; O2SAT 99
[2016-12-02] MEDS: metroNIDAZOLE 500 MG TAB PO SCH ×2 (06:00→14:00)
[2016-12-02] MEDS: DIVALPROEX SODIUM SPRINKLES 125 MG CAP PO SCH ×2 (07:59→20:31)
[2016-12-02] MEDS: PANTOPRAZOLE SOD 40 MG DELAYED RELEASE TAB PO SCH (07:59)
[2016-12-02] MEDS: QUEtiapine FUMARATE 200 MG TAB PO SCH ×2 (08:00→15:28)
[2016-12-02] MEDS: LACTULOSE SYRUP 20 GM/30 ML CUP PO SCH ×3 (08:00→17:47)
[2016-12-02 15:44] VITALS: BP 129/82; PULSE 110; RESP 18; TEMP 98.4; O2SAT 98
--- NOTE | 2016-12-02 15:58 | HHI.PYPN ---
Subjective Remarks Patient seen in coverage for Dr. Barnes. Chart reviewed. Case discussed with nursing staff. No behavioral issues noted overnight. I note that the patient refused his nighttime psychotropics yesterday evening but has accepted morning meds. Continues to complain of some voices but does not elaborate on what they are saying. No reported side effects from medications. Review of Systems ROS Limitations: Psychotic, Poor Historian Except as stated in HPI: all other systems reviewed are Neg Objective Alert: Yes [place]: Person Mood: Calm Affect: Flat Memory Intact: Comment (not formally assessed) Hallucinations: Auditory Delusions: No Delusion Type: Other (limited sample) Suicidal: Ideation (none voiced) Homicidal: Ideation (none voiced) Insight/Judgment Poor Remarks No motor abnormalities noted Labs Labs reviewed. Vitals/IOs Vital Signs Date Time Temp Pulse Resp B/P (MAP) Pulse Ox O2 Delivery O2 Flow Rate FiO2 12/02/16 15:44 98.4 110 18 129/82 (98) 98 Assessment & Plan Problem List: (1) Schizophrenia, paranoid, chronic ICD Codes: F20.0 - Paranoid schizophrenia Status: Acute Assessment & Plan Continue current psychotropics as ordered. Continue to monitor on the high acuity unit. Continue other medications and care as ordered. Justification for Cont. Inpt. Risk for decompensation Discharge Planning Per Van Vanegas MD Dec 02, 2016 15:58
[2016-12-02] MEDS: LORazepam 1 MG TAB PO PRN (18:45)
[2016-12-02] MEDS: ARIPiprazole 10 MG TAB PO SCH (20:30)
[2016-12-02] MEDS: QUEtiapine FUMARATE 300 MG TAB PO SCH (20:30)
[2016-12-03] MEDS: QUEtiapine FUMARATE 200 MG TAB PO SCH ×3 (05:06→17:02)
[2016-12-03 05:49] VITALS: BP 101/56; PULSE 82; RESP 18; TEMP 98.2; O2SAT 99
[2016-12-03] MEDS: PANTOPRAZOLE SOD 40 MG DELAYED RELEASE TAB PO SCH ×2 (08:33→09:00)
[2016-12-03] MEDS: LACTULOSE SYRUP 20 GM/30 ML CUP PO SCH ×4 (08:33→17:02)
[2016-12-03] MEDS: DIVALPROEX SODIUM SPRINKLES 125 MG CAP PO SCH ×3 (08:34→20:16)
[2016-12-03] MEDS: LORazepam 1 MG TAB PO PRN (17:02)
[2016-12-03 17:56] VITALS: BP 116/58; PULSE 74; RESP 18; TEMP 97.7; O2SAT 100
[2016-12-03] MEDS: ARIPiprazole 10 MG TAB PO SCH (20:15)
[2016-12-03] MEDS: QUEtiapine FUMARATE 300 MG TAB PO SCH (20:15)
[2016-12-04 06:14] VITALS: BP 109/66; PULSE 98; RESP 16; TEMP 98.4; O2SAT 98
[2016-12-04] MEDS: QUEtiapine FUMARATE 200 MG TAB PO SCH ×2 (06:35→15:55)
[2016-12-04] MEDS: LACTULOSE SYRUP 20 GM/30 ML CUP PO SCH ×3 (08:04→17:19)
[2016-12-04] MEDS: DIVALPROEX SODIUM SPRINKLES 125 MG CAP PO SCH ×2 (08:04→20:18)
[2016-12-04] MEDS: PANTOPRAZOLE SOD 40 MG DELAYED RELEASE TAB PO SCH (08:04)
--- NOTE | 2016-12-04 11:24 | HHI.PYPN ---
Subjective Remarks Pt seen and discussed with staff. He continues to refuse meals and will only take in fluids and nutrition shakes. He remains psychotic and disorganized and requires assistance with hygiene. He is quite paranoid and states that he does not want to talk to doctor. No SI/HI Objective Alert: Yes [place]: Person Mood: Calm Affect: Flat Memory Intact: Comment (not formally assessed to psychosis and lack of cooperation) Hallucinations: Auditory Delusions: Yes Delusion Type: Paranoid, Other (limited sample) Suicidal: Ideation (none voiced) Homicidal: Ideation (none voiced) Insight/Judgment poor Vitals/IOs Vital Signs Date Time Temp Pulse Resp B/P (MAP) Pulse Ox O2 Delivery O2 Flow Rate FiO2 12/04/16 06:14 98.4 98 16 109/66 (80) 98 Assessment & Plan Problem List: (1) Schizophrenia, paranoid, chronic ICD Codes: F20.0 - Paranoid schizophrenia Status: Acute Assessment & Plan Continue current tx plan. Estimated LOS: days Justification for Cont. Inpt. impairments in reality testing Stephanie Uriarte MD Dec 04, 2016 11:24
[2016-12-04 18:00] VITALS: BP 131/76; PULSE 109; RESP 16; TEMP 98.5; O2SAT 98
[2016-12-04] MEDS: ARIPiprazole 10 MG TAB PO SCH (20:18)
[2016-12-04] MEDS: QUEtiapine FUMARATE 300 MG TAB PO SCH (20:18)
[2016-12-04] MEDS: LORazepam 1 MG TAB PO PRN (20:19)
[2016-12-05 05:47] VITALS: BP 119/84; PULSE 101; RESP 18; TEMP 97.8; O2SAT 97
[2016-12-05] MEDS: QUEtiapine FUMARATE 200 MG TAB PO SCH ×2 (06:26→14:25)
[2016-12-05] MEDS: DIVALPROEX SODIUM SPRINKLES 125 MG CAP PO SCH ×3 (08:25→20:27)
[2016-12-05] MEDS: LACTULOSE SYRUP 20 GM/30 ML CUP PO SCH ×3 (08:25→17:04)
[2016-12-05] MEDS: PANTOPRAZOLE SOD 40 MG DELAYED RELEASE TAB PO SCH (08:25)
--- NOTE | 2016-12-05 12:50 | HHI.PYPN ---
Subjective Remarks Pt seen and discussed with staff. He continues to respond to internal stimuli. He had an animated conversation with television today. He was compliant with medications with RN coaching. No aggression. Objective Alert: Yes [place]: Person Mood: Calm Affect: Flat Memory Intact: Comment (not formally assessed to psychosis and lack of cooperation) Hallucinations: Auditory Delusions: Yes Delusion Type: Paranoid Suicidal: Ideation (none voiced) Homicidal: Ideation (none voiced) Insight/Judgment poor Vitals/IOs Vital Signs Date Time Temp Pulse Resp B/P (MAP) Pulse Ox O2 Delivery O2 Flow Rate FiO2 12/05/16 05:47 97.8 101 18 119/84 (96) 97 Assessment & Plan Problem List: (1) Schizophrenia, paranoid, chronic ICD Codes: F20.0 - Paranoid schizophrenia Status: Acute Assessment & Plan Continue current tx plan. Estimated LOS: days Justification for Cont. Inpt. impairments in reality testing Stephanie Uriarte MD Dec 05, 2016 12:50
[2016-12-05] MEDS: LORazepam 1 MG TAB PO PRN ×2 (16:15→22:04)
[2016-12-05 17:53] VITALS: BP 124/73; PULSE 100; RESP 18; TEMP 98.7; O2SAT 96
[2016-12-05] MEDS: ARIPiprazole 10 MG TAB PO SCH (20:26)
[2016-12-05] MEDS: QUEtiapine FUMARATE 300 MG TAB PO SCH (20:26)
[2016-12-06 06:00] VITALS: BP 116/70; PULSE 83; RESP 16; TEMP 98.7; O2SAT 96
[2016-12-06] MEDS: QUEtiapine FUMARATE 200 MG TAB PO SCH ×2 (06:08→14:23)
[2016-12-06] MEDS: LACTULOSE SYRUP 20 GM/30 ML CUP PO SCH ×3 (08:58→18:00)
[2016-12-06] MEDS: PANTOPRAZOLE SOD 40 MG DELAYED RELEASE TAB PO SCH (08:58)
[2016-12-06] MEDS: DIVALPROEX SODIUM SPRINKLES 125 MG CAP PO SCH ×2 (08:58→21:01)
[2016-12-06 16:46] VITALS: BP 114/66; PULSE 116; RESP 18; TEMP 98.1; O2SAT 98
[2016-12-06] MEDS: QUEtiapine FUMARATE 300 MG TAB PO SCH (21:01)
[2016-12-06] MEDS: ARIPiprazole 10 MG TAB PO SCH (21:01)
[2016-12-06] MEDS: LORazepam 1 MG TAB PO PRN (21:01)
[2016-12-06] MEDS: diphenhydrAMINE HCL 50 MG/ML VIAL IM PRN (22:28)
[2016-12-06] MEDS: HALOPERIDOL LACTATE 5 MG/ML AMP IM PRN (22:28)
[2016-12-07 06:08] VITALS: BP 122/64; PULSE 97; RESP 18; O2SAT 100
[2016-12-07] MEDS: QUEtiapine FUMARATE 200 MG TAB PO SCH ×3 (06:29→15:00)
[2016-12-07] MEDS: PANTOPRAZOLE SOD 40 MG DELAYED RELEASE TAB PO SCH (08:46)
[2016-12-07] MEDS: DIVALPROEX SODIUM SPRINKLES 125 MG CAP PO SCH ×2 (08:47→20:54)
[2016-12-07] MEDS: LACTULOSE SYRUP 20 GM/30 ML CUP PO SCH ×3 (08:48→17:07)
--- NOTE | 2016-12-07 12:50 | HHI.PYPN ---
Subjective Remarks This is the psychiatric progress note for December 06, 2016. Patient remains calm and socially reclusive. He demonstrates a paucity of verbal output. He has not been threatening or aggressive, however. He is tolerating the medicines well. Review of Systems Except as stated in HPI: all other systems reviewed are Neg Objective Alert: Yes [place]: Person Mood: Calm Affect: Flat Memory Intact: Comment (not formally assessed to psychosis and lack of cooperation) Hallucinations: Auditory Delusions: Yes Delusion Type: Paranoid Suicidal: Ideation (none voiced) Homicidal: Ideation (none voiced) Insight/Judgment Impaired Vitals/IOs Vital Signs Date Time Temp Pulse Resp B/P (MAP) Pulse Ox O2 Delivery O2 Flow Rate FiO2 12/07/16 06:08 97 18 122/64 (83) 100 12/06/16 16:46 98.1 Assessment & Plan Problem List: (1) Schizophrenia, paranoid, chronic ICD Codes: F20.0 - Paranoid schizophrenia Status: Acute Assessment & Plan Estimated LOS: days continue current treatment plan. Justification for Cont. Inpt. Likely to decompensate at lower level of care. Martell Barnes MD Dec 07, 2016 12:50
--- NOTE | 2016-12-07 12:51 | HHI.PYPN ---
Subjective Remarks Patient remains in his room. He is calm and apparently cooperative. Case discussed with nurse and associate school psychologist. Medical record reviewed. Review of Systems Except as stated in HPI: all other systems reviewed are Neg Objective Alert: Yes [place]: Person Mood: Calm Affect: Flat Memory Intact: Comment (not formally assessed to psychosis and lack of cooperation) Hallucinations: Auditory Delusions: Yes Delusion Type: Paranoid Suicidal: Ideation (none voiced) Homicidal: Ideation (none voiced) Insight/Judgment Impaired Vitals/IOs Vital Signs Date Time Temp Pulse Resp B/P (MAP) Pulse Ox O2 Delivery O2 Flow Rate FiO2 12/07/16 06:08 97 18 122/64 (83) 100 12/06/16 16:46 98.1 Assessment & Plan Problem List: (1) Schizophrenia, paranoid, chronic ICD Codes: F20.0 - Paranoid schizophrenia Status: Acute Assessment & Plan Estimated LOS: days continue current antipsychotic treatment. Justification for Cont. Inpt. Likely to decompensate at lower level of care. Martell Barnes MD Dec 07, 2016 12:51
[2016-12-07] MEDS: ARIPiprazole 10 MG TAB PO SCH (20:53)
[2016-12-07] MEDS: QUEtiapine FUMARATE 300 MG TAB PO SCH (20:54)
[2016-12-07] MEDS: LORazepam 1 MG TAB PO PRN (23:20)
[2016-12-08] MEDS: QUEtiapine FUMARATE 200 MG TAB PO SCH ×2 (05:28→15:00)
[2016-12-08 06:01] VITALS: BP 115/70; PULSE 88; RESP 18; TEMP 97.1; O2SAT 100
[2016-12-08] MEDS: DIVALPROEX SODIUM SPRINKLES 125 MG CAP PO SCH ×2 (09:00→20:37)
[2016-12-08] MEDS: PANTOPRAZOLE SOD 40 MG DELAYED RELEASE TAB PO SCH (09:00)
[2016-12-08] MEDS: LACTULOSE SYRUP 20 GM/30 ML CUP PO SCH ×3 (09:00→17:50)
[2016-12-08] MEDS: QUEtiapine FUMARATE 300 MG TAB PO SCH (20:37)
[2016-12-08] MEDS: ARIPiprazole 10 MG TAB PO SCH (20:37)
[2016-12-09 06:04] VITALS: BP 130/76; PULSE 88; RESP 16; TEMP 97.5; O2SAT 99
[2016-12-09] MEDS: QUEtiapine FUMARATE 200 MG TAB PO SCH ×2 (06:35→14:35)
[2016-12-09] MEDS: LACTULOSE SYRUP 20 GM/30 ML CUP PO SCH ×3 (07:45→16:42)
[2016-12-09] MEDS: PANTOPRAZOLE SOD 40 MG DELAYED RELEASE TAB PO SCH (07:46)
[2016-12-09] MEDS: DIVALPROEX SODIUM SPRINKLES 125 MG CAP PO SCH ×2 (07:53→20:30)
--- NOTE | 2016-12-09 14:17 | HHI.PYPN ---
Subjective Remarks This is the psychiatric progress note for December 08, 2016. Patient remains calm and cooperative. Review of Systems Except as stated in HPI: all other systems reviewed are Neg Objective Alert: Yes [place]: Person Mood: Calm Affect: Flat Memory Intact: Comment (not formally assessed to psychosis and lack of cooperation) Hallucinations: Auditory Delusions: Yes Delusion Type: Paranoid Suicidal: Ideation (none voiced) Homicidal: Ideation (none voiced) Insight/Judgment Impaired Vitals/IOs Vital Signs Date Time Temp Pulse Resp B/P (MAP) Pulse Ox O2 Delivery O2 Flow Rate FiO2 12/09/16 06:04 97.5 88 16 130/76 (94) 99 Assessment & Plan Problem List: (1) Schizophrenia, paranoid, chronic ICD Codes: F20.0 - Paranoid schizophrenia Status: Acute Assessment & Plan Estimated LOS: days continue current meds. Justification for Cont. Inpt. Likely to decompensate at lower level of care. Martell Barnes MD Dec 09, 2016 14:16
--- NOTE | 2016-12-09 14:18 | HHI.PYPN ---
Subjective Remarks Remains calm and cooperative. Mental status unchanged. Chart reviewed and case discussed with nurse. Review of Systems Except as stated in HPI: all other systems reviewed are Neg Objective Alert: Yes [place]: Person Mood: Calm Affect: Flat Memory Intact: Comment (not formally assessed to psychosis and lack of cooperation) Hallucinations: Auditory Delusions: Yes Delusion Type: Paranoid Suicidal: Ideation (none voiced) Homicidal: Ideation (none voiced) Insight/Judgment Impaired Vitals/IOs Vital Signs Date Time Temp Pulse Resp B/P (MAP) Pulse Ox O2 Delivery O2 Flow Rate FiO2 12/09/16 06:04 97.5 88 16 130/76 (94) 99 Assessment & Plan Problem List: (1) Schizophrenia, paranoid, chronic ICD Codes: F20.0 - Paranoid schizophrenia Status: Acute Assessment & Plan Estimated LOS: days no change to treatment plan. Justification for Cont. Inpt. Likely to decompensate at lower level of care. Martell Barnes MD Dec 09, 2016 14:18
[2016-12-09 16:00] VITALS: BP 118/61; PULSE 94; RESP 18; TEMP 97.3; O2SAT 98
[2016-12-09] MEDS: ARIPiprazole 10 MG TAB PO SCH (20:29)
[2016-12-09] MEDS: QUEtiapine FUMARATE 300 MG TAB PO SCH (20:29)
[2016-12-09] MEDS: diphenhydrAMINE HCL 50 MG/ML VIAL IM PRN (23:13)
[2016-12-09] MEDS: HALOPERIDOL LACTATE 5 MG/ML AMP IM PRN (23:13)
[2016-12-09] MEDS: ACETAMINOPHEN 325 MG TAB PO PRN (23:14)
[2016-12-09] MEDS: LORazepam 2 MG/ML VIAL IM PRN (23:14)
[2016-12-10 06:00] VITALS: BP 101/57; PULSE 69; RESP 15; TEMP 97.3; O2SAT 92
[2016-12-10] MEDS: QUEtiapine FUMARATE 200 MG TAB PO SCH ×2 (06:30→16:10)
[2016-12-10] MEDS: LACTULOSE SYRUP 20 GM/30 ML CUP PO SCH ×3 (09:00→19:53)
[2016-12-10] MEDS: PANTOPRAZOLE SOD 40 MG DELAYED RELEASE TAB PO SCH (10:40)
[2016-12-10] MEDS: DIVALPROEX SODIUM SPRINKLES 125 MG CAP PO SCH ×2 (10:40→20:50)
[2016-12-10 17:55] VITALS: BP 130/82; PULSE 90; RESP 17; TEMP 98.1; O2SAT 96
[2016-12-10] MEDS: ARIPiprazole 10 MG TAB PO SCH (20:47)
[2016-12-10] MEDS: QUEtiapine FUMARATE 300 MG TAB PO SCH (20:48)
[2016-12-10] MEDS: HALOPERIDOL LACTATE 5 MG/ML AMP IM PRN (23:29)
[2016-12-10] MEDS: LORazepam 2 MG/ML VIAL IM PRN (23:29)
[2016-12-11 05:52] VITALS: BP 104/56; PULSE 62; RESP 17; TEMP 98; O2SAT 97
[2016-12-11] MEDS: QUEtiapine FUMARATE 200 MG TAB PO SCH ×2 (06:15→15:10)
[2016-12-11] MEDS: DIVALPROEX SODIUM SPRINKLES 125 MG CAP PO SCH ×2 (08:02→20:08)
[2016-12-11] MEDS: LACTULOSE SYRUP 20 GM/30 ML CUP PO SCH ×3 (08:02→18:56)
[2016-12-11] MEDS: PANTOPRAZOLE SOD 40 MG DELAYED RELEASE TAB PO SCH (08:02)
--- NOTE | 2016-12-11 18:06 | HHI.PYPN ---
Subjective Remarks Patient was seen and case discussed with nursing. Patient is pleasant and cooperative with exam. Insight remains poor. Complaining of right ear pain and pulling in his ear all day per nursing. Tolerating medications well. No verbal or physical outbursts Objective Alert: Yes [place]: Person Mood: Calm Affect: Appropriate Memory Intact: Comment (not formally assessed to psychosis and lack of cooperation) Hallucinations: Auditory Delusions: Yes Delusion Type: Paranoid Suicidal: Ideation (none voiced) Homicidal: Ideation (none voiced) Insight/Judgment Poor Vitals/IOs Vital Signs Date Time Temp Pulse Resp B/P (MAP) Pulse Ox O2 Delivery O2 Flow Rate FiO2 12/11/16 05:52 98.0 62 17 104/56 (72) 97 Assessment & Plan Problem List: (1) Schizophrenia, paranoid, chronic ICD Codes: F20.0 - Paranoid schizophrenia Status: Acute Assessment & Plan Consult medicine Justification for Cont. Inpt. Patient would decompensate in a less restrictive setting William Edwards DO Dec 11, 2016 18:06
[2016-12-11 18:20] VITALS: PULSE 126; RESP 20; TEMP 98.4; O2SAT 99
[2016-12-11] MEDS: ARIPiprazole 10 MG TAB PO SCH (20:08)
[2016-12-11] MEDS: QUEtiapine FUMARATE 300 MG TAB PO SCH (20:08)
[2016-12-11] MEDS: LORazepam 1 MG TAB PO PRN (20:09)
[2016-12-12 05:57] VITALS: BP 111/65; PULSE 75; RESP 18; TEMP 98; O2SAT 99
[2016-12-12] MEDS: QUEtiapine FUMARATE 200 MG TAB PO SCH ×2 (06:35→15:27)
[2016-12-12] MEDS: PANTOPRAZOLE SOD 40 MG DELAYED RELEASE TAB PO SCH (09:17)
[2016-12-12] MEDS: LACTULOSE SYRUP 20 GM/30 ML CUP PO SCH ×3 (09:17→17:35)
[2016-12-12] MEDS: DIVALPROEX SODIUM SPRINKLES 125 MG CAP PO SCH ×2 (09:17→20:37)
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
[2016-12-12] MEDS ORDERED: NEOMYCIN/POLYMYXIN/HYDROCORT OTIC SUSP 10 ML BTL RIGHT EAR SCH (12:15)
--- NOTE | 2016-12-12 15:21 | HHI.PYPN ---
Subjective Remarks Patient was seen and case discussed with nursing. Patient is pleasant and cooperative with exam. Remains internally preoccupied, talking to himself. Slept 7 hours. Masturbating throughout the day. Compliant with medications Objective Alert: Yes [place]: Person Mood: Calm Affect: Restricted Memory Intact: Comment (not formally assessed to psychosis and lack of cooperation) Hallucinations: Auditory Delusions: Yes Delusion Type: Paranoid Suicidal: Ideation (none voiced) Homicidal: Ideation (none voiced) Insight/Judgment Poor Vitals/IOs Vital Signs Date Time Temp Pulse Resp B/P (MAP) Pulse Ox O2 Delivery O2 Flow Rate FiO2 12/12/16 05:57 98.0 75 18 111/65 (80) 99 Assessment & Plan Problem List: (1) Schizophrenia, paranoid, chronic ICD Codes: F20.0 - Paranoid schizophrenia Status: Acute Assessment & Plan Continue current treatment plan Justification for Cont. Inpt. Patient will decompensate in a less restrictive setting William Edwards DO Dec 12, 2016 15:21
[2016-12-12] MEDS: NEOMYCIN/POLYMYXIN/HYDROCORT OTIC SOLN 10 ML BTL RIGHT EAR SCH ×2 (17:40→23:55)
[2016-12-12] MEDS: ARIPiprazole 10 MG TAB PO SCH (20:37)
[2016-12-12] MEDS: QUEtiapine FUMARATE 300 MG TAB PO SCH (20:37)
[2016-12-12] MEDS: LORazepam 1 MG TAB PO PRN (22:29)
[2016-12-13] MEDS: LORazepam 2 MG/ML VIAL IM PRN (01:19)
[2016-12-13 05:39] VITALS: BP 138/80; PULSE 116; RESP 18; O2SAT 100
[2016-12-13] MEDS: NEOMYCIN/POLYMYXIN/HYDROCORT OTIC SOLN 10 ML BTL RIGHT EAR SCH ×4 (06:00→22:05)
[2016-12-13] MEDS: QUEtiapine FUMARATE 200 MG TAB PO SCH ×2 (06:26→15:24)
[2016-12-13] MEDS: PANTOPRAZOLE SOD 40 MG DELAYED RELEASE TAB PO SCH (08:32)
[2016-12-13] MEDS: LACTULOSE SYRUP 20 GM/30 ML CUP PO SCH ×3 (08:33→17:50)
[2016-12-13] MEDS: DIVALPROEX SODIUM SPRINKLES 125 MG CAP PO SCH ×2 (08:33→20:42)
[2016-12-13 08:38] VITALS: PULSE 100
--- NOTE | 2016-12-13 13:26 | HHI.PR ---
Addendum to Inpatient Note Additional Information Informed by aide patient witnessed sticking end of toothbrush into his right ear. Recommend patient be observed when using any kind of object that could potentially fit into his ear. Continue course of otic drops. Hospitalist service will sign off. Please reconsult if needed. Discussed with Kyara Schwarz Dec 13, 2016 13:26
[2016-12-13 15:45] VITALS: BP 124/75; PULSE 92; RESP 18; TEMP 98.7; O2SAT 100
[2016-12-13] MEDS: LORazepam 1 MG TAB PO PRN (17:50)
[2016-12-13 18:15] LABS: BICARBONATE 21.6 MEQ/L (21.0-32.0); POTASSIUM 3.8 MEQ/L (3.5-5.1)
[2016-12-13] MEDS: QUEtiapine FUMARATE 300 MG TAB PO SCH (20:42)
[2016-12-13] MEDS: ARIPiprazole 10 MG TAB PO SCH (20:43)
[2016-12-14] MEDS: LORazepam 1 MG TAB PO PRN ×2 (02:32→21:12)
[2016-12-14] MEDS: QUEtiapine FUMARATE 200 MG TAB PO SCH ×2 (06:01→15:23)
[2016-12-14] MEDS: NEOMYCIN/POLYMYXIN/HYDROCORT OTIC SOLN 10 ML BTL RIGHT EAR SCH ×5 (06:01→23:42)
[2016-12-14 06:12] VITALS: BP 121/72; PULSE 107; RESP 17; TEMP 98.7; O2SAT 99
[2016-12-14] MEDS: LACTULOSE SYRUP 20 GM/30 ML CUP PO SCH ×3 (10:00→16:58)
[2016-12-14] MEDS: PANTOPRAZOLE SOD 40 MG DELAYED RELEASE TAB PO SCH (10:00)
[2016-12-14] MEDS: DIVALPROEX SODIUM SPRINKLES 125 MG CAP PO SCH ×2 (10:00→21:12)
[2016-12-14 10:36] LABS: AUTOMATED NEUTROPHIL # 2.7 TH/MM3 (1.8-7.7); BASOPHIL % 0.2 % (0.0-2.0); EOSINOPHIL # 0.2 TH/MM3 (0-0.4); HEMATOCRIT 44.8 % (39.0-51.0); HEMO FLAGS DIFF FINAL; LYMPH % 46.9 % (9.0-44.0); MEAN CELL VOLUME 93.8 FL (80.0-100.0); MEAN CORPUSCULAR HEMOGLOBIN 31.5 PG (27.0-34.0); MEAN CORPUSCULAR HGB CONC 33.6 % (32.0-36.0); MONO % 8.7 % (0.0-8.0); NEUT % 41.2 % (16.0-70.0); PLATELET COUNT 120 TH/MM3 (150-450); RED BLOOD COUNT 4.77 MIL/MM3 (4.50-5.90); RED CELL DISTRIBUTION WIDTH 15.9 % (11.6-17.2); WHITE BLOOD COUNT 6.5 TH/MM3 (4.0-11.0)
[2016-12-14 18:18] VITALS: BP 116/74; PULSE 101; RESP 18; TEMP 98.1; O2SAT 99
[2016-12-14] MEDS: QUEtiapine FUMARATE 300 MG TAB PO SCH (21:11)
[2016-12-14] MEDS: ARIPiprazole 10 MG TAB PO SCH (21:12)
[2016-12-15 06:21] VITALS: BP 124/72; PULSE 99; RESP 16; TEMP 97.7; O2SAT 100
[2016-12-15] MEDS: QUEtiapine FUMARATE 200 MG TAB PO SCH ×2 (06:28→15:45)
[2016-12-15] MEDS: NEOMYCIN/POLYMYXIN/HYDROCORT OTIC SOLN 10 ML BTL RIGHT EAR SCH ×4 (06:28→22:45)
[2016-12-15] MEDS: PANTOPRAZOLE SOD 40 MG DELAYED RELEASE TAB PO SCH (09:00)
[2016-12-15] MEDS: LACTULOSE SYRUP 20 GM/30 ML CUP PO SCH ×3 (09:00→18:00)
[2016-12-15] MEDS: DIVALPROEX SODIUM SPRINKLES 125 MG CAP PO SCH ×2 (09:00→21:12)
--- NOTE | 2016-12-15 09:41 | HHI.PYPN ---
Subjective Remarks Progress note for December 13, 2016. No change in status. Patient remains calm and cooperative. Review of Systems Except as stated in HPI: all other systems reviewed are Neg Objective Alert: Yes [place]: Person Mood: Calm Affect: Restricted Memory Intact: Comment (not formally assessed to psychosis and lack of cooperation) Hallucinations: Auditory Delusions: Yes Delusion Type: Paranoid Suicidal: Ideation (none voiced) Homicidal: Ideation (none voiced) Insight/Judgment Impaired but baseline. Labs Test 12/14/16 09:41 White Blood Count 6.5 TH/MM3 Red Blood Count 4.77 MIL/MM3 Hemoglobin 15.0 GM/DL Hematocrit 44.8 % Mean Corpuscular Volume 93.8 FL Mean Corpuscular Hemoglobin 31.5 PG Mean Corpuscular Hemoglobin Concent 33.6 % Red Cell Distribution Width 15.9 % Platelet Count 120 TH/MM3 Mean Platelet Volume 11.3 FL Neutrophils (%) (Auto) 41.2 % Lymphocytes (%) (Auto) 46.9 % Monocytes (%) (Auto) 8.7 % Eosinophils (%) (Auto) 3.0 % Basophils (%) (Auto) 0.2 % Neutrophils # (Auto) 2.7 TH/MM3 Lymphocytes # (Auto) 3.0 TH/MM3 Monocytes # (Auto) 0.6 TH/MM3 Eosinophils # (Auto) 0.2 TH/MM3 Basophils # (Auto) 0.0 TH/MM3 CBC Comment DIFF FINAL Differential Comment Vitals/IOs Vital Signs Date Time Temp Pulse Resp B/P (MAP) Pulse Ox O2 Delivery O2 Flow Rate FiO2 12/15/16 06:21 97.7 99 16 124/72 (89) 100 Assessment & Plan Problem List: (1) Schizophrenia, paranoid, chronic ICD Codes: F20.0 - Paranoid schizophrenia Status: Acute Assessment & Plan Estimated LOS: days continue current medications. Justification for Cont. Inpt. Likely to decompensate at lower level of care. Martell Barnes MD Dec 15, 2016 09:41
--- NOTE | 2016-12-15 09:42 | HHI.PYPN ---
Subjective Remarks Psychiatric progress note for December 14, 2016. Patient remains calm and cooperative. Mostly seclusive to his room. Review of Systems Except as stated in HPI: all other systems reviewed are Neg Objective Alert: Yes [place]: Person Mood: Calm Affect: Restricted Memory Intact: Comment (not formally assessed to psychosis and lack of cooperation) Hallucinations: Auditory Delusions: Yes Delusion Type: Paranoid Suicidal: Ideation (none voiced) Homicidal: Ideation (none voiced) Insight/Judgment Impaired but baseline Vitals/IOs Vital Signs Date Time Temp Pulse Resp B/P (MAP) Pulse Ox O2 Delivery O2 Flow Rate FiO2 12/15/16 06:21 97.7 99 16 124/72 (89) 100 Assessment & Plan Problem List: (1) Schizophrenia, paranoid, chronic ICD Codes: F20.0 - Paranoid schizophrenia Status: Acute Assessment & Plan Estimated LOS: days continue current treatment plan. Justification for Cont. Inpt. Requires placement. Martell Barnes MD Dec 15, 2016 09:42
--- NOTE | 2016-12-15 09:44 | HHI.PYPN ---
Subjective Remarks No change in status. Patient remains calm and cooperative. Review of Systems Except as stated in HPI: all other systems reviewed are Neg Objective Alert: Yes [place]: Person Mood: Calm Affect: Restricted Memory Intact: Comment (not formally assessed to psychosis and lack of cooperation) Hallucinations: Auditory Delusions: Yes Delusion Type: Paranoid Suicidal: Ideation (none voiced) Homicidal: Ideation (none voiced) Insight/Judgment Impaired but baseline. Vitals/IOs Vital Signs Date Time Temp Pulse Resp B/P (MAP) Pulse Ox O2 Delivery O2 Flow Rate FiO2 12/15/16 06:21 97.7 99 16 124/72 (89) 100 Assessment & Plan Problem List: (1) Schizophrenia, paranoid, chronic ICD Codes: F20.0 - Paranoid schizophrenia Status: Acute Assessment & Plan Estimated LOS: days continue current treatment regimen. Justification for Cont. Inpt. Requires placement. Martell Barnes MD Dec 15, 2016 09:44
[2016-12-15] MEDS: QUEtiapine FUMARATE 300 MG TAB PO SCH (21:12)
[2016-12-15] MEDS: ARIPiprazole 10 MG TAB PO SCH (21:12)
[2016-12-15] MEDS: LORazepam 1 MG TAB PO PRN (21:14)
[2016-12-16 05:38] VITALS: BP 101/53; PULSE 88; RESP 16; TEMP 97.3
[2016-12-16] MEDS: QUEtiapine FUMARATE 200 MG TAB PO SCH ×2 (05:44→15:00)
[2016-12-16] MEDS: NEOMYCIN/POLYMYXIN/HYDROCORT OTIC SOLN 10 ML BTL RIGHT EAR SCH ×3 (05:44→18:00)
[2016-12-16] MEDS: LACTULOSE SYRUP 20 GM/30 ML CUP PO SCH ×3 (08:39→18:00)
[2016-12-16] MEDS: DIVALPROEX SODIUM SPRINKLES 125 MG CAP PO SCH ×2 (08:39→21:16)
[2016-12-16] MEDS: PANTOPRAZOLE SOD 40 MG DELAYED RELEASE TAB PO SCH (08:39)
[2016-12-16] MEDS ORDERED: ARIPIPRAZOLE IM SCH (16:00)
--- NOTE | 2016-12-16 16:08 | HHI.PYPN ---
Subjective Remarks Patient seen in his room with nurse Bre. Patient calm has been no behavioral problems, compliant medications. Continues to isolate. Is also continue show no insight into his disease. Patient due today for repeat Abilify maintaina to 34 mg injection. Will order that today for patient Review of Systems Except as stated in HPI: all other systems reviewed are Neg Mental Status Examination Appearance: Appropriate Consciousness: Other (napping) Orientation: Person Motor Activity: Normal gait Speech: Hesitant Language: Other (disorganized) Fund of Knowledge: Poor Attention and Concentration: Other (poor) Memory: Impaired Mood: Irritable, Other (restricted) Affect: Other (decreased range and intensity) Thought Process & Associations: Disorganized Thought Content: Other (disorganized) Hallucination Type: None Delusion Type: Bizarre Suicidal Ideation: No Suicidal Plan: No Suicidal Intention: No Homicidal Ideation: No Homicidal Plan: No Homicidal Intention: No Insight: Poor Judgment: Poor Results Vitals/IOs Vital Signs Date Time Temp Pulse Resp B/P (MAP) Pulse Ox O2 Delivery O2 Flow Rate FiO2 12/16/16 05:38 97.3 88 16 101/53 (69) 12/15/16 06:21 100 Assessment & Plan Problem List: (1) Schizophrenia, paranoid, chronic ICD Codes: F20.0 - Paranoid schizophrenia Status: Acute Assessment & Plan Estimated LOS: days patient remains quite psychotic though isolating in no significant behavioral problems at this time. At this time he is due for his second injection of Abilify maintain a. I have ordered that to be given today or tomorrow Justification for Cont. Inpt. At this time patient decompensate if place a lower level of care Discharge Planning There significant issues related to finding appropriate placement for this young man with the significant behavioral problems Eusebio Dickey MD Dec 16, 2016 16:08
[2016-12-16 16:20] VITALS: BP 119/67; PULSE 96; RESP 18; TEMP 97.3; O2SAT 100
[2016-12-16] MEDS: QUEtiapine FUMARATE 300 MG TAB PO SCH (21:15)
[2016-12-16] MEDS: ARIPiprazole 10 MG TAB PO SCH (21:16)
[2016-12-17] MEDS: NEOMYCIN/POLYMYXIN/HYDROCORT OTIC SOLN 10 ML BTL RIGHT EAR SCH ×3 (05:38→12:00)
[2016-12-17 05:41] VITALS: BP 122/72; PULSE 94; RESP 18; TEMP 98.3; O2SAT 97
[2016-12-17] MEDS: QUEtiapine FUMARATE 200 MG TAB PO SCH ×2 (05:46→15:00)
[2016-12-17] MEDS: LACTULOSE SYRUP 20 GM/30 ML CUP PO SCH ×3 (08:02→16:49)
[2016-12-17] MEDS: PANTOPRAZOLE SOD 40 MG DELAYED RELEASE TAB PO SCH (08:03)
[2016-12-17] MEDS: DIVALPROEX SODIUM SPRINKLES 125 MG CAP PO SCH ×2 (08:14→20:05)
--- NOTE | 2016-12-17 16:09 | HHI.PYPN ---
Subjective Remarks Patient seen in his room with nurse Bre, chart reviewed, patient compliant medications. Patient showing no significant behavior problems at the present time. Family some difficulty getting her supply of Abilify maintain off. Patient had ejection his son is medication available. Chief Complaint: patient threatening family with a shovel Review of Systems Except as stated in HPI: all other systems reviewed are Neg Mental Status Examination Appearance: Appropriate Consciousness: Other (napping) Orientation: Person Motor Activity: Normal gait Speech: Hesitant Language: Other (disorganized) Fund of Knowledge: Poor Attention and Concentration: Other (poor) Memory: Impaired Mood: Irritable, Other (restricted) Affect: Other (decreased range and intensity) Thought Process & Associations: Disorganized Thought Content: Other (disorganized) Hallucination Type: None Delusion Type: Bizarre Suicidal Ideation: No Suicidal Plan: No Suicidal Intention: No Homicidal Ideation: No Homicidal Plan: No Homicidal Intention: No Insight: Poor Judgment: Poor Results Vitals/IOs Vital Signs Date Time Temp Pulse Resp B/P (MAP) Pulse Ox O2 Delivery O2 Flow Rate FiO2 12/17/16 05:41 98.3 94 18 122/72 (89) 97 Assessment & Plan Problem List: (1) Schizophrenia, paranoid, chronic ICD Codes: F20.0 - Paranoid schizophrenia Status: Acute Assessment & Plan Estimated LOS: days patient continue psychotic, isolating, having minimal response, but no assaultive behavior noted recently. For now continue treatment Justification for Cont. Inpt. This time patient will decompensate the placed in a lower level of care Discharge Planning Placement remains problematic to patient's significant dangerous assaultive behavior Eusebio Dickey MD Dec 17, 2016 16:09
[2016-12-17 16:59] VITALS: BP 129/74; PULSE 105; RESP 19; TEMP 98.5; O2SAT 98
[2016-12-17] MEDS: QUEtiapine FUMARATE 300 MG TAB PO SCH (20:05)
[2016-12-17] MEDS: ARIPiprazole 10 MG TAB PO SCH (20:05)
[2016-12-18 05:46] VITALS: BP 111/62; PULSE 81; RESP 16; TEMP 97.6; O2SAT 97
[2016-12-18] MEDS: QUEtiapine FUMARATE 200 MG TAB PO SCH ×2 (06:03→15:20)
[2016-12-18] MEDS: LACTULOSE SYRUP 20 GM/30 ML CUP PO SCH ×3 (08:05→16:45)
[2016-12-18] MEDS: DIVALPROEX SODIUM SPRINKLES 125 MG CAP PO SCH ×2 (08:05→20:07)
[2016-12-18] MEDS: PANTOPRAZOLE SOD 40 MG DELAYED RELEASE TAB PO SCH (08:05)
--- NOTE | 2016-12-18 13:19 | HHI.PYPN ---
Subjective Remarks Pt seen and discussed with staff. Pt has been compliant and cooperative with care. He has been out in unit socializing and watching football. He is eating 90 % of meals. Paranoia decreased. No SI/HI Chief Complaint: patient threatening family with a shovel Mental Status Examination Appearance: Appropriate Consciousness: Other (napping) Orientation: Person, Place Motor Activity: Normal gait Speech: Hesitant Language: Other (disorganized) Fund of Knowledge: Poor Attention and Concentration: Other (poor) Memory: Impaired Mood: Irritable, Other (restricted) Affect: Other (decreased range and intensity) Thought Process & Associations: Disorganized Thought Content: Other (disorganized) Hallucination Type: None Delusion Type: Bizarre Suicidal Ideation: No Suicidal Plan: No Suicidal Intention: No Homicidal Ideation: No Homicidal Plan: No Homicidal Intention: No Insight: Poor Judgment: Poor Results Vitals/IOs Vital Signs Date Time Temp Pulse Resp B/P (MAP) Pulse Ox O2 Delivery O2 Flow Rate FiO2 12/18/16 05:46 97.6 81 16 111/62 (78) 97 Assessment & Plan Problem List: (1) Schizophrenia, paranoid, chronic ICD Codes: F20.0 - Paranoid schizophrenia Status: Acute Assessment & Plan Continue current tx plan. Estimated LOS: days Justification for Cont. Inpt. impairments in reality testing Stephanie Uriarte MD Dec 18, 2016 13:19
[2016-12-18 17:40] VITALS: BP 123/74; PULSE 109; RESP 18; TEMP 98.3; O2SAT 97
[2016-12-18] MEDS: ARIPiprazole 10 MG TAB PO SCH (20:07)
[2016-12-18] MEDS: ACETAMINOPHEN 325 MG TAB PO PRN (20:07)
[2016-12-18] MEDS: QUEtiapine FUMARATE 300 MG TAB PO SCH (20:07)
[2016-12-19 05:40] VITALS: BP 126/74; PULSE 101; RESP 16; TEMP 97.9
[2016-12-19] MEDS: QUEtiapine FUMARATE 200 MG TAB PO SCH ×2 (06:30→16:32)
[2016-12-19] MEDS: PANTOPRAZOLE SOD 40 MG DELAYED RELEASE TAB PO SCH (08:01)
[2016-12-19] MEDS: LACTULOSE SYRUP 20 GM/30 ML CUP PO SCH ×3 (08:01→17:33)
[2016-12-19] MEDS: DIVALPROEX SODIUM SPRINKLES 125 MG CAP PO SCH ×2 (08:03→20:16)
--- NOTE | 2016-12-19 12:39 | HHI.PYPN ---
Subjective Remarks Pt seen and discussed with staff. He continues to improve. He did ADLs without assistance today. He has been engaging in unit activities and interacting more with staff. Paranoia persists but is improving. Chief Complaint: patient admitted due to threatening behavior and psychosis Mental Status Examination Appearance: Appropriate Consciousness: Other (napping) Orientation: Person, Place Motor Activity: Normal gait Speech: Hesitant Language: Other (disorganized) Fund of Knowledge: Poor Attention and Concentration: Other (poor) Memory: Impaired Mood: Irritable, Other (restricted) Affect: Other (decreased range and intensity) Thought Process & Associations: Disorganized Thought Content: Other (disorganized) Hallucination Type: None Delusion Type: Bizarre Suicidal Ideation: No Suicidal Plan: No Suicidal Intention: No Homicidal Ideation: No Homicidal Plan: No Homicidal Intention: No Insight: Poor Judgment: Poor Results Vitals/IOs Vital Signs Date Time Temp Pulse Resp B/P (MAP) Pulse Ox O2 Delivery O2 Flow Rate FiO2 12/19/16 05:40 97.9 101 16 126/74 (91) 12/18/16 17:40 97 Assessment & Plan Problem List: (1) Schizophrenia, paranoid, chronic ICD Codes: F20.0 - Paranoid schizophrenia Status: Acute Assessment & Plan Continue current tx plan. Estimated LOS: days Justification for Cont. Inpt. impairments in reality testing Stephanie Uriarte MD Dec 19, 2016 12:39
[2016-12-19 16:32] VITALS: BP 142/83; PULSE 103; RESP 17; TEMP 97.7; O2SAT 97
[2016-12-19] MEDS: ARIPiprazole 10 MG TAB PO SCH (20:16)
[2016-12-19] MEDS: QUEtiapine FUMARATE 300 MG TAB PO SCH (20:16)
[2016-12-20 05:47] VITALS: BP 136/81; PULSE 91; RESP 17; TEMP 98.1; O2SAT 96
[2016-12-20] MEDS: QUEtiapine FUMARATE 200 MG TAB PO SCH ×2 (06:11→15:00)
[2016-12-20] MEDS: LACTULOSE SYRUP 20 GM/30 ML CUP PO SCH ×3 (09:00→17:24)
[2016-12-20] MEDS: PANTOPRAZOLE SOD 40 MG DELAYED RELEASE TAB PO SCH (09:00)
[2016-12-20] MEDS: DIVALPROEX SODIUM SPRINKLES 125 MG CAP PO SCH ×2 (09:00→20:34)
[2016-12-20] MEDS: QUEtiapine FUMARATE 300 MG TAB PO SCH (20:34)
[2016-12-21] MEDS: LORazepam 1 MG TAB PO PRN ×2 (01:19→21:12)
[2016-12-21 05:44] VITALS: BP 97/55; PULSE 77; RESP 16; TEMP 97.7; O2SAT 99
[2016-12-21] MEDS: QUEtiapine FUMARATE 200 MG TAB PO SCH ×2 (06:26→15:03)
[2016-12-21] MEDS: DIVALPROEX SODIUM SPRINKLES 125 MG CAP PO SCH ×3 (09:00→21:12)
[2016-12-21] MEDS: LACTULOSE SYRUP 20 GM/30 ML CUP PO SCH ×3 (09:29→18:13)
[2016-12-21] MEDS: PANTOPRAZOLE SOD 40 MG DELAYED RELEASE TAB PO SCH (09:30)
[2016-12-21] MEDS: ABILIFY MAINTENA 400 MG IM ONE ×2 (11:57→12:00)
[2016-12-21 15:35] VITALS: BP 116/69; PULSE 100; RESP 18; TEMP 97.9; O2SAT 98
[2016-12-21] MEDS: QUEtiapine FUMARATE 300 MG TAB PO SCH (21:11)
[2016-12-22] MEDS: QUEtiapine FUMARATE 200 MG TAB PO SCH ×2 (05:41→16:15)
[2016-12-22 06:13] VITALS: BP 113/52; PULSE 84; RESP 16; TEMP 98; O2SAT 99
[2016-12-22] MEDS: PANTOPRAZOLE SOD 40 MG DELAYED RELEASE TAB PO SCH (08:41)
[2016-12-22] MEDS: DIVALPROEX SODIUM SPRINKLES 125 MG CAP PO SCH ×2 (08:41→20:22)
[2016-12-22] MEDS: LACTULOSE SYRUP 20 GM/30 ML CUP PO SCH ×3 (08:41→17:39)
--- NOTE | 2016-12-22 13:24 | HHI.PYPN ---
Subjective Remarks This is the psychiatric progress note for December 20, 2016. Patient's behavior is improved on current regimen of medicines. However, he is on 3 antipsychotics and therefore the Haldol is being discontinued. This physician did order the patient's monthly injection of Abilify Maintena. Oral Abilify is also being discontinued. The patient will remain on Zyprexa. Case discussed with nurse and case management. Medical record reviewed. Chief Complaint: patient admitted due to threatening behavior and psychosis Review of Systems Except as stated in HPI: all other systems reviewed are Neg Mental Status Examination Appearance: Appropriate Consciousness: Other (napping) Orientation: Person, Place Motor Activity: Normal gait Speech: Hesitant Language: Other (disorganized) Fund of Knowledge: Poor Attention and Concentration: Other (poor) Memory: Impaired Mood: Irritable, Other (restricted) Affect: Other (decreased range and intensity) Thought Process & Associations: Disorganized Thought Content: Other (disorganized) Hallucination Type: None Delusion Type: Bizarre Suicidal Ideation: No Suicidal Plan: No Suicidal Intention: No Homicidal Ideation: No Homicidal Plan: No Homicidal Intention: No Insight: Poor Judgment: Poor Results Vitals/IOs Vital Signs Date Time Temp Pulse Resp B/P (MAP) Pulse Ox O2 Delivery O2 Flow Rate FiO2 12/22/16 06:13 98.0 84 16 113/52 (72) 99 Assessment & Plan Problem List: (1) Schizophrenia, paranoid, chronic ICD Codes: F20.0 - Paranoid schizophrenia Status: Acute Assessment & Plan Estimated LOS: days ordered Abilify Maintena 400 mg IM today. Discontinue Haldol. Discontinue oral Abilify. Continue oral Zyprexa. Justification for Cont. Inpt. Likely to decompensate at lower level of care. Martell Barnes MD Dec 22, 2016 13:24
--- NOTE | 2016-12-22 13:25 | HHI.PYPN ---
Subjective Remarks Patient tolerating medicine well and his behavior is calm. Review of Systems Except as stated in HPI: all other systems reviewed are Neg Mental Status Examination Appearance: Appropriate Consciousness: Other (napping) Orientation: Person, Place Motor Activity: Normal gait Speech: Hesitant Language: Other (disorganized) Fund of Knowledge: Poor Attention and Concentration: Other (poor) Memory: Impaired Mood: Irritable, Other (restricted) Affect: Other (decreased range and intensity) Thought Process & Associations: Disorganized Thought Content: Other (disorganized) Hallucination Type: None Delusion Type: Bizarre Suicidal Ideation: No Suicidal Plan: No Suicidal Intention: No Homicidal Ideation: No Homicidal Plan: No Homicidal Intention: No Insight: Poor Judgment: Poor Results Vitals/IOs Vital Signs Date Time Temp Pulse Resp B/P (MAP) Pulse Ox O2 Delivery O2 Flow Rate FiO2 12/22/16 06:13 98.0 84 16 113/52 (72) 99 Assessment & Plan Problem List: (1) Schizophrenia, paranoid, chronic ICD Codes: F20.0 - Paranoid schizophrenia Status: Acute Assessment & Plan Estimated LOS: days continue current treatment plan. Justification for Cont. Inpt. Likely to decompensate at lower level of care. Martell Barnes MD Dec 22, 2016 13:25
--- NOTE | 2016-12-22 13:26 | HHI.PYPN ---
Subjective Remarks Patient remains calm and cooperative. Review of Systems Except as stated in HPI: all other systems reviewed are Neg Mental Status Examination Appearance: Appropriate Consciousness: Other (napping) Orientation: Person, Place Motor Activity: Normal gait Speech: Hesitant Language: Other (disorganized) Fund of Knowledge: Poor Attention and Concentration: Other (poor) Memory: Impaired Mood: Irritable, Other (restricted) Affect: Other (decreased range and intensity) Thought Process & Associations: Disorganized Thought Content: Other (disorganized) Hallucination Type: None Delusion Type: Bizarre Suicidal Ideation: No Suicidal Plan: No Suicidal Intention: No Homicidal Ideation: No Homicidal Plan: No Homicidal Intention: No Insight: Poor Judgment: Poor Results Vitals/IOs Vital Signs Date Time Temp Pulse Resp B/P (MAP) Pulse Ox O2 Delivery O2 Flow Rate FiO2 12/22/16 06:13 98.0 84 16 113/52 (72) 99 Assessment & Plan Problem List: (1) Schizophrenia, paranoid, chronic ICD Codes: F20.0 - Paranoid schizophrenia Status: Acute Assessment & Plan Estimated LOS: days continue current medical regimen Justification for Cont. Inpt. Likely to decompensate at lower level of care. Martell Barnes MD Dec 22, 2016 13:26
[2016-12-22 16:00] VITALS: BP 109/61; PULSE 97; RESP 18; O2SAT 99
[2016-12-22] MEDS: LORazepam 1 MG TAB PO PRN (20:22)
[2016-12-22] MEDS: QUEtiapine FUMARATE 300 MG TAB PO SCH (20:22)
[2016-12-23] MEDS: QUEtiapine FUMARATE 200 MG TAB PO SCH ×2 (05:38→15:00)
[2016-12-23 06:04] VITALS: BP 97/57; PULSE 77; RESP 18; TEMP 97.9; O2SAT 100
[2016-12-23] MEDS: LACTULOSE SYRUP 20 GM/30 ML CUP PO SCH ×3 (09:27→17:30)
[2016-12-23] MEDS: PANTOPRAZOLE SOD 40 MG DELAYED RELEASE TAB PO SCH (09:27)
[2016-12-23] MEDS: DIVALPROEX SODIUM SPRINKLES 125 MG CAP PO SCH ×2 (09:27→20:56)
[2016-12-23 18:00] VITALS: BP 116/68; PULSE 99; RESP 18; TEMP 98.3; O2SAT 99
[2016-12-23] MEDS: QUEtiapine FUMARATE 300 MG TAB PO SCH (20:55)
[2016-12-24] MEDS: QUEtiapine FUMARATE 200 MG TAB PO SCH ×2 (06:01→15:00)
[2016-12-24 06:21] VITALS: BP 125/85; PULSE 88; RESP 16; TEMP 97.9; O2SAT 98
[2016-12-24] MEDS: DIVALPROEX SODIUM SPRINKLES 125 MG CAP PO SCH ×2 (07:51→20:32)
[2016-12-24] MEDS: PANTOPRAZOLE SOD 40 MG DELAYED RELEASE TAB PO SCH (07:52)
[2016-12-24] MEDS: LACTULOSE SYRUP 20 GM/30 ML CUP PO SCH ×3 (07:52→18:00)
--- NOTE | 2016-12-24 15:04 | HHI.PYPN ---
Subjective Remarks Progress note for 12/23/16. No change in status. Review of Systems Except as stated in HPI: all other systems reviewed are Neg Mental Status Examination Appearance: Appropriate Consciousness: Other (napping) Orientation: Person, Place Motor Activity: Normal gait Speech: Hesitant Language: Other (disorganized) Fund of Knowledge: Poor Attention and Concentration: Other (poor) Memory: Impaired Mood: Irritable, Other (restricted) Affect: Other (decreased range and intensity) Thought Process & Associations: Disorganized Thought Content: Other (disorganized) Hallucination Type: None Delusion Type: Bizarre Suicidal Ideation: No Suicidal Plan: No Suicidal Intention: No Homicidal Ideation: No Homicidal Plan: No Homicidal Intention: No Insight: Poor Judgment: Poor Results Vitals/IOs Vital Signs Date Time Temp Pulse Resp B/P (MAP) Pulse Ox O2 Delivery O2 Flow Rate FiO2 12/24/16 06:21 97.9 88 16 125/85 (98) 98 Assessment & Plan Problem List: (1) Schizophrenia, paranoid, chronic ICD Codes: F20.0 - Paranoid schizophrenia Status: Acute Assessment & Plan Estimated LOS: days Placement Justification for Cont. Inpt. Needs placement Martell Barnes MD Dec 24, 2016 15:04
--- NOTE | 2016-12-24 15:05 | HHI.PYPN ---
Subjective Remarks Continues to be calm and cooperative. Review of Systems Except as stated in HPI: all other systems reviewed are Neg Mental Status Examination Appearance: Appropriate Consciousness: Other (napping) Orientation: Person, Place Motor Activity: Normal gait Speech: Hesitant Language: Other (disorganized) Fund of Knowledge: Poor Attention and Concentration: Other (poor) Memory: Impaired Mood: Irritable, Other (restricted) Affect: Other (decreased range and intensity) Thought Process & Associations: Disorganized Thought Content: Other (disorganized) Hallucination Type: None Delusion Type: Bizarre Suicidal Ideation: No Suicidal Plan: No Suicidal Intention: No Homicidal Ideation: No Homicidal Plan: No Homicidal Intention: No Insight: Poor Judgment: Poor Results Vitals/IOs Vital Signs Date Time Temp Pulse Resp B/P (MAP) Pulse Ox O2 Delivery O2 Flow Rate FiO2 12/24/16 06:21 97.9 88 16 125/85 (98) 98 Assessment & Plan Problem List: (1) Schizophrenia, paranoid, chronic ICD Codes: F20.0 - Paranoid schizophrenia Status: Acute Assessment & Plan Estimated LOS: days continues to require placement Justification for Cont. Inpt. Likely to decompensate at lower level of care. Martell Barnes MD Dec 24, 2016 15:05
[2016-12-24 18:11] VITALS: BP 115/75; PULSE 95; RESP 17; O2SAT 98
[2016-12-24] MEDS: LORazepam 1 MG TAB PO PRN (20:31)
[2016-12-24] MEDS: QUEtiapine FUMARATE 300 MG TAB PO SCH (20:31)
[2016-12-25] MEDS: HALOPERIDOL LACTATE 5 MG/ML AMP IM PRN (00:42)
[2016-12-25] MEDS: diphenhydrAMINE HCL 50 MG/ML VIAL IM PRN (00:43)
[2016-12-25] MEDS: QUEtiapine FUMARATE 200 MG TAB PO SCH ×2 (06:27→14:14)
[2016-12-25] MEDS: DIVALPROEX SODIUM SPRINKLES 125 MG CAP PO SCH ×3 (08:38→20:51)
[2016-12-25] MEDS: PANTOPRAZOLE SOD 40 MG DELAYED RELEASE TAB PO SCH (08:38)
[2016-12-25] MEDS: LACTULOSE SYRUP 20 GM/30 ML CUP PO SCH ×3 (08:38→16:41)
--- NOTE | 2016-12-25 16:02 | HHI.PYPN ---
Subjective Remarks Patient was seen and case discussed with nursing. Today, patient is selectively mute. Would not answer in [place] or [place]. Very resistant with medications and refusing most psychotropics per nursing. Only one slice of pizza today. Responding to internal stimuli. However no verbal or physical outbursts Mental Status Examination Appearance: Appropriate Consciousness: Other (napping) Orientation: Person, Place Motor Activity: Normal gait Speech: Hesitant Language: Other (disorganized) Fund of Knowledge: Poor Attention and Concentration: Other (poor) Memory: Impaired Mood: Irritable, Other (restricted) Affect: Other (decreased range and intensity) Thought Process & Associations: Disorganized Thought Content: Other (disorganized) Hallucination Type: None Delusion Type: Bizarre Suicidal Ideation: No Suicidal Plan: No Suicidal Intention: No Homicidal Ideation: No Homicidal Plan: No Homicidal Intention: No Insight: Poor Judgment: Poor Results Vitals/IOs Vital Signs Date Time Temp Pulse Resp B/P (MAP) Pulse Ox O2 Delivery O2 Flow Rate FiO2 12/24/16 18:11 95 17 115/75 (88) 98 12/24/16 06:21 97.9 Assessment & Plan Problem List: (1) Schizophrenia, paranoid, chronic ICD Codes: F20.0 - Paranoid schizophrenia Status: Acute Assessment & Plan Continue current treatment plan Justification for Cont. Inpt. Patient would decompensate in a less restrictive setting William Edwards DO Dec 25, 2016 16:02
[2016-12-25] MEDS: QUEtiapine FUMARATE 300 MG TAB PO SCH (20:51)
[2016-12-26] MEDS: LORazepam 1 MG TAB PO PRN (00:46)
[2016-12-26 05:43] VITALS: BP 131/65; PULSE 102; RESP 16; TEMP 97.9; O2SAT 98
[2016-12-26] MEDS: QUEtiapine FUMARATE 200 MG TAB PO SCH ×2 (06:02→15:00)
[2016-12-26] MEDS: DIVALPROEX SODIUM SPRINKLES 125 MG CAP PO SCH ×2 (08:56→21:00)
[2016-12-26] MEDS: PANTOPRAZOLE SOD 40 MG DELAYED RELEASE TAB PO SCH (08:56)
[2016-12-26] MEDS: LACTULOSE SYRUP 20 GM/30 ML CUP PO SCH ×3 (08:56→17:18)
--- NOTE | 2016-12-26 15:00 | HHI.PYPN ---
Subjective Remarks Patient was seen and case discussed with nursing. Patient is pleasant with exam. He is less oppositional today and has been taking his medications. Continues to chronically masturbate. Not eating well. Nods his head up and down during the interview. Mental Status Examination Appearance: Appropriate Consciousness: Other (napping) Orientation: Person, Place Motor Activity: Normal gait Speech: Hesitant Language: Other (disorganized) Fund of Knowledge: Poor Attention and Concentration: Other (poor) Memory: Impaired Mood: Irritable, Other (restricted) Affect: Other (decreased range and intensity) Thought Process & Associations: Disorganized Thought Content: Other (disorganized) Hallucination Type: None Delusion Type: Bizarre Suicidal Ideation: No Suicidal Plan: No Suicidal Intention: No Homicidal Ideation: No Homicidal Plan: No Homicidal Intention: No Insight: Poor Judgment: Poor Results Vitals/IOs Vital Signs Date Time Temp Pulse Resp B/P (MAP) Pulse Ox O2 Delivery O2 Flow Rate FiO2 12/26/16 05:43 97.9 102 16 131/65 (87) 98 Assessment & Plan Problem List: (1) Schizophrenia, paranoid, chronic ICD Codes: F20.0 - Paranoid schizophrenia Status: Acute Assessment & Plan Continue current treatment plan Justification for Cont. Inpt. Patient will decompensate in a less restrictive setting William Edwards DO Dec 26, 2016 15:00
[2016-12-26 17:12] VITALS: BP 118/69; PULSE 102; RESP 16; TEMP 97.2; O2SAT 97
[2016-12-26] MEDS: QUEtiapine FUMARATE 300 MG TAB PO SCH (21:00)
[2016-12-27 05:53] VITALS: BP 126/76; PULSE 101; RESP 16; TEMP 97.4; O2SAT 100
[2016-12-27] MEDS: QUEtiapine FUMARATE 200 MG TAB PO SCH ×2 (06:29→15:00)
[2016-12-27] MEDS: DIVALPROEX SODIUM SPRINKLES 125 MG CAP PO SCH ×2 (08:24→20:28)
[2016-12-27] MEDS: LACTULOSE SYRUP 20 GM/30 ML CUP PO SCH ×4 (08:24→17:59)
[2016-12-27] MEDS: PANTOPRAZOLE SOD 40 MG DELAYED RELEASE TAB PO SCH (08:24)
[2016-12-27] MEDS: LORazepam 1 MG TAB PO PRN (17:58)
[2016-12-27] MEDS: QUEtiapine FUMARATE 300 MG TAB PO SCH (20:28)
[2016-12-28 06:01] VITALS: BP 100/60; PULSE 76; RESP 18; TEMP 97.3; O2SAT 98
[2016-12-28] MEDS: QUEtiapine FUMARATE 200 MG TAB PO SCH ×2 (06:18→15:00)
[2016-12-28] MEDS: PANTOPRAZOLE SOD 40 MG DELAYED RELEASE TAB PO SCH (08:34)
[2016-12-28] MEDS: DIVALPROEX SODIUM SPRINKLES 125 MG CAP PO SCH ×2 (08:34→20:49)
--- NOTE | 2016-12-28 10:00 | HHI.PYPN ---
Subjective Remarks Progress note for 12/27/2016. No change in status. Patient remains calm. Review of Systems Except as stated in HPI: all other systems reviewed are Neg Mental Status Examination Appearance: Appropriate Consciousness: Other (napping) Orientation: Person, Place Motor Activity: Normal gait Speech: Hesitant Language: Other (disorganized) Fund of Knowledge: Poor Attention and Concentration: Other (poor) Memory: Impaired Mood: Irritable, Other (restricted) Affect: Other (decreased range and intensity) Thought Process & Associations: Disorganized Thought Content: Other (disorganized) Hallucination Type: None Delusion Type: Bizarre Suicidal Ideation: No Suicidal Plan: No Suicidal Intention: No Homicidal Ideation: No Homicidal Plan: No Homicidal Intention: No Insight: Poor Judgment: Poor Results Vitals/IOs Vital Signs Date Time Temp Pulse Resp B/P (MAP) Pulse Ox O2 Delivery O2 Flow Rate FiO2 12/28/16 06:01 97.3 76 18 100/60 (73) 98 Assessment & Plan Problem List: (1) Schizophrenia, paranoid, chronic ICD Codes: F20.0 - Paranoid schizophrenia Status: Acute Assessment & Plan Estimated LOS: days remains placement issue. Justification for Cont. Inpt. Likely to decompensate without appropriate placement. Martell Barnes MD Dec 28, 2016 10:00
[2016-12-28] MEDS: LACTULOSE SYRUP 20 GM/30 ML CUP PO SCH ×2 (13:00→16:04)
--- NOTE | 2016-12-28 13:30 | HHI.PYPN ---
Subjective Remarks No change in behavior. Patient calm and cooperative. Review of Systems Except as stated in HPI: all other systems reviewed are Neg Mental Status Examination Appearance: Appropriate Consciousness: Other (napping) Orientation: Person, Place Motor Activity: Normal gait Speech: Hesitant Language: Other (disorganized) Fund of Knowledge: Poor Attention and Concentration: Other (poor) Memory: Impaired Mood: Irritable, Other (restricted) Affect: Other (decreased range and intensity) Thought Process & Associations: Disorganized Thought Content: Other (disorganized) Hallucination Type: None Delusion Type: Bizarre Suicidal Ideation: No Suicidal Plan: No Suicidal Intention: No Homicidal Ideation: No Homicidal Plan: No Homicidal Intention: No Insight: Poor Judgment: Poor Results Vitals/IOs Vital Signs Date Time Temp Pulse Resp B/P (MAP) Pulse Ox O2 Delivery O2 Flow Rate FiO2 12/28/16 06:01 97.3 76 18 100/60 (73) 98 Assessment & Plan Problem List: (1) Schizophrenia, paranoid, chronic ICD Codes: F20.0 - Paranoid schizophrenia Status: Acute Assessment & Plan Estimated LOS: days placement Justification for Cont. Inpt. Likely to decompensate at lower level of care. Martell Barnes MD Dec 28, 2016 13:30
[2016-12-28 15:51] VITALS: BP 117/72; PULSE 87; RESP 18; TEMP 97.5
[2016-12-28] MEDS: QUEtiapine FUMARATE 300 MG TAB PO SCH (20:49)
[2016-12-28] MEDS: LORazepam 1 MG TAB PO PRN (23:22)
[2016-12-29 06:04] VITALS: BP 103/61; PULSE 66; RESP 16; TEMP 97.4; O2SAT 99
[2016-12-29] MEDS: QUEtiapine FUMARATE 200 MG TAB PO SCH ×2 (09:28→15:14)
[2016-12-29] MEDS: LACTULOSE SYRUP 20 GM/30 ML CUP PO SCH ×3 (09:28→17:12)
[2016-12-29] MEDS: DIVALPROEX SODIUM SPRINKLES 125 MG CAP PO SCH ×2 (09:28→20:42)
[2016-12-29] MEDS: PANTOPRAZOLE SOD 40 MG DELAYED RELEASE TAB PO SCH (09:29)
--- NOTE | 2016-12-29 13:59 | HHI.PYPN ---
Subjective Remarks Patient is being transferred to my service from Dr. Barnes service. She discharge reviewed. Patient compliant medication. Patient seen in room with nurse Bre. Patient is napping is somewhat sedated but did open his eyes and nod at me appropriately once or twice. There is otherwise no significant behavioral problems noted. For now continue treatment will check Depakote level over in a.m. Review of Systems Except as stated in HPI: all other systems reviewed are Neg Mental Status Examination Appearance: Appropriate Consciousness: Other (napping) Orientation: Person, Place Motor Activity: Normal gait Speech: Hesitant Language: Other (disorganized) Fund of Knowledge: Poor Attention and Concentration: Other (poor) Memory: Impaired Mood: Irritable, Other (restricted) Affect: Other (decreased range and intensity) Thought Process & Associations: Disorganized Thought Content: Other (disorganized) Hallucination Type: None Delusion Type: Bizarre Suicidal Ideation: No Suicidal Plan: No Suicidal Intention: No Homicidal Ideation: No Homicidal Plan: No Homicidal Intention: No Insight: Poor Judgment: Poor Results Vitals/IOs Vital Signs Date Time Temp Pulse Resp B/P (MAP) Pulse Ox O2 Delivery O2 Flow Rate FiO2 12/29/16 06:04 97.4 66 16 103/61 (75) 99 Assessment & Plan Problem List: (1) Schizophrenia, paranoid, chronic ICD Codes: F20.0 - Paranoid schizophrenia Status: Acute Assessment & Plan Estimated LOS: days patient compliant medications, somewhat sedated at this time. Is been no behavioral problems at this time Justification for Cont. Inpt. With this time patient will decompensate if placed in a lower level of care Discharge Planning Continue to avoid work states Eusebio Dickey MD Dec 29, 2016 13:59
[2016-12-29 17:00] VITALS: BP 114/68; PULSE 102; RESP 18; TEMP 97.7; O2SAT 99
[2016-12-29] MEDS: QUEtiapine FUMARATE 300 MG TAB PO SCH (20:42)
[2016-12-29] MEDS: LORazepam 1 MG TAB PO PRN (20:42)
[2016-12-29 21:17] VITALS: BP 114/68; PULSE 102; RESP 18; TEMP 97.7; O2SAT 99
[2016-12-30 05:56] VITALS: BP 98/54; PULSE 85; RESP 16; TEMP 98.3; O2SAT 96
[2016-12-30] MEDS: QUEtiapine FUMARATE 200 MG TAB PO SCH ×2 (06:11→15:27)
[2016-12-30] MEDS: LACTULOSE SYRUP 20 GM/30 ML CUP PO SCH ×3 (09:07→18:00)
[2016-12-30] MEDS: DIVALPROEX SODIUM SPRINKLES 125 MG CAP PO SCH ×2 (09:08→21:00)
[2016-12-30] MEDS: PANTOPRAZOLE SOD 40 MG DELAYED RELEASE TAB PO SCH (09:08)
--- NOTE | 2016-12-30 14:57 | HHI.PYPN ---
Subjective Remarks Patient seen in his room with nurse Tita and medical student jose manuel, patient alert calm continues to voice auditory hallucinations. Patient is been no behavior problems, though RN states that earlier today when she went to check on patient she found him masturbating. For now continue medication no change Depakote level drawn this morning came back at 86 Review of Systems Except as stated in HPI: all other systems reviewed are Neg Mental Status Examination Appearance: Appropriate Consciousness: Other (napping) Orientation: Person, Place Motor Activity: Normal gait Speech: Hesitant Language: Other (disorganized) Fund of Knowledge: Poor Attention and Concentration: Other (poor) Memory: Impaired Mood: Irritable, Other (restricted) Affect: Other (decreased range and intensity) Thought Process & Associations: Disorganized Thought Content: Other (disorganized) Hallucination Type: None Delusion Type: Bizarre Suicidal Ideation: No Suicidal Plan: No Suicidal Intention: No Homicidal Ideation: No Homicidal Plan: No Homicidal Intention: No Insight: Poor Judgment: Poor Results Labs Test 12/30/16 10:12 Valproic Acid (Depakene) Level 86 MCG/ML Vitals/IOs Vital Signs Date Time Temp Pulse Resp B/P (MAP) Pulse Ox O2 Delivery O2 Flow Rate FiO2 12/30/16 05:56 98.3 85 16 98/54 (69) 96 Assessment & Plan Problem List: (1) Schizophrenia, paranoid, chronic ICD Codes: F20.0 - Paranoid schizophrenia Status: Acute Assessment & Plan Estimated LOS: days patient continue psychotic isolating the no behavior problems at this time. His responses are very whispered very brief. He remains also somewhat vigilant to his surroundings Justification for Cont. Inpt. At this time patient will decompensate with placed in the lower level of care Discharge Planning Continue to await word from state placement referral Eusebio Dickey MD Dec 30, 2016 14:57
[2016-12-30 18:02] VITALS: BP 109/62; PULSE 94; RESP 18
[2016-12-30] MEDS: QUEtiapine FUMARATE 300 MG TAB PO SCH (21:00)
[2016-12-30] MEDS: LORazepam 1 MG TAB PO PRN (21:25)
[2016-12-31 05:50] VITALS: BP 120/76; PULSE 120; RESP 18; TEMP 98.5; O2SAT 98
[2016-12-31] MEDS: QUEtiapine FUMARATE 200 MG TAB PO SCH ×2 (07:00→16:13)
[2016-12-31] MEDS: LACTULOSE SYRUP 20 GM/30 ML CUP PO SCH ×3 (09:00→17:45)
[2016-12-31] MEDS: PANTOPRAZOLE SOD 40 MG DELAYED RELEASE TAB PO SCH (09:00)
[2016-12-31] MEDS: DIVALPROEX SODIUM SPRINKLES 125 MG CAP PO SCH ×2 (09:00→20:12)
--- NOTE | 2016-12-31 15:09 | HHI.PYPN ---
Subjective Remarks Patient seen in his room with nurse Reanna and medical student jose manuel, patient had somewhat difficult evening yesterday necessitating an when necessary medication, though is been calm appropriate today and laying in his bed. Made vague gestures as if to know she is continuing to hear voices. For now continue treatment Review of Systems Except as stated in HPI: all other systems reviewed are Neg Mental Status Examination Appearance: Appropriate Consciousness: Other (napping) Orientation: Person, Place Motor Activity: Normal gait Speech: Hesitant Language: Other (disorganized) Fund of Knowledge: Poor Attention and Concentration: Other (poor) Memory: Impaired Mood: Irritable, Other (restricted) Affect: Other (decreased range and intensity) Thought Process & Associations: Disorganized Thought Content: Other (disorganized) Hallucination Type: None Delusion Type: Bizarre Suicidal Ideation: No Suicidal Plan: No Suicidal Intention: No Homicidal Ideation: No Homicidal Plan: No Homicidal Intention: No Insight: Poor Judgment: Poor Results Vitals/IOs Vital Signs Date Time Temp Pulse Resp B/P (MAP) Pulse Ox O2 Delivery O2 Flow Rate FiO2 12/31/16 05:50 98.5 120 18 120/76 (91) 98 Assessment & Plan Problem List: (1) Schizophrenia, paranoid, chronic ICD Codes: F20.0 - Paranoid schizophrenia Status: Acute Assessment & Plan Estimated LOS: days patient continue psychotic, overall fairly good behavioral control, though he was of little irritable yesterday. Justification for Cont. Inpt. At the present time patient decompensated place to the lower level of care Discharge Planning Continue to await word from [facility] referral Eusebio Dickey MD Dec 31, 2016 15:09
[2016-12-31 18:01] VITALS: BP 122/77; PULSE 85; RESP 18; TEMP 98.4; O2SAT 99
[2016-12-31] MEDS: QUEtiapine FUMARATE 300 MG TAB PO SCH (20:13)
[2017-01-01] MEDS: QUEtiapine FUMARATE 200 MG TAB PO SCH ×2 (06:13→15:14)
[2017-01-01] MEDS: DIVALPROEX SODIUM SPRINKLES 125 MG CAP PO SCH ×2 (08:33→21:05)
[2017-01-01] MEDS: LACTULOSE SYRUP 20 GM/30 ML CUP PO SCH ×3 (08:33→17:02)
[2017-01-01] MEDS: PANTOPRAZOLE SOD 40 MG DELAYED RELEASE TAB PO SCH (08:33)
--- NOTE | 2017-01-01 13:42 | HHI.PYPN ---
Subjective Remarks Pt seen and discussed with staff. He has been isolative to room for most of the day, but has been coming out for meals. He slept well last night. He still compulsively masturbates but has not been inappropriate toward others. He is compliant wiht medications. Mental Status Examination Appearance: Appropriate Consciousness: Other (napping) Orientation: Person, Place Motor Activity: Normal gait Speech: Hesitant Language: Other (disorganized) Fund of Knowledge: Poor Attention and Concentration: Other (poor) Memory: Impaired Mood: Irritable, Other (restricted) Affect: Other (decreased range and intensity) Thought Process & Associations: Disorganized Thought Content: Other (disorganized) Hallucination Type: None Delusion Type: Bizarre Suicidal Ideation: No Suicidal Plan: No Suicidal Intention: No Homicidal Ideation: No Homicidal Plan: No Homicidal Intention: No Insight: Poor Judgment: Poor Results Vitals/IOs Vital Signs Date Time Temp Pulse Resp B/P (MAP) Pulse Ox O2 Delivery O2 Flow Rate FiO2 12/31/16 18:01 98.4 85 18 122/77 (92) 99 Assessment & Plan Problem List: (1) Schizophrenia, paranoid, chronic ICD Codes: F20.0 - Paranoid schizophrenia Status: Acute Assessment & Plan Continue current tx plan. Estimated LOS: days Justification for Cont. Inpt. impairments in reality testing tSephanie Uriarte MD Jan 01, 2017 13:42
[2017-01-01 17:26] VITALS: BP 115/58; PULSE 84; RESP 18; TEMP 97.3; O2SAT 97
[2017-01-01] MEDS: LORazepam 1 MG TAB PO PRN (21:05)
[2017-01-01] MEDS: QUEtiapine FUMARATE 300 MG TAB PO SCH (21:05)
[2017-01-02 05:10] VITALS: BP 109/79; PULSE 101; RESP 18; TEMP 98.1; O2SAT 99
[2017-01-02] MEDS: QUEtiapine FUMARATE 200 MG TAB PO SCH ×2 (07:00→14:20)
[2017-01-02] MEDS: PANTOPRAZOLE SOD 40 MG DELAYED RELEASE TAB PO SCH (08:32)
[2017-01-02] MEDS: LACTULOSE SYRUP 20 GM/30 ML CUP PO SCH ×3 (08:32→17:11)
[2017-01-02] MEDS: DIVALPROEX SODIUM SPRINKLES 125 MG CAP PO SCH ×2 (08:32→20:17)
--- NOTE | 2017-01-02 13:43 | HHI.PYPN ---
Subjective Remarks Pt seen and discussed with staff. No behavioral problems. He has been hesitant to do hygiene care today. He isolates in room and interacts minimally. No behavioral problems. Mental Status Examination Appearance: Appropriate Consciousness: Other (napping) Orientation: Person, Place Motor Activity: Normal gait Speech: Hesitant Language: Other (disorganized) Fund of Knowledge: Poor Attention and Concentration: Other (poor) Memory: Impaired Mood: Irritable, Other (restricted) Affect: Other (decreased range and intensity) Thought Process & Associations: Disorganized Thought Content: Other (disorganized) Hallucination Type: None Delusion Type: Bizarre Suicidal Ideation: No Suicidal Plan: No Suicidal Intention: No Homicidal Ideation: No Homicidal Plan: No Homicidal Intention: No Insight: Poor Judgment: Poor Results Vitals/IOs Vital Signs Date Time Temp Pulse Resp B/P (MAP) Pulse Ox O2 Delivery O2 Flow Rate FiO2 01/02/17 05:10 98.1 101 18 109/79 (89) 99 Assessment & Plan Problem List: (1) Schizophrenia, paranoid, chronic ICD Codes: F20.0 - Paranoid schizophrenia Status: Acute Assessment & Plan continue current txplan Estimated LOS: days Justification for Cont. Inpt. impairments in reality testing Stephanie Uriarte MD Jan 02, 2017 13:43
[2017-01-02 17:02] VITALS: BP 116/79; PULSE 99; RESP 17; TEMP 97.4; O2SAT 96
[2017-01-02] MEDS: QUEtiapine FUMARATE 300 MG TAB PO SCH (20:17)
[2017-01-02] MEDS: LORazepam 1 MG TAB PO PRN (20:18)
[2017-01-03 05:55] VITALS: BP 106/67; PULSE 69; RESP 17; TEMP 98; O2SAT 97
[2017-01-03] MEDS: QUEtiapine FUMARATE 200 MG TAB PO SCH ×2 (08:04→15:01)
[2017-01-03] MEDS: LACTULOSE SYRUP 20 GM/30 ML CUP PO SCH ×3 (08:40→17:30)
[2017-01-03] MEDS: DIVALPROEX SODIUM SPRINKLES 125 MG CAP PO SCH ×2 (08:40→20:11)
[2017-01-03] MEDS: PANTOPRAZOLE SOD 40 MG DELAYED RELEASE TAB PO SCH (08:40)
--- NOTE | 2017-01-03 11:11 | PD.TTN ---
Patient Problems 1. Discharge planning 2. Medication compliance 3. Knowledge deficit 4. Lack of coping skills Progress Toward Goals Provider Present: Dr. Leeanna Dickey Provider Input: There will be no medication changes to regiment at this time but it will continue to be evaluated. Pt has been referred for [facility] and does appear somewhat sedated on unit. Nurse(s) Present: Tita López RN Nurse(s) Input: Pt has not presented with any agitation, is showing improvement, is more active on the unit with decreased seclusion and improved consistency in completion of ADLs. Psychiatric Counselors Present: SUZE Knutson Psych Therapist Input: Pt continues to present with auditory hallucinations and appears preoccupied. He is observed to be pacing the unit talking to himself and gesturing at times. No noted agitation or aggression. Insight into condition and need for care remains limited. Pt appears to be implementing some level of coping and emotional regulation skills as evidenced by lack of outburts and mood lability. Pt remains poorly engaged in treatment as he will respond only minimally to interaction with therapist. Group Spec/RT/OT/LOPEZ Present: JOHN Pardo Group Spec/RT/OT/LOPEZ Input: Pt does not attend any groups. Discharge Plan Other Pt has been referred to [facility] and will remain on unit for further stabilization on medication regiment until transfer. Documentation Scribe: SUZE Knutson Jonathan LMHC Jan 03, 2017 11:11
--- NOTE | 2017-01-03 17:06 | HHI.PYPN ---
Subjective Remarks Patient seen in his room epical student elababita, . He is calm compliant medications has been no behavioral problem. For now continue treatment Review of Systems Except as stated in HPI: all other systems reviewed are Neg Mental Status Examination Appearance: Appropriate Consciousness: Other (napping) Orientation: Person, Place Motor Activity: Normal gait Speech: Hesitant Language: Other (disorganized) Fund of Knowledge: Poor Attention and Concentration: Other (poor) Memory: Impaired Mood: Irritable, Other (restricted) Affect: Other (decreased range and intensity) Thought Process & Associations: Disorganized Thought Content: Other (disorganized) Hallucination Type: None Delusion Type: Bizarre Suicidal Ideation: No Suicidal Plan: No Suicidal Intention: No Homicidal Ideation: No Homicidal Plan: No Homicidal Intention: No Insight: Poor Judgment: Poor Results Vitals/IOs Vital Signs Date Time Temp Pulse Resp B/P (MAP) Pulse Ox O2 Delivery O2 Flow Rate FiO2 01/03/17 05:55 98.0 69 17 106/67 (80) 97 Assessment & Plan Problem List: (1) Schizophrenia, paranoid, chronic ICD Codes: F20.0 - Paranoid schizophrenia Status: Acute Assessment & Plan Estimated LOS: days patient remained psychotic vigilant and isolating continue to await word from [facility] Justification for Cont. Inpt. At this time patient will decompensate if placed in a lower level of care Discharge Planning Await word from [facility] Eusebio Dickey MD Jan 03, 2017 17:06
[2017-01-03 17:11] VITALS: BP 112/59; PULSE 70; RESP 18; TEMP 98.2; O2SAT 99
[2017-01-03] MEDS: QUEtiapine FUMARATE 300 MG TAB PO SCH (20:11)
[2017-01-03] MEDS: ACETAMINOPHEN 325 MG TAB PO PRN (20:13)
[2017-01-04 05:46] VITALS: BP 131/81; PULSE 78; RESP 16; TEMP 97.9; O2SAT 100
[2017-01-04] MEDS: QUEtiapine FUMARATE 200 MG TAB PO SCH ×3 (06:45→21:00)
[2017-01-04] MEDS: PANTOPRAZOLE SOD 40 MG DELAYED RELEASE TAB PO SCH (09:16)
[2017-01-04] MEDS: DIVALPROEX SODIUM SPRINKLES 125 MG CAP PO SCH ×2 (09:16→21:00)
[2017-01-04] MEDS: LACTULOSE SYRUP 20 GM/30 ML CUP PO SCH ×3 (09:16→18:00)
--- NOTE | 2017-01-04 12:44 | HHI.PYPN ---
Subjective Remarks Patient seen in [place] today with nurse Pastora and medical students olvin and jose manuel, patient has been up in [place] in day room for reappeared of time. He is able to focus with me though his responses are delayed soft than half in Icelandic. Though does acknowledge continued persistent auditory hallucinations with perhaps of visual overlay. Staff also is concerned about the sedation is seems to show in the morning. I will adjust his Seroquel by shifting the dose poor towards evening. He'll be taking 100 mg in the morning 200 mg at 3 PM and 400 mg at at bedtime Review of Systems Except as stated in HPI: all other systems reviewed are Neg Mental Status Examination Appearance: Appropriate Consciousness: Other (napping) Orientation: Person, Place Motor Activity: Normal gait Speech: Hesitant Language: Other (disorganized) Fund of Knowledge: Poor Attention and Concentration: Other (poor) Memory: Impaired Mood: Irritable, Other (restricted) Affect: Other (decreased range and intensity) Thought Process & Associations: Disorganized Thought Content: Other (disorganized) Hallucination Type: None Delusion Type: Bizarre Suicidal Ideation: No Suicidal Plan: No Suicidal Intention: No Homicidal Ideation: No Homicidal Plan: No Homicidal Intention: No Insight: Poor Judgment: Poor Results Vitals/IOs Vital Signs Date Time Temp Pulse Resp B/P (MAP) Pulse Ox O2 Delivery O2 Flow Rate FiO2 01/04/17 05:46 97.9 78 16 131/81 (98) 100 Assessment & Plan Problem List: (1) Schizophrenia, paranoid, chronic ICD Codes: F20.0 - Paranoid schizophrenia Status: Acute Assessment & Plan Estimated LOS: days patient continue psychotic with auditory and perhaps vague visual hallucinations. Is somewhat sedated in the morning will shift dosage of Seroquel as mentioned above. Though he has had no behavioral problems recently Justification for Cont. Inpt. At this time patient decompensate if placed in a lower level of care Discharge Planning We continue to await state placement referral Eusebio Dickey MD Jan 04, 2017 12:44
[2017-01-04 18:14] VITALS: BP 118/63; PULSE 96; RESP 18; TEMP 97; O2SAT 99
[2017-01-05 05:28] VITALS: BP 90/55; PULSE 84; RESP 18; TEMP 98; O2SAT 97
[2017-01-05] MEDS: QUEtiapine FUMARATE 100 MG TAB PO SCH (10:07)
[2017-01-05] MEDS: DIVALPROEX SODIUM SPRINKLES 125 MG CAP PO SCH ×2 (10:07→20:16)
[2017-01-05] MEDS: PANTOPRAZOLE SOD 40 MG DELAYED RELEASE TAB PO SCH (10:07)
[2017-01-05] MEDS: LACTULOSE SYRUP 20 GM/30 ML CUP PO SCH ×3 (10:08→17:14)
--- NOTE | 2017-01-05 14:35 | HHI.PYPN ---
Subjective Remarks Patient seen in his room with nurse Reanna, chart review. Patient compliant medication. Patient seems somewhat more alert today continues focusing on speaking Kittitian, as it plays a brief and at times confusing. The acknowledges persistent auditory hallucinations. Is shown no behavioral problems. For now continue treatment continued related word from the [facility] Review of Systems Except as stated in HPI: all other systems reviewed are Neg Mental Status Examination Appearance: Appropriate Consciousness: Other (napping) Orientation: Person, Place Motor Activity: Normal gait Speech: Hesitant Language: Other (disorganized) Fund of Knowledge: Poor Attention and Concentration: Other (poor) Memory: Impaired Mood: Irritable, Other (restricted) Affect: Other (decreased range and intensity) Thought Process & Associations: Disorganized Thought Content: Other (disorganized) Hallucination Type: None Delusion Type: Bizarre Suicidal Ideation: No Suicidal Plan: No Suicidal Intention: No Homicidal Ideation: No Homicidal Plan: No Homicidal Intention: No Insight: Poor Judgment: Poor Results Vitals/IOs Vital Signs Date Time Temp Pulse Resp B/P (MAP) Pulse Ox O2 Delivery O2 Flow Rate FiO2 01/05/17 05:28 98.0 84 18 90/55 (67) 97 Assessment & Plan Problem List: (1) Schizophrenia, paranoid, chronic ICD Codes: F20.0 - Paranoid schizophrenia Status: Acute Assessment & Plan Estimated LOS: days patient continue psychotic delusional though no significant behavioral problems, compliant medications. Continue to await word from [facility] Justification for Cont. Inpt. At this time patient will decompensate the placed a lower level of care Discharge Planning Continue to await word from [facility] Eusebio Dickey MD Jan 05, 2017 14:35
[2017-01-05] MEDS: QUEtiapine FUMARATE 200 MG TAB PO SCH ×2 (15:41→20:16)
[2017-01-05 21:17] VITALS: BP 99/55; PULSE 87; RESP 18; TEMP 97.6; O2SAT 98
[2017-01-06 05:48] VITALS: BP 135/87; PULSE 95; RESP 18; TEMP 98; O2SAT 95
[2017-01-06] MEDS: PANTOPRAZOLE SOD 40 MG DELAYED RELEASE TAB PO SCH (08:17)
[2017-01-06] MEDS: QUEtiapine FUMARATE 100 MG TAB PO SCH (08:17)
[2017-01-06] MEDS: DIVALPROEX SODIUM SPRINKLES 125 MG CAP PO SCH ×2 (08:17→20:47)
[2017-01-06] MEDS: LACTULOSE SYRUP 20 GM/30 ML CUP PO SCH ×3 (08:17→17:36)
--- NOTE | 2017-01-06 11:15 | HHI.PYPN ---
Subjective Remarks Patient seen in day room with nurse Reanna, chart reviewed, patient compliant medications. Patient sitting in chair looking at magazines, is calm pleasant. He is still guarded and very poor verbal responses. Though he does state the auditory hallucinations continue at bedtime. There is difficulty with his sleep noted last night also. We will do the following medication adjustments will discontinue the a.m. dose of Seroquel, change the afternoon dose of Seroquel to 200 mg at noon, increase the at bedtime dose of Seroquel to 500 mg Review of Systems Except as stated in HPI: all other systems reviewed are Neg Mental Status Examination Appearance: Appropriate Consciousness: Other (napping) Orientation: Person, Place Motor Activity: Normal gait Speech: Hesitant Language: Other (disorganized) Fund of Knowledge: Poor Attention and Concentration: Other (poor) Memory: Impaired Mood: Irritable, Other (restricted) Affect: Other (decreased range and intensity) Thought Process & Associations: Disorganized Thought Content: Other (disorganized) Hallucination Type: None Delusion Type: Bizarre Suicidal Ideation: No Suicidal Plan: No Suicidal Intention: No Homicidal Ideation: No Homicidal Plan: No Homicidal Intention: No Insight: Poor Judgment: Poor Results Vitals/IOs Vital Signs Date Time Temp Pulse Resp B/P (MAP) Pulse Ox O2 Delivery O2 Flow Rate FiO2 01/06/17 05:48 98.0 95 18 135/87 (103) 95 Assessment & Plan Problem List: (1) Schizophrenia, paranoid, chronic ICD Codes: F20.0 - Paranoid schizophrenia Status: Acute Assessment & Plan Estimated LOS: days patient continues psychotic delusional, though behaviors and has had no significant behavioral problems in the few days. She medication adjustments above Justification for Cont. Inpt. At this time patient will decompensate and placed in the lower level of care Discharge Planning Continue to await word from [facility] referral Eusebio Dickey MD Jan 06, 2017 11:15
[2017-01-06] MEDS ORDERED: PILL SPLITTER OTHER PRN (11:30)
[2017-01-06] MEDS: QUEtiapine FUMARATE 200 MG TAB PO SCH ×2 (13:03→20:47)
[2017-01-07 05:46] VITALS: BP 108/51; PULSE 77; RESP 18; TEMP 98; O2SAT 98
[2017-01-07] MEDS: PANTOPRAZOLE SOD 40 MG DELAYED RELEASE TAB PO SCH (09:02)
[2017-01-07] MEDS: DIVALPROEX SODIUM SPRINKLES 125 MG CAP PO SCH ×2 (09:02→20:30)
[2017-01-07] MEDS: LACTULOSE SYRUP 20 GM/30 ML CUP PO SCH ×3 (09:03→17:30)
[2017-01-07] MEDS: QUEtiapine FUMARATE 200 MG TAB PO SCH ×2 (11:46→20:31)
--- NOTE | 2017-01-07 15:13 | HHI.PYPN ---
Subjective Remarks Patient seen in his room with nurse gently, chart reviewed patient compliant medication. Patient continues to have sleep issues last night related ETO of Ativan to help promote good sleep. Today he is laying calmly in his bed covers to his chin states voices may be somewhat less. For now continue treatment Review of Systems Except as stated in HPI: all other systems reviewed are Neg Mental Status Examination Appearance: Appropriate Consciousness: Other (napping) Orientation: Person, Place Motor Activity: Normal gait Speech: Hesitant Language: Other (disorganized) Fund of Knowledge: Poor Attention and Concentration: Other (poor) Memory: Impaired Mood: Irritable, Other (restricted) Affect: Other (decreased range and intensity) Thought Process & Associations: Disorganized Thought Content: Other (disorganized) Hallucination Type: None Delusion Type: Bizarre Suicidal Ideation: No Suicidal Plan: No Suicidal Intention: No Homicidal Ideation: No Homicidal Plan: No Homicidal Intention: No Insight: Poor Judgment: Poor Results Vitals/IOs Vital Signs Date Time Temp Pulse Resp B/P (MAP) Pulse Ox O2 Delivery O2 Flow Rate FiO2 01/07/17 05:46 98.0 77 18 108/51 (70) 98 Assessment & Plan Problem List: (1) Schizophrenia, paranoid, chronic ICD Codes: F20.0 - Paranoid schizophrenia Status: Acute Assessment & Plan Estimated LOS: days patient continue psychotic, compliant medications, still some sleep issues. Justification for Cont. Inpt. At this time patient decompensate then placed a lower level of care Discharge Planning Continue to await word from [facility] placement Eusebio Dickey MD Jan 07, 2017 15:13
[2017-01-07 17:00] VITALS: BP 120/55; PULSE 88; RESP 18; TEMP 98; O2SAT 99
[2017-01-07] MEDS: HALOPERIDOL LACTATE 5 MG/ML AMP IM PRN (22:11)
[2017-01-07] MEDS: diphenhydrAMINE HCL 50 MG/ML VIAL IM PRN (22:12)
[2017-01-08] MEDS: DIVALPROEX SODIUM SPRINKLES 125 MG CAP PO SCH ×3 (08:47→21:23)
[2017-01-08] MEDS: PANTOPRAZOLE SOD 40 MG DELAYED RELEASE TAB PO SCH (08:47)
[2017-01-08] MEDS: LACTULOSE SYRUP 20 GM/30 ML CUP PO SCH ×3 (08:47→17:48)
[2017-01-08] MEDS: QUEtiapine FUMARATE 200 MG TAB PO SCH ×3 (11:50→21:24)
--- NOTE | 2017-01-08 17:05 | HHI.PYPN ---
Subjective Remarks Patient was seen and case discussed with nursing. Patient is oppositional and nonverbal during the interview. He remains internally stimulated, looking at magazines. Per nursing had to receive an ETO overnight for banging on the windows Mental Status Examination Appearance: Appropriate Consciousness: Other (napping) Orientation: Person, Place Motor Activity: Normal gait Speech: Hesitant Language: Other (disorganized) Fund of Knowledge: Poor Attention and Concentration: Other (poor) Memory: Impaired Mood: Irritable, Other (restricted) Affect: Other (decreased range and intensity) Thought Process & Associations: Disorganized Thought Content: Other (disorganized) Hallucination Type: None Delusion Type: Bizarre Suicidal Ideation: No Suicidal Plan: No Suicidal Intention: No Homicidal Ideation: No Homicidal Plan: No Homicidal Intention: No Insight: Poor Judgment: Poor Results Vitals/IOs Vital Signs Date Time Temp Pulse Resp B/P (MAP) Pulse Ox O2 Delivery O2 Flow Rate FiO2 01/07/17 17:00 98.0 88 18 120/55 (76) 99 Assessment & Plan Problem List: (1) Schizophrenia, paranoid, chronic ICD Codes: F20.0 - Paranoid schizophrenia Status: Acute Assessment & Plan Continue current treatment plan Justification for Cont. Inpt. Patient will decompensate in a less restrictive setting William Edwards DO Jan 08, 2017 17:05
[2017-01-09 05:32] VITALS: BP 129/60; PULSE 77; RESP 18; TEMP 97.7; O2SAT 99
[2017-01-09] MEDS: DIVALPROEX SODIUM SPRINKLES 125 MG CAP PO SCH ×2 (08:12→21:19)
[2017-01-09] MEDS: LACTULOSE SYRUP 20 GM/30 ML CUP PO SCH ×3 (08:12→17:59)
[2017-01-09] MEDS: PANTOPRAZOLE SOD 40 MG DELAYED RELEASE TAB PO SCH (08:12)
[2017-01-09] MEDS: QUEtiapine FUMARATE 200 MG TAB PO SCH ×2 (11:44→21:18)
--- NOTE | 2017-01-09 14:05 | HHI.PYPN ---
Subjective Remarks Patient was seen and case discussed with nursing. Patient remains volitionally mute. Has not needed any ETO's per nursing. Per nursing, he has been off all night. Today, I spending the day in bed. He did take his morning medications but always seems to refuse them in the evening. Responding to internal stimuli Mental Status Examination Appearance: Appropriate Consciousness: Other (napping) Orientation: Person, Place Motor Activity: Normal gait Speech: Hesitant Language: Other (disorganized) Fund of Knowledge: Poor Attention and Concentration: Other (poor) Memory: Impaired Mood: Irritable, Other (restricted) Affect: Other (decreased range and intensity) Thought Process & Associations: Disorganized Thought Content: Other (disorganized) Hallucination Type: None Delusion Type: Bizarre Suicidal Ideation: No Suicidal Plan: No Suicidal Intention: No Homicidal Ideation: No Homicidal Plan: No Homicidal Intention: No Insight: Poor Judgment: Poor Results Vitals/IOs Vital Signs Date Time Temp Pulse Resp B/P (MAP) Pulse Ox O2 Delivery O2 Flow Rate FiO2 01/09/17 08:02 01/09/17 05:32 97.7 77 18 99 Assessment & Plan Problem List: (1) Schizophrenia, paranoid, chronic ICD Codes: F20.0 - Paranoid schizophrenia Status: Acute Assessment & Plan Continue current treatment plan Justification for Cont. Inpt. Patient would decompensate in a less restrictive setting William Edwards DO Jan 09, 2017 14:05
[2017-01-09 16:43] VITALS: BP 117/68; PULSE 113; RESP 17; TEMP 97.4; O2SAT 98
[2017-01-10 05:45] VITALS: BP 128/60; PULSE 71; RESP 18; TEMP 97.5; O2SAT 99
[2017-01-10] MEDS: LACTULOSE SYRUP 20 GM/30 ML CUP PO SCH ×3 (09:24→17:24)
[2017-01-10] MEDS: PANTOPRAZOLE SOD 40 MG DELAYED RELEASE TAB PO SCH (09:24)
[2017-01-10] MEDS: DIVALPROEX SODIUM SPRINKLES 125 MG CAP PO SCH ×2 (09:25→20:30)
[2017-01-10] MEDS: QUEtiapine FUMARATE 200 MG TAB PO SCH ×2 (12:00→20:30)
--- NOTE | 2017-01-10 14:19 | HHI.PYPN ---
Subjective Remarks Patient seen in his room with nurse Betty and medical student Marcelino, chart reviewed, patient compliant medications. Patient laying quietly in bed he is alert making poor eye contact responding by nodding or shaking his head. Review of Systems Except as stated in HPI: all other systems reviewed are Neg Mental Status Examination Appearance: Appropriate Consciousness: Other (napping) Orientation: Person, Place Motor Activity: Normal gait Speech: Hesitant Language: Other (disorganized) Fund of Knowledge: Poor Attention and Concentration: Other (poor) Memory: Impaired Mood: Irritable, Other (restricted) Affect: Other (decreased range and intensity) Thought Process & Associations: Disorganized Thought Content: Other (disorganized) Hallucination Type: None Delusion Type: Bizarre Suicidal Ideation: No Suicidal Plan: No Suicidal Intention: No Homicidal Ideation: No Homicidal Plan: No Homicidal Intention: No Insight: Poor Judgment: Poor Results Vitals/IOs Vital Signs Date Time Temp Pulse Resp B/P (MAP) Pulse Ox O2 Delivery O2 Flow Rate FiO2 01/10/17 05:45 97.5 71 18 128/60 (82) 99 Assessment & Plan Problem List: (1) Schizophrenia, paranoid, chronic ICD Codes: F20.0 - Paranoid schizophrenia Status: Acute Assessment & Plan Estimated LOS: days patient continues psychotic delusional though at this time no behavioral problem. Justification for Cont. Inpt. At this time patient will decompensate if placed on the lower level of care Discharge Planning Continued would word from [facility] referral Eusebio Dickey MD Jan 10, 2017 14:19
--- NOTE | 2017-01-10 14:28 | PD.TTN ---
Patient Problems 1. Discharge planning 2. Medication compliance 3. Knowledge deficit 4. Lack of coping skills Progress Toward Goals Provider Present: Dr. Leeanna Dickey Provider Input: There will be no medication changes to regiment at this time but it will continue to be evaluated. Pt has been referred for [facility] and does appear somewhat sedated on unit. 01/10 Medication regiment will continue to be evaluated to assist with further stabilization. Pt remains on the wait list for [facility] and will be discharged there once bed is available. Nurse(s) Present: Tita López RN Nurse(s) Input: Pt has not presented with any agitation, is showing improvement, is more active on the unit with decreased seclusion and improved consistency in completion of ADLs. 01/10- Pastora Arambula RN Pt presents with poor sleeping and eating patterns as he is only sleeping a few hours each night and has not been eating three meals a day. He continues to appear to be responding to internal stimuli but has been no behavioral problem on unit. He remains largely withdrawn to self. Psychiatric Counselors Present: SUZE Knutson Psych Therapist Input: Pt continues to present with auditory hallucinations and appears preoccupied. He is observed to be pacing the unit talking to himself and gesturing at times. No noted agitation or aggression. Insight into condition and need for care remains limited. Pt appears to be implementing some level of coping and emotional regulation skills as evidenced by lack of outburts and mood lability. Pt remains poorly engaged in treatment as he will respond only minimally to interaction with therapist. 01/10 Pt continues to appear withdrawn, childlike, appropriate, guarded and with less behavioral disturbance. He continues to respond to internal stimuli and reports that voices are still bothering him. Pt struggles to participate on unit and to engage in therapeutic interaction. Pt presents with limited coping and emotional regulation skills. He appears with limited insight into condition and need for care. He has had no violent or aggressive outbursts suggesting improvement. He requires prompting for ADLs and struggles to manage on his own. He will remain on [facility] wait list. Group Spec/RT/OT/LOPEZ Present: JOHN Pardo, JOHN Leon Group Spec/RT/OT/LOPEZ Input: Pt does not attend any groups. 01/10 Pt does not attend any groups. Discharge Plan Other Pt has been referred to [facility] and will remain on unit for further stabilization on medication regiment until transfer. Documentation Scribe: Kenneth Still Kenneth Damian Jan 10, 2017 14:28
[2017-01-10 17:35] VITALS: BP 103/55; PULSE 87; RESP 18; TEMP 97.1; O2SAT 99
[2017-01-10] MEDS: LORazepam 1 MG TAB PO PRN (20:30)
[2017-01-11 05:42] VITALS: BP 107/69; PULSE 71; RESP 17; TEMP 97.8; O2SAT 99
[2017-01-11] MEDS: PANTOPRAZOLE SOD 40 MG DELAYED RELEASE TAB PO SCH (08:49)
[2017-01-11] MEDS: DIVALPROEX SODIUM SPRINKLES 125 MG CAP PO SCH ×2 (08:49→20:51)
[2017-01-11] MEDS: LACTULOSE SYRUP 20 GM/30 ML CUP PO SCH ×3 (08:49→17:41)
[2017-01-11] MEDS: QUEtiapine FUMARATE 200 MG TAB PO SCH ×2 (12:05→20:51)
--- NOTE | 2017-01-11 13:15 | HHI.PYPN ---
Subjective Remarks Patient seen in day room with nurse Betty and medical student Marcelino, chart reviewed, patient compliant medication. Patient calm vigilant with fair eye contact, though is somewhat nervous vigilant attitude. His vague about voices. Vague about suicidality. His responses are quite brief mumbled and whispered. For now continue treatment continued would word from [facility] Review of Systems Except as stated in HPI: all other systems reviewed are Neg Mental Status Examination Appearance: Appropriate Consciousness: Other (napping) Orientation: Person, Place Motor Activity: Normal gait Speech: Hesitant Language: Other (disorganized) Fund of Knowledge: Poor Attention and Concentration: Other (poor) Memory: Impaired Mood: Irritable, Other (restricted) Affect: Other (decreased range and intensity) Thought Process & Associations: Disorganized Thought Content: Other (disorganized) Hallucination Type: None Delusion Type: Bizarre Suicidal Ideation: No Suicidal Plan: No Suicidal Intention: No Homicidal Ideation: No Homicidal Plan: No Homicidal Intention: No Insight: Poor Judgment: Poor Results Vitals/IOs Vital Signs Date Time Temp Pulse Resp B/P (MAP) Pulse Ox O2 Delivery O2 Flow Rate FiO2 01/11/17 05:42 97.8 71 17 107/69 (82) 99 Assessment & Plan Problem List: (1) Schizophrenia, paranoid, chronic ICD Codes: F20.0 - Paranoid schizophrenia Status: Acute Assessment & Plan Estimated LOS: days patient continue psychotic and delusional please had no significant behavioral outbursts. Compliant medication Justification for Cont. Inpt. This time patient will decompensate if placed in a lower level of care Discharge Planning Continue to await word from [facility] Eusebio Dickey MD Jan 11, 2017 13:15
[2017-01-11 16:41] VITALS: BP 104/66; PULSE 109; RESP 18; TEMP 97.9; O2SAT 99
[2017-01-11] MEDS: LORazepam 1 MG TAB PO PRN (20:51)
[2017-01-12 05:43] VITALS: BP 110/70; PULSE 70; RESP 18; TEMP 97.2; O2SAT 99
[2017-01-12] MEDS: PANTOPRAZOLE SOD 40 MG DELAYED RELEASE TAB PO SCH (09:06)
[2017-01-12] MEDS: LORazepam 1 MG TAB PO PRN (09:06)
[2017-01-12] MEDS: LACTULOSE SYRUP 20 GM/30 ML CUP PO SCH ×2 (09:06→12:20)
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
[2017-01-12] MEDS: DIVALPROEX SODIUM SPRINKLES 125 MG CAP PO SCH (09:07)
[2017-01-12] MEDS: QUEtiapine FUMARATE 200 MG TAB PO SCH (11:05)
== END 2017-01-12 12:45 | DRG 885 ==
LOC: NED 14:51 → NEDA 11-10 17:34 → H270 11-10 18:23
PROVIDERS: ADMIT Psychiatry & Neurology Psychiatry; ATTEND Psychiatry & Neurology Psychiatry
DX: F20.0 Paranoid schizophrenia (principal); Z91.14 Patient's other noncompliance with medication regimen; F31.9 Bipolar disorder, unspecified; R45.6 Violent behavior; R41.83 Borderline intellectual functioning; F94.0 Selective mutism; H60.90 Unspecified otitis externa, unspecified ear
CPT/HCPCS: 71010; 80048; 80053; 80061; 80164; 80307; 82140; 82306; 82607; 83036; 84443; 85025; 85027; 93005; J1200; J1630; J2060

== ENCOUNTER 2017-05-09 15:00 | Emergency (ER) | payer BC, OTHER ==
[~2017-05-09] VITALS: Ht 165.1 cm; Wt 72.0 kg
[2017-05-09 15:16] VITALS: BP 122/75; PULSE 110; RESP 18; TEMP 99.3; O2SAT 98
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
[2017-05-09] MEDS ORDERED: RISP4TAB2 PO (16:44)
[2017-05-09] MEDS ORDERED: DIVA250T PO (16:45)
[2017-05-09] MEDS ORDERED: DIVA500T PO (16:48)
[2017-05-09] MEDS ORDERED: DIPH25CA PO (16:49)
[2017-05-09] MEDS ORDERED: LACT10SO PO (16:50)
[2017-05-09 17:59] VITALS: BP 121/58; PULSE 94; RESP 18; O2SAT 96
[2017-05-09 18:50] LABS: AUTOMATED NEUTROPHIL # 7.5 TH/MM3 (1.8-7.7); BASOPHIL % 0.2 % (0.0-2.0); EOSINOPHIL % 0.1 % (0.0-4.0); HEMATOCRIT 39.8 % (39.0-51.0); HEMOGLOBIN 13.9 GM/DL (13.0-17.0); LYMPH % 23.1 % (9.0-44.0); LYMPHOCYTE # 2.5 TH/MM3 (1.0-4.8); MEAN CELL VOLUME 93.9 FL (80.0-100.0); MEAN CORPUSCULAR HEMOGLOBIN 32.9 PG (27.0-34.0); MEAN PLATELET VOLUME 11.2 FL (7.0-11.0); MONO % 8.2 % (0.0-8.0); MONOCYTE # 0.9 TH/MM3 (0-0.9); NEUT % 68.4 % (16.0-70.0); PLATELET COUNT 120 TH/MM3 (150-450); RED BLOOD COUNT 4.23 MIL/MM3 (4.50-5.90); WHITE BLOOD COUNT 10.9 TH/MM3 (4.0-11.0)
[2017-05-09 19:03] LABS: ALBUMIN 3.5 GM/DL (3.4-5.0); ALT (GPT) 21 U/L (12-78); AST (GOT) 25 U/L (15-37); BICARBONATE 28.3 MEQ/L (21.0-32.0); BLOOD UREA NITROGEN 15 MG/DL (7-18); CALCIUM 8.5 MG/DL (8.5-10.1); CHLORIDE 105 MEQ/L (98-107); CREATININE 1.33 MG/DL (0.60-1.30); GLOMERULAR FILTRATION RATE 64 ML/MIN (>89); GLUCOSE,RANDOM 82 MG/DL (74-106); SODIUM (NA) 141 MEQ/L (136-145)
[2017-05-09 19:13] LABS: ALKALINE PHOSPHATASE 61 U/L (45-117); TOTAL BILIRUBIN ADULT 0.3 MG/DL (0.2-1.0); TOTAL PROTEIN 6.6 GM/DL (6.4-8.2)
[2017-05-09] MEDS: DIVALPROEX SODIUM DELAYED RELEASE 250 MG TAB PO SCH (21:00)
[2017-05-09] MEDS: DIVALPROEX DR 500 MG TABEC PO SCH (21:00)
[2017-05-09] MEDS: risperiDONE 1 MG TAB PO SCH (21:00)
[2017-05-09] MEDS ORDERED: diphenhydrAMINE HCL 50 MG CAP PO SCH (21:00)
[2017-05-10 02:34] VITALS: BP 103/59; PULSE 60; RESP 17; O2SAT 98
[2017-05-10] MEDS ORDERED: DEPA500T3 PO (08:28)
[2017-05-10] MEDS ORDERED: RISP2TAB37 PO (08:30)
[2017-05-10] MEDS ORDERED: BENZTROPINE MESYLATE 1 MG TAB PO ONE (08:30)
[2017-05-10] MEDS ORDERED: BENZ0.5T PO (08:31)
--- NOTE | 2017-05-10 08:54 | PD ---
Physical Exam Date Seen by Provider: May 10, 2017 Time Seen by Provider: 08:53 Narrative 26-year-old male with history of autism and Parmar act was medically cleared for psychiatric evaluation. Patient has been seen and evaluated by psychiatric services and felt to be stable for discharge at this time. Patient's follow-up was per psychiatric note. Data Data Last Documented VS Vital Signs Date Time Temp Pulse Resp B/P (MAP) Pulse Ox O2 Delivery O2 Flow Rate FiO2 05/10/17 02:34 60 17 103/59 (74) 98 Room Air 05/09/17 15:16 99.3 Orders Orders Complete Blood Count With Diff (05/09/17 15:19) Comprehensive Metabolic Panel (05/09/17 15:19) Thyroid Stimulating Hormone (05/09/17 15:19) Valproic Acid (Depakene) (05/09/17 15:19) Psych Screen (05/09/17 15:19) Drug Screen, Random Urine (05/09/17 15:19) Diet Regular Basic (05/09/17 Dinner) Divalproex (Malorie Schwartz) (05/09/17 21:00) Divalproex (Malorie Schwartz) (05/09/17 21:00) Risperidone (Risperdal) (05/09/17 21:00) Diphenhydramine (Benadryl) (05/09/17 21:00) Diet Regular Basic (05/10/17 Breakfast) Divalproex Er (Depakote Er) (05/10/17 09:00) Risperidone (Risperdal) (05/10/17 09:00) Benztropine (Cogentin) (05/10/17 08:30) Labs Laboratory Tests Test 05/09/17 18:20 White Blood Count 10.9 TH/MM3 Red Blood Count 4.23 MIL/MM3 Hemoglobin 13.9 GM/DL Hematocrit 39.8 % Mean Corpuscular Volume 93.9 FL Mean Corpuscular Hemoglobin 32.9 PG Mean Corpuscular Hemoglobin Concent 35.0 % Red Cell Distribution Width 14.0 % Platelet Count 120 TH/MM3 Mean Platelet Volume 11.2 FL Neutrophils (%) (Auto) 68.4 % Lymphocytes (%) (Auto) 23.1 % Monocytes (%) (Auto) 8.2 % Eosinophils (%) (Auto) 0.1 % Basophils (%) (Auto) 0.2 % Neutrophils # (Auto) 7.5 TH/MM3 Lymphocytes # (Auto) 2.5 TH/MM3 Monocytes # (Auto) 0.9 TH/MM3 Eosinophils # (Auto) 0.0 TH/MM3 Basophils # (Auto) 0.0 TH/MM3 CBC Comment DIFF FINAL Differential Comment Blood Urea Nitrogen 15 MG/DL Creatinine 1.33 MG/DL Random Glucose 82 MG/DL Total Protein 6.6 GM/DL Albumin 3.5 GM/DL Calcium Level 8.5 MG/DL Alkaline Phosphatase 61 U/L Aspartate Amino Transf (AST/SGOT) 25 U/L Alanine Aminotransferase (ALT/SGPT) 21 U/L Total Bilirubin 0.3 MG/DL Sodium Level 141 MEQ/L Potassium Level 3.9 MEQ/L Chloride Level 105 MEQ/L Carbon Dioxide Level 28.3 MEQ/L Anion Gap 8 MEQ/L Estimat Glomerular Filtration Rate 64 ML/MIN Thyroid Stimulating Hormone 3rd Gen 1.030 uIU/ML Valproic Acid (Depakene) Level 68 MCG/ML MDM Medical Record Reviewed: Yes Supervised Visit with MARIANELA: Yes Narrative Course 26-year-old male with history of autism and Parmar act was medically cleared for psychiatric evaluation. Patient has been seen and evaluated by psychiatric services and felt to be stable for discharge at this time. Patient's follow-up was per psychiatric note. Patient Instructions: General Instructions Med/Other Pt SpecificInfo: Prescription(s) given Scripts Benztropine (Benztropine) 0.5 Mg Tab 1 MG PO BID for health, #60 TAB 0 Refills Prov: Gen Julian MD 05/10/17 Risperidone (Risperdal) 2 Mg Tab 2 MG PO Q12HR for health, #60 TAB 0 Refills Prov: Gen Julian MD 05/10/17 Divalproex ER (Depakote ER) 500 Mg Carl 500 MG PO DAILY for Control Seizures, #30 TAB 0 Refills Prov: Gen Julian MD 05/10/17 Disposition: DISCHARGE HOME Condition: Stable Oliverio Sosa May 10, 2017 08:54
[2017-05-10] MEDS: DIVALPROEX SODIUM DELAYED RELEASE 250 MG TAB PO SCH (09:00)
[2017-05-10] MEDS: risperiDONE 1 MG TAB PO SCH (09:00)
[2017-05-10] MEDS ORDERED: DIVALPROEX SODIUM E.R. 500 MG TAB PO ONE (09:00)
[2017-05-10] MEDS ORDERED: risperiDONE 1 MG TAB PO ONE (09:00)
[2017-05-10] MEDS: DIVALPROEX DR 500 MG TABEC PO SCH (09:00)
[2017-05-10 11:20] VITALS: BP 118/57; PULSE 82; RESP 18; O2SAT 100
--- NOTE | 2017-05-10 14:21 | PD.PSY.CON ---
Provisional Diagnosis Admission Date [place] I. Autism spectrum disorder [place] II. deferred [place] III. none History of Present Illness Service Psychiatry Consult Requested By ER Reason for Consult Ghulam acted Primary Care Physician Non-Staff HPI The patient is 26-year-old [place] man, domiciled in a shelter, single, unemployed, with psychiatric history of autism spectrum disorder, schizophrenia , aggressive behavior, poor impulse control, intellectual disability, multiple psychiatric hospitalizations, was no by this service, he was just discharged from [facility] a week ago, he has an outpatient psychiatric appointment in a [facility] act in May 27, 2016, he was discharged on Depakote 500 mg twice a day, Risperdal 2 mg twice a day, Cogentin 1 mg twice a day, his Depakote level now is 68, he has no previous suicidal attempts,medical medical history, who was Ghulam acted for suicidal threat. Patient apparently ran away from home this morning and voicing suicidal threat to the offices. Patient denies any headache. Patient denies any chest pain or shortness of breath. Patient denies abdominal pain. Patient denies any injury to the extremity. Patient is not voicing any complaint now. Patient has history of intellectual disability also. Patient was Parmar acted in the past for violent behavior. Patient speaks [place] and information obtained via my nurse who spoke [place]. Patient denies any illicit drugs alcohol abuse. Chart was reviewed. Case discussed with staff in the ER, collateral information from his case briefer Maggie, , was obtained. On psychiatric evaluation the patient is seen calm, just superficially cooperative, interview is perform in [place]. Patient says that he feels okay, he denies depression, he denies anxiety, he denies suicidal and homicidal ideation, he denies visual and auditory hallucinations. As usual, the patient is reticent, minimally verbal. As per nursing charge, on longitudinal observation the patient has been no problematic , no agitation or aggressive behavior reported. She has been compliant with medications. Past Family Social History Coded Allergies: No Known Allergies (Unverified Allergy, Unknown, 05/09/17) Uncoded Allergies: Conch (Allergy, Unknown, 05/09/17) Per [facility]. Shellfish (Allergy, Unknown, 05/09/17) Per MAR & Per [facility]. Active Scripts Benztropine (Benztropine) 0.5 Mg Tab, 1 MG PO BID for health, #60 TAB 0 Refills Prov:Gen Julian MD 05/10/17 Risperidone (Risperdal) 2 Mg Tab, 2 MG PO Q12HR for health, #60 TAB 0 Refills Prov:Gen Julian MD 05/10/17 Divalproex ER (Depakote ER) 500 Mg Carl, 500 MG PO DAILY for Control Seizures, #30 TAB 0 Refills Prov:Gen Julian MD 05/10/17 Reported Medications Lactulose Liq (Lactulose Liq) 10 Gm/15 Ml Soln, 30 ML PO DAILY, ML 0 Refills 05/09/17 Diphenhydramine (Diphenhydramine) 25 Mg Cap, 50 MG PO HS for Allergies, #1 CAP 0 Refills 05/09/[address] (Divalproex DR) 500 Mg Tabdr, 500 MG PO BID for Control Seizures, #60 TAB 0 Refills 05/09/[address] (Divalproex DR) 250 Mg Tabdr, 250 MG PO BID for Control Seizures, #60 TAB 0 Refills 05/09/17 Risperidone (Risperidone) 4 Mg Tab, 4 MG PO Q12HR, #60 TAB 0 Refills 05/09/17 Discontinued Scripts Pantoprazole (Pantoprazole) 40 Mg Tab, 40 MG PO DAILY for Health for 15 Days, TAB 1 Refill Prov:Van Barnhart MD 11/02/16 [Lactulose Liq] 30 ML SYRP No Conflict Check, 30 ML PO QID for Hyperammonemia for 15 Days, ML 1 Refill Prov:Van Barnhart MD 11/02/16 Olanzapine Odt (Zyprexa Zydis) 20 Mg Tab, 20 MG PO BID for Mental Health for 15 Days, TAB 1 Refill Prov:Van Barnhart MD 11/02/16 Valproic Acid (Valproic Acid) 250 Mg/5 Ml (5 Ml) Solution, 750 MG PO BID for Mental Health for 15 Days, ML 1 Refill Prov:Van Barnhart MD 11/02/16 Family Psych History No family psychiatric history Social History Patient was born in [place], he lives in a shelter, single, unemployed, Physical Exam Vital Signs Vital Signs Date Time Temp Pulse Resp B/P (MAP) Pulse Ox O2 Delivery O2 Flow Rate FiO2 05/10/17 12:17 05/10/17 11:20 82 18 100 05/10/17 02:34 Room Air 05/09/17 15:16 99.3 I/O 05/10/17 05/10/17 05/11/17 08:00 16:00 00:00 Intake Total 473 ml Balance 473 ml Lab Results Test 05/09/17 18:20 White Blood Count 10.9 TH/MM3 Red Blood Count 4.23 MIL/MM3 Hemoglobin 13.9 GM/DL Hematocrit 39.8 % Mean Corpuscular Volume 93.9 FL Mean Corpuscular Hemoglobin 32.9 PG Mean Corpuscular Hemoglobin Concent 35.0 % Red Cell Distribution Width 14.0 % Platelet Count 120 TH/MM3 Mean Platelet Volume 11.2 FL Neutrophils (%) (Auto) 68.4 % Lymphocytes (%) (Auto) 23.1 % Monocytes (%) (Auto) 8.2 % Eosinophils (%) (Auto) 0.1 % Basophils (%) (Auto) 0.2 % Neutrophils # (Auto) 7.5 TH/MM3 Lymphocytes # (Auto) 2.5 TH/MM3 Monocytes # (Auto) 0.9 TH/MM3 Eosinophils # (Auto) 0.0 TH/MM3 Basophils # (Auto) 0.0 TH/MM3 CBC Comment DIFF FINAL Differential Comment Blood Urea Nitrogen 15 MG/DL Creatinine 1.33 MG/DL Random Glucose 82 MG/DL Total Protein 6.6 GM/DL Albumin 3.5 GM/DL Calcium Level 8.5 MG/DL Alkaline Phosphatase 61 U/L Aspartate Amino Transf (AST/SGOT) 25 U/L Alanine Aminotransferase (ALT/SGPT) 21 U/L Total Bilirubin 0.3 MG/DL Sodium Level 141 MEQ/L Potassium Level 3.9 MEQ/L Chloride Level 105 MEQ/L Carbon Dioxide Level 28.3 MEQ/L Anion Gap 8 MEQ/L Estimat Glomerular Filtration Rate 64 ML/MIN Thyroid Stimulating Hormone 3rd Gen 1.030 uIU/ML Valproic Acid (Depakene) Level 68 MCG/ML Mental Status Examination Appearance: Appropriate Consciousness: Alert Orientation: Person, Place Speech: Hesitant Language: Adequate Fund of Knowledge: Inadequate Attention and Concentration: Adequate Memory: Unremarkable Mood: Appropriate Affect: Euthymic Thought Process & Associations: Logical Thought Content: Appropriate Hallucination Type: None Delusion Type: None Suicidal Ideation: No Suicidal Plan: No Suicidal Intention: No Homicidal Ideation: No Homicidal Plan: No Homicidal Intention: No Insight: Fair Judgment: Impulsive Assessment & Plan Problem List: (1) Autism spectrum disorder ICD Codes: F84.0 - Autistic disorder Assessment & Plan: On psychiatric evaluation the patient does not present any neuropsychiatric symptoms that requires an immediate psychiatric intervention or admission. The patient seems to be at baseline at this moment, he denies suicidal and homicidal ideation, he denies visual and auditory hallucinations. No agitation, no aggressive behavior, no behavioral dysregulation observed on longitudinal observation. Meet criteria for involuntary psychiatric admission at this moment. Prescription for Depakote 500 mg twice a day, Risperdal 2 mg twice a day, benztropine 1 mg twice a day will be provided for 1 month. [facility] act will be lifted. Assessment & Plan Estimated LOS: Gen De La Fuente MD May 10, 2017 14:21
== END 2017-05-10 12:29 | disposition home or self-care (01) ==
LOC: NEPD 15:00 → NEPJ 05-10 12:29
DX: R45.851 Suicidal ideations (principal); F20.9 Schizophrenia, unspecified; F31.9 Bipolar disorder, unspecified; Z72.0 Tobacco use; Z79.899 Other long term (current) drug therapy
CPT/HCPCS: 80053; 80164; 84443; 85025; 99284; Q0163